=== PATIENT | male | born 1960 | race Hispanic/Latino ===

== ENCOUNTER 2018-08-25 13:06 | Inpatient (IN) | payer MEDICAID ==
[2018-08-25] MEDS ORDERED: Piperacillin/Tazobact 3.375 gm 100 ML IVPB STA (14:39)
[2018-08-25 14:43] VITALS: BMI 30.5
[2018-08-25 15:27] LABS: BASO # 0.07 K/mm3 (0.0-2.0); BASO % 0.6 % (0.0-3.0); EOS # 0.5 (0.0-0.7); EOS % 3.7 % (1.5-5.0); GRAN # 7.2 (1.4-6.5); GRAN % 57.1 % (50.0-68.0); HEMOGLOBIN 16.3 g/dL (14.0-18.0); LYMPH % 31.9 % (22.0-35.0); MEAN CELL VOLUME 89.3 fl (80.0-105.0); MEAN CORPUSCULAR HEMOGLOBIN 31.1 pg (25.0-35.0); MEAN CORPUSCULAR HGB CONC 34.8 g/dl (31.0-37.0); MONO # 0.9 (0.1-0.6); MONO % 6.7 % (1.0-6.0); RBC 5.24 10^6/uL (3.5-6.1); WHITE BLOOD COUNT 12.6 10^3/ul (4.5-11.0)
[2018-08-25 15:39] LABS: ALB/GLOB RATIO 1.2 (1.1-1.8); ALBUMIN 4.2 g/dL (3.0-4.8); ALT/SGPT 17 U/L (7-56); AST/SGOT 23 U/L (17-59); BLOOD UREA NITROGEN 18 mg/dL (7-21); CALCIUM 9.5 mg/dL (8.4-10.5); GFR NON-AFRICAN AMERICAN > 60
--- NOTE | 2018-08-25 15:57 | RAD ---
Date of service: 08/25/2018 HISTORY: Admission. COMPARISON: 07/03/2016 FINDINGS: LUNGS: No active pulmonary disease. PLEURA: No significant pleural effusion identified, no pneumothorax apparent. CARDIOVASCULAR: No radiographic findings to suggest acute or significant cardiovascular disease. OSSEOUS STRUCTURES: No significant abnormalities. VISUALIZED UPPER ABDOMEN: Normal. OTHER FINDINGS: None. IMPRESSION: No active disease. No significant interval change compared to the prior examination(s).
--- NOTE | 2018-08-25 16:12 | ED PDOC ---
Arrival/HPI - General Chief Complaint: Abnormal Skin Integrity Time Seen by Provider: 08/25/18 14:38 Historian: Patient - History of Present Illness Narrative History of Present Illness (Text): 08/26/18 18:38 58yo male with pmhx of hypertension and Diabetes who was referred to ED by Dr. Diana for admission. Pt states he saw her today and after the wound care he was referred to ED for positive wound culture for admission. He denies fever, chills, nausea, vomiting, chest pain, SOB, any other complaint. Past Medical History - Provider Review Nursing Documentation Reviewed: Yes - Infectious Disease Hx of Infectious Diseases: None - Tetanus Immunization Tetanus Immunization: Unknown - Cardiac Hx Cardiac Disorders: Yes Hx NC: Yes Hx Hypertension: Yes - Pulmonary Hx Respiratory Disorders: No - Neurological Hx Neurological Disorder: No - HEENT Hx HEENT Disorder: Yes (Wears glasses.) - Renal Hx Renal Disorder: No - Endocrine/Metabolic Hx Diabetes Mellitus Type 2: Yes - Hematological/Oncological Hx Blood Disorders: No - Integumentary Hx Dermatological Disorder: Yes (Diabetic ulcers.) - Musculoskeletal/Rheumatological Hx Musculoskeletal Disorders: No Hx Falls: No - Gastrointestinal Hx Gastrointestinal Disorders: No - Genitourinary/Gynecological Hx Genitourinary Disorders: No - Psychiatric Hx Psychophysiologic Disorder: No Hx Substance Use: No - Surgical History Hx Cardiac Catheterization: Yes (2005 Cath with Cardiac Stent Placement.) Hx Coronary Stent: Yes (2005) - Anesthesia Hx Anesthesia: No Family/Social History - Physician Review Nursing Documentation Reviewed: Yes Family/Social History: Unknown Family HX Smoking Status: Former Smoker Hx Alcohol Use: No Hx Substance Use: No Allergies/Home Meds Allergies/Adverse Reactions: Allergies EGG Allergy (Severe, Verified 07/25/16 13:40) SWELLING States swelling of the face. Home Medications: Home Meds Medication Instructions Recorded Confirmed metFORMIN [glucOPHAGE] 1,000 mg PO BID 07/03/16 08/25/18 Cholecalciferol [Vitamin D 1000 IU] 2,000 mg PO DAILY 09/06/17 08/25/18 Gabapentin [Neurontin] 100 mg PO TID 09/06/17 08/25/18 Empagliflozin [Jardiance] 10 mg PO DAILY 08/25/18 08/25/18 Lisinopril [Zestril] 2.5 mg PO DAILY 08/25/18 08/25/18 RX: Simvastatin 5 mg PO HS 08/25/18 08/25/18 Review of Systems - Physician Review All systems were reviewed & negative as marked: Yes - Review of Systems Constitutional: Normal Eyes: Normal ENT: Normal Respiratory: Normal Cardiovascular: Normal Gastrointestinal: Normal Genitourinary Male: Normal Musculoskeletal: Other (Left foot osteomylitis) Skin: Normal Neurological: Normal Endocrine: Normal Hemo/Lymphatic: Normal Psychiatric: Normal Physical Exam Vital Signs Reviewed: Yes Vital Signs Temp Pulse Resp BP Pulse Ox 08/25/18 18:00 98.1 F 93 H 18 103/80 98 08/25/18 16:00 98.1 F 88 19 97 08/25/18 14:42 98.3 F 90 18 100/66 98 Temperature: Afebrile Blood Pressure: Normal Pulse: Regular Respiratory Rate: Normal Appearance: Positive for: Well-Appearing, Non-Toxic, Comfortable Pain Distress: None Mental Status: Positive for: Alert and Oriented X 3 - Systems Exam Head: Present: Atraumatic, Normocephalic Pupils: Present: PERRL Extroacular Muscles: Present: EOMI Conjunctiva: Present: Normal Mouth: Present: Moist Mucous Membranes Neck: Present: Normal Range of Motion Respiratory/Chest: Present: Clear to Auscultation, Good Air Exchange. No: Respiratory Distress, Accessory Muscle Use Cardiovascular: Present: Regular Rate and Rhythm, Normal S1, S2. No: Murmurs Abdomen: No: Tenderness, Distention, Peritoneal Signs Back: Present: Normal Inspection Upper Extremity: Present: Normal Inspection. No: Cyanosis, Edema Lower Extremity: Present: Normal Inspection, Other (Dressing noted on left foot). No: Edema Neurological: Present: GCS=15, CN II-XII Intact, Speech Normal Skin: Present: Warm, Dry, Normal Color. No: Rashes Psychiatric: Present: Alert, Oriented x 3, Normal Insight, Normal Concentration Medical Decision Making ED Course and Treatment: 08/26/18 18:34 PT referred to ED for admission for osteomylitis. He was afebrile and hemodynamically stable. He had mild leukocytosis. He already had a wound culture that was positive for klebsiella. He was started on Zosyn as per Dr. Diana request. Case was DW the hodpitalist and pt was admitted. - Lab Interpretations Microbiology Results: Microbiology Results 08/25/18 15:23 Blood-Venous Blood Culture - Preliminary NO GROWTH AFTER 24 HOURS 08/25/18 15:00 Blood-Venous Blood Culture - Preliminary NO GROWTH AFTER 24 HOURS Lab Results: 08/25/18 15:23 08/25/18 15:23 Lab Results 08/25/18 15:23: C-Reactive Protein 24.10 H, Triglycerides 115, Cholesterol 89 L, LDL Cholesterol Direct 47, HDL Cholesterol 25 L 08/25/18 15:23: Sodium 139, Potassium 4.3, Chloride 102, Carbon Dioxide 28, Anion Gap 14, BUN 18, Creatinine 0.9, Est GFR ( Amer) > 60, Est GFR (Non- Af Amer) > 60, Random Glucose 126 H, Calcium 9.5, Total Bilirubin 0.5, AST 23, ALT 17, Alkaline Phosphatase 56, Total Protein 7.6, Albumin 4.2, Globulin 3.4, Albumin/Globulin Ratio 1.2 08/25/18 15:23: WBC 12.6 H D, RBC 5.24, Hgb 16.3, Hct 46.8, MCV 89.3, MCH 31.1, MCHC 34.8, RDW 13.0, Plt Count 180, MPV 10.0, Gran % 57.1, Lymph % (Auto) 31.9, Chase % (Auto) 6.7 H, Eos % (Auto) 3.7, Baso % (Auto) 0.6, Gran # 7.20 H, Lymph # (Auto) 4.0 H, Chase # (Auto) 0.9 H, Eos # (Auto) 0.5, Baso # (Auto) 0.07 - RAD Interpretation Radiology Orders: 08/25/18 15:11 CHEST PORTABLE [RAD] Stat - Medication Orders Current Medication Orders: Atorvastatin Calcium (Lipitor) 10 mg PO DIN DAVID Last Admin: 08/26/18 16:57 Dose: 10 mg Dextrose (Dextrose 50% Inj) 0 ml IV STAT PRN; Protocol PRN Reason: Hypoglycemia Protocol Famotidine (Pepcid) 40 mg PO HS DAVID Last Admin: 08/25/18 21:38 Dose: 40 mg Gabapentin (Neurontin) 100 mg PO TID DAVID; Protocol Last Admin: 08/26/18 16:59 Dose: 100 mg Behavioural Document 08/26/18 16:59 CV (Rec: 08/26/18 16:59 CV [id number]) Maintenance Maintenance Dose Yes Dextrose (Dextrose 5% In Water 1000 Ml) 1,000 mls @ 0 mls/hr IV .Q0M PRN; Protocol PRN Reason: Hypoglycemia Protocol Insulin Human Regular (Humulin R Med) 0 units SC ACHS DAVID; Protocol Last Admin: 08/26/18 12:00 Dose: Not Given Non-Admin Reason: BP Parameters Not Met Lisinopril (Zestril) 2.5 mg PO DAILY DAVID Discontinued Medications Aspirin (Aspirin Chewable) 81 mg PO STAT STA Stop: 08/25/18 18:13 Last Admin: 08/25/18 20:02 Dose: 81 mg Gabapentin (Neurontin) 100 mg PO TID DAVID; Protocol Gabapentin (Neurontin) 100 mg PO ONCE ONE; Protocol Stop: 08/25/18 21:16 Last Admin: 08/25/18 21:37 Dose: 100 mg Piperacillin Sod/Tazobactam Sod (Zosyn 3.375 In Ns 100ml) 100 mls @ 200 mls/hr IVPB STAT STA; Protocol Stop: 08/25/18 15:08 Last Admin: 08/25/18 15:25 Dose: 200 mls/hr eMAR Start Stop Document 08/25/18 15:25 [email or web address] (Rec: 08/25/18 15:26 [email or web address] [id number]) Intravenous Solution Start Date 08/25/18 Start Time 15:26 Piperacillin Sod/Tazobactam Sod (Zosyn 3.375 In Ns 100ml) 100 mls @ 200 mls/hr IVPB Q6 DAVID; Protocol Stop: 08/26/18 00:29 Last Admin: 08/25/18 23:58 Dose: 200 mls/hr eMAR Start Stop Document 08/25/18 23:58 MJ (Rec: 08/25/18 23:59 [facility] [id number]) Intravenous Solution Start Date 08/25/18 Start Time 23:58 End Date 08/26/18 End time 00:28 Total Infusion Time 30 Lisinopril (Zestril) 5 mg PO STAT STA Stop: 08/25/18 18:13 Pneumococcal Polyvalent Vaccine (Pneumovax 23 Vaccine) 0.5 ml IM .ONCE ONE Stop: 08/25/18 22:05 Disposition/Present on Arrival - Present on Arrival Any Indicators Present on Arrival: No History of DVT/PE: No History of Uncontrolled Diabetes: No Urinary Catheter: No History of Decub. Ulcer: No History Surgical Site Infection Following: None - Disposition Have Diagnosis and Disposition been Completed?: Yes Diagnosis: Osteomyelitis Disposition: HOSPITALIZED Disposition Time: 15:40 Patient Plan: Admission Patient Problems: Current Active Problems Problem Status Onset Osteomyelitis Acute Condition: STABLE
--- NOTE | 2018-08-25 18:02 | CP.PCM.HP ---
<Tamy Blunt - Last Filed: 08/25/18 18:10> History of Present Illness - History of Present Illness History of Present Illness: PGY-1 Tamy Blunt H&P for Dr. Christian's service CC: Dr. Diana recommendation to go to ER Patient is a 58 y.o male with PMH of DM, [place] (2005 no stents), and right foot ulcer presents to ED for evaluation of right foot ulcer. Patient was at wound care today and his doctor, Dr. Diana, recommended he got to the ER to rule out osteomyelitis. Patient states he has this ongoing infection for 13 months that was being treated with oral amoxicillin. The ulcer would heal and then worsen according to patient during treatment. Patient describes it to be a sharp, stabbing sensation when he stands on it, nonradiating, 6/10 on pain scale. Patient states that he feels his foot was numb but attributes this to his chronic neuropathy. Patient denies fevers, chills, headaches, changes in vision, lightheadedness, dizziness, chest pain, sob, n/v, constipation or diarrhea, and dysuria. PMH- DM, [place] (2005), ulcer PSH- Knee surgery (1995) FH- Father (DM), Mother (lung cancer- ) Meds- Metforming 1000mg bid, Gabapentin 100mg tid, Asa 81mg daily, Lisinopril 2.5mg daily, Jardiance 10mg po daily, Simvastatin 5mg po daily Allergies- Eggs (does not remember) Social- 20 pack year history, Denies alcohol and drug use PMD- Dr. Oj Al [facility] [place]- Full code Present on Admission - Present on Admission Any Indicators Present on Admission: No Review of Systems - Review of Systems Review of Systems: 12 point ROS obtained and noted as in HPI Past Patient History - Infectious Disease Hx of Infectious Diseases: None - Tetanus Immunizations Tetanus Immunization: Unknown - Past Social History Smoking Status: Former Smoker - CARDIAC Hx Cardiac Disorders: Yes Hx Heart Attack: Yes Hx Hypertension: Yes - PULMONARY Hx Respiratory Disorders: No - NEUROLOGICAL Hx Neurological Disorder: No - HEENT Hx HEENT Problems: Yes (Wears glasses.) - RENAL Hx Chronic Kidney Disease: No - ENDOCRINE/METABOLIC Hx Diabetes Mellitus Type 2: Yes - HEMATOLOGICAL/ONCOLOGICAL Hx Blood Disorders: No - INTEGUMENTARY Hx Dermatological Problems: Yes (Diabetic ulcers.) - MUSCULOSKELETAL/RHEUMATOLOGICAL Hx Musculoskeletal Disorders: No Hx Falls: No - GASTROINTESTINAL Hx Gastrointestinal Disorders: No - GENITOURINARY/GYNECOLOGICAL Hx Genitourinary Disorders: No - PSYCHIATRIC Hx Psychophysiologic Disorder: No Hx Substance Use: No - SURGICAL HISTORY Hx Cardiac Catheterization: Yes (2005 Cath with Cardiac Stent Placement.) Hx Coronary Stent: Yes (2005) - ANESTHESIA Hx Anesthesia: No Meds Allergies/Adverse Reactions: Allergies Allergy/AdvReac Type Severity Reaction Status Date / Time EGG Allergy Severe SWELLING Verified 07/25/16 13:40 Physical Exam - Constitutional Appears: Non-toxic, No Acute Distress - Head Exam Head Exam: NORMAL INSPECTION, NORMOCEPHALIC - Eye Exam Eye Exam: EOMI, Normal appearance. absent: Nystagmus, Scleral icterus - ENT Exam ENT Exam: Mucous Membranes Moist - Respiratory Exam Respiratory Exam: Clear to Auscultation Bilateral, NORMAL BREATHING PATTERN. absent: Rales, Rhonchi, Wheezes - Cardiovascular Exam Cardiovascular Exam: REGULAR RHYTHM, +S1, +S2 - GI/Abdominal Exam GI & Abdominal Exam: Normal Bowel Sounds, Soft. absent: Tenderness - Extremities Exam Additional comments: Left foot wrapped in dressing no erythema, oozing, or pus noted indurated ulcer less than 1 inch in diameter - Neurological Exam Neurological exam: Alert, Oriented x3 - Psychiatric Exam Psychiatric exam: Normal Affect, Normal Mood - Skin Skin Exam: Intact, Normal Color Results - Vital Signs Recent Vital Signs: Last Vital Signs Temp 98.3 F 08/25/18 14:42 Pulse 90 08/25/18 14:42 Resp 18 08/25/18 14:42 BP 100/66 08/25/18 14:42 Pulse Ox 98 08/25/18 14:42 - Labs Result Diagrams: 08/25/18 15:23 08/25/18 15:23 Assessment & Plan - Assessment and Plan (Free Text) Assessment: Patient is a 58 yo male with PMH of DM, [place] (2005), ulcer presents to ED after being in wound care clinic with concerns of possible osteomyelitis from ulcer on left foot. Plan: Ulcer ID consulted - recs appreciated Podiatry consulted- recs appreciated Foot Xray pending CRP, ESR pending Zosyn 3.375g IV q6; may start Vanc will wait for recommendations WBC 12.6; Afebrile Repeat CBC in AM DM Home meds held ISS- med dose ACHS Hypogylemic protocol History of [place] Aspirin 81mg po daily Lisinopril 2.5mg po daily CAD Lipitor 10mg po daily Pending Lipid panel PPx GI ppx: Pepcid 40mg po DVT ppx: SCDs <GinoFanta polo A - Last Filed: 08/26/18 13:53> Results - Vital Signs Recent Vital Signs: Last Vital Signs Temp 98.5 F 08/26/18 06:00 Pulse 60 08/26/18 06:00 Resp 20 08/26/18 06:00 BP 139/75 08/26/18 06:00 Pulse Ox 98 08/26/18 06:00 - Labs Result Diagrams: 08/26/18 06:20 08/26/18 06:20 Labs: Laboratory Results - last 24 hr 08/25/18 08/25/18 08/25/18 15:23 15:23 15:23 WBC 12.6 H D RBC 5.24 Hgb 16.3 Hct 46.8 MCV 89.3 MCH 31.1 MCHC 34.8 RDW 13.0 Plt Count 180 MPV 10.0 Gran % 57.1 Lymph % (Auto) 31.9 [place] % (Auto) 6.7 H Eos % (Auto) 3.7 Baso % (Auto) 0.6 Gran # 7.20 H Lymph # (Auto) 4.0 H [place] # (Auto) 0.9 H Eos # (Auto) 0.5 Baso # (Auto) 0.07 ESR Sodium 139 Potassium 4.3 Chloride 102 Carbon Dioxide 28 Anion Gap 14 BUN 18 Creatinine 0.9 Est GFR ( Amer) > 60 Est GFR (Non-Af Amer) > 60 POC Glucose (mg/dL) Random Glucose 126 H Calcium 9.5 Phosphorus Magnesium Total Bilirubin 0.5 AST 23 ALT 17 Alkaline Phosphatase 56 C-Reactive Protein 24.10 H Total Protein 7.6 Albumin 4.2 Globulin 3.4 Albumin/Globulin Ratio 1.2 Triglycerides 115 Cholesterol 89 L LDL Cholesterol Direct 47 HDL Cholesterol 25 L 08/25/18 08/26/18 08/26/18 21:41 06:20 06:20 WBC 10.6 RBC 5.16 Hgb 15.5 Hct 46.2 MCV 89.5 MCH 30.0 MCHC 33.5 RDW 13.2 Plt Count 171 MPV 10.0 Gran % 54.1 Lymph % (Auto) 31.1 [place] % (Auto) 9.0 H Eos % (Auto) 4.9 Baso % (Auto) 0.9 Gran # 5.74 Lymph # (Auto) 3.3 [place] # (Auto) 1.0 H Eos # (Auto) 0.5 Baso # (Auto) 0.10 ESR 31 H Sodium 140 Potassium 4.3 Chloride 104 Carbon Dioxide 29 Anion Gap 11 BUN 15 Creatinine 1.0 Est GFR ( Amer) > 60 Est GFR (Non-Af Amer) > 60 POC Glucose (mg/dL) 219 H Random Glucose 122 H Calcium 9.0 Phosphorus 4.0 Magnesium 2.3 H Total Bilirubin 0.5 AST 23 ALT 15 Alkaline Phosphatase 51 C-Reactive Protein Total Protein 7.2 Albumin 3.8 Globulin 3.4 Albumin/Globulin Ratio 1.1 Triglycerides Cholesterol LDL Cholesterol Direct HDL Cholesterol 08/26/18 08/26/18 06:51 11:22 WBC RBC Hgb Hct MCV MCH MCHC RDW Plt Count MPV Gran % Lymph % (Auto) [place] % (Auto) Eos % (Auto) Baso % (Auto) Gran # Lymph # (Auto) [place] # (Auto) Eos # (Auto) Baso # (Auto) ESR Sodium Potassium Chloride Carbon Dioxide Anion Gap BUN Creatinine Est GFR ( Amer) Est GFR (Non-Af Amer) POC Glucose (mg/dL) 112 H 211 H Random Glucose Calcium Phosphorus Magnesium Total Bilirubin AST ALT Alkaline Phosphatase C-Reactive Protein Total Protein Albumin Globulin Albumin/Globulin Ratio Triglycerides Cholesterol LDL Cholesterol Direct HDL Cholesterol Attending/Attestation - Attestation I have personally seen and examined this patient.: Yes I have fully participated in the care of the patient.: Yes I have reviewed all pertinent clinical information: Yes Notes (Text): 08/25/18 58 year old male with past medical history of diabetes and [place] who presents with nonhealing foot ulcer. He was referred by podiatry to rule out osteomyelitis. Will obtain ESR/CRP and foot xray. Continue with iv antibiotics. ID and podiatry evaluation are requested. Fanta Christian MD Hospitalist.
[2018-08-25] MEDS ORDERED: Dextrose 50% SYRINGE Inj (50 ml) IV PRN (18:16)
--- NOTE | 2018-08-25 18:44 | RAD ---
Date of service: 08/25/2018 PROCEDURE: Left Foot Radiographs. HISTORY: Osteomyelitis COMPARISON: Left foot radiographs dated 06/19/2018 FINDINGS: BONES: No acute fracture or obvious periosteal reaction. Multiple hammertoe deformities. JOINTS: Slightly medial deviation of the 5th digit at the metatarsophalangeal joint. SOFT TISSUES: Normal. OTHER FINDINGS: Achilles enthesophyte. Small inferior plantar calcaneal spur. IMPRESSION: No evidence of osteomyelitis. No significant interval change.
[2018-08-25] MEDS: Piperacillin/Tazobact 3.375 gm 100 ML IVPB SCH ×2 (20:01→23:58)
[2018-08-25] MEDS ORDERED: Pneumococcal 23-Valent Vaccine IM ONE (22:04)
[2018-08-26 07:01] LABS: BASO # 0.1 K/mm3 (0.0-2.0); BASO % 0.9 % (0.0-3.0); EOS # 0.5 (0.0-0.7); EOS % 4.9 % (1.5-5.0); GRAN # 5.74 (1.4-6.5); GRAN % 54.1 % (50.0-68.0); HEMOGLOBIN 15.5 g/dL (14.0-18.0); LYMPH # 3.3 (1.2-3.4); LYMPH % 31.1 % (22.0-35.0); MEAN CELL VOLUME 89.5 fl (80.0-105.0); MEAN CORPUSCULAR HGB CONC 33.5 g/dl (31.0-37.0); RBC 5.16 10^6/uL (3.5-6.1); RED CELL DISTRIBUTION WIDTH 13.2 % (11.5-14.5); WHITE BLOOD COUNT 10.6 10^3/ul (4.5-11.0)
[2018-08-26 07:14] LABS: ALB/GLOB RATIO 1.1 (1.1-1.8); ALBUMIN 3.8 g/dL (3.0-4.8); ALT/SGPT 15 U/L (7-56); AST/SGOT 23 U/L (17-59); BLOOD UREA NITROGEN 15 mg/dL (7-21); GFR NON-AFRICAN AMERICAN > 60
[2018-08-26] MEDS: Insulin Reg-MEDIUM-Coverage SC SCH ×3 (08:31→16:58)
--- NOTE | 2018-08-26 08:59 | CP.PCM.CON ---
<Virginia Traore - Last Filed: 08/26/18 14:29> History of Present Illness - History of Present Illness History of Present Illness: PGY-[address] Burnett Reason for consult: osteomyelitis Patient is a 55 y/o male with PMHx of NIDD2, osteomyelitis of the left foot, h/o right foot MRSA sent from wound care clinic yesterday for non healing right plantar foot wound. Patient states he was diagnosed with right plantar foot osteomyelitis for 13 months, and completed multiple round of antibiotics, last time was as recent as last week. Each time the wound would heal, then reopen few months later. This time around the wound opened up and started draining purulent discharge almost 3 days [address] Patient saw Dr. Diana yesterday in the clinic and was sent to be admitted for iv abx. Patient otherwise denies fever or chills. No nausea, vomiting or diarrhea. no sob or cp. PMHx: NIDD2, osteomyelitis of the left foot, h/o right foot MRSA, neuropathy, CAD PSHx: right foot surgery, knee surgery 1995 FMHx: non contributory Social: former tobacco, no alcohol or illicit drug use. Allergy: egg Home meds: as per chart. Review of Systems - Constitutional Constitutional: absent: Chills, Fever, Headache, Malaise - EENT Eyes: absent: Blurred Vision Ears: absent: Dizziness Nose/Mouth/Throat: absent: Sore Throat - Cardiovascular Cardiovascular: Leg Ulcers. absent: Chest Pain, Edema, Leg Edema - Respiratory Respiratory: absent: Cough, Wheezing - Gastrointestinal Gastrointestinal: absent: Bloating, Diarrhea, Heartburn, Nausea, Vomiting - Genitourinary Genitourinary: absent: Dysuria, Urinary Frequency - Musculoskeletal Musculoskeletal: absent: Back Pain, Joint Swelling, Stiffness, Tingling - Integumentary Integumentary: Skin Ulcer, Sores, Wounds. absent: Swelling - Neurological Neurological: absent: Confusion, Disequilibrium, Dizziness, Weakness - Psychiatric Psychiatric: absent: Anxiety, Depression - Endocrine Endocrine: absent: Fatigue, Palpitations - Hematologic/Lymphatic Hematologic: absent: Easy Bleeding, Easy Bruising, Lymphadenopathy Past Patient History - Infectious Disease Hx of Infectious Diseases: None - Tetanus Immunizations Tetanus Immunization: Unknown - Past Social History Smoking Status: Former Smoker Alcohol: None Drugs: Denies Home Situation {Lives}: Alone - CARDIAC Hx Cardiac Disorders: Yes (mi) Hx Hypercholesterolemia: Yes Hx Hypertension: Yes Hx Peripheral Vascular Disease: Yes (left leg) - PULMONARY Hx Respiratory Disorders: No - NEUROLOGICAL Hx Neurological Disorder: No - HEENT Hx HEENT Problems: Yes (Wears glasses.) - RENAL Hx Chronic Kidney Disease: No - ENDOCRINE/METABOLIC Hx Endocrine Disorders: Yes Hx Diabetes Mellitus Type 2: Yes - HEMATOLOGICAL/ONCOLOGICAL Hx Blood Disorders: No - INTEGUMENTARY Hx Dermatological Problems: Yes (Diabetic ulcers.) Other/Comment: small hole 0.3cm to ball of left foot no drainage at present time above that is small dry closed wound 0.3cm, left great toe 0.5cm callous , multiple skin discolorations and scabs ble, multiple hyperbaric treatments, right foot wound healed - MUSCULOSKELETAL/RHEUMATOLOGICAL Hx Falls: No - GASTROINTESTINAL Hx Gastrointestinal Disorders: Yes (obese) - GENITOURINARY/GYNECOLOGICAL Hx Genitourinary Disorders: No - PSYCHIATRIC Hx Substance Use: No - SURGICAL HISTORY Hx Surgeries: Yes (SX TO RIGHT FOOT JUL 2016,CARD CATH WITH HEART STENT) Hx Cardiac Catheterization: Yes (2005 Cath with Cardiac Stent Placement.) Hx Coronary Stent: Yes (2005) Hx Orthopedic Surgery: Yes (KNEE SX,TORN ACL,MCL right knee) Other/Comment: cardiac cath with stent - ANESTHESIA Hx Anesthesia: No Meds Allergies/Adverse Reactions: Allergies Allergy/AdvReac Type Severity Reaction Status Date / Time EGG Allergy Severe SWELLING Verified 07/25/16 13:40 - Medications Medications: Current Medications Atorvastatin Calcium (Lipitor) 10 mg PO DIN COUNT INCLUDES THE [facility] Last Admin: 08/25/18 21:39 Dose: 10 mg Dextrose (Dextrose 50% Inj) 0 ml IV STAT PRN; Protocol PRN Reason: Hypoglycemia Protocol Famotidine (Pepcid) 40 mg PO HS DAVID Last Admin: 08/25/18 21:38 Dose: 40 mg Gabapentin (Neurontin) 100 mg PO TID DAVID; Protocol Dextrose (Dextrose 5% In Water 1000 Ml) 1,000 mls @ 0 mls/hr IV .Q0M PRN; Protocol PRN Reason: Hypoglycemia Protocol Insulin Human Regular (Humulin R Med) 0 units SC ACHS DAVID; Protocol Last Admin: 08/26/18 08:31 Dose: 1 unit Physical Exam - Constitutional Appears: No Acute Distress - Head Exam Head Exam: ATRAUMATIC, NORMAL INSPECTION, NORMOCEPHALIC - Eye Exam Eye Exam: Normal appearance - ENT Exam ENT Exam: Mucous Membranes Moist - Neck Exam Neck exam: Positive for: Normal Inspection - Respiratory Exam Respiratory Exam: Clear to Auscultation Bilateral, NORMAL BREATHING PATTERN. absent: Rales, Rhonchi, Wheezes, Respiratory Distress, Stridor - Cardiovascular Exam Cardiovascular Exam: REGULAR RHYTHM, RRR, +S1, +S2 - GI/Abdominal Exam GI & Abdominal Exam: Normal Bowel Sounds, Soft. absent: Distended, Firm, Guarding, Rebound, Rigid, Tenderness - Extremities Exam Additional comments: Unable to palpate dorsalis pedis pulses thomas - Back Exam Back exam: NORMAL INSPECTION - Neurological Exam Neurological exam: Alert, Oriented x3 Additional comments: + numbness of the thomas feet. Sensation intact in thomas legs. - Psychiatric Exam Psychiatric exam: Normal Affect, Normal Mood - Skin Additional comments: The thomas extremities appears pink and warm, no cyanosis noted. Thomas foot with decreased sensation left plantar of the 5th toe with <1cm open wound, no drainage, no cellulites, non foul smelling, tender to touch. Right 5th toe with old surgical scars. Results - Vital Signs Recent Vital Signs: Last Vital Signs Temp 98.5 F 08/26/18 06:00 Pulse 60 08/26/18 06:00 Resp 20 08/26/18 06:00 BP 139/75 08/26/18 06:00 Pulse Ox 98 08/26/18 06:00 - Labs Result Diagrams: 08/26/18 06:20 08/26/18 06:20 Labs: Laboratory Results - last 24 hr 08/25/18 08/25/18 08/25/18 15:23 15:23 15:23 WBC 12.6 H D RBC 5.24 Hgb 16.3 Hct 46.8 MCV 89.3 MCH 31.1 MCHC 34.8 RDW 13.0 Plt Count 180 MPV 10.0 Gran % 57.1 Lymph % (Auto) 31.9 [place] % (Auto) 6.7 H Eos % (Auto) 3.7 Baso % (Auto) 0.6 Gran # 7.20 H Lymph # (Auto) 4.0 H [place] # (Auto) 0.9 H Eos # (Auto) 0.5 Baso # (Auto) 0.07 Sodium 139 Potassium 4.3 Chloride 102 Carbon Dioxide 28 Anion Gap 14 BUN 18 Creatinine 0.9 Est GFR ( Amer) > 60 Est GFR (Non-Af Amer) > 60 POC Glucose (mg/dL) Random Glucose 126 H Calcium 9.5 Phosphorus Magnesium Total Bilirubin 0.5 AST 23 ALT 17 Alkaline Phosphatase 56 Total Protein 7.6 Albumin 4.2 Globulin 3.4 Albumin/Globulin Ratio 1.2 Triglycerides 115 Cholesterol 89 L LDL Cholesterol Direct 47 HDL Cholesterol 25 L 08/25/18 08/26/18 08/26/18 21:41 06:20 06:20 WBC 10.6 RBC 5.16 Hgb 15.5 Hct 46.2 MCV 89.5 MCH 30.0 MCHC 33.5 RDW 13.2 Plt Count 171 MPV 10.0 Gran % 54.1 Lymph % (Auto) 31.1 [place] % (Auto) 9.0 H Eos % (Auto) 4.9 Baso % (Auto) 0.9 Gran # 5.74 Lymph # (Auto) 3.3 [place] # (Auto) 1.0 H Eos # (Auto) 0.5 Baso # (Auto) 0.10 Sodium 140 Potassium 4.3 Chloride 104 Carbon Dioxide 29 Anion Gap 11 BUN 15 Creatinine 1.0 Est GFR ( Amer) > 60 Est GFR (Non-Af Amer) > 60 POC Glucose (mg/dL) 219 H Random Glucose 122 H Calcium 9.0 Phosphorus 4.0 Magnesium 2.3 H Total Bilirubin 0.5 AST 23 ALT 15 Alkaline Phosphatase 51 Total Protein 7.2 Albumin 3.8 Globulin 3.4 Albumin/Globulin Ratio 1.1 Triglycerides Cholesterol LDL Cholesterol Direct HDL Cholesterol 08/26/18 06:51 WBC RBC Hgb Hct MCV MCH MCHC RDW Plt Count MPV Gran % Lymph % (Auto) [place] % (Auto) Eos % (Auto) Baso % (Auto) Gran # Lymph # (Auto) [place] # (Auto) Eos # (Auto) Baso # (Auto) Sodium Potassium Chloride Carbon Dioxide Anion Gap BUN Creatinine Est GFR ( Amer) Est GFR (Non-Af Amer) POC Glucose (mg/dL) 112 H Random Glucose Calcium Phosphorus Magnesium Total Bilirubin AST ALT Alkaline Phosphatase Total Protein Albumin Globulin Albumin/Globulin Ratio Triglycerides Cholesterol LDL Cholesterol Direct HDL Cholesterol Assessment & Plan - Assessment and Plan (Free Text) Assessment: Patient is a 58 y/o with: Open left plantar 5th toes ulcer r/o osteomyelitis NIDD2, h/o osteomyelitis of the left foot, h/o right foot MRSA, neuropathy CAD Plan: Patient received a dose of zosyn in the ED. WBC of 12.6 on admission, leukocytosis has trended down, afebrile, and patient doesnt appear toxic. Lower extremity plain film with bone spur, with no evidence of osteo. MRI ordered to evaluate for osteo, and arterial u/s ordered to evaluate the vasculature. Blood cultures were sent. Podiatry consulted. ESR was sent, Will hold of antibiotics for now, Discuss with pneumatic tester depending on the MRI finding to develop treatment plan. Continue with glycemic control, medical management as per primary. Patient seen, examined and case discussed with Dr. Burnett. - Date & Time Date: 08/26/18 Time: 12:30 <Marcos Burnett S - Last Filed: 08/26/18 20:08> Meds - Medications Medications: Current Medications Atorvastatin Calcium (Lipitor) 10 mg PO DIN COUNT INCLUDES THE [facility] Last Admin: 08/26/18 16:57 Dose: 10 mg Dextrose (Dextrose 50% Inj) 0 ml IV STAT PRN; Protocol PRN Reason: Hypoglycemia Protocol Famotidine (Pepcid) 40 mg PO HS DAVID Last Admin: 08/25/18 21:38 Dose: 40 mg Gabapentin (Neurontin) 100 mg PO TID DAVID; Protocol Last Admin: 08/26/18 16:59 Dose: 100 mg Dextrose (Dextrose 5% In Water 1000 Ml) 1,000 mls @ 0 mls/hr IV .Q0M PRN; Protocol PRN Reason: Hypoglycemia Protocol Insulin Human Regular (Humulin R Med) 0 units SC ACHS DAVID; Protocol Last Admin: 08/26/18 16:58 Dose: 1 unit Lisinopril (Zestril) 2.5 mg PO DAILY COUNT INCLUDES THE [facility] Results - Vital Signs Recent Vital Signs: Last Vital Signs Temp 98.5 F 08/26/18 06:00 Pulse 60 08/26/18 06:00 Resp 20 08/26/18 06:00 BP 139/75 08/26/18 06:00 Pulse Ox 98 08/26/18 06:00 - Labs Result Diagrams: 08/26/18 06:20 08/26/18 06:20 Labs: Laboratory Results - last 24 hr 08/25/18 08/25/1818 15:23 21:41 06:20 WBC 10.6 RBC 5.16 Hgb 15.5 Hct 46.2 MCV 89.5 MCH 30.0 MCHC 33.5 RDW 13.2 Plt Count 171 MPV 10.0 Gran % 54.1 Lymph % (Auto) 31.1 [place] % (Auto) 9.0 H Eos % (Auto) 4.9 Baso % (Auto) 0.9 Gran # 5.74 Lymph # (Auto) 3.3 [place] # (Auto) 1.0 H Eos # (Auto) 0.5 Baso # (Auto) 0.10 ESR 31 H Sodium Potassium Chloride Carbon Dioxide Anion Gap BUN Creatinine Est GFR ( Amer) Est GFR (Non-Af Amer) POC Glucose (mg/dL) 219 H Random Glucose Calcium Phosphorus Magnesium Total Bilirubin AST ALT Alkaline Phosphatase C-Reactive Protein 24.10 H Total Protein Albumin Globulin Albumin/Globulin Ratio 08/26/18 08/26/18 08/26/18 06:20 06:51 11:22 WBC RBC Hgb Hct MCV MCH MCHC RDW Plt Count MPV Gran % Lymph % (Auto) [place] % (Auto) Eos % (Auto) Baso % (Auto) Gran # Lymph # (Auto) [place] # (Auto) Eos # (Auto) Baso # (Auto) ESR Sodium 140 Potassium 4.3 Chloride 104 Carbon Dioxide 29 Anion Gap 11 BUN 15 Creatinine 1.0 Est GFR ( Amer) > 60 Est GFR (Non-Af Amer) > 60 POC Glucose (mg/dL) 112 H 211 H Random Glucose 122 H Calcium 9.0 Phosphorus 4.0 Magnesium 2.3 H Total Bilirubin 0.5 AST 23 ALT 15 Alkaline Phosphatase 51 C-Reactive Protein Total Protein 7.2 Albumin 3.8 Globulin 3.4 Albumin/Globulin Ratio 1.1 08/26/18 16:18 WBC RBC Hgb Hct MCV MCH MCHC RDW Plt Count MPV Gran % Lymph % (Auto) [place] % (Auto) Eos % (Auto) Baso % (Auto) Gran # Lymph # (Auto) [place] # (Auto) Eos # (Auto) Baso # (Auto) ESR Sodium Potassium Chloride Carbon Dioxide Anion Gap BUN Creatinine Est GFR ( Amer) Est GFR (Non-Af Amer) POC Glucose (mg/dL) 194 H Random Glucose Calcium Phosphorus Magnesium Total Bilirubin AST ALT Alkaline Phosphatase C-Reactive Protein Total Protein Albumin Globulin Albumin/Globulin Ratio Assessment & Plan - Assessment and Plan (Free Text) Plan: Infectious diseases attending physician addendum Patient discussed with medical imaging director. I have reviewed the pertinent clinical information. I agree with the above findings, assessment and plan and in addition, will monitor the patient off antibiotics for left foot lateral diabetic foot ulcer, R/O osteomyelitis. Follow up MRI of the foot and would request for deep cultures prior to starting antibiotics. Patient has no systemic signs of infection and therefore we can hold off on antibiotics for now. Will discuss with Podiatry.
--- NOTE | 2018-08-26 09:41 | CARD ---
APPROVED REPORT Date of service: 08/25/2018 EKG Measurement Heart [id number] <Conclusion> Normal sinus rhythm Low voltage QRS limb leads PRWP LAD No change except the rate is slower.
--- NOTE | 2018-08-26 10:20 | CP.PCM.CON ---
Addendum entered and electronically signed by Cesar Avery DPM 08/26/18 13:29: Plan: Pending medical clearance for the surgery. Original Note: <Cesar Avery - Last Filed: 08/26/18 13:18> History of Present Illness - History of Present Illness History of Present Illness: Podiatry consult note for attending Dr. Garcia; 58 y/o male patient with PMH of DM, [place] (2005 no stents), diabetic neuropathy and right foot ulcer presents to ED for evaluation of left foot ulcer and left 5th metatarsal bone osteomyelitis. Patient states that he was referred from wound care center by Dr. Diana to be admitted for osteomyelitis of the left 5th metatarsal bone. Patient states he has this ongoing infection for 13 months that was being treated with oral amoxicillin. Patient states that his ulcer healed at first but then it worsened. Patient states that he has sharp pain when he walks over his left foot at the ulcer site, non-radiating, 6/10 on pain scale. Patient states that he his feet are numb all the time as he has diabetic neuropathy. Patient denies any recent F/N/V/C or SOB. Patient denies any other pedal complaint at this time. Patient states that he had right 5th metatarsal bone partial resection before because of osteomyelitis also PMH: DM, [place] (2005), diabetic neuropathy and right foot ulcer PSH: Knee surgery (1995). Right foot partial 5th met resection Allergies:Eggs Social Hx: Denies smoking, EtOH use or Illicit drug use. Review of Systems - Review of Systems Review of Systems: As per HPI Past Patient History - Infectious Disease Hx of Infectious Diseases: None - Tetanus Immunizations Tetanus Immunization: Unknown - Past Social History Smoking Status: Former Smoker - CARDIAC Hx Cardiac Disorders: Yes (mi) Hx Hypercholesterolemia: Yes Hx Hypertension: Yes Hx Peripheral Vascular Disease: Yes (left leg) - PULMONARY Hx Respiratory Disorders: No - NEUROLOGICAL Hx Neurological Disorder: No - HEENT Hx HEENT Problems: Yes (Wears glasses.) - RENAL Hx Chronic Kidney Disease: No - ENDOCRINE/METABOLIC Hx Endocrine Disorders: Yes Hx Diabetes Mellitus Type 2: Yes - HEMATOLOGICAL/ONCOLOGICAL Hx Blood Disorders: No - INTEGUMENTARY Hx Dermatological Problems: Yes (Diabetic ulcers.) Other/Comment: small hole 0.3cm to ball of left foot no drainage at present time above that is small dry closed wound 0.3cm, left great toe 0.5cm callous , multiple skin discolorations and scabs ble, multiple hyperbaric treatments, right foot wound healed - MUSCULOSKELETAL/RHEUMATOLOGICAL Hx Falls: No - GASTROINTESTINAL Hx Gastrointestinal Disorders: Yes (obese) - GENITOURINARY/GYNECOLOGICAL Hx Genitourinary Disorders: No - PSYCHIATRIC Hx Substance Use: No - SURGICAL HISTORY Hx Surgeries: Yes (SX TO RIGHT FOOT JUL 2016,CARD CATH WITH HEART STENT) Hx Cardiac Catheterization: Yes (2005 Cath with Cardiac Stent Placement.) Hx Coronary Stent: Yes (2005) Hx Orthopedic Surgery: Yes (KNEE SX,TORN ACL,MCL right knee) Other/Comment: cardiac cath with stent - ANESTHESIA Hx Anesthesia: No Meds Allergies/Adverse Reactions: Allergies Allergy/AdvReac Type Severity Reaction Status Date / Time EGG Allergy Severe SWELLING Verified 07/25/16 13:40 - Medications Medications: Current Medications Atorvastatin Calcium (Lipitor) 10 mg PO DIN [facility] Last Admin: 08/25/18 21:39 Dose: 10 mg Dextrose (Dextrose 50% Inj) 0 ml IV STAT PRN; Protocol PRN Reason: Hypoglycemia Protocol Famotidine (Pepcid) 40 mg PO HS DAVID Last Admin: 08/25/18 21:38 Dose: 40 mg Gabapentin (Neurontin) 100 mg PO TID DAVID; Protocol Dextrose (Dextrose 5% In Water 1000 Ml) 1,000 mls @ 0 mls/hr IV .Q0M PRN; Pro tocol PRN Reason: Hypoglycemia Protocol Insulin Human Regular (Humulin R Med) 0 units SC ACHS [facility]; Protocol Last Admin: 08/26/18 08:31 Dose: 1 unit Physical Exam - Constitutional Appears: Well, Non-toxic, No Acute Distress - Head Exam Head Exam: ATRAUMATIC, NORMOCEPHALIC - Extremities Exam Additional comments: Left LE focused exam: Vasc: DP/PT 2/4. Cap refill < 3 sec in all digits. temp gradient warm to warm on the left side from proximal to distal. No edema or erythema noted. Neuro: Gross and protective sensations are diminished. Derm: An open ulcer 0.4cmX0.4cmX0.4cm in the the plantar aspect of the foot at the level of the 5th metatarsal head. Positive drainage of purulent discharge, No malodor. Positive probing to bone, Positive undermining. positive signs of active infection. MSK: No Pain on palpating the gladys-ulcerative area. Muscle power intact 5/5 in all groups. - Neurological Exam Neurological exam: Alert, Oriented x3 - Psychiatric Exam Psychiatric exam: Normal Affect, Normal Mood Results - Vital Signs Recent Vital Signs: Last Vital Signs Temp 98.5 F 08/26/18 06:00 Pulse 60 08/26/18 06:00 Resp 20 08/26/18 06:00 BP 139/75 08/26/18 06:00 Pulse Ox 98 08/26/18 06:00 - Labs Result Diagrams: 08/26/18 06:20 08/26/18 06:20 Labs: Laboratory Results - last 24 hr 08/25/18 08/25/18 08/25/18 15:23 15:23 15:23 WBC 12.6 H D RBC 5.24 Hgb 16.3 Hct 46.8 MCV 89.3 MCH 31.1 MCHC 34.8 RDW 13.0 Plt Count 180 MPV 10.0 Gran % 57.1 Lymph % (Auto) 31.9 [place] % (Auto) 6.7 H Eos % (Auto) 3.7 Baso % (Auto) 0.6 Gran # 7.20 H Lymph # (Auto) 4.0 H [place] # (Auto) 0.9 H Eos # (Auto) 0.5 Baso # (Auto) 0.07 ESR Sodium 139 Potassium 4.3 Chloride 102 Carbon Dioxide 28 Anion Gap 14 BUN 18 Creatinine 0.9 Est GFR ( Amer) > 60 Est GFR (Non-Af Amer) > 60 POC Glucose (mg/dL) Random Glucose 126 H Calcium 9.5 Phosphorus Magnesium Total Bilirubin 0.5 AST 23 ALT 17 Alkaline Phosphatase 56 Total Protein 7.6 Albumin 4.2 Globulin 3.4 Albumin/Globulin Ratio 1.2 Triglycerides 115 Cholesterol 89 L LDL Cholesterol Direct 47 HDL Cholesterol 25 L 08/25/18 08/26/18 08/26/18 21:41 06:20 06:20 WBC 10.6 RBC 5.16 Hgb 15.5 Hct 46.2 MCV 89.5 MCH 30.0 MCHC 33.5 RDW 13.2 Plt Count 171 MPV 10.0 Gran % 54.1 Lymph % (Auto) 31.1 [place] % (Auto) 9.0 H Eos % (Auto) 4.9 Baso % (Auto) 0.9 Gran # 5.74 Lymph # (Auto) 3.3 [place] # (Auto) 1.0 H Eos # (Auto) 0.5 Baso # (Auto) 0.10 ESR 31 H Sodium 140 Potassium 4.3 Chloride 104 Carbon Dioxide 29 Anion Gap 11 BUN 15 Creatinine 1.0 Est GFR ( Amer) > 60 Est GFR (Non-Af Amer) > 60 POC Glucose (mg/dL) 219 H Random Glucose 122 H Calcium 9.0 Phosphorus 4.0 Magnesium 2.3 H Total Bilirubin 0.5 AST 23 ALT 15 Alkaline Phosphatase 51 Total Protein 7.2 Albumin 3.8 Globulin 3.4 Albumin/Globulin Ratio 1.1 Triglycerides Cholesterol LDL Cholesterol Direct HDL Cholesterol 08/26/18 06:51 WBC RBC Hgb Hct MCV MCH MCHC RDW Plt Count MPV Gran % Lymph % (Auto) [place] % (Auto) Eos % (Auto) Baso % (Auto) Gran # Lymph # (Auto) [place] # (Auto) Eos # (Auto) Baso # (Auto) ESR Sodium Potassium Chloride Carbon Dioxide Anion Gap BUN Creatinine Est GFR ( Amer) Est GFR (Non-Af Amer) POC Glucose (mg/dL) 112 H Random Glucose Calcium Phosphorus Magnesium Total Bilirubin AST ALT Alkaline Phosphatase Total Protein Albumin Globulin Albumin/Globulin Ratio Triglycerides Cholesterol LDL Cholesterol Direct HDL Cholesterol Assessment & Plan - Assessment and Plan (Free Text) Assessment: 58 Y/O M patient seen and evaluated at the bedside for osteomyelitis of the left 5th metatarsal bone. Plan: Patient seen and evaluated at the bedside. Plan discussed in details with attending Dr. Garcia. X-ray left foot reviewed; Left 5th met head erosions, Medial dislocation of the 5th MPJ. MRI left foot (08/19) reviewed; Left foot ulcer, left 5th met head edema which might represent early osteomyelitis. Wound culture (08/21): Klebsiella Oxytoca. Chart, labs and vitals reviewed; Afebrile, WBCs 10.6. CRP: Pending ESR: 31 Pending foot and ankle MRI official report ID is on board. recommendations appreciated. Arterial doppler ordered Patient current Left LE condition explained to him. Discussed with the patient that he needs to go to the OR for debridement of all the and necrotic tissues. Benefits, Risks, alternatives and possible complications of the surgery explained to him. Patient expressed verbal understanding. Patient agrees to do the surgery. Patient will go to the OR (08/28) for Partial left 5th metatarsal bone resection. Pending medical clearance for the surgery podiatry will follow up the patient while in house. - Date & Time Date: 08/26/18 Time: 10:17 <Los Garcialeandro - Last Filed: 08/26/18 15:52> Meds - Medications Medications: Current Medications Atorvastatin Calcium (Lipitor) 10 mg PO DIN DAVID Last Admin: 08/25/18 21:39 Dose: 10 mg Dextrose (Dextrose 50% Inj) 0 ml IV STAT PRN; Protocol PRN Reason: Hypoglycemia Protocol Famotidine (Pepcid) 40 mg PO HS DAVID Last Admin: 08/25/18 21:38 Dose: 40 mg Gabapentin (Neurontin) 100 mg PO TID DAVID; Protocol Last Admin: 08/26/18 11:26 Dose: 100 mg Dextrose (Dextrose 5% In Water 1000 Ml) 1,000 mls @ 0 mls/hr IV .Q0M PRN; Protocol PRN Reason: Hypoglycemia Protocol Insulin Human Regular (Humulin R Med) 0 units SC ACHS [facility]; Protocol Last Admin: 08/26/18 08:31 Dose: 1 unit Results - Vital Signs Recent Vital Signs: Last Vital Signs Temp 98.5 F 08/26/18 06:00 Pulse 60 08/26/18 06:00 Resp 20 08/26/18 06:00 BP 139/75 08/26/18 06:00 Pulse Ox 98 08/26/18 06:00 - Labs Result Diagrams: 08/26/18 06:20 08/26/18 06:20 Labs: Laboratory Results - last 24 hr 08/25/18 08/25/18 08/26/18 15:23 21:41 06:20 WBC 10.6 RBC 5.16 Hgb 15.5 Hct 46.2 MCV 89.5 MCH 30.0 MCHC 33.5 RDW 13.2 Plt Count 171 MPV 10.0 Gran % 54.1 Lymph % (Auto) 31.1 [place] % (Auto) 9.0 H Eos % (Auto) 4.9 Baso % (Auto) 0.9 Gran # 5.74 Lymph # (Auto) 3.3 [place] # (Auto) 1.0 H Eos # (Auto) 0.5 Baso # (Auto) 0.10 ESR 31 H Sodium Potassium Chloride Carbon Dioxide Anion Gap BUN Creatinine Est GFR ( Amer) Est GFR (Non-Af Amer) POC Glucose (mg/dL) 219 H Random Glucose Calcium Phosphorus Magnesium Total Bilirubin AST ALT Alkaline Phosphatase C-Reactive Protein 24.10 H Total Protein Albumin Globulin Albumin/Globulin Ratio Triglycerides 115 Cholesterol 89 L LDL Cholesterol Direct 47 HDL Cholesterol 25 L 08/26/18 08/26/18 08/26/18 06:20 06:51 11:22 WBC RBC Hgb Hct MCV MCH MCHC RDW Plt Count MPV Gran % Lymph % (Auto) [place] % (Auto) Eos % (Auto) Baso % (Auto) Gran # Lymph # (Auto) [place] # (Auto) Eos # (Auto) Baso # (Auto) ESR Sodium 140 Potassium 4.3 Chloride 104 Carbon Dioxide 29 Anion Gap 11 BUN 15 Creatinine 1.0 Est GFR ( Amer) > 60 Est GFR (Non-Af Amer) > 60 POC Glucose (mg/dL) 112 H 211 H Random Glucose 122 H Calcium 9.0 Phosphorus 4.0 Magnesium 2.3 H Total Bilirubin 0.5 AST 23 ALT 15 Alkaline Phosphatase 51 C-Reactive Protein Total Protein 7.2 Albumin 3.8 Globulin 3.4 Albumin/Globulin Ratio 1.1 Triglycerides Cholesterol LDL Cholesterol Direct HDL Cholesterol Attending/Attestation - Attestation I have personally seen and examined this patient.: Yes I have fully participated in the care of the patient.: Yes I have reviewed all pertinent clinical information: Yes
--- NOTE | 2018-08-26 14:40 | US ---
PROCEDURE: Lower extremity SILVIANO exam HISTORY: Peripheral vascular disease with pain and ulceration. Diabetes. Current smoker.. PHYSICIAN(S): Jasmeet Short MD. FINDINGS: The resting SILVIANO's are normal: right, 0.92and left, 0.94. The brachial systolic pressures are symmetric. The high thigh pressures and waveforms are relatively normal. The calf PVR waveforms augment normally. No significant gradients are noted across the thighs. There is a 45 mm gradient across the right knee and a 35 mm gradient across the left knee. The right ankle PVR waveform is decreased in amplitude compared to the left. The findings are suggestive of bilateral popliteal, trifurcation, and/or tibial disease. IMPRESSION: 1. Relatively normal resting ABIs. 2. Bilateral popliteal, trifurcation, and/or tibial disease.
--- NOTE | 2018-08-26 16:43 | CP.PCM.PN ---
<Thong Shrestha - Last Filed: 08/26/18 16:39> Subjective - Date & Time of Evaluation Date of Evaluation: 08/26/18 Time of Evaluation: 16:39 - Subjective Subjective: Thong Shrestha PGY [address] Christian Pt was examined at beside this morning. He was resting comfortably and had no complaints. He denied any headache, chest pain, shortness of breath, abdominal pain, nausea, vomiting, fever, diarrhea. Objective - Vital Signs/Intake and Output Vital Signs (last 24 hours): Temp Pulse Resp BP Pulse Ox 98.5 F 60 20 139/75 98 08/26/18 06:00 08/26/18 06:00 08/26/18 06:00 08/26/18 06:00 08/26/18 06:00 Intake and Output: 08/26/18 08/26/18 06:59 18:59 Intake Total 600 Output Total 800 Balance -200 - Medications Medications: Current Medications Aspirin (Aspirin Chewable) 81 mg PO DAILY [facility] Stop: 08/27/18 16:30 Atorvastatin Calcium (Lipitor) 10 mg PO DIN [facility] Last Admin: 08/25/18 21:39 Dose: 10 mg Dextrose (Dextrose 50% Inj) 0 ml IV STAT PRN; Protocol PRN Reason: Hypoglycemia Protocol Famotidine (Pepcid) 40 mg PO HS [facility] Last Admin: 08/25/18 21:38 Dose: 40 mg Gabapentin (Neurontin) 100 mg PO TID [facility]; Protocol Last Admin: 08/26/18 14:00 Dose: Not Given Dextrose (Dextrose 5% In Water 1000 Ml) 1,000 mls @ 0 mls/hr IV .Q0M PRN; Protocol PRN Reason: Hypoglycemia Protocol Insulin Human Regular (Humulin R Med) 0 units SC ACHS [facility]; Protocol Last Admin: 08/26/18 12:00 Dose: Not Given Lisinopril (Zestril) 2.5 mg PO DAILY [facility] - Labs Labs: 08/26/18 06:20 08/26/18 06:20 - Constitutional Appears: Well, No Acute Distress - Head Exam Head Exam: ATRAUMATIC, NORMOCEPHALIC - Neck Exam Neck Exam: Normal Inspection - Respiratory Exam Respiratory Exam: Clear to Ausculation Bilateral, NORMAL BREATHING PATTERN - Cardiovascular Exam Cardiovascular Exam: REGULAR RHYTHM, +S1, +S2 - GI/Abdominal Exam GI & Abdominal Exam: Soft. absent: Tenderness - Extremities Exam Extremities Exam: Pedal Edema Additional comments: less than 1cm wound on the sole of L foot, minimal erythema, penetrating deeply - Neurological Exam Neurological Exam: Alert, Awake, Motor Sensory Deficit, Oriented x3 Assessment and Plan - Assessment and Plan (Free Text) Assessment: Patient is a 58 yo male with PMH of DM, [place] (2005), ulcer presents to ED after being in wound care clinic with concerns of possible osteomyelitis from ulcer on left foot. Plan: Ulcer - LE Arterial Doppler US: relatively normal resting ABIs, b/l popliteal trifurcation and/or tibial disease - Xray L foot: no evidence of osteomyelitis - MRI L foot (08/19): L 5th metatarsal head edema, may suggest early osteomyelitis - WBC: 10.6 from 12.6 - CRP elevated: 24 - ESR elevated: 31 - hold abx as per podiatry - plan for OR 08/28 for 5th metatarsal bone resection, as per podiatry - ID consulted, Dr. Acevedo - f/u recs - Podiatry consulted, Dr. Guerrero- recs appreciated - Cardio consulted, Dr. Bennett for pre-op eval, recs appreciated DM - Home meds held - ISS - ACHS: 08/25-08/26: 219, 112, 211 History of SC - Aspirin 81mg po daily - Lisinopril 2.5mg po daily CAD - total cholesterol: 89 - LDL: 47 - HDL: 25 - T - continue lipitor 10mg po daily PPx GI: Pepcid 40mg po DVT: SCDs Case seen, discussed, and plan reviewed with Dr. Christian <Fanta Christian - Last Filed: 08/26/18 18:35> Objective - Vital Signs/Intake and Output Vital Signs (last 24 hours): Temp Pulse Resp BP Pulse Ox 98.5 F 60 20 139/75 98 08/26/18 06:00 08/26/18 06:00 08/26/18 06:00 08/26/18 06:00 08/26/18 06:00 Intake and Output: 08/26/18 08/26/18 06:59 18:59 Intake Total 600 Output Total 800 Balance -200 - Medications Medications: Current Medications Atorvastatin Calcium (Lipitor) 10 mg PO DIN [facility] Last Admin: 08/26/18 16:57 Dose: 10 mg Dextrose (Dextrose 50% Inj) 0 ml IV STAT PRN; Protocol PRN Reason: Hypoglycemia Protocol Famotidine (Pepcid) 40 mg PO HS [facility] Last Admin: 08/25/18 21:38 Dose: 40 mg Gabapentin (Neurontin) 100 mg PO TID [facility]; Protocol Last Admin: 08/26/18 16:59 Dose: 100 mg Dextrose (Dextrose 5% In Water 1000 Ml) 1,000 mls @ 0 mls/hr IV .Q0M PRN; Protocol PRN Reason: Hypoglycemia Protocol Insulin Human Regular (Humulin R Med) 0 units SC ACHS [facility]; Protocol Last Admin: 08/26/18 16:58 Dose: 1 unit Lisinopril (Zestril) 2.5 mg PO DAILY [facility] - Labs Labs: 08/26/18 06:20 08/26/18 06:20 Attending/Attestation - Attestation I have personally seen and examined this patient.: Yes I have fully participated in the care of the patient.: Yes I have reviewed all pertinent clinical information, including history, physical exam and plan: Yes Notes (Text): 08/26/18 18:30 58 year old male with past medical history of diabetes and SC who presented with nonhealing foot ulcer. He was referred by podiatry to rule out osteomyelitis. ESR is 31. CRP is 24.1. Xray no definate sign of osteomyelitis. ID is following; recommended to hold antibiotics for now. Podiatry is following; plan for possible OR on . Will request cardiology evaluation for risk stratification as patient has history of SC. He is on aspirin, lisinopril and statin. Fanta Christian MD Hospitalist.
[2018-08-27 07:36] LABS: BASO # 0.07 K/mm3 (0.0-2.0); BASO % 0.7 % (0.0-3.0); EOS # 0.5 (0.0-0.7); EOS % 5.5 % (1.5-5.0); GRAN # 5.07 (1.4-6.5); HEMOGLOBIN 16.4 g/dL (14.0-18.0); LYMPH # 3.1 (1.2-3.4); LYMPH % 32.1 % (22.0-35.0); MEAN CELL VOLUME 89.7 fl (80.0-105.0); MEAN CORPUSCULAR HEMOGLOBIN 30.7 pg (25.0-35.0); MEAN CORPUSCULAR HGB CONC 34.2 g/dl (31.0-37.0); MEAN PLATELET VOLUME 9.9 fl (7.0-11.0); MONO % 9.7 % (1.0-6.0); RBC 5.35 10^6/uL (3.5-6.1); RED CELL DISTRIBUTION WIDTH 13.2 % (11.5-14.5); WHITE BLOOD COUNT 9.8 10^3/ul (4.5-11.0)
[2018-08-27 07:46] LABS: ALB/GLOB RATIO 1.1 (1.1-1.8); ALBUMIN 3.9 g/dL (3.0-4.8); ALT/SGPT 24 U/L (7-56); AST/SGOT 23 U/L (17-59); BLOOD UREA NITROGEN 14 mg/dL (7-21); CALCIUM 8.9 mg/dL (8.4-10.5); GFR NON-AFRICAN AMERICAN > 60
[2018-08-27] MEDS: Insulin Reg-MEDIUM-Coverage SC SCH ×4 (08:22→22:34)
--- NOTE | 2018-08-27 09:59 | CP.PCM.PN ---
Addendum entered and electronically signed by Cesar Avery DPM 08/27/18 10:59: Patient needs medical clearance for his surgery tomorrow. Original Note: <Cesar Avery - Last Filed: 08/27/18 09:36> Subjective - Date & Time of Evaluation Date of Evaluation: 08/27/18 Time of Evaluation: 09:36 - Subjective Subjective: Podiatry consult note for attending Dr. Diana; 58 y/o male patient seen and evaluated for left foot ulcer and left 5th metatarsal bone osteomyelitis. Patient states that he didn't have pain in his ulcer site yesterday. Patient states that he his feet are numb all the time as he has diabetic neuropathy. Patient denies any overnight F/N/V/C or SOB. Patient denies any other pedal complaint at this time. Objective - Vital Signs/Intake and Output Vital Signs (last 24 hours): Temp Pulse Resp BP Pulse Ox 97.9 F 66 18 137/88 94 L 08/27/18 06:00 08/27/18 06:00 08/27/18 06:00 08/27/18 06:00 08/27/18 06:00 Intake and Output: 08/27/18 08/27/18 06:59 18:59 Intake Total 840 Balance 840 - Medications Medications: Current Medications Atorvastatin Calcium (Lipitor) 10 mg PO DIN [facility] Last Admin: 08/26/18 16:57 Dose: 10 mg Dextrose (Dextrose 50% Inj) 0 ml IV STAT PRN; Protocol PRN Reason: Hypoglycemia Protocol Famotidine (Pepcid) 40 mg PO HS [facility] Last Admin: 08/26/18 22:13 Dose: 40 mg Gabapentin (Neurontin) 100 mg PO TID [facility]; Protocol Last Admin: 08/26/18 16:59 Dose: 100 mg Dextrose (Dextrose 5% In Water 1000 Ml) 1,000 mls @ 0 mls/hr IV .Q0M PRN; Protocol PRN Reason: Hypoglycemia Protocol Insulin Human Regular (Humulin R Med) 0 units SC ACHS [facility]; Protocol Last Admin: 08/27/18 08:22 Dose: Not Given Lisinopril (Zestril) 2.5 mg PO DAILY [facility] - Labs Labs: 08/27/18 07:25 08/27/18 07:25 - Constitutional Appears: Well, Non-toxic, No Acute Distress - Head Exam Head Exam: ATRAUMATIC, NORMOCEPHALIC - Extremities Exam Additional comments: Left LE focused exam: Vasc: DP/PT 2/4. Cap refill < 3 sec in all digits. temp gradient warm to warm on the left side from proximal to distal. No edema or erythema noted. Neuro: Gross and protective sensations are diminished. Derm: An open ulcer 0.3cmX0.3cmX0.4cm in the the plantar aspect of the foot at the level of the 5th metatarsal head. Minimal drainage of purulent discharge, No malodor. Positive probing to bone, Positive undermining. positive signs of active infection. MSK: No Pain on palpating the gladys-ulcerative area. Muscle power intact 5/5 in all groups. - Neurological Exam Neurological Exam: Alert, Awake, Oriented x3 - Psychiatric Exam Psychiatric exam: Normal Affect, Normal Mood Assessment and Plan - Assessment and Plan (Free Text) Assessment: 58 Y/O M patient seen and evaluated at the bedside for osteomyelitis of the left 5th metatarsal bone. Plan: Patient seen and evaluated at the bedside With Dr. Diana. Plan discussed in details with attending Dr. Diana. X-ray left foot reviewed; Left 5th met head erosions, Medial dislocation of the 5th MPJ. MRI left foot (08/19/17) reviewed; Left foot ulcer, left 5th met head edema which might represent early osteomyelitis. Wound culture (08/21): Klebsiella Oxytoca. Chart, labs and vitals reviewed; Afebrile, WBCs 9.8. CRP: 24.1 ESR: 31. ID is on board. recommendations appreciated. Arterial duplex reviewed: SILVIANO R 0.92, L 0.94. Patient will go to the OR (08/28) for Partial left 5th metatarsal bone resection for osteomyelitis and recurrent ulceration. Pending medical clearance for the surgery. podiatry will follow up the patient while in house. <Vane Diana - Last Filed: 08/27/18 13:19> Objective - Vital Signs/Intake and Output Vital Signs (last 24 hours): Temp Pulse Resp BP Pulse Ox 97.9 F 68 18 131/66 94 L 08/27/18 06:00 08/27/18 09:38 08/27/18 06:00 08/27/18 09:38 08/27/18 06:00 Intake and Output: 08/27/18 08/27/18 06:59 18:59 Intake Total 840 Balance 840 - Medications Medications: Current Medications Atorvastatin Calcium (Lipitor) 10 mg PO DIN [facility] Last Admin: 08/26/18 16:57 Dose: 10 mg Dextrose (Dextrose 50% Inj) 0 ml IV STAT PRN; Protocol PRN Reason: Hypoglycemia Protocol Famotidine (Pepcid) 40 mg PO HS [facility] Last Admin: 08/26/18 22:13 Dose: 40 mg Gabapentin (Neurontin) 100 mg PO TID [facility]; Protocol Last Admin: 08/27/18 09:38 Dose: 100 mg Dextrose (Dextrose 5% In Water 1000 Ml) 1,000 mls @ 0 mls/hr IV .Q0M PRN; Protocol PRN Reason: Hypoglycemia Protocol Insulin Human Regular (Humulin R Med) 0 units SC ACHS [facility]; Protocol Last Admin: 08/27/18 12:35 Dose: 3 unit Lisinopril (Zestril) 2.5 mg PO DAILY [facility] Last Admin: 08/27/18 09:38 Dose: 2.5 mg - Labs Labs: 08/27/18 07:25 08/27/18 07:25 Attending/Attestation - Attestation I have personally seen and examined this patient.: Yes I have fully participated in the care of the patient.: Yes I have reviewed all pertinent clinical information, including history, physical exam and plan: Yes
--- NOTE | 2018-08-27 12:52 | CP.PCM.PN ---
<Tamy Blunt - Last Filed: 08/27/18 14:46> Subjective - Date & Time of Evaluation Date of Evaluation: 08/27/18 Time of Evaluation: 11:15 - Subjective Subjective: PGY-1 Tamy Jose Raul Medicine Progress Note for Dr. Christian's Service Patient seen and examined at bedside. Patient offers no acute complaints. Patient states he has leg numbness at times likely due to his neuropathy. Patient denies fevers, chills, chest pain, sob, n/v, constipation or diarrhea, dysuria. Objective - Vital Signs/Intake and Output Vital Signs (last 24 hours): Temp Pulse Resp BP Pulse Ox 97.9 F 68 18 131/66 94 L 08/27/18 06:00 08/27/18 09:38 08/27/18 06:00 08/27/18 09:38 08/27/18 06:00 Intake and Output: 08/27/18 08/27/18 06:59 18:59 Intake Total 840 Balance 840 - Medications Medications: Current Medications Atorvastatin Calcium (Lipitor) 10 mg PO DIN [facility] Last Admin: 08/26/18 16:57 Dose: 10 mg Dextrose (Dextrose 50% Inj) 0 ml IV STAT PRN; Protocol PRN Reason: Hypoglycemia Protocol Famotidine (Pepcid) 40 mg PO HS [facility] Last Admin: 08/26/18 22:13 Dose: 40 mg Gabapentin (Neurontin) 100 mg PO TID [facility]; Protocol Last Admin: 08/27/18 09:38 Dose: 100 mg Dextrose (Dextrose 5% In Water 1000 Ml) 1,000 mls @ 0 mls/hr IV .Q0M PRN; Pr otocol PRN Reason: Hypoglycemia Protocol Insulin Human Regular (Humulin R Med) 0 units SC ACHS [facility]; Protocol Last Admin: 08/27/18 12:35 Dose: 3 unit Lisinopril (Zestril) 2.5 mg PO DAILY [facility] Last Admin: 08/27/18 09:38 Dose: 2.5 mg - Labs Labs: 08/27/18 07:25 08/27/18 07:25 - Additional Findings Additional findings: - Constitutional Appears: Well, No Acute Distress - Head Exam Head Exam: ATRAUMATIC, NORMOCEPHALIC - Neck Exam Neck Exam: Normal Inspection - Respiratory Exam Respiratory Exam: Clear to Ausculation Bilateral, NORMAL BREATHING PATTERN - Cardiovascular Exam Cardiovascular Exam: REGULAR RHYTHM, +S1, +S2 - GI/Abdominal Exam GI & Abdominal Exam: Soft. absent: Tenderness - Extremities Exam Extremities Exam: Pedal Edema Additional comments: less than 1cm wound on the sole of L foot, minimal erythema, penetrating deeply - Neurological Exam Neurological Exam: Alert, Awake, Motor Sensory Deficit, Oriented x3 Assessment and Plan - Assessment and Plan (Free Text) Assessment: Patient is a 58 yo male with PMH of DM, [place] (2005), ulcer presents to ED after being in wound care clinic with concerns of possible osteomyelitis from ulcer on left foot. Plan: Foot Ulcer ID consulted - hold ABX; depending on MRI to develop treatment plan and request deep cultures; continue gylcemic control Podiatry consulted- Patient will go to the OR (08/28) for Partial left 5th metatarsal bone resection for osteomyelitis and recurrent ulceration. Cardio consulted - Dr. Moses- pre-op clearance for surgery; Echo ordere Foot Xray - no definite signs of osteomyeltis CRP 24.1, ESR 31 WBC 9.8; Afebrile Abx held Repeat CBC in AM DM w/neuropathy Home meds held ISS- med dose ACHS Hypogylemic protocol Gabapentin 100mg po tid History of [place] Aspirin 81mg po daily Lisinopril 2.5mg po daily Lipitor 10mg po daily PPx GI ppx: Pepcid 40mg po DVT ppx: SCDs <Fanta Christian - Last Filed: 08/27/18 18:24> Objective - Vital Signs/Intake and Output Vital Signs (last 24 hours): Temp Pulse Resp BP Pulse Ox 98.8 F 56 L 20 107/67 94 L 08/27/18 14:00 08/27/18 14:00 08/27/18 14:00 08/27/18 14:00 08/27/18 14:00 Intake and Output: 08/27/18 08/27/18 06:59 18:59 Intake Total 840 480 Balance 840 480 - Medications Medications: Current Medications Atorvastatin Calcium (Lipitor) 10 mg PO DIN [facility] Last Admin: 08/27/18 17:18 Dose: 10 mg Dextrose (Dextrose 50% Inj) 0 ml IV STAT PRN; Protocol PRN Reason: Hypoglycemia Protocol Famotidine (Pepcid) 40 mg PO HS [facility] Last Admin: 08/26/18 22:13 Dose: 40 mg Gabapentin (Neurontin) 100 mg PO TID [facility]; Protocol Last Admin: 08/27/18 17:18 Dose: 100 mg Dextrose (Dextrose 5% In Water 1000 Ml) 1,000 mls @ 0 mls/hr IV .Q0M PRN; Protocol PRN Reason: Hypoglycemia Protocol Insulin Human Regular (Humulin R Med) 0 units SC ACHS [facility]; Protocol Last Admin: 08/27/18 16:26 Dose: Not Given Lisinopril (Zestril) 2.5 mg PO DAILY [facility] Last Admin: 08/27/18 09:38 Dose: 2.5 mg - Labs Labs: 08/27/18 07:25 08/27/18 07:25 Attending/Attestation - Attestation I have personally seen and examined this patient.: Yes I have fully participated in the care of the patient.: Yes I have reviewed all pertinent clinical information, including history, physical exam and plan: Yes Notes (Text): 08/27/18 18:23 58 year old male with past medical history of diabetes and [place] who presented with nonhealing foot ulcer. He was referred by podiatry to rule out osteomyelitis. ESR is 31. CRP is 24.1. Xray no definite sign of osteomyelitis. ID is following; recommended to hold antibiotics for now. Podiatry is following; plan for possible OR tomorrow. Cardiology evaluation for risk stratification as patient has history of WI. He is on aspirin, lisinopril and statin. Fanta Christian MD Hospitalist.
--- NOTE | 2018-08-27 13:15 | CON ---
DATE: 08/27/2018 HISTORY OF PRESENT ILLNESS: The patient is a 58-year-old male who has a history of hypertension and diabetes mellitus, history of coronary artery disease, status post coronary artery stenting in 2005 at [facility] 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 He presented because of left little toe wound. The patient denies any retrosternal chest pain or shortness of breath at this time. SOCIAL HISTORY: The patient is a former smoker. MEDICATIONS: Lipitor 10 mg once a day, Neurontin 100 mg t.i.d., Pepcid 40 mg once a day, Zestril 2.5 mg once a day. REVIEW OF SYSTEMS: No fever or chills. No nausea or vomiting. No dizziness or syncope. No retrosternal chest pain. PHYSICAL EXAMINATION: GENERAL: The patient is a middle-aged male, who does not appear to be in any acute distress. VITAL SIGNS: Blood pressure 131/66, heart rate 68, temperature 97.9, respirations 18. HEENT: Normocephalic. CHEST: Clear. HEART: S1 and S2 regular. EXTREMITIES: Dressings applied to the left foot. LABORATORY DATA: Today's hemoglobin and hematocrit 16.4 and 48, white count 9.8, platelet count 167,000. SMA-7: Sodium 140, potassium 4.3, chloride 107, CO2 of 26, glucose 138, BUN 14, creatinine 0.8. EKG revealed sinus rhythm at a rate of 78. Poor R-wave progression. Low voltage in the limb leads. ASSESSMENT: 1. Left fifth toe infection. 2. Coronary artery disease with history of coronary artery stenting in 2005. 3. Uncontrolled diabetes mellitus. RECOMMENDATIONS: Continue current Lipitor at 10 mg once a day, Zestril 2.5 mg once a day, Neurontin 100 mg t.i.d., Pepcid 40 mg once a day. Obtain an echocardiography study. Epi Bennett MD
--- NOTE | 2018-08-27 15:57 | CARD ---
APPROVED REPORT Date of service: 08/27/2018 EXAM: Two-dimensional and M-mode echocardiogram with Doppler and color Doppler. INDICATION Cardiac Disease: CAD 2D DIMENSIONS Left Atrium (2D)3.6 (1.6-4.0cm)IVSd1.2 (0.7-1.1cm) LVDd4.1 (3.9-5.9cm)PWd1.2 (0.7-1.1cm) LVDs2.9 (2.5-4.0cm)FS (%) 29.5 % LVEF (%)57.0 (>50%) M-Mode DIMENSIONS Aortic Root2.30 (2.2-3.7cm)Aortic Cusp Exc.1.70 (1.5-2.0cm) Aortic Valve AoV Peak Njwoakbs707.0cm/Davion Peak GR.6mmHg Mitral Valve MV E Qqtbipjx93.4cm/sMV A Mxqeeiao25.9cm/sE/A ratio1.0 TDI E/Lateral E'0.0E/Medial E'0.0 LEFT VENTRICLE The left ventricle is normal size. There is normal left ventricular wall thickness. The left ventricular function is normal. The left ventricular ejection fraction is within the normal range. There is normal LV segmental wall motion. Transmitral Doppler flow pattern is Grade I-abnormal relaxation pattern. RIGHT VENTRICLE The right ventricle is normal size. There is normal right ventricular wall thickness. The right ventricular systolic function is normal. ATRIA The left atrium size is normal. The right atrium size is normal. AORTIC VALVE The aortic valve is not well visualized. No aortic regurgitation is present. There is no aortic valvular stenosis. MITRAL VALVE The mitral valve is normal in structure. There is no mitral valve regurgitation noted. There is no mitral valve stenosis. TRICUSPID VALVE The tricuspid valve is normal in structure. There is no tricuspid valve regurgitation noted. PULMONIC VALVE The pulmonary valve is normal in structure. There is no pulmonic valvular regurgitation. GREAT VESSELS The aortic root is normal in size. The IVC is normal in size and collapses >50% with inspiration. PERICARDIAL EFFUSION There is a trace loculated anterior pericardial effusion. <Conclusion> The left ventricle is normal size. There is normal left ventricular wall thickness. The left ventricular function is normal. The left ventricular ejection fraction is within the normal range. There is normal LV segmental wall motion. Transmitral Doppler flow pattern is Grade I-abnormal relaxation pattern.
[2018-08-27] MEDS ORDERED: Gadodiamide 287 MG/ML VIAL (15ML) IV ONE (19:25)
--- NOTE | 2018-08-28 00:54 | PN ---
DATE: 08/27/2018 SUBJECTIVE: The patient is seen early this morning in room 561, bed #2. No fevers, no chills PHYSICAL EXAMINATION VITAL SIGNS: Temperature is 98, blood pressure is 107/60, respiratory rate of 20, heart rate of 68. HEENT: Unremarkable. NECK: Supple. LUNGS: Have decreased breath sounds. HEART: Normal S1, S2. ABDOMEN: Soft, nontender. LABORATORY EXAMINATION: Reveals a white count of 9.8, hemoglobin of 16, platelets of 167. BUN of 14, creatinine of 0.8. Microbiology reveals the blood cultures are no growth. ASSESSMENT AND PLAN: This is a 58-year-old male seen early this morning in room 561, bed #2 with diabetes, osteomyelitis of left foot, history of right foot methicillin-resistant Staphylococcus aureus for a non healing right foot and admitted with open fifth toe ulcer must rule out underlying osteomyelitis. Currently off of antibiotics, afebrile. Awaiting for MRI results. Case discussed with Dr. Diana earlier this morning. Awaiting for medical clearance for surgery. Jamie Acevedo MD
[2018-08-28 06:56] LABS: BASO # 0.1 K/mm3 (0.0-2.0); BASO % 0.9 % (0.0-3.0); EOS # 0.7 (0.0-0.7); EOS % 5.8 % (1.5-5.0); GRAN # 5.78 (1.4-6.5); GRAN % 51.2 % (50.0-68.0); HEMOGLOBIN 16.1 g/dL (14.0-18.0); LYMPH # 3.5 (1.2-3.4); LYMPH % 31.3 % (22.0-35.0); MEAN CELL VOLUME 90.2 fl (80.0-105.0); MEAN CORPUSCULAR HEMOGLOBIN 30.5 pg (25.0-35.0); MEAN CORPUSCULAR HGB CONC 33.8 g/dl (31.0-37.0); MEAN PLATELET VOLUME 10.2 fl (7.0-11.0); MONO # 1.2 (0.1-0.6); MONO % 10.8 % (1.0-6.0); RBC 5.28 10^6/uL (3.5-6.1); RED CELL DISTRIBUTION WIDTH 13.1 % (11.5-14.5); WHITE BLOOD COUNT 11.3 10^3/ul (4.5-11.0)
[2018-08-28 07:04] LABS: ALB/GLOB RATIO 1.1 (1.1-1.8); ALBUMIN 3.8 g/dL (3.0-4.8); ALT/SGPT 19 U/L (7-56); AST/SGOT 25 U/L (17-59); BLOOD UREA NITROGEN 14 mg/dL (7-21); GFR NON-AFRICAN AMERICAN > 60
[2018-08-28] MEDS: Insulin Reg-MEDIUM-Coverage SC SCH ×4 (08:15→21:45)
--- NOTE | 2018-08-28 13:36 | MRI ---
Date of service: 08/27/2018 PROCEDURE: MRI Left Foot HISTORY: Pain. COMPARISON: Left foot MRI 08/19/2017. TECHNIQUE: Multiecho multiplanar sequences were performed through the anterior to mid left foot without the use of intravenous contrast. Study was performed to optimize characterization of the digits with clinical question of osteomyelitis raise at the great toe once again. FINDINGS: BONES: Previously demonstrated limited increased long TR signal at the distal 5th metatarsal bone has increased and although erosive changes are not clearly identified, osteomyelitis appears to have progressed. Further, the proximal half of the proximal phalanx of the left 5th digit now appears involved. No additional pattern of osteomyelitis throughout the remainder of the midfoot and forefoot.. Ulceration appears to persist deep to the 5th metatarsophalangeal joint. MUSCLES: Questionable myositis at the midfoot plantar musculature without abscess apparent at this time. This is a borderline finding. No definitive dorsal muscle edema. SOFT TISSUES: Persistent edema and ulceration related to the plantar soft tissues deep to the 5th metatarsophalangeal joint. Potential scarring from prior ulcer deep to the head of the 4th metatarsal bone limited edema seen lateral to the 5th metatarsophalangeal joint and distal 5th metatarsal bone. LISFRANC LIGAMENT: Intact without acute tear. PLANTAR PLATE: No definite acute tear appreciable. EXTENSOR TENDONS: Intact without acute tear. Hemorrhage though deformities are again diffusely identified. FLEXOR TENDONS: No acute tear appreciable. OTHER FINDINGS: None. IMPRESSION: Interval progression of osteomyelitis affecting left 5th metatarsal bone as described above and now also proximal phalanx left 5th digit. Limited myositis is suspected at the plantar muscles of the mid to lateral foot and limited cellulitis is seen related to the lateral forefoot once again as well. No abscess formation appreciable grossly. Findings discussed with Dr. Traore with written down and read back verification 08/28/2018, 1:15 p.m..
--- NOTE | 2018-08-28 14:36 | CP.PCM.PN ---
Addendum entered and electronically signed by Cesar Avery DPM 08/28/18 18:20: Patient did surgery (left 5th toe amputation and left 5th met partial resection). Patient tolerated the procedure well with no complications. Patient escorted to the PACU. Patient is vitally stable and NVS intact to his left LE. Ice applied to the operated site of the left LE PRN. Elevate the left LE PRN. RX; Tylenol for mild pain 2 tabs Q6. Rx; Percocet 5/325 mg for moderate pain 1 tab Q6. Rx; Percocet 5/325 mg for sever pain 2 tabs Q6 patient medications to be reconciled by the primary team. Patient will be followed up by the podiatry team while in house. Original Note: Subjective - Date & Time of Evaluation Date of Evaluation: 08/28/18 Time of Evaluation: 14:30 - Subjective Subjective: Podiatry consult note for attending Dr. Diana; 58 y/o male patient seen and evaluated for left foot ulcer and left 5th metatarsal bone osteomyelitis. Patient states that he didn't have pain in his ulcer site yesterday. Patient states that he his feet are numb all the time as he has diabetic neuropathy. Patient denies any overnight F/N/V/C or SOB. Patient denies any other pedal complaint at this time. Patient confirmed his NPO status. Patient is aware of his today surgery. Objective - Vital Signs/Intake and Output Vital Signs (last 24 hours): Temp Pulse Resp BP Pulse Ox 98.3 F 78 18 106/73 97 08/28/18 06:00 08/28/18 11:42 08/28/18 06:00 08/28/18 11:42 08/28/18 06:00 Intake and Output: 08/28/18 08/28/18 06:59 18:59 Intake Total 840 Balance 840 - Medications Medications: Current Medications Atorvastatin Calcium (Lipitor) 10 mg PO DIN [facility] Last Admin: 08/27/18 17:18 Dose: 10 mg Dextrose (Dextrose 50% Inj) 0 ml IV STAT PRN; Protocol PRN Reason: Hypoglycemia Protocol Famotidine (Pepcid) 40 mg PO HS [facility] Last Admin: 08/27/18 22:35 Dose: 40 mg Gabapentin (Neurontin) 100 mg PO TID [facility]; Protocol Last Admin: 08/28/18 11:42 Dose: 100 mg Dextrose (Dextrose 5% In Water 1000 Ml) 1,000 mls @ 0 mls/hr IV .Q0M PRN; Protocol PRN Reason: Hypoglycemia Protocol Insulin Human Regular (Humulin R Med) 0 units SC ACHS [facility]; Protocol Last Admin: 08/28/18 13:01 Dose: Not Given Lisinopril (Zestril) 2.5 mg PO DAILY [facility] Last Admin: 08/28/18 11:42 Dose: 2.5 mg - Labs Labs: 08/28/18 06:20 08/28/18 06:20 - Constitutional Appears: Well, Non-toxic, No Acute Distress - Head Exam Head Exam: ATRAUMATIC, NORMOCEPHALIC - Extremities Exam Additional comments: Left LE focused exam: Dressing left intact as the patient is going for surgery today Vasc: DP/PT 2/4. Cap refill < 3 sec in all digits. temp gradient warm to warm on the left side from proximal to distal. No edema or erythema noted. Neuro: Gross and protective sensations are diminished. Derm: Dressing left intact MSK: Muscle power intact 5/5 in all groups. - Neurological Exam Neurological Exam: Alert, Awake, Oriented x3 - Psychiatric Exam Psychiatric exam: Normal Affect, Normal Mood Assessment and Plan - Assessment and Plan (Free Text) Assessment: 58 Y/O M patient seen and evaluated at the bedside for osteomyelitis of the left 5th metatarsal bone. Plan: Patient seen and evaluated at the bedside With Dr. Diana. Plan discussed in details with attending Dr. Diana. X-ray left foot (08/25) reviewed; Left 5th met head erosions, Medial dislocation of the 5th MPJ. MRI left foot (08/26/17) reviewed; Left foot ulcer, left 5th met head Os teomyelitis, Left 5th toe proximal phalanx osteomyelitis. Wound culture (08/21): Klebsiella Oxytoca. Chart, labs and vitals reviewed; Afebrile, WBCs 11.3. CRP: 24.1 ESR: 31. ID is on board. recommendations appreciated. Arterial duplex reviewed: SILVIANO R 0.92, L 0.94. Pending medical clearance for the surgery. Confirmed NPO status from the patient. Patient was explained procedure and post-operative course All patient's questions were answered to satisfaction No guarantees were made Patient understands all risks, benefits and complications of procedure Patient will go to the OR today for Partial left 5th metatarsal bone resection for osteomyelitis and recurrent ulceration. podiatry will continue to follow up the patient while in house.
--- NOTE | 2018-08-28 15:15 | CP.PCM.PN ---
<Tamy Blunt - Last Filed: 08/28/18 15:12> Subjective - Date & Time of Evaluation Date of Evaluation: 08/28/18 Time of Evaluation: 11:00 - Subjective Subjective: PGY-1 Tamy Jose Raul Medicine Progress note for Dr. Christian's service Patient seen and examined at bedside. Patient offers no acute complaints. Patient denies chest pain, sob, n/v, constipation or diarrhea, headaches, dysuria. Objective - Vital Signs/Intake and Output Vital Signs (last 24 hours): Temp Pulse Resp BP Pulse Ox 98.3 F 78 18 106/73 97 08/28/18 06:00 08/28/18 11:42 08/28/18 06:00 08/28/18 11:42 08/28/18 06:00 Intake and Output: 08/28/18 08/28/18 06:59 18:59 Intake Total 840 240 Balance 840 240 - Medications Medications: Current Medications Atorvastatin Calcium (Lipitor) 10 mg PO DIN [facility] Last Admin: 08/27/18 17:18 Dose: 10 mg Dextrose (Dextrose 50% Inj) 0 ml IV STAT PRN; Protocol PRN Reason: Hypoglycemia Protocol Famotidine (Pepcid) 40 mg PO HS [facility] Last Admin: 08/27/18 22:35 Dose: 40 mg Gabapentin (Neurontin) 100 mg PO TID [facility]; Protocol Last Admin: 08/28/18 11:42 Dose: 100 mg Dextrose (Dextrose 5% In Water 1000 Ml) 1,000 mls @ 0 mls/hr IV .Q0M PRN; Protocol PRN Reason: Hypoglycemia Protocol Insulin Human Regular (Humulin R Med) 0 units SC ACHS [facility]; Protocol Last Admin: 08/28/18 13:01 Dose: Not Given Lisinopril (Zestril) 2.5 mg PO DAILY [facility] Last Admin: 08/28/18 11:42 Dose: 2.5 mg - Labs Labs: 08/28/18 06:20 08/28/18 06:20 - Additional Findings Additional findings: - Constitutional Appears: Well, No Acute Distress - Head Exam Head Exam: ATRAUMATIC, NORMOCEPHALIC - Neck Exam Neck Exam: Normal Inspection - Respiratory Exam Respiratory Exam: Clear to Ausculation Bilateral, NORMAL BREATHING PATTERN - Cardiovascular Exam Cardiovascular Exam: REGULAR RHYTHM, +S1, +S2 - GI/Abdominal Exam GI & Abdominal Exam: Soft. absent: Tenderness - Extremities Exam Extremities Exam: Pedal Edema Additional comments: less than 1cm wound on the sole of L foot, minimal erythema, penetrating deeply - Neurological Exam Neurological Exam: Alert, Awake, Motor Sensory Deficit, Oriented x3 Assessment and Plan - Assessment and Plan (Free Text) Assessment: Patient is a 58 yo male with PMH of DM, WA (2005), ulcer presents to ED after being in wound care clinic with concerns of possible osteomyelitis from ulcer on left foot; zosyn discontinued in setting of debridement and wound culture; plan for OR on 07-28 Plan: Foot Ulcer ID consulted - hold Abx; depending on MRI to develop treatment plan and request deep cultures; continue gylcemic control Podiatry consulted- Patient will go to the OR (08/28) for Partial left 5th metatarsal bone resection for osteomyelitis and recurrent ulceration. Cardio consulted - Dr. Bennett- low to moderate risk for low risk procedure Foot Xray - no definite signs of osteomyeltis CRP 24.1, ESR 31 Abx held; BCx negative Repeat CBC in AM Plan for surgery today- After reviewing echo patient is deemed low to moderate risk for low risk procedure. DM w/neuropathy Home meds held ISS- med dose ACHS Hypogylemic protocol Gabapentin 100mg po tid History of [place] Lisinopril 2.5mg po daily Lipitor 10mg po daily PPx GI ppx: Pepcid 40mg po DVT ppx: SCDs <Fanta Christian A - Last Filed: 08/28/18 18:51> Objective - Vital Signs/Intake and Output Vital Signs (last 24 hours): Temp Pulse Resp BP Pulse Ox 97.9 F 83 18 131/84 93 L 08/28/18 18:12 08/28/18 18:12 08/28/18 18:12 08/28/18 18:12 08/28/18 18:12 Intake and Output: 08/28/18 08/28/18 06:59 18:59 Intake Total 840 240 Balance 840 240 - Medications Medications: Current Medications Acetaminophen (Tylenol 325mg Tab) 650 mg PO Q6H PRN PRN Reason: Pain, Mild (1-3) Atorvastatin Calcium (Lipitor) 10 mg PO DIN [facility] Last Admin: 08/28/18 17:47 Dose: Not Given Dextrose (Dextrose 50% Inj) 0 ml IV STAT PRN; Protocol PRN Reason: Hypoglycemia Protocol Famotidine (Pepcid) 40 mg PO HS [facility] Last Admin: 08/27/18 22:35 Dose: 40 mg Gabapentin (Neurontin) 100 mg PO TID [facility]; Protocol Last Admin: 08/28/18 17:47 Dose: Not Given Hydromorphone HCl (Dilaudid) 0.5 mg IVP Q15M PRN PRN Reason: Other Stop: 08/28/18 19:16 Dextrose (Dextrose 5% In Water 1000 Ml) 1,000 mls @ 0 mls/hr IV .Q0M PRN; Protocol PRN Reason: Hypoglycemia Protocol Lactated Ringer's (Lactated Ringer's) 1,000 mls @ 75 mls/hr IV .[id number] [facility] Stop: 08/28/18 19:31 Insulin Human Regular (Humulin R Med) 0 units SC ACHS [facility]; Protocol Last Admin: 08/28/18 16:44 Dose: Not Given Lisinopril (Zestril) 2.5 mg PO DAILY [facility] Last Admin: 08/28/18 11:42 Dose: 2.5 mg Oxycodone/Acetaminophen (Percocet 5/325 Mg Tab) 1 tab PO Q6H PRN PRN Reason: Pain, moderate (4-7) Stop: 08/31/18 17:15 Oxycodone/Acetaminophen (Percocet 5/325 Mg Tab) 2 tab PO Q6H PRN PRN Reason: Pain, severe (8-10) Stop: 08/31/18 17:15 - Labs Labs: 08/28/18 06:20 08/28/18 06:20 Attending/Attestation - Attestation I have personally seen and examined this patient.: Yes I have fully participated in the care of the patient.: Yes I have reviewed all pertinent clinical information, including history, physical exam and plan: Yes Notes (Text): 08/28/18 18:49 58 year old male with past medical history of diabetes and [place] who presented with nonhealing foot ulcer. He was referred by podiatry to rule out osteomyelitis. ESR is 31. CRP is 24.1. Xray no definite sign of osteomyelitis. ID is following; recommended to hold antibiotics for now while awaiting deep tissue cultures. Podiatry is following and plan is for left 5th toe amputation today. Cardiology evaluation was appreciated for risk stratification as patient has history of WA. He is on aspirin (held for procedure), lisinopril and statin. Fanta Christian MD Hospitalist.
[2018-08-28] MEDS ORDERED: Lidocaine PF 2% (5 ml) Inj (For Cardiac Arrhy) ONE ×2 (15:41→15:56)
[2018-08-28] MEDS ORDERED: CeFAZolin 1 gm in NS 100ml IVPB ONE (15:55)
[2018-08-28] MEDS ORDERED: Lidocaine 2% Inj (20ml) IJ ONE ×2 (15:56→16:10)
[2018-08-28] MEDS ORDERED: Propofol 10 mg/ml Inj (20 ML) ONE (15:56)
[2018-08-28] MEDS ORDERED: Lidocaine 2% Inj (20ml) IJ STA (16:01)
[2018-08-28] MEDS ORDERED: Vancomycin 1gm in NS 250ml IVPB ONE (16:15)
[2018-08-28] MEDS ORDERED: Vancomycin 1 g Inj ONE (16:22)
--- NOTE | 2018-08-28 17:11 | PCM.SURG1 ---
Surgeon's Initial Post Op Note - Surgeon's Notes Surgeon: Dr. Vane Diana.DPM Process Engineering Intern: Dr. Cesar Avery. DPM, PGY1 Type of Anesthesia: General LMA, Local Anesthesia Administered By: Dr. Rodriguez Pre-Operative Diagnosis: Left foot ulcer with underlying osteomyelitis of the 5th metatarsal; bone and left 5th toe proximal phalanx. Operative Findings: See Dictation. Injectables: 10 cc of lidocaine pain 2%. Materials: Vircryl 2-0, Nylon 3-0. Post-Operative Diagnosis: Same Operation Performed: - Left 5th toe amputation. - Left 5th metatarsal bone partial resection. Specimen/Specimens Removed: - Amputated left 5th toe. - Partially resected 5th metatarsal bone. - Deep wound culture. Estimated Blood Loss: EBL {In ML}: 5 Blood Products Given: N/A Drains Used: No Drains Post-Op Condition: Good Date of Surgery/Procedure: 08/28/18 Time of Surgery/Procedure: 17:12
[2018-08-28] MEDS ORDERED: HYDROmorphone 0.5 mg/0.5 ml ISec IVP PRN (17:16)
[2018-08-28] MEDS ORDERED: Lactated Ringer's 1,000 ML IV SCH (17:30)
[2018-08-28] MEDS: Oxycodone/Acetaminophen 5/325 mg Tab PO PRN (21:45)
--- NOTE | 2018-08-28 22:29 | PN ---
DATE: 08/28/2018 SUBJECTIVE: The patient is in bed in room 561, bed 2. No fevers. No chills. PHYSICAL EXAMINATION: VITAL SIGNS: Temperature is 98, blood pressure is 130/80, respiratory rate of 18. HEENT: Examination of HEENT is unremarkable. NECK: Supple. LUNGS: Have decreased breath sounds. HEART: Normal S1 and S2. ABDOMEN: Soft. LABORATORY DATA: Laboratory examination reveals a white count of 11,300, hemoglobin of 14, creatinine is 0.8. Microbiology reveals the blood cultures are negative. ASSESSMENT AND PLAN: A 58-year-old male, who was seen early this morning with osteomyelitis, diabetes, history of right foot methicillin-resistant Staphylococcus aureus, nonhealing right foot ulcer and open ulcer. Currently, the patient was taken to the OR today. The patient is for resection of metatarsal head of the fifth, partial. Jamie Acevedo MD
--- NOTE | 2018-08-28 22:41 | PN ---
DATE: 08/28/2018 SUBJECTIVE: The patient denies chest pain or shortness of breath. PHYSICAL EXAMINATION: VITAL SIGNS: Blood pressure 138/78, heart rate 89, temperature 97.9, respirations 18. HEENT: Normocephalic. CHEST: Clear. HEART: S1, S2 regular. EXTREMITIES: No edema. Dressings applied to the left foot. LABORATORY DATA: Today's SMA-7 is within normal limit except for glucose of 139. Echocardiographic study performed yesterday revealed normal left ventricular size, wall thickness and ejection fraction. ASSESSMENT: 1. Coronary artery disease with history of coronary artery stenting many years ago. 2. Status post partial resection of left fifth metatarsal head. 3. Uncontrolled diabetes mellitus. RECOMMENDATIONS: Continue current Lipitor, Neurontin, gabapentin, and Zestril. Obtain 12-lead EKG postoperatively. Epi Bennett MD
--- NOTE | 2018-08-29 01:12 | OP ---
PROCEDURE DATE: 08/28/2018 SURGEON: Vane Diana DPM. FLIGHT AGENT: Cesar Avery. WICHO, PGY1. MEDICAL RECORDS CLERK: Dr. Rodriguez. TYPE OF ANESTHESIA: General anesthesia with LMA plus local anesthesia. PREOPERATIVE DIAGNOSES: Left foot infected ulcer with underlying osteomyelitis of the fifth metatarsal bone and the proximal phalanx of the fifth toe. POSTOPERATIVE DIAGNOSES: Left foot infected ulcer with underlying osteomyelitis of the fifth metatarsal bone and the proximal phalanx of the fifth toe. NAME OF THE PROCEDURES: 1. Left fifth toe amputation. 2. Left fifth metatarsal bone partial resection with debridement of all necrotic tissue. INDICATION: The patient is a 58-year-old male with the above diagnoses. The patient had exhausted all the conservative treatments at this time and now requests surgical intervention. The patient signed the consent after careful explanation of risks, benefits, complications and alternatives for surgical procedure. No guarantees were given, nor implied. PREPARATION: The patient was brought to the Operating Room and placed on the operating table in a supine position. Time out was performed for identification of the correct patient and procedure. Tourniquet was not utilized or indicated for this procedure. After induction of general anesthesia with LMA, the patient received a total of 10 mL of 2% lidocaine plain to the left foot in a reversed Morgan block fashion and fifth toe in a V block fashion. Once local anesthesia was achieved, the left foot was then prepped and draped in a normal sterile manner and the procedure began. PROCEDURE #1. Amputation of the left fifth digit. Attention was then drawn to the left fifth digit where racket-type incision was made circumferentially at the level of the left fifth metatarsophalangeal joint using a #15 sterile blade. The incision was then extended down through the subcutaneous layer to the level of the bone, using the bone clamp to stabilize the toe, the left fifth digit was then disarticulated from the foot at the level of the left fifth metatarsophalangeal joint. This specimen was then passed from the operative field and sent to Pathology. Using a fresh #15 blade, the extensor and flexor tendon were then transected proximally, then deep tissue culture obtained. PROCEDURE #2. Left fifth metatarsal bone partial resection with debridement of all necrotic tissue. Next, attention was drawn to the left fifth metatarsal bone. The incision was deepened through the subcutaneous tissue extending from the dorsal limb of the racket incision. Next, utilizing a [place] elevator, all the periosteal tissue and soft tissue was carefully resected of the left fifth metatarsal bone distal end. At this time, utilizing a sagittal saw, the fifth metatarsal bone was resected partially, distally and the fifth ray was then passed out of the field and sent to pathology. The remaining sharp bone was then debrided down to smoothness with a Castellano rasp. Then, using a pulsed lavage, amputation site was then flushed with copious amount of sterile saline. Then, plantar ulcer debrided with sharp sterile #15 blade. Closure of the amputation site using 2-0 Vicryl sutures for subcutaneous tissue and 3-0 nylon for the skin in a simple suture fashion. Packing was done through the ulcer site plantarly using one quarter inch of iodoform pack. The surgical site was then dressed with Adaptic, sterile 4 x 4 gauze, Kerlix and Michael bandage. POSTOPERATIVE CONDITION: The patient tolerated the anesthesia and procedure well and was escorted to the Recovery Room with the vital signs stable and neurovascular status intact to the left lower extremity. Podiatry will follow up the patient while in-house and this patient will follow up with Dr. Vane Diana [facility] upon discharge. Cesar Avery. WICHO PGY1 Vane Diana DPM [facility]
[2018-08-29 07:06] LABS: BASO # 0.05 K/mm3 (0.0-2.0); BASO % 0.4 % (0.0-3.0); EOS # 0.4 (0.0-0.7); EOS % 3.3 % (1.5-5.0); GRAN # 7.11 (1.4-6.5); GRAN % 62.9 % (50.0-68.0); HEMOGLOBIN 15.1 g/dL (14.0-18.0); LYMPH % 26.1 % (22.0-35.0); MEAN CELL VOLUME 91.4 fl (80.0-105.0); MEAN CORPUSCULAR HEMOGLOBIN 30.3 pg (25.0-35.0); MEAN CORPUSCULAR HGB CONC 33.1 g/dl (31.0-37.0); MEAN PLATELET VOLUME 10.2 fl (7.0-11.0); MONO # 0.8 (0.1-0.6); MONO % 7.3 % (1.0-6.0); RBC 4.99 10^6/uL (3.5-6.1); RED CELL DISTRIBUTION WIDTH 13.3 % (11.5-14.5); WHITE BLOOD COUNT 11.3 10^3/ul (4.5-11.0)
[2018-08-29 07:29] LABS: ALB/GLOB RATIO 1.1 (1.1-1.8); ALBUMIN 3.7 g/dL (3.0-4.8); ALT/SGPT 24 U/L (7-56); AST/SGOT 22 U/L (17-59); BLOOD UREA NITROGEN 16 mg/dL (7-21); CALCIUM 8.9 mg/dL (8.4-10.5); GFR NON-AFRICAN AMERICAN > 60
[2018-08-29] MEDS: Insulin Reg-MEDIUM-Coverage SC SCH ×4 (07:57→22:10)
--- NOTE | 2018-08-29 08:24 | CP.PCM.PN ---
<Cesar Avery - Last Filed: 08/29/18 20:14> Subjective - Date & Time of Evaluation Date of Evaluation: 08/29/18 Time of Evaluation: 09:20 - Subjective Subjective: Podiatry consult note for attending Dr. Garcia; 58 y/o male patient seen and evaluated 1 day S/P left 5th toe amputation and left 5th metatarsal bone partial resection. Patient states that he didn't have pain in his Surgery site yesterday. Patient denies any overnight F/N/V/C or SOB. Patient denies any other pedal complaint at this time. Objective - Vital Signs/Intake and Output Vital Signs (last 24 hours): Temp Pulse Resp BP Pulse Ox 98 F 60 20 106/68 100 08/29/18 06:00 08/29/18 06:00 08/29/18 06:00 08/29/18 06:00 08/29/18 06:00 Intake and Output: 08/29/18 08/29/18 06:59 18:59 Intake Total 480 Output Total 300 Balance 180 - Medications Medications: Current Medications Acetaminophen (Tylenol 325mg Tab) 650 mg PO Q6H PRN PRN Reason: Pain, Mild (1-3) Atorvastatin Calcium (Lipitor) 10 mg PO DIN [facility] Last Admin: 08/28/18 17:47 Dose: Not Given Dextrose (Dextrose 50% Inj) 0 ml IV STAT PRN; Protocol PRN Reason: Hypoglycemia Protocol Famotidine (Pepcid) 40 mg PO HS [facility] Last Admin: 08/28/18 21:49 Dose: 40 mg Gabapentin (Neurontin) 100 mg PO TID [facility]; Protocol Last Admin: 08/28/18 17:47 Dose: Not Given Dextrose (Dextrose 5% In Water 1000 Ml) 1,000 mls @ 0 mls/hr IV .Q0M PRN; Protocol PRN Reason: Hypoglycemia Protocol Insulin Human Regular (Humulin R Med) 0 units SC ACHS [facility]; Protocol Last Admin: 08/29/18 07:57 Dose: Not Given Lisinopril (Zestril) 2.5 mg PO DAILY [facility] Last Admin: 08/28/18 11:42 Dose: 2.5 mg Oxycodone/Acetaminophen (Percocet 5/325 Mg Tab) 1 tab PO Q6H PRN PRN Reason: Pain, moderate (4-7) Stop: 08/31/18 17:15 Last Admin: 08/28/18 21:45 Dose: 1 tab Oxycodone/Acetaminophen (Percocet 5/325 Mg Tab) 2 tab PO Q6H PRN PRN Reason: Pain, severe (8-10) Stop: 08/31/18 17:15 - Labs Labs: 08/29/18 06:20 08/29/18 06:20 - Constitutional Appears: Well, Non-toxic, No Acute Distress - Head Exam Head Exam: ATRAUMATIC, NORMOCEPHALIC - Extremities Exam Additional comments: Left LE focused exam: Dressing left intact, Dressing was dry/clean and intact Vasc: Cap refill < 3 sec in all digits. Neuro: Gross and protective sensations are diminished. Derm: Dressing left intact. MSK: Patient can perform active ROM with his toes. - Neurological Exam Neurological Exam: Alert, Awake, Oriented x3 - Psychiatric Exam Psychiatric exam: Normal Affect, Normal Mood Assessment and Plan - Assessment and Plan (Free Text) Assessment: 58 Y/O M patient seen and evaluated at the bedside 1 day S/P left 5th toe ampu tation and left 5th metatarsal bone partial resection. Plan: Patient seen and evaluated at the bedside Plan discussed in details with attending Dr. Garcia. X-ray left foot (08/25) reviewed; Left 5th met head erosions, Medial dislocation of the 5th MPJ. MRI left foot (08/26/17) reviewed; Left foot ulcer, left 5th met head Osteomyelitis, Left 5th toe proximal phalanx osteomyelitis. Wound culture (08/21): Klebsiella Oxytoca. Chart, labs and vitals reviewed; Afebrile, WBCs 11.3. CRP: 24.1 ESR: 31. ID is on board. recommendations appreciated. Dressing left intact to be changed tomorrow. podiatry will continue to follow up the patient while in house. <Rey Garcia - Last Filed: 08/30/18 08:14> Objective - Vital Signs/Intake and Output Vital Signs (last 24 hours): Temp Pulse Resp BP Pulse Ox 98.3 F 60 20 105/73 99 08/30/18 06:00 08/30/18 06:00 08/30/18 06:00 08/30/18 06:00 08/30/18 06:00 Intake and Output: 09/29/18 09/29/18 06:59 18:59 Intake Total 620 Output Total 500 Balance 120 - Medications Medications: Current Medications Acetaminophen (Tylenol 325mg Tab) 650 mg PO Q6H PRN PRN Reason: Pain, Mild (1-3) Aspirin (Aspirin Chewable) 81 mg PO DAILY [facility] Last Admin: 08/29/18 18:19 Dose: 81 mg Atorvastatin Calcium (Lipitor) 10 mg PO DIN [facility] Last Admin: 08/29/18 16:53 Dose: 10 mg Dextrose (Dextrose 50% Inj) 0 ml IV STAT PRN; Protocol PRN Reason: Hypoglycemia Protocol Famotidine (Pepcid) 40 mg PO HS [facility] Last Admin: 08/29/18 22:11 Dose: 40 mg Gabapentin (Neurontin) 100 mg PO TID [facility]; Protocol Last Admin: 08/29/18 18:20 Dose: 100 mg Dextrose (Dextrose 5% In Water 1000 Ml) 1,000 mls @ 0 mls/hr IV .Q0M PRN; Pr otocol PRN Reason: Hypoglycemia Protocol Insulin Human Regular (Humulin R Med) 0 units SC ACHS [facility]; Protocol Last Admin: 08/29/18 22:10 Dose: Not Given Lisinopril (Zestril) 2.5 mg PO DAILY [facility] Last Admin: 08/29/18 10:33 Dose: 2.5 mg Oxycodone/Acetaminophen (Percocet 5/325 Mg Tab) 1 tab PO Q6H PRN PRN Reason: Pain, moderate (4-7) Stop: 08/31/18 17:15 Last Admin: 08/29/18 16:59 Dose: 1 tab Oxycodone/Acetaminophen (Percocet 5/325 Mg Tab) 2 tab PO Q6H PRN PRN Reason: Pain, severe (8-10) Stop: 08/31/18 17:15 Last Admin: 08/29/18 22:26 Dose: 2 tab - Labs Labs: 08/29/18 06:20 08/29/18 06:20 Attending/Attestation - Attestation I have personally seen and examined this patient.: Yes I have fully participated in the care of the patient.: Yes I have reviewed all pertinent clinical information, including history, physical exam and plan: Yes
[2018-08-29] MEDS: Oxycodone/Acetaminophen 5/325 mg Tab PO PRN ×3 (09:03→22:26)
--- NOTE | 2018-08-29 10:08 | CARD ---
APPROVED REPORT Date of service: 08/28/2018 EKG Measurement Heart [id number] <Conclusion> Normal sinus rhythm Low voltage QRS limb leads PRWP No change
--- NOTE | 2018-08-29 13:48 | CP.PCM.PN ---
<Tamy Blunt - Last Filed: 08/29/18 13:42> Subjective - Date & Time of Evaluation Date of Evaluation: 08/29/18 Time of Evaluation: 10:30 - Subjective Subjective: PGY-1 Tamy Blunt Medicine Progress Note for Dr. Christian's service Patient seen and examined at bedside. Patient POD 1 and is complaining of a throbbing ache. Patient denies chest pain, sob, n/v, constipation or diarrhea, dysuria. Objective - Vital Signs/Intake and Output Vital Signs (last 24 hours): Temp Pulse Resp BP Pulse Ox 98 F 72 20 123/80 100 08/29/18 06:00 08/29/18 10:33 08/29/18 06:00 08/29/18 10:33 08/29/18 06:00 Intake and Output: 08/29/18 08/29/18 06:59 18:59 Intake Total 480 Output Total 300 Balance 180 - Medications Medications: Current Medications Acetaminophen (Tylenol 325mg Tab) 650 mg PO Q6H PRN PRN Reason: Pain, Mild (1-3) Atorvastatin Calcium (Lipitor) 10 mg PO DIN [facility] Last Admin: 08/28/18 17:47 Dose: Not Given Dextrose (Dextrose 50% Inj) 0 ml IV STAT PRN; Protocol PRN Reason: Hypoglycemia Protocol Famotidine (Pepcid) 40 mg PO HS [facility] Last Admin: 08/28/18 21:49 Dose: 40 mg Gabapentin (Neurontin) 100 mg PO TID [facility]; Protocol Last Admin: 08/29/18 10:33 Dose: 100 mg Dextrose (Dextrose 5% In Water 1000 Ml) 1,000 mls @ 0 mls/hr IV .Q0M PRN; Protocol PRN Reason: Hypoglycemia Protocol Insulin Human Regular (Humulin R Med) 0 units SC ACHS [facility]; Protocol Last Admin: 08/29/18 11:41 Dose: 1 unit Lisinopril (Zestril) 2.5 mg PO DAILY [facility] Last Admin: 08/29/18 10:33 Dose: 2.5 mg Oxycodone/Acetaminophen (Percocet 5/325 Mg Tab) 1 tab PO Q6H PRN PRN Reason: Pain, moderate (4-7) Stop: 08/31/18 17:15 Last Admin: 08/28/18 21:45 Dose: 1 tab Oxycodone/Acetaminophen (Percocet 5/325 Mg Tab) 2 tab PO Q6H PRN PRN Reason: Pain, severe (8-10) Stop: 08/31/18 17:15 Last Admin: 08/29/18 09:03 Dose: 2 tab - Labs Labs: 08/29/18 06:20 08/29/18 06:20 - Constitutional Appears: Non-toxic, No Acute Distress - Head Exam Head Exam: NORMAL INSPECTION, NORMOCEPHALIC - Eye Exam Eye Exam: EOMI, Normal appearance. absent: Nystagmus, Scleral icterus - ENT Exam ENT Exam: Mucous Membranes Moist - Respiratory Exam Respiratory Exam: Clear to Ausculation Bilateral, NORMAL BREATHING PATTERN. absent: Rales, Rhonchi, Wheezes, Respiratory Distress - Cardiovascular Exam Cardiovascular Exam: REGULAR RHYTHM, +S1, +S2 - GI/Abdominal Exam GI & Abdominal Exam: Soft, Normal Bowel Sounds. absent: Tenderness - Extremities Exam Extremities Exam: absent: Calf Tenderness, Pedal Edema Additional comments: 5th toe amputation and left 5th metatarsal bone partial resection. - Neurological Exam Neurological Exam: Alert, Awake, Oriented x3 - Psychiatric Exam Psychiatric exam: Normal Affect, Normal Mood - Skin Skin Exam: Intact, Normal Color Assessment and Plan - Assessment and Plan (Free Text) Assessment: Patient is a 58 yo male with PMH of DM, VA (2005), ulcer presents to ED after being in wound care clinic with concerns of possible osteomyelitis from ulcer on left foot; zosyn discontinued in setting of debridement and wound culture; POD 1 pending wound cultures to restart antibiotics Plan: Foot Ulcer ID consulted - hold Abx; Request deep cultures; continue gylcemic control Podiatry consulted- OR on 08/28; wound cultures pending; will continue to follow up Cardio consulted - Dr. Bennett- low to moderate risk for low risk procedure 08/26/18 MRI left foot- left 5th met head Osteomyelitis, Left 5th toe proximal phalanx osteomyelitis. 08/25/18 Foot Xray - no definite signs of osteomyeltis CRP 24.1, ESR 31 Abx held pending deep cultures; BCx negative Oxycodone 2 tab po q6h prn; Tylenol 650mg po q6h prn Repeat CBC in AM which shows WBC at 11.3 DM w/neuropathy Home meds held ISS- med dose ACHS Hypogylemic protocol Gabapentin 100mg po tid History of VA Lisinopril 2.5mg po daily Lipitor 10mg po daily PPx GI ppx: Pepcid 40mg po DVT ppx: SCDs <Fanta Christian A - Last Filed: 08/29/18 17:11> Objective - Vital Signs/Intake and Output Vital Signs (last 24 hours): Temp Pulse Resp BP Pulse Ox 98.1 F 74 18 110/65 96 08/29/18 15:32 08/29/18 15:32 08/29/18 15:32 08/29/18 15:32 08/29/18 15:32 Intake and Output: 08/29/18 08/29/18 06:59 18:59 Intake Total 480 Output Total 300 Balance 180 - Medications Medications: Current Medications Acetaminophen (Tylenol 325mg Tab) 650 mg PO Q6H PRN PRN Reason: Pain, Mild (1-3) Atorvastatin Calcium (Lipitor) 10 mg PO DIN [facility] Last Admin: 08/29/18 16:53 Dose: 10 mg Dextrose (Dextrose 50% Inj) 0 ml IV STAT PRN; Protocol PRN Reason: Hypoglycemia Protocol Famotidine (Pepcid) 40 mg PO HS [facility] Last Admin: 08/28/18 21:49 Dose: 40 mg Gabapentin (Neurontin) 100 mg PO TID [facility]; Protocol Last Admin: 08/29/18 13:58 Dose: 100 mg Dextrose (Dextrose 5% In Water 1000 Ml) 1,000 mls @ 0 mls/hr IV .Q0M PRN; Protocol PRN Reason: Hypoglycemia Protocol Insulin Human Regular (Humulin R Med) 0 units SC [facility]; Protocol Last Admin: 08/29/18 16:53 Dose: 1 unit Lisinopril (Zestril) 2.5 mg PO DAILY [facility] Last Admin: 08/29/18 10:33 Dose: 2.5 mg Oxycodone/Acetaminophen (Percocet 5/325 Mg Tab) 1 tab PO Q6H PRN PRN Reason: Pain, moderate (4-7) Stop: 08/31/18 17:15 Last Admin: 08/29/18 16:59 Dose: 1 tab Oxycodone/Acetaminophen (Percocet 5/325 Mg Tab) 2 tab PO Q6H PRN PRN Reason: Pain, severe (8-10) Stop: 08/31/18 17:15 Last Admin: 08/29/18 09:03 Dose: 2 tab - Labs Labs: 08/29/18 06:20 08/29/18 06:20 Attending/Attestation - Attestation I have personally seen and examined this patient.: Yes I have fully participated in the care of the patient.: Yes I have reviewed all pertinent clinical information, including history, physical exam and plan: Yes Notes (Text): 08/29/18 17:10 58 year old male with past medical history of diabetes and VA who presented with nonhealing foot ulcer. He was referred by podiatry to rule out osteomyelitis. ESR is 31. CRP is 24.1. Xray no definite sign of osteomyelitis. Podiatry is following and patient is s/p left 5th toe amputation POD #1. ID is following; recommended to hold antibiotics for now while awaiting deep tissue cultures. He is on aspirin, lisinopril and statin. Fanta Christian MD Hospitalist.
--- NOTE | 2018-08-29 17:54 | CP.PCM.PN ---
Subjective - Date & Time of Evaluation Date of Evaluation: 08/29/18 Time of Evaluation: 10:55 - Subjective Subjective: Afebrile, less pain in the foot, no fevers. Objective - Vital Signs/Intake and Output Vital Signs (last 24 hours): Temp Pulse Resp BP Pulse Ox 98.1 F 91 H 16 117/58 L 93 L 08/28/18 21:31 08/28/18 21:31 08/28/18 21:31 08/28/18 21:31 08/28/18 21:31 Intake and Output: 08/28/18 08/29/18 18:59 06:59 Intake Total 240 480 Output Total 300 Balance 240 180 - Medications Medications: Current Medications Acetaminophen (Tylenol 325mg Tab) 650 mg PO Q6H PRN PRN Reason: Pain, Mild (1-3) Atorvastatin Calcium (Lipitor) 10 mg PO DIN [facility] Last Admin: 08/28/18 17:47 Dose: Not Given Dextrose (Dextrose 50% Inj) 0 ml IV STAT PRN; Protocol PRN Reason: Hypoglycemia Protocol Famotidine (Pepcid) 40 mg PO HS [facility] Last Admin: 08/28/18 21:49 Dose: 40 mg Gabapentin (Neurontin) 100 mg PO TID [facility]; Protocol Last Admin: 08/28/18 17:47 Dose: Not Given Dextrose (Dextrose 5% In Water 1000 Ml) 1,000 mls @ 0 mls/hr IV .Q0M PRN; Protocol PRN Reason: Hypoglycemia Protocol Insulin Human Regular (Humulin R Med) 0 units SC ACHS [facility]; Protocol Last Admin: 08/28/18 21:45 Dose: Not Given Lisinopril (Zestril) 2.5 mg PO DAILY [facility] Last Admin: 08/28/18 11:42 Dose: 2.5 mg Oxycodone/Acetaminophen (Percocet 5/325 Mg Tab) 1 tab PO Q6H PRN PRN Reason: Pain, moderate (4-7) Stop: 08/31/18 17:15 Last Admin: 08/28/18 21:45 Dose: 1 tab Oxycodone/Acetaminophen (Percocet 5/325 Mg Tab) 2 tab PO Q6H PRN PRN Reason: Pain, severe (8-10) Stop: 08/31/18 17:15 - Labs Labs: 08/28/18 06:20 08/28/18 06:20 - Constitutional Appears: Chronically Ill - Head Exam Head Exam: NORMAL INSPECTION - Respiratory Exam Respiratory Exam: Decreased Breath Sounds - Cardiovascular Exam Cardiovascular Exam: +S1, +S2 - GI/Abdominal Exam GI & Abdominal Exam: Soft, Tenderness - Extremities Exam Additional comments: left foot with dressings in place Assessment and Plan - Assessment and Plan (Free Text) Plan: Assessment left foot lateral diabetic foot ulcer with probable osteomyelitis S/P amputation of 5th metatarsal CAD history of left foot osteomyelitis DM Plan continue to monitor off antibiotics pending OR cultures and pathology
--- NOTE | 2018-08-29 19:34 | PN ---
DATE: 08/29/2018 SUBJECTIVE: The patient denies any chest pain or shortness of breath. PHYSICAL EXAMINATION: VITAL SIGNS: Blood pressure 110/65, heart rate 74, temperature 98.1, respirations 18. HEENT: Normocephalic. CHEST: Clear. HEART: S1 and S2 regular. EXTREMITIES: No edema. LABORATORY DATA: Today's SMA-7 is within normal limit except for glucose of 164. Today's hemoglobin and hematocrit 15.1 and 45.6. ASSESSMENT: 1. Coronary artery disease with history of coronary artery stenting many years ago. 2. Status post partial resection of the left fifth metatarsal head. 3. Uncontrolled diabetes mellitus. EKG was done yesterday postoperatively and it showed no significant changes from the preoperative EKG. Continue current aspirin, Lipitor, Neurontin, oral Pepcid and Zestril. Epi Bennett MD
[2018-08-30 08:56] LABS: BASO # 0.06 K/mm3 (0.0-2.0); BASO % 0.5 % (0.0-3.0); EOS # 0.6 (0.0-0.7); EOS % 5.2 % (1.5-5.0); GRAN # 5.54 (1.4-6.5); GRAN % 48.6 % (50.0-68.0); HEMOGLOBIN 15.7 g/dL (14.0-18.0); LYMPH # 3.9 (1.2-3.4); LYMPH % 34.5 % (22.0-35.0); MEAN CELL VOLUME 91.9 fl (80.0-105.0); MEAN CORPUSCULAR HEMOGLOBIN 30.3 pg (25.0-35.0); MEAN PLATELET VOLUME 10.2 fl (7.0-11.0); MONO # 1.3 (0.1-0.6); MONO % 11.2 % (1.0-6.0); RBC 5.18 10^6/uL (3.5-6.1); RED CELL DISTRIBUTION WIDTH 13.4 % (11.5-14.5); WHITE BLOOD COUNT 11.4 10^3/ul (4.5-11.0)
[2018-08-30 09:17] LABS: ALB/GLOB RATIO 1.2 (1.1-1.8); ALBUMIN 4.1 g/dL (3.0-4.8); ALT/SGPT 24 U/L (7-56); AST/SGOT 26 U/L (17-59); BLOOD UREA NITROGEN 16 mg/dL (7-21); CALCIUM 8.9 mg/dL (8.4-10.5); GFR NON-AFRICAN AMERICAN > 60
[2018-08-30] MEDS: Insulin Reg-MEDIUM-Coverage SC SCH ×4 (09:48→21:12)
--- NOTE | 2018-08-30 11:04 | CP.PCM.PN ---
<Eyal Hendrix - Last Filed: 08/30/18 11:00> Subjective - Date & Time of Evaluation Date of Evaluation: 08/30/18 Time of Evaluation: 11:00 - Subjective Subjective: Podiatry consult note for attending Dr. Garcia; 58 y/o male patient seen and evaluated 2 days S/P left 5th toe amputation and left 5th metatarsal bone partial resection. Patient states that he didn't have pain in his Surgery site yesterday. Patient denies any overnight F/N/V/C or SOB. Patient denies any other pedal complaint at this time. Objective - Vital Signs/Intake and Output Vital Signs (last 24 hours): Temp Pulse Resp BP Pulse Ox 98.3 F 77 20 101/64 99 08/30/18 06:00 08/30/18 09:55 08/30/18 06:00 08/30/18 09:55 08/30/18 06:00 Intake and Output: 08/30/18 08/30/18 06:59 18:59 Intake Total 620 Output Total 500 Balance 120 - Medications Medications: Current Medications Acetaminophen (Tylenol 325mg Tab) 650 mg PO Q6H PRN PRN Reason: Pain, Mild (1-3) Aspirin (Aspirin Chewable) 81 mg PO DAILY [facility] Last Admin: 08/30/18 09:47 Dose: 81 mg Atorvastatin Calcium (Lipitor) 10 mg PO DIN [facility] Last Admin: 08/29/18 16:53 Dose: 10 mg Dextrose (Dextrose 50% Inj) 0 ml IV STAT PRN; Protocol PRN Reason: Hypoglycemia Protocol Famotidine (Pepcid) 40 mg PO HS [facility] Last Admin: 08/29/18 22:11 Dose: 40 mg Gabapentin (Neurontin) 100 mg PO TID [facility]; Protocol Last Admin: 08/30/18 09:47 Dose: 100 mg Dextrose (Dextrose 5% In Water 1000 Ml) 1,000 mls @ 0 mls/hr IV .Q0M PRN; Pr otocol PRN Reason: Hypoglycemia Protocol Insulin Human Regular (Humulin R Med) 0 units SC ACHS [facility]; Protocol Last Admin: 08/30/18 09:48 Dose: Not Given Lisinopril (Zestril) 2.5 mg PO DAILY [facility] Last Admin: 08/30/18 09:47 Dose: 2.5 mg Oxycodone/Acetaminophen (Percocet 5/325 Mg Tab) 1 tab PO Q6H PRN PRN Reason: Pain, moderate (4-7) Stop: 08/31/18 17:15 Last Admin: 08/29/18 16:59 Dose: 1 tab Oxycodone/Acetaminophen (Percocet 5/325 Mg Tab) 2 tab PO Q6H PRN PRN Reason: Pain, severe (8-10) Stop: 08/31/18 17:15 Last Admin: 08/29/18 22:26 Dose: 2 tab - Labs Labs: 08/30/18 07:00 08/30/18 07:00 - Constitutional Appears: Well, Non-toxic, No Acute Distress - Head Exam Head Exam: ATRAUMATIC, NORMOCEPHALIC - Extremities Exam Additional comments: Left LE focused exam: Vasc: Cap refill < 3 sec in all digits. Neuro: Gross and protective sensations are diminished. Derm: Dressing taken down, incision site stable, sutures are intact, no pus or purulent drainage, no streaking, mild periwound erythema, no clinical signs of infection noted MSK: Patient can perform active ROM with his toes. - Neurological Exam Neurological Exam: Alert, Awake, Oriented x3 - Psychiatric Exam Psychiatric exam: Normal Affect, Normal Mood Assessment and Plan - Assessment and Plan (Free Text) Assessment: 58 Y/O M patient seen and evaluated at the bedside 2 days S/P left 5th toe amputation and left 5th metatarsal bone partial resection. Plan: Patient seen and evaluated at the bedside with Dr. Garcia X-ray left foot (08/25) reviewed; Left 5th met head erosions, Medial dislocation of the 5th MPJ. MRI left foot (08/26/17) reviewed; Left foot ulcer, left 5th met head Osteomyelitis, Left 5th toe proximal phalanx osteomyelitis. Wound culture (08/21): Klebsiella Oxytoca. Chart, labs and vitals reviewed; Afebrile, WBCs 11.3. CRP: 24.1 ESR: 31. ID is on board. recommendations appreciated. Dressing taken down and surgical site evaluated - no signs of infection, normal healing progression, dressing reapplied, patient tolerated well podiatry will continue to follow up the patient while in house. <Rey Garcia - Last Filed: 09/02/18 12:09> Objective - Vital Signs/Intake and Output Vital Signs (last 24 hours): Temp Pulse Resp BP Pulse Ox 97.9 F 60 20 121/77 98 09/02/18 07:51 09/02/18 09:54 09/02/18 07:51 09/02/18 09:54 09/02/18 07:51 Intake and Output: 09/02/18 09/02/18 06:59 18:59 Intake Total 760 Output Total 1725 Balance -965 - Medications Medications: Current Medications Acetaminophen (Tylenol 325mg Tab) 650 mg PO Q6H PRN PRN Reason: Pain, Mild (1-3) Aspirin (Aspirin Chewable) 81 mg PO DAILY [facility] Last Admin: 09/02/18 09:54 Dose: 81 mg Atorvastatin Calcium (Lipitor) 10 mg PO DIN [facility] Last Admin: 09/01/18 17:31 Dose: 10 mg Dextrose (Dextrose 50% Inj) 0 ml IV STAT PRN; Protocol PRN Reason: Hypoglycemia Protocol Famotidine (Pepcid) 40 mg PO HS [facility] Last Admin: 09/01/18 22:05 Dose: 40 mg Gabapentin (Neurontin) 100 mg PO TID [facility]; Protocol Last Admin: 09/02/18 09:54 Dose: 100 mg Dextrose (Dextrose 5% In Water 1000 Ml) 1,000 mls @ 0 mls/hr IV .Q0M PRN; Protocol PRN Reason: Hypoglycemia Protocol Cefazolin Sodium (Ancef 1gm In Ns) 1 gm in 100 mls @ 100 mls/hr IVPB Q8 [facility]; Protocol Last Admin: 09/02/18 05:51 Dose: 100 mls/hr Insulin Human Regular (Humulin R Med) 0 units SC ACHS [facility]; Protocol Last Admin: 09/02/18 08:06 Dose: Not Given Lisinopril (Zestril) 2.5 mg PO DAILY [facility] Last Admin: 09/02/18 09:54 Dose: 2.5 mg Oxycodone/Acetaminophen (Percocet 5/325 Mg Tab) 1 tab PO Q6H PRN PRN Reason: Pain, moderate (4-7) Stop: 09/03/18 22:12 Last Admin: 09/01/18 22:10 Dose: 1 tab - Labs Labs: 09/02/18 06:30 09/02/18 06:30 Attending/Attestation - Attestation I have personally seen and examined this patient.: Yes I have fully participated in the care of the patient.: Yes I have reviewed all pertinent clinical information, including history, physical exam and plan: Yes
[2018-08-30] MEDS: Oxycodone/Acetaminophen 5/325 mg Tab PO PRN ×2 (12:55→21:16)
--- NOTE | 2018-08-30 13:55 | CP.PCM.PN ---
Subjective - Date & Time of Evaluation Date of Evaluation: 08/30/18 Time of Evaluation: 12:50 - Subjective Subjective: Patient is resting comfortably in bed, no fevers, not in distress. Objective - Vital Signs/Intake and Output Vital Signs (last 24 hours): Temp Pulse Resp BP Pulse Ox 98.3 F 77 20 101/64 99 08/30/18 06:00 08/30/18 09:55 08/30/18 06:00 08/30/18 09:55 08/30/18 06:00 Intake and Output: 08/30/18 08/30/18 06:59 18:59 Intake Total 620 Output Total 500 Balance 120 - Medications Medications: Current Medications Acetaminophen (Tylenol 325mg Tab) 650 mg PO Q6H PRN PRN Reason: Pain, Mild (1-3) Aspirin (Aspirin Chewable) 81 mg PO DAILY [facility] Last Admin: 08/30/18 09:47 Dose: 81 mg Atorvastatin Calcium (Lipitor) 10 mg PO DIN [facility] Last Admin: 08/29/18 16:53 Dose: 10 mg Dextrose (Dextrose 50% Inj) 0 ml IV STAT PRN; Protocol PRN Reason: Hypoglycemia Protocol Famotidine (Pepcid) 40 mg PO HS [facility] Last Admin: 08/29/18 22:11 Dose: 40 mg Gabapentin (Neurontin) 100 mg PO TID [facility]; Protocol Last Admin: 08/30/18 09:47 Dose: 100 mg Dextrose (Dextrose 5% In Water 1000 Ml) 1,000 mls @ 0 mls/hr IV .Q0M PRN; Protocol PRN Reason: Hypoglycemia Protocol Insulin Human Regular (Humulin R Med) 0 units SC [facility]; Protocol Last Admin: 08/30/18 09:48 Dose: Not Given Lisinopril (Zestril) 2.5 mg PO DAILY [facility] Last Admin: 08/30/18 09:47 Dose: 2.5 mg Oxycodone/Acetaminophen (Percocet 5/325 Mg Tab) 1 tab PO Q6H PRN PRN Reason: Pain, moderate (4-7) Stop: 08/31/18 17:15 Last Admin: 08/29/18 16:59 Dose: 1 tab Oxycodone/Acetaminophen (Percocet 5/325 Mg Tab) 2 tab PO Q6H PRN PRN Reason: Pain, severe (8-10) Stop: 08/31/18 17:15 Last Admin: 08/29/18 22:26 Dose: 2 tab - Labs Labs: 08/30/18 07:00 08/30/18 07:00 - Constitutional Appears: Chronically Ill - Head Exam Head Exam: NORMAL INSPECTION - Respiratory Exam Respiratory Exam: Decreased Breath Sounds - Cardiovascular Exam Cardiovascular Exam: +S1, +S2 - GI/Abdominal Exam GI & Abdominal Exam: Soft. absent: Tenderness Assessment and Plan - Assessment and Plan (Free Text) Plan: Assessment left foot lateral diabetic foot ulcer with probable osteomyelitis S/P amputation of 5th metatarsal CAD history of left foot osteomyelitis DM Plan continue to monitor off antibiotics pending OR cultures and pathology
--- NOTE | 2018-08-30 14:42 | CP.PCM.PN ---
<Thong Shrestha - Last Filed: 08/30/18 14:39> Subjective - Date & Time of Evaluation Date of Evaluation: 08/30/18 Time of Evaluation: 14:39 - Subjective Subjective: Thong Shrestha PGY1 Progress Note for Dr. Christian Pt was examined at bedside this morning. He has no complaints this morning. He denies any fever, chill, chest pain, abdominal pain, nausea, vomiting, diarrhea. Objective - Vital Signs/Intake and Output Vital Signs (last 24 hours): Temp Pulse Resp BP Pulse Ox 98.3 F 77 20 101/64 99 08/30/18 06:00 08/30/18 09:55 08/30/18 06:00 08/30/18 09:55 08/30/18 06:00 Intake and Output: 08/30/18 08/30/18 06:59 18:59 Intake Total 620 Output Total 500 Balance 120 - Medications Medications: Current Medications Acetaminophen (Tylenol 325mg Tab) 650 mg PO Q6H PRN PRN Reason: Pain, Mild (1-3) Aspirin (Aspirin Chewable) 81 mg PO DAILY [facility] Last Admin: 08/30/18 09:47 Dose: 81 mg Atorvastatin Calcium (Lipitor) 10 mg PO DIN [facility] Last Admin: 08/29/18 16:53 Dose: 10 mg Dextrose (Dextrose 50% Inj) 0 ml IV STAT PRN; Protocol PRN Reason: Hypoglycemia Protocol Famotidine (Pepcid) 40 mg PO HS [facility] Last Admin: 08/29/18 22:11 Dose: 40 mg Gabapentin (Neurontin) 100 mg PO TID [facility]; Protocol Last Admin: 08/30/18 14:23 Dose: 100 mg Dextrose (Dextrose 5% In Water 1000 Ml) 1,000 mls @ 0 mls/hr IV .Q0M PRN; Protocol PRN Reason: Hypoglycemia Protocol Insulin Human Regular (Humulin R Med) 0 units SC ACHS [facility]; Protocol Last Admin: 08/30/18 12:41 Dose: 3 unit Lisinopril (Zestril) 2.5 mg PO DAILY [facility] Last Admin: 08/30/18 09:47 Dose: 2.5 mg Oxycodone/Acetaminophen (Percocet 5/325 Mg Tab) 1 tab PO Q6H PRN PRN Reason: Pain, moderate (4-7) Stop: 08/31/18 17:15 Last Admin: 08/29/18 16:59 Dose: 1 tab Oxycodone/Acetaminophen (Percocet 5/325 Mg Tab) 2 tab PO Q6H PRN PRN Reason: Pain, severe (8-10) Stop: 08/31/18 17:15 Last Admin: 08/30/18 12:55 Dose: 2 tab - Labs Labs: 08/30/18 07:00 08/30/18 07:00 - Constitutional Appears: Well, No Acute Distress - Head Exam Head Exam: ATRAUMATIC, NORMOCEPHALIC - Eye Exam Eye Exam: EOMI, Normal appearance Pupil Exam: NORMAL ACCOMODATION - ENT Exam ENT Exam: Mucous Membranes Moist - Respiratory Exam Respiratory Exam: Clear to Ausculation Bilateral, NORMAL BREATHING PATTERN. absent: Rales, Rhonchi, Wheezes, Stridor - Cardiovascular Exam Cardiovascular Exam: REGULAR RHYTHM, +S1, +S2. absent: Gallop, Rubs, Murmur - GI/Abdominal Exam GI & Abdominal Exam: Soft, Normal Bowel Sounds. absent: Guarding, Rigid, Tenderness - Extremities Exam Extremities Exam: absent: Pedal Edema Additional comments: L foot: incision site clean, dry, intact - Neurological Exam Neurological Exam: Alert, Awake, Oriented x3 - Psychiatric Exam Psychiatric exam: Normal Affect, Normal Mood Assessment and Plan - Assessment and Plan (Free Text) Assessment: Patient is a 58 yo male with PMH of DM, [place] (2005), ulcer presents to ED after being in wound care clinic with concerns of possible osteomyelitis from ulcer on left foot; zosyn discontinued in setting of debridement and wound culture; POD 1 pending wound cultures to restart antibiotics Plan: Foot Ulcer - POD #2 s/p L 5th toe amputation and L 5th metatarsal bone partial resection - WBC: 11.4 - 08/26/18 MRI left foot- left 5th met head Osteomyelitis, Left 5th toe proximal phalanx osteomyelitis. - Abx held pending deep cultures - BCx negative - Oxycodone 2 tab po q6h prn; Tylenol 650mg po q6h prn - ID consulted - hold Abx, f/u wound cultures - Podiatry consulted - wound cultures pending, dressing changed will continue to follow up DM w/neuropathy - Home meds held - ISS- med dose - Gabapentin 100mg po tid - ACHS - Hypogylemic protocol History of [place] - Lisinopril 2.5mg po daily - Lipitor 10mg po daily PPx GI ppx: Pepcid 40mg po DVT ppx: SCDs Case reviewed and plan discussed with Dr. Christian <Fanta Christian - Last Filed: 08/30/18 16:34> Objective - Vital Signs/Intake and Output Vital Signs (last 24 hours): Temp Pulse Resp BP Pulse Ox 98.3 F 77 20 101/64 99 08/30/18 06:00 08/30/18 09:55 08/30/18 06:00 08/30/18 09:55 08/30/18 06:00 Intake and Output: 08/30/18 08/30/18 06:59 18:59 Intake Total 620 840 Output Total 500 800 Balance 120 40 - Medications Medications: Current Medications Acetaminophen (Tylenol 325mg Tab) 650 mg PO Q6H PRN PRN Reason: Pain, Mild (1-3) Aspirin (Aspirin Chewable) 81 mg PO DAILY [facility] Last Admin: 08/30/18 09:47 Dose: 81 mg Atorvastatin Calcium (Lipitor) 10 mg PO DIN [facility] Last Admin: 08/29/18 16:53 Dose: 10 mg Dextrose (Dextrose 50% Inj) 0 ml IV STAT PRN; Protocol PRN Reason: Hypoglycemia Protocol Famotidine (Pepcid) 40 mg PO HS [facility] Last Admin: 08/29/18 22:11 Dose: 40 mg Gabapentin (Neurontin) 100 mg PO TID [facility]; Protocol Last Admin: 08/30/18 14:23 Dose: 100 mg Dextrose (Dextrose 5% In Water 1000 Ml) 1,000 mls @ 0 mls/hr IV .Q0M PRN; Protocol PRN Reason: Hypoglycemia Protocol Insulin Human Regular (Humulin R Med) 0 units SC [facility]; Protocol Last Admin: 08/30/18 12:41 Dose: 3 unit Lisinopril (Zestril) 2.5 mg PO DAILY [facility] Last Admin: 08/30/18 09:47 Dose: 2.5 mg Oxycodone/Acetaminophen (Percocet 5/325 Mg Tab) 1 tab PO Q6H PRN PRN Reason: Pain, moderate (4-7) Stop: 08/31/18 17:15 Last Admin: 08/29/18 16:59 Dose: 1 tab Oxycodone/Acetaminophen (Percocet 5/325 Mg Tab) 2 tab PO Q6H PRN PRN Reason: Pain, severe (8-10) Stop: 08/31/18 17:15 Last Admin: 08/30/18 12:55 Dose: 2 tab - Labs Labs: 08/30/18 07:00 08/30/18 07:00 Attending/Attestation - Attestation I have personally seen and examined this patient.: Yes I have fully participated in the care of the patient.: Yes I have reviewed all pertinent clinical information, including history, physical exam and plan: Yes Notes (Text): 08/30/18 16:33 58 year old male with past medical history of diabetes and [place] who presented with nonhealing foot ulcer. He was referred by podiatry to rule out osteomyelitis. Xray no definite sign of osteomyelitis. Podiatry is following and patient is s/p left 5th toe amputation POD #2. ID is following; recommended to hold antibiotics for now while awaiting deep tissue cultures. He is on aspirin, lisinopril and statin. Fanta Christian MD Hospitalist.
--- NOTE | 2018-08-30 16:38 | PN ---
DATE: 08/30/2018 FOLLOWUP SUBJECTIVE: The patient denies any chest pain or shortness of breath. PHYSICAL EXAMINATION: VITAL SIGNS: Blood pressure 101/64, heart rate 77, temperature 98.3, respirations 20. HEENT: Normocephalic. CHEST: Clear. HEART: S1 and S2 regular. EXTREMITIES: There is no edema. LABORATORY DATA: Today's hemoglobin and hematocrit 15.7 and 47.6, white count 11.4, platelet count is 172,000. Today's SMA-7 is within normal limit except for glucose of 128. ASSESSMENT: 1. Coronary artery disease with history of coronary artery stenting in the remote past. 2. Status post partial resection of left first metatarsal head. 3. Uncontrolled diabetes mellitus. RECOMMENDATIONS: Continue current aspirin, Lipitor, Neurontin, Zestril. Follow up the pathology report of the surgical specimen. Epi Bennett MD
[2018-08-31 08:32] LABS: BASO # 0.05 K/mm3 (0.0-2.0); BASO % 0.5 % (0.0-3.0); EOS # 0.6 (0.0-0.7); EOS % 5.4 % (1.5-5.0); GRAN # 5.14 (1.4-6.5); GRAN % 49.1 % (50.0-68.0); HEMOGLOBIN 14.7 g/dL (14.0-18.0); LYMPH # 3.7 (1.2-3.4); LYMPH % 34.9 % (22.0-35.0); MEAN CELL VOLUME 91.3 fl (80.0-105.0); MEAN CORPUSCULAR HEMOGLOBIN 30.3 pg (25.0-35.0); MEAN CORPUSCULAR HGB CONC 33.2 g/dl (31.0-37.0); MEAN PLATELET VOLUME 10.3 fl (7.0-11.0); MONO # 1.1 (0.1-0.6); MONO % 10.1 % (1.0-6.0); RBC 4.85 10^6/uL (3.5-6.1); RED CELL DISTRIBUTION WIDTH 13.1 % (11.5-14.5); WHITE BLOOD COUNT 10.5 10^3/ul (4.5-11.0)
[2018-08-31 08:56] LABS: ALB/GLOB RATIO 1.1 (1.1-1.8); ALBUMIN 3.6 g/dL (3.0-4.8); ALT/SGPT 26 U/L (7-56); AST/SGOT 29 U/L (17-59); BLOOD UREA NITROGEN 18 mg/dL (7-21); CALCIUM 8.7 mg/dL (8.4-10.5); GFR NON-AFRICAN AMERICAN > 60
[2018-08-31] MEDS: Oxycodone/Acetaminophen 5/325 mg Tab PO PRN ×2 (10:29→22:39)
[2018-08-31] MEDS: Insulin Reg-MEDIUM-Coverage SC SCH ×4 (10:30→22:38)
--- NOTE | 2018-08-31 12:37 | CP.PCM.PN ---
<Thong Shrestha - Last Filed: 08/31/18 12:31> Subjective - Date & Time of Evaluation Date of Evaluation: 08/31/18 Time of Evaluation: 12:31 - Subjective Subjective: Thong Shrestha PGY1 Progress note for Dr. Christian Pt was examined at bedside this morning. He reported some throbbing pain in the left food that he claims has been there since after the surgery. He denies any fever, chills, abdominal pain, nausea, vomiting, diarrhea, chest pain, or shortness of breath. Objective - Vital Signs/Intake and Output Vital Signs (last 24 hours): Temp Pulse Resp BP Pulse Ox 98.4 F 70 20 100/58 L 96 08/31/18 06:00 08/31/18 06:00 08/31/18 06:00 08/31/18 06:00 08/31/18 06:00 Intake and Output: 08/31/18 08/31/18 06:59 18:59 Intake Total 180 Output Total 400 Balance -220 - Medications Medications: Current Medications Acetaminophen (Tylenol 325mg Tab) 650 mg PO Q6H PRN PRN Reason: Pain, Mild (1-3) Aspirin (Aspirin Chewable) 81 mg PO DAILY [facility] Last Admin: 08/31/18 10:30 Dose: 81 mg Atorvastatin Calcium (Lipitor) 10 mg PO DIN [facility] Last Admin: 08/30/18 17:45 Dose: 10 mg Dextrose (Dextrose 50% Inj) 0 ml IV STAT PRN; Protocol PRN Reason: Hypoglycemia Protocol Famotidine (Pepcid) 40 mg PO HS [facility] Last Admin: 08/30/18 21:16 Dose: 40 mg Gabapentin (Neurontin) 100 mg PO TID [facility]; Protocol Last Admin: 08/31/18 10:28 Dose: 100 mg Dextrose (Dextrose 5% In Water 1000 Ml) 1,000 mls @ 0 mls/hr IV .Q0M PRN; Protocol PRN Reason: Hypoglycemia Protocol Insulin Human Regular (Humulin R Med) 0 units SC ACHS [facility]; Protocol Last Admin: 08/31/18 10:30 Dose: Not Given Lisinopril (Zestril) 2.5 mg PO DAILY [facility] Last Admin: 08/31/18 10:33 Dose: 2.5 mg Oxycodone/Acetaminophen (Percocet 5/325 Mg Tab) 1 tab PO Q6H PRN PRN Reason: Pain, moderate (4-7) Stop: 08/31/18 17:15 Last Admin: 08/29/18 16:59 Dose: 1 tab Oxycodone/Acetaminophen (Percocet 5/325 Mg Tab) 2 tab PO Q6H PRN PRN Reason: Pain, severe (8-10) Stop: 08/31/18 17:15 Last Admin: 08/31/18 10:29 Dose: 2 tab - Labs Labs: 08/31/18 07:00 08/31/18 07:00 - Constitutional Appears: Well, No Acute Distress - Head Exam Head Exam: ATRAUMATIC, NORMOCEPHALIC - Eye Exam Eye Exam: EOMI, Normal appearance, PERRL Pupil Exam: NORMAL ACCOMODATION - ENT Exam ENT Exam: Mucous Membranes Moist - Neck Exam Neck Exam: Normal Inspection - Respiratory Exam Respiratory Exam: Clear to Ausculation Bilateral, NORMAL BREATHING PATTERN. absent: Rales, Rhonchi, Wheezes, Stridor - Cardiovascular Exam Cardiovascular Exam: REGULAR RHYTHM, +S1, +S2. absent: Gallop, Rubs, Murmur - GI/Abdominal Exam GI & Abdominal Exam: Soft, Normal Bowel Sounds. absent: Distended, Firm, Tenderness - Extremities Exam Extremities Exam: absent: Pedal Edema Additional comments: left foot bandage site clean, dry, intact - Neurological Exam Neurological Exam: Alert, Awake, Oriented x3 - Psychiatric Exam Psychiatric exam: Normal Affect, Normal Mood Assessment and Plan - Assessment and Plan (Free Text) Assessment: Patient is a 58 yo male with PMH of [place], [place] (2005), ulcer presents to ED after being in wound care clinic with concerns of possible osteomyelitis from ulcer on left foot, POD 3 pending wound cultures to restart antibiotics Plan: Foot Ulcer - POD #3 s/p L 5th toe amputation and L 5th metatarsal bone partial resection - WBC: 10.5 - 08/26/18 MRI left foot- left 5th met head Osteomyelitis, Left 5th toe proximal phalanx osteomyelitis. - Wound Cx: Gram neg magalys - BCx negative - Oxycodone 2 tab po q6h prn; Tylenol 650mg po q6h prn - not currently on abx tx - ID consulted - f/u recs - Podiatry consulted - dressing changed, will continue to follow up DM w/neuropathy - Home meds held - ISS- med dose - Gabapentin 100mg po tid - [facility] 08/30-08/31: 181, 191, 167, 212 - Hypogylemic protocol History of [place] - continue Lisinopril 2.5mg po daily - continue Lipitor 10mg po daily PPx GI ppx: Pepcid 40mg po DVT ppx: SCDs Case reviewed and plan discussed with Dr. Christian <Fanta Christian - Last Filed: 08/31/18 13:35> Objective - Vital Signs/Intake and Output Vital Signs (last 24 hours): Temp Pulse Resp BP Pulse Ox 98.4 F 70 20 100/58 L 96 08/31/18 06:00 08/31/18 06:00 08/31/18 06:00 08/31/18 06:00 08/31/18 06:00 Intake and Output: 08/31/18 08/31/18 06:59 18:59 Intake Total 180 Output Total 400 Balance -220 - Medications Medications: Current Medications Acetaminophen (Tylenol 325mg Tab) 650 mg PO Q6H PRN PRN Reason: Pain, Mild (1-3) Aspirin (Aspirin Chewable) 81 mg PO DAILY [facility] Last Admin: 08/31/18 10:30 Dose: 81 mg Atorvastatin Calcium (Lipitor) 10 mg PO DIN [facility] Last Admin: 08/30/18 17:45 Dose: 10 mg Dextrose (Dextrose 50% Inj) 0 ml IV STAT PRN; Protocol PRN Reason: Hypoglycemia Protocol Famotidine (Pepcid) 40 mg PO HS [facility] Last Admin: 08/30/18 21:16 Dose: 40 mg Gabapentin (Neurontin) 100 mg PO TID [facility]; Protocol Last Admin: 08/31/18 13:04 Dose: 100 mg Dextrose (Dextrose 5% In Water 1000 Ml) 1,000 mls @ 0 mls/hr IV .Q0M PRN; Protocol PRN Reason: Hypoglycemia Protocol Meropenem (Merrem Iv 1 Gm Premix) 50 mls @ 100 mls/hr IVPB Q8 [facility]; Protocol Insulin Human Regular (Humulin R Med) 0 units SC [facility]; Protocol Last Admin: 08/31/18 10:30 Dose: Not Given Lisinopril (Zestril) 2.5 mg PO DAILY [facility] Last Admin: 08/31/18 10:33 Dose: 2.5 mg Oxycodone/Acetaminophen (Percocet 5/325 Mg Tab) 1 tab PO Q6H PRN PRN Reason: Pain, moderate (4-7) Stop: 08/31/18 17:15 Last Admin: 08/29/18 16:59 Dose: 1 tab Oxycodone/Acetaminophen (Percocet 5/325 Mg Tab) 2 tab PO Q6H PRN PRN Reason: Pain, severe (8-10) Stop: 08/31/18 17:15 Last Admin: 08/31/18 10:29 Dose: 2 tab - Labs Labs: 08/31/18 07:00 08/31/18 07:00 Attending/Attestation - Attestation I have personally seen and examined this patient.: Yes I have fully participated in the care of the patient.: Yes I have reviewed all pertinent clinical information, including history, physical exam and plan: Yes Notes (Text): 08/31/18 13:33 58 year old male with past medical history of diabetes and [place] who presented with nonhealing foot ulcer. He was referred by podiatry to rule out osteomyelitis. Xray no definite sign of osteomyelitis. Podiatry is following and patient is s/p left 5th toe amputation POD #3. Podiatry and ID are following. Wound culture is now growing gram negative bacilli so patient is started on meropenem while awaiting final deep tissue cultures. He is on aspirin, lisinopril and statin. Fanta Christian MD Hospitalist.
--- NOTE | 2018-08-31 13:11 | CP.PCM.PN ---
Subjective - Date & Time of Evaluation Date of Evaluation: 08/31/18 Time of Evaluation: 10:30 - Subjective Subjective: Comfortable, no fevers, not in distress. Objective - Vital Signs/Intake and Output Vital Signs (last 24 hours): Temp Pulse Resp BP Pulse Ox 98.4 F 70 20 100/58 L 96 08/31/18 06:00 08/31/18 06:00 08/31/18 06:00 08/31/18 06:00 08/31/18 06:00 Intake and Output: 08/31/18 08/31/18 06:59 18:59 Intake Total 180 Output Total 400 Balance -220 - Medications Medications: Current Medications Acetaminophen (Tylenol 325mg Tab) 650 mg PO Q6H PRN PRN Reason: Pain, Mild (1-3) Aspirin (Aspirin Chewable) 81 mg PO DAILY [facility] Last Admin: 08/30/18 09:47 Dose: 81 mg Atorvastatin Calcium (Lipitor) 10 mg PO DIN [facility] Last Admin: 08/30/18 17:45 Dose: 10 mg Dextrose (Dextrose 50% Inj) 0 ml IV STAT PRN; Protocol PRN Reason: Hypoglycemia Protocol Famotidine (Pepcid) 40 mg PO HS [facility] Last Admin: 08/30/18 21:16 Dose: 40 mg Gabapentin (Neurontin) 100 mg PO TID [facility]; Protocol Last Admin: 08/30/18 17:45 Dose: 100 mg Dextrose (Dextrose 5% In Water 1000 Ml) 1,000 mls @ 0 mls/hr IV .Q0M PRN; Protocol PRN Reason: Hypoglycemia Protocol Insulin Human Regular (Humulin R Med) 0 units SC ACHS [facility]; Protocol Last Admin: 08/30/18 21:12 Dose: Not Given Lisinopril (Zestril) 2.5 mg PO DAILY [facility] Last Admin: 08/30/18 09:47 Dose: 2.5 mg Oxycodone/Acetaminophen (Percocet 5/325 Mg Tab) 1 tab PO Q6H PRN PRN Reason: Pain, moderate (4-7) Stop: 08/31/18 17:15 Last Admin: 08/29/18 16:59 Dose: 1 tab Oxycodone/Acetaminophen (Percocet 5/325 Mg Tab) 2 tab PO Q6H PRN PRN Reason: Pain, severe (8-10) Stop: 08/31/18 17:15 Last Admin: 08/30/18 21:16 Dose: 2 tab - Labs Labs: 08/31/18 07:00 08/31/18 07:00 - Constitutional Appears: Chronically Ill - Head Exam Head Exam: NORMAL INSPECTION - Respiratory Exam Respiratory Exam: Decreased Breath Sounds - Cardiovascular Exam Cardiovascular Exam: +S1, +S2 - GI/Abdominal Exam GI & Abdominal Exam: Soft. absent: Tenderness - Extremities Exam Additional comments: left foot with dressings in place Assessment and Plan - Assessment and Plan (Free Text) Plan: Assessment left foot lateral diabetic foot ulcer with probable osteomyelitis S/P amputation of 5th metatarsal, now growing gram negative bacilli CAD history of left foot osteomyelitis DM Plan will start Merrem pending final cx results and OR pathology
[2018-08-31] MEDS: Meropenem IV 1 gm in NS 50 ML IVPB SCH ×2 (15:37→22:38)
--- NOTE | 2018-08-31 18:53 | PN ---
DATE: 08/31/2018 SUBJECTIVE: The patient denies any chest pain or shortness breath. PHYSICAL EXAMINATION: VITAL SIGNS: Blood pressure , heart rate 78, temperature 98.4, respiration 20. HEENT: Normocephalic. CHEST: Clear. HEART: S1 and S2, regular. EXTREMITIES: Dressings applied to the left foot. LABORATORY DATA: Today's hemoglobin, hematocrit, white count and platelet count are within normal limits. Today's SMA-7 is within normal limits except for glucose 174. ASSESSMENT: 1. History of coronary artery disease in the past. 2. Status post partial resection of first metatarsal head of the left fifth metatarsal head. 3. Uncontrolled diabetes mellitus. CONDITIONS: Continue current aspirin 81 mg once a day, Lipitor 10 mg once a day, IV meropenem at 1 g every 8 hours, Zestril at 2.5 mg daily. Epi Bennett MD
[2018-09-01] MEDS: Meropenem IV 1 gm in NS 50 ML IVPB SCH (06:14)
[2018-09-01 07:12] LABS: BASO # 0.06 K/mm3 (0.0-2.0); BASO % 0.6 % (0.0-3.0); EOS # 0.7 (0.0-0.7); EOS % 6.5 % (1.5-5.0); GRAN # 5.45 (1.4-6.5); GRAN % 53.2 % (50.0-68.0); HEMOGLOBIN 14.7 g/dL (14.0-18.0); LYMPH # 3.2 (1.2-3.4); LYMPH % 31.2 % (22.0-35.0); MEAN CELL VOLUME 90.6 fl (80.0-105.0); MEAN CORPUSCULAR HEMOGLOBIN 30.1 pg (25.0-35.0); MEAN CORPUSCULAR HGB CONC 33.2 g/dl (31.0-37.0); MEAN PLATELET VOLUME 10.1 fl (7.0-11.0); MONO # 0.9 (0.1-0.6); MONO % 8.5 % (1.0-6.0); RBC 4.89 10^6/uL (3.5-6.1); WHITE BLOOD COUNT 10.3 10^3/ul (4.5-11.0)
[2018-09-01 07:43] LABS: ALB/GLOB RATIO 1.1 (1.1-1.8); ALBUMIN 3.6 g/dL (3.0-4.8); ALT/SGPT 29 U/L (7-56); AST/SGOT 27 U/L (17-59); BLOOD UREA NITROGEN 17 mg/dL (7-21); CALCIUM 8.7 mg/dL (8.4-10.5); GFR NON-AFRICAN AMERICAN > 60
--- NOTE | 2018-09-01 08:48 | RAD ---
Date of service: 08/31/2018 PROCEDURE: Left Foot Radiographs. HISTORY: 5th toe and metatarsal head amputation COMPARISON: Left foot MRI 08/27/2018. FINDINGS: BONES: Patient status post 5th digit and transmetatarsal amputation at the mid diaphysis level. No acute fracture, subluxation or dislocation appreciated degenerative changes are reiterated throughout the left foot joints, particularly at the forefoot joint. JOINTS: As above. SOFT TISSUES: As above. OTHER FINDINGS: None. IMPRESSION: Status post left 5th digit and transmetatarsal amputation.
--- NOTE | 2018-09-01 10:03 | CP.PCM.PN ---
Subjective - Date & Time of Evaluation Date of Evaluation: 09/01/18 Time of Evaluation: 09:59 - Subjective Subjective: Podiatry Progress Note for Dr. Diana/Dr. Garcia, 58 yo male patient seen and evaluated 4 days s/p left 5th toe amputation with 5th metatarsal partial resection. Patient denies any pain today to the surgical site. Patient denies N/V/F/SOB but admits to one episode of diarrhea after starting his antibiotic treatment. Denies any other pedal complaints at this time. Objective - Vital Signs/Intake and Output Vital Signs (last 24 hours): Temp Pulse Resp BP Pulse Ox 97.9 F 57 L 20 126/72 97 09/01/18 06:00 09/01/18 06:00 09/01/18 06:00 09/01/18 06:00 09/01/18 06:00 Intake and Output: 09/01/18 09/01/18 06:59 18:59 Intake Total 500 Output Total 2 Balance 498 - Medications Medications: Current Medications Acetaminophen (Tylenol 325mg Tab) 650 mg PO Q6H PRN PRN Reason: Pain, Mild (1-3) Aspirin (Aspirin Chewable) 81 mg PO DAILY [facility] Last Admin: 08/31/18 10:30 Dose: 81 mg Atorvastatin Calcium (Lipitor) 10 mg PO DIN [facility] Last Admin: 08/31/18 16:58 Dose: 10 mg Dextrose (Dextrose 50% Inj) 0 ml IV STAT PRN; Protocol PRN Reason: Hypoglycemia Protocol Famotidine (Pepcid) 40 mg PO HS [facility] Last Admin: 08/31/18 22:45 Dose: 40 mg Gabapentin (Neurontin) 100 mg PO TID [facility]; Protocol Last Admin: 08/31/18 17:02 Dose: 100 mg Dextrose (Dextrose 5% In Water 1000 Ml) 1,000 mls @ 0 mls/hr IV .Q0M PRN; Protocol PRN Reason: Hypoglycemia Protocol Meropenem (Merrem Iv 1 Gm Premix) 50 mls @ 100 mls/hr IVPB Q8 [facility]; Protocol Last Admin: 09/01/18 06:14 Dose: 100 mls/hr Insulin Human Regular (Humulin R Med) 0 units SC ACHS [facility]; Protocol Last Admin: 08/31/18 22:38 Dose: Not Given Lisinopril (Zestril) 2.5 mg PO DAILY [facility] Last Admin: 08/31/18 10:33 Dose: 2.5 mg Oxycodone/Acetaminophen (Percocet 5/325 Mg Tab) 1 tab PO Q6H PRN PRN Reason: Pain, moderate (4-7) Stop: 09/03/18 22:12 - Labs Labs: 09/01/18 06:30 09/01/18 06:30 - Constitutional Appears: Well, Non-toxic, No Acute Distress - Head Exam Head Exam: ATRAUMATIC, NORMOCEPHALIC - Extremities Exam Additional comments: Left lower extremity focused exam: Vascular: CFT < 3 seconds to all digits, TG WNL, mild periwound edema noted to dorsal aspect of left foot. Ortho: Patient able to move toes Neuro: Gross and protective sensation diminished Derm: Sutures intact to surgical site, with skin edges well coapted, no purulence, no streaking, mild periwound erythema, mild ecchymosis around surgical incision. Plantar 5th submetatarsal ulceration no purulence, no malodor, no streaking, no clinical signs of infection noted. - Neurological Exam Neurological Exam: Alert, Awake, Oriented x3 Assessment and Plan - Assessment and Plan (Free Text) Assessment: 58 yo male patient 4 days s/p left 5th toe amputation and 5th metatarsal partial resection. Plan: Patient seen and evaluated at bedside with Dr. Diana Labs, chart, and vitals reviewed; afebrile, absent leukocytosis Surgical site dressed with Adaptic, DSD, SARA Packing pulled from plantar ulceration and flushed with sterile saline. 1/4 inch packing reapplied to plantar ulceration and dressed with DSD X-ray left foot (08/25) reviewed; Left 5th met head erosions, Medial dislocation of the 5th MPJ. MRI left foot (08/26/17) reviewed; Left foot ulcer, left 5th met head Osteomyelitis, Left 5th toe proximal phalanx osteomyelitis. Wound culture (08/21): Klebsiella Oxytoca. Podiatry will continue to follow while in house
[2018-09-01] MEDS: Insulin Reg-MEDIUM-Coverage SC SCH ×4 (10:10→22:05)
--- NOTE | 2018-09-01 13:58 | CP.PCM.PN ---
Subjective - Date & Time of Evaluation Date of Evaluation: 09/01/18 Time of Evaluation: 11:50 - Subjective Subjective: Afebrile, not in distress, no increased pain in the left foot, no diarrhea. Objective - Vital Signs/Intake and Output Vital Signs (last 24 hours): Temp Pulse Resp BP Pulse Ox 97.9 F 57 L 20 126/72 97 09/01/18 06:00 09/01/18 06:00 09/01/18 06:00 09/01/18 10:09 09/01/18 06:00 Intake and Output: 09/01/18 09/01/18 06:59 18:59 Intake Total 500 Output Total 2 Balance 498 - Medications Medications: Current Medications Acetaminophen (Tylenol 325mg Tab) 650 mg PO Q6H PRN PRN Reason: Pain, Mild (1-3) Aspirin (Aspirin Chewable) 81 mg PO DAILY [facility] Last Admin: 09/01/18 10:10 Dose: 81 mg Atorvastatin Calcium (Lipitor) 10 mg PO DIN [facility] Last Admin: 08/31/18 16:58 Dose: 10 mg Dextrose (Dextrose 50% Inj) 0 ml IV STAT PRN; Protocol PRN Reason: Hypoglycemia Protocol Famotidine (Pepcid) 40 mg PO HS [facility] Last Admin: 08/31/18 22:45 Dose: 40 mg Gabapentin (Neurontin) 100 mg PO TID [facility]; Protocol Last Admin: 09/01/18 10:10 Dose: 100 mg Dextrose (Dextrose 5% In Water 1000 Ml) 1,000 mls @ 0 mls/hr IV .Q0M PRN; Protocol PRN Reason: Hypoglycemia Protocol Cefazolin Sodium (Ancef 1gm In Ns) 1 gm in 100 mls @ 100 mls/hr IVPB Q8 [facility]; Protocol Insulin Human Regular (Humulin R Med) 0 units SC ACHS [facility]; Protocol Last Admin: 09/01/18 10:10 Dose: Not Given Lisinopril (Zestril) 2.5 mg PO DAILY [facility] Last Admin: 09/01/18 10:09 Dose: 2.5 mg Oxycodone/Acetaminophen (Percocet 5/325 Mg Tab) 1 tab PO Q6H PRN PRN Reason: Pain, moderate (4-7) Stop: 09/03/18 22:12 - Labs Labs: 09/01/18 06:30 09/01/18 06:30 - Constitutional Appears: Non-toxic, Chronically Ill - Neck Exam Neck Exam: absent: Meningismus - Respiratory Exam Respiratory Exam: Decreased Breath Sounds - Cardiovascular Exam Cardiovascular Exam: +S1, +S2 - GI/Abdominal Exam GI & Abdominal Exam: Soft. absent: Tenderness - Extremities Exam Additional comments: left foot with dressings in place Assessment and Plan - Assessment and Plan (Free Text) Plan: Assessment left foot lateral diabetic foot ulcer with probable osteomyelitis S/P amputation of 5th metatarsal, now growing Klebsiella oxytoca CAD history of left foot osteomyelitis DM Plan will switch Merrem to Cefazolin and we are awaiting OR pathology to determine duration of treatment
[2018-09-01] MEDS: ceFAZolin 1 gm in NS 1 GM/100 ML BAG IVPB SCH ×2 (14:51→22:05)
--- NOTE | 2018-09-01 17:08 | CP.PCM.PN ---
<Tamy Blunt - Last Filed: 09/01/18 17:05> Subjective - Date & Time of Evaluation Date of Evaluation: 09/01/18 Time of Evaluation: 11:15 - Subjective Subjective: PGY-1 Tamy Blunt Medicine Progress Note for Dr. Hawk's service Patient seen and examined at bedside. Patient offers no acute complaints. Patient denies fevers, chills, headaches, sob, n/v, constipation or diarrhea, sob, dysuria, weakness, unstable gait. Objective - Vital Signs/Intake and Output Vital Signs (last 24 hours): Temp Pulse Resp BP Pulse Ox 98 F 69 18 142/91 H 97 09/01/18 14:00 09/01/18 14:00 09/01/18 14:00 09/01/18 14:00 09/01/18 14:00 Intake and Output: 09/01/18 09/01/18 06:59 18:59 Intake Total 500 720 Output Total 2 975 Balance 498 -255 - Medications Medications: Current Medications Acetaminophen (Tylenol 325mg Tab) 650 mg PO Q6H PRN PRN Reason: Pain, Mild (1-3) Aspirin (Aspirin Chewable) 81 mg PO DAILY [facility] Last Admin: 09/01/18 10:10 Dose: 81 mg Atorvastatin Calcium (Lipitor) 10 mg PO DIN [facility] Last Admin: 08/31/18 16:58 Dose: 10 mg Dextrose (Dextrose 50% Inj) 0 ml IV STAT PRN; Protocol PRN Reason: Hypoglycemia Protocol Famotidine (Pepcid) 40 mg PO HS [facility] Last Admin: 08/31/18 22:45 Dose: 40 mg Gabapentin (Neurontin) 100 mg PO TID [facility]; Protocol Last Admin: 09/01/18 14:51 Dose: 100 mg Dextrose (Dextrose 5% In Water 1000 Ml) 1,000 mls @ 0 mls/hr IV .Q0M PRN; Protocol PRN Reason: Hypoglycemia Protocol Cefazolin Sodium (Ancef 1gm In Ns) 1 gm in 100 mls @ 100 mls/hr IVPB Q8 [facility]; Protocol Last Admin: 09/01/18 14:51 Dose: 100 mls/hr Insulin Human Regular (Humulin R Med) 0 units SC ACHS [facility]; Protocol Last Admin: 09/01/18 10:10 Dose: Not Given Lisinopril (Zestril) 2.5 mg PO DAILY [facility] Last Admin: 09/01/18 10:09 Dose: 2.5 mg Oxycodone/Acetaminophen (Percocet 5/325 Mg Tab) 1 tab PO Q6H PRN PRN Reason: Pain, moderate (4-7) Stop: 09/03/18 22:12 - Labs Labs: 09/01/18 06:30 09/01/18 06:30 - Additional Findings Additional findings: - Constitutional Appears: Non-toxic, No Acute Distress - Head Exam Head Exam: NORMAL INSPECTION, NORMOCEPHALIC - Eye Exam Eye Exam: EOMI, Normal appearance. absent: Nystagmus, Scleral icterus - ENT Exam ENT Exam: Mucous Membranes Moist - Respiratory Exam Respiratory Exam: Clear to Ausculation Bilateral, NORMAL BREATHING PATTERN. absent: Rales, Rhonchi, Wheezes, Respiratory Distress - Cardiovascular Exam Cardiovascular Exam: REGULAR RHYTHM, +S1, +S2 - GI/Abdominal Exam GI & Abdominal Exam: Soft, Normal Bowel Sounds. absent: Tenderness - Extremities Exam Extremities Exam: absent: Calf Tenderness, Pedal Edema Additional comments: 5th toe amputation and left 5th metatarsal bone partial resection. - Neurological Exam Neurological Exam: Alert, Awake, Oriented x3 - Psychiatric Exam Psychiatric exam: Normal Affect, Normal Mood - Skin Skin Exam: Intact, Normal Color Assessment and Plan - Assessment and Plan (Free Text) Assessment: Patient is a 58 yo male with PMH of DM, [place] (2005), ulcer presents to ED after being in wound care clinic with concerns of possible osteomyelitis from ulcer on left foot; zosyn discontinued in setting of debridement and wound culture; POD 4. culture positive for klebsiella sensitive to ciprofloxacin Plan: Foot Ulcer ID consulted - Started patient on Ancef due to sensitivities- Pending OR path report can be possible discharged with po abx Podiatry consulted- OR on 08/28; wound cultures positive for Klebsiella Cardio consulted - Dr. Bennett- low to moderate risk for low risk procedure 08/26/18 MRI left foot- left 5th met head Osteomyelitis, Left 5th toe proximal phalanx osteomyelitis. 08/25/18 Foot Xray - no definite signs of osteomyeltis CRP 24.1, ESR 31 Abx Cefazolin 1gm in NS started Oxycodone 2 tab po q6h prn; Tylenol 650mg po q6h prn Repeat CBC in AM DM w/neuropathy Home meds held ISS- med dose ACHS Hypogylemic protocol Gabapentin 100mg po tid History of [place] Lisinopril 2.5mg po daily Lipitor 10mg po daily PPx GI ppx: Pepcid 40mg po DVT ppx: SCDs <Dara Hawk - Last Filed: 09/03/18 17:33> Objective - Vital Signs/Intake and Output Vital Signs (last 24 hours): Temp Pulse Resp BP Pulse Ox 98.2 F 67 20 115/78 99 09/03/18 06:00 09/03/18 09:29 09/03/18 06:00 09/03/18 09:29 09/03/18 06:00 Intake and Output: 09/03/18 09/03/18 06:59 18:59 Intake Total 700 Output Total 300 Balance 400 - Labs Labs: 09/03/18 06:15 09/03/18 06:15 Attending/Attestation - Attestation I have personally seen and examined this patient.: Yes I have fully participated in the care of the patient.: Yes I have reviewed all pertinent clinical information, including history, physical exam and plan: Yes Notes (Text): 09/03/18 17:32 Medical record note made by the resident after discussion with my direction and input after the patient was personally seen and examined by me. I have reviewed the chart and agree that the record accurately reflects by personal performance of the history, physical exam, data review, and medical decision-making, in the course for the patient. I have also personally directed the plan of care.
--- NOTE | 2018-09-01 18:01 | CARD ---
APPROVED REPORT Date of service: 09/01/2018 EKG Measurement Heart [id number] <Conclusion> Sinus bradycardia Low voltage QRS Septal infarct, age undetermined Abnormal ECG
[2018-09-01] MEDS: Oxycodone/Acetaminophen 5/325 mg Tab PO PRN (22:10)
--- NOTE | 2018-09-01 22:32 | PN ---
DATE: 09/01/2018 SUBJECTIVE: The patient denies any chest pain or shortness of breath. PHYSICAL EXAMINATION: VITAL SIGNS: Blood pressure 142/91, heart rate 69, temperature 98, respiration 18. HEENT: Normocephalic. CHEST: Clear. HEART: S1 and S2 regular. ABDOMEN: Soft. EXTREMITIES: No edema. LABORATORY DATA: Today's hemoglobin, hematocrit, white count, and platelet count are within normal limits. Today's SMA-7 is within normal limits except for glucose of 138 and creatinine 0.7. Left foot x-ray performed yesterday revealed status post left fifth digit and transmetatarsal amputation. ASSESSMENT: 1. Coronary artery disease with history of coronary stenting in the past. 2. Status post partial resection of the fifth metatarsal head of the left foot. 3. Uncontrolled diabetes mellitus. RECOMMENDATIONS: Continue current IV Ancef at 1 g every 8 hours which was started today. Continue aspirin 81 mg once a day, Lipitor 10 mg once a day, Percocet one tablet every six hours, Zestril 2.5 mg once a day. Awaiting the pathology report. Epi Bennett MD
[2018-09-02] MEDS: ceFAZolin 1 gm in NS 1 GM/100 ML BAG IVPB SCH ×3 (05:51→22:03)
[2018-09-02 07:00] LABS: BASO # 0.09 K/mm3 (0.0-2.0); BASO % 0.9 % (0.0-3.0); EOS # 0.6 (0.0-0.7); GRAN # 5.31 (1.4-6.5); LYMPH # 3.4 (1.2-3.4); LYMPH % 32.8 % (22.0-35.0); MEAN CELL VOLUME 90.1 fl (80.0-105.0); MEAN CORPUSCULAR HEMOGLOBIN 30.2 pg (25.0-35.0); MEAN CORPUSCULAR HGB CONC 33.6 g/dl (31.0-37.0); MONO % 9.3 % (1.0-6.0); RBC 4.96 10^6/uL (3.5-6.1); WHITE BLOOD COUNT 10.4 10^3/ul (4.5-11.0)
[2018-09-02] MEDS: Insulin Reg-MEDIUM-Coverage SC SCH ×4 (08:06→22:18)
[2018-09-02 08:51] LABS: ALB/GLOB RATIO 1.1 (1.1-1.8); ALBUMIN 3.6 g/dL (3.0-4.8); ALT/SGPT 27 U/L (7-56); AST/SGOT 31 U/L (17-59); BLOOD UREA NITROGEN 14 mg/dL (7-21); GFR NON-AFRICAN AMERICAN > 60
--- NOTE | 2018-09-02 16:31 | PN ---
DATE: 09/02/2018 SUBJECTIVE: The patient denies any chest pain or shortness of breath. PHYSICAL EXAMINATION: VITAL SIGNS: Blood pressure 121/77, heart rate 60, temperature 97.9, respiration 20. HEENT: Normocephalic. CHEST: Clear. HEART: S1 and S2, regular. EXTREMITIES: No edema. LABORATORY DATA: Hemoglobin, hematocrit, white count and platelet count today are within normal limits. Today's SMA-7 is within normal limit except for glucose 144 and creatinine 0.7. Pathology report of amputated toe show no acute osteomyelitis and acute and chronic inflammation in the adjacent soft tissue with granulation tissue. Bone resection margin is free of acute inflammation. Soft tissue resection margin show inflamed granulation tissue. Fifth metatarsal bone show acute osteomyelitis involving head and midportion. ASSESSMENT: 1. 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 2. Uncontrolled diabetes mellitus. 3. History of coronary artery disease status post coronary artery stenting in the past. 4. Sinus bradycardia. RECOMMENDATIONS: Continue current Ancef 1 g intravenously every 8 hours, Lipitor 10 mg once a day, Zestril 2.5 mg once a day. Epi Bennett MD
--- NOTE | 2018-09-02 18:22 | CP.PCM.PN ---
<Tamy Blunt - Last Filed: 09/02/18 18:19> Subjective - Date & Time of Evaluation Date of Evaluation: 09/02/18 Time of Evaluation: 11:30 - Subjective Subjective: PGY-1 Tamy Blunt Medicine Progress Note for Dr. Hawk's service Patient seen and examined at bedside. Patient offers no acute complaints. Patient denies fevers, chills, headaches, sob, n/v, constipation or diarrhea, sob, dysuria, weakness, unstable gait. Objective - Vital Signs/Intake and Output Vital Signs (last 24 hours): Temp Pulse Resp BP Pulse Ox 97.9 F 60 20 121/77 98 09/02/18 07:51 09/02/18 09:54 09/02/18 07:51 09/02/18 09:54 09/02/18 07:51 Intake and Output: 09/02/18 09/02/18 06:59 18:59 Intake Total 760 Output Total 1725 450 Balance -965 -450 - Medications Medications: Current Medications Acetaminophen (Tylenol 325mg Tab) 650 mg PO Q6H PRN PRN Reason: Pain, Mild (1-3) Aspirin (Aspirin Chewable) 81 mg PO DAILY [facility] Last Admin: 09/02/18 09:54 Dose: 81 mg Atorvastatin Calcium (Lipitor) 10 mg PO DIN [facility] Last Admin: 09/02/18 17:27 Dose: 10 mg Dextrose (Dextrose 50% Inj) 0 ml IV STAT PRN; Protocol PRN Reason: Hypoglycemia Protocol Famotidine (Pepcid) 40 mg PO HS [facility] Last Admin: 09/01/18 22:05 Dose: 40 mg Gabapentin (Neurontin) 100 mg PO TID DAVID; Protocol Last Admin: 09/02/18 17:28 Dose: 100 mg Dextrose (Dextrose 5% In Water 1000 Ml) 1,000 mls @ 0 mls/hr IV .Q0M PRN; Protocol PRN Reason: Hypoglycemia Protocol Cefazolin Sodium (Ancef 1gm In Ns) 1 gm in 100 mls @ 100 mls/hr IVPB Q8 [facility]ID; Protocol Last Admin: 09/02/18 13:33 Dose: 100 mls/hr Insulin Human Regular (Humulin R Med) 0 units SC ACHS DAVID; Protocol Last Admin: 09/02/18 17:27 Dose: 1 unit Lisinopril (Zestril) 2.5 mg PO DAILY [facility] Last Admin: 09/02/18 09:54 Dose: 2.5 mg Oxycodone/Acetaminophen (Percocet 5/325 Mg Tab) 1 tab PO Q6H PRN PRN Reason: Pain, moderate (4-7) Stop: 09/03/18 22:12 Last Admin: 09/01/18 22:10 Dose: 1 tab - Labs Labs: 09/02/18 06:30 09/02/18 06:30 - Additional Findings Additional findings: - Constitutional Appears: Non-toxic, No Acute Distress - Head Exam Head Exam: NORMAL INSPECTION, NORMOCEPHALIC - Eye Exam Eye Exam: EOMI, Normal appearance. absent: Nystagmus, Scleral icterus - ENT Exam ENT Exam: Mucous Membranes Moist - Respiratory Exam Respiratory Exam: Clear to Ausculation Bilateral, NORMAL BREATHING PATTERN. absent: Rales, Rhonchi, Wheezes, Respiratory Distress - Cardiovascular Exam Cardiovascular Exam: REGULAR RHYTHM, +S1, +S2 - GI/Abdominal Exam GI & Abdominal Exam: Soft, Normal Bowel Sounds. absent: Tenderness - Extremities Exam Extremities Exam: absent: Calf Tenderness, Pedal Edema Additional comments: 5th toe amputation and left 5th metatarsal bone partial resection. - Neurological Exam Neurological Exam: Alert, Awake, Oriented x3 - Psychiatric Exam Psychiatric exam: Normal Affect, Normal Mood - Skin Skin Exam: Intact, Normal Color Assessment and Plan - Assessment and Plan (Free Text) Assessment: Patient is a 58 yo male with PMH of DM, [place] (2005), ulcer presents to ED after being in wound care clinic with concerns of possible osteomyelitis from ulcer on left foot; zosyn discontinued in setting of debridement and wound culture; POD 4. culture positive for klebsiella sensitive to ciprofloxacin; Likely discharge tomorrow because final pathology report available Plan: Foot Ulcer ID consulted - Started patient on Ancef due to sensitivities- Pending OR path re port can be possible discharged with po abx Podiatry consulted- OR on 08/28; wound cultures positive for Klebsiella Cardio consulted - Dr. Bennett- low to moderate risk for low risk procedure 08/26/18 MRI left foot- left 5th met head Osteomyelitis, Left 5th toe proximal phalanx osteomyelitis. 08/25/18 Foot Xray - no definite signs of osteomyeltis Cefazolin 1gm Oxycodone 1 tab po q6h prn; Tylenol 650mg po q6h prn Repeat CBC in AM DM w/neuropathy Home meds held ISS- med dose ACHS Hypogylemic protocol Gabapentin 100mg po tid History of [place] Lisinopril 2.5mg po daily Lipitor 10mg po daily Aspirin 81mg PPx GI ppx: Pepcid 40mg po DVT ppx: SCDs Medical Management discussed with Dr. Carine Blunt PGY-2 <Dara Hawk - Last Filed: 09/03/18 17:33> Objective - Vital Signs/Intake and Output Vital Signs (last 24 hours): Temp Pulse Resp BP Pulse Ox 98.2 F 67 20 115/78 99 09/03/18 06:00 09/03/18 09:29 09/03/18 06:00 09/03/18 09:29 09/03/18 06:00 Intake and Output: 09/03/18 09/03/18 06:59 18:59 Intake Total 700 Output Total 300 Balance 400 - Labs Labs: 09/03/18 06:15 09/03/18 06:15 Attending/Attestation - Attestation I have personally seen and examined this patient.: Yes I have fully participated in the care of the patient.: Yes I have reviewed all pertinent clinical information, including history, physical exam and plan: Yes Notes (Text): 09/03/18 17:33 Medical record note made by the resident after discussion with my direction and input after the patient was personally seen and examined by me. I have reviewed the chart and agree that the record accurately reflects by personal performance of the history, physical exam, data review, and medical decision-making, in the course for the patient. I have also personally directed the plan of care.
[2018-09-02] MEDS: Oxycodone/Acetaminophen 5/325 mg Tab PO PRN (22:04)
[2018-09-02 22:13] VITALS: TEMP 98.2
--- NOTE | 2018-09-02 23:27 | PN ---
DATE: 09/02/2018 SUBJECTIVE: The patient is seen earlier this morning in room 564, bed 1. No fevers and no chills. PHYSICAL EXAMINATION: VITAL SIGNS: Temperature of 98, blood pressure is 107/70, respiratory rate of 18. HEENT: Examination of HEENT is unremarkable. NECK: Supple. LUNGS: Have decreased breath sounds. HEART: Normal S1 and S2. ABDOMEN: Soft. LABORATORY DATA: Laboratory examination reveals a white count of 10,000, a hemoglobin of 15. Chemistries are noted. BUN of 14, creatinine of 0.7. Microbiology reveals Klebsiella oxytoca. The blood cultures are no growth. The Klebsiella is positive from a wound and is pansensitive. Resistant to ampicillin. ASSESSMENT AND PLAN: A 58-year-old with a left foot lateral diabetic foot ulcer with osteomyelitis with Klebsiella, status post amputation of sixth metatarsal, now with coronary artery disease, on cefazolin with pathology that shows resection margin shows inflamed granulation tissue; however, bone resection margin is free of acute inflammation. The OR cultures from 08/28/2018 is noted with a Klebsiella. Currently, on cefazolin. We will follow with you. Jamie Acevedo MD
[2018-09-03] MEDS ORDERED: Oxycodone/Acetaminophen 5/325 mg Tab PO STA (00:10)
[2018-09-03] MEDS: ceFAZolin 1 gm in NS 1 GM/100 ML BAG IVPB SCH ×2 (05:38→13:56)
[2018-09-03 07:05] LABS: BASO # 0.06 K/mm3 (0.0-2.0); BASO % 0.6 % (0.0-3.0); EOS # 0.6 (0.0-0.7); EOS % 6.1 % (1.5-5.0); GRAN # 3.74 (1.4-6.5); GRAN % 38.3 % (50.0-68.0); HEMOGLOBIN 14.5 g/dL (14.0-18.0); LYMPH # 4.5 (1.2-3.4); LYMPH % 46.5 % (22.0-35.0); MEAN CELL VOLUME 90.5 fl (80.0-105.0); MEAN CORPUSCULAR HEMOGLOBIN 30.7 pg (25.0-35.0); MEAN CORPUSCULAR HGB CONC 33.9 g/dl (31.0-37.0); MONO # 0.8 (0.1-0.6); MONO % 8.5 % (1.0-6.0); RBC 4.73 10^6/uL (3.5-6.1); WHITE BLOOD COUNT 9.8 10^3/ul (4.5-11.0)
[2018-09-03 07:19] LABS: ALB/GLOB RATIO 1.1 (1.1-1.8); ALBUMIN 3.4 g/dL (3.0-4.8); ALT/SGPT 27 U/L (7-56); AST/SGOT 29 U/L (17-59); BLOOD UREA NITROGEN 17 mg/dL (7-21); CALCIUM 8.5 mg/dL (8.4-10.5); GFR NON-AFRICAN AMERICAN > 60
[2018-09-03 07:44] VITALS: RESP 20; O2SAT 99
[2018-09-03] MEDS: Insulin Reg-MEDIUM-Coverage SC SCH ×2 (08:25→11:58)
--- NOTE | 2018-09-03 08:59 | CP.PCM.PN ---
Subjective - Date & Time of Evaluation Date of Evaluation: 09/03/18 Time of Evaluation: 08:56 - Subjective Subjective: Podiatry Progress Note for Dr. Diana 58 yo male patient seen and evaluated s/p left 5th toe amputation with 5th metatarsal partial resection. Patient is resting comfortably in bed. Patient denies any pain and denies any new pedal complaints. Denies N/V/F/SOB. Objective - Vital Signs/Intake and Output Vital Signs (last 24 hours): Temp Pulse Resp BP Pulse Ox 98.2 F 53 L 20 105/68 99 09/03/18 06:00 09/03/18 06:00 09/03/18 06:00 09/03/18 06:00 09/03/18 06:00 Intake and Output: 09/03/18 09/03/18 06:59 18:59 Intake Total 700 Output Total 300 Balance 400 - Medications Medications: Current Medications Acetaminophen (Tylenol 325mg Tab) 650 mg PO Q6H PRN PRN Reason: Pain, Mild (1-3) Aspirin (Aspirin Chewable) 81 mg PO DAILY [facility] Last Admin: 09/02/18 09:54 Dose: 81 mg Atorvastatin Calcium (Lipitor) 10 mg PO DIN [facility] Last Admin: 09/02/18 17:27 Dose: 10 mg Dextrose (Dextrose 50% Inj) 0 ml IV STAT PRN; Protocol PRN Reason: Hypoglycemia Protocol Famotidine (Pepcid) 40 mg PO HS [facility] Last Admin: 09/02/18 22:04 Dose: 40 mg Gabapentin (Neurontin) 100 mg PO TID [facility]; Protocol Last Admin: 09/02/18 17:28 Dose: 100 mg Dextrose (Dextrose 5% In Water 1000 Ml) 1,000 mls @ 0 mls/hr IV .Q0M PRN; Protocol PRN Reason: Hypoglycemia Protocol Cefazolin Sodium (Ancef 1gm In Ns) 1 gm in 100 mls @ 100 mls/hr IVPB Q8 [facility]ID; Protocol Last Admin: 09/03/18 05:38 Dose: 100 mls/hr Insulin Human Regular (Humulin R Med) 0 units SC ACHS [facility]; Protocol Last Admin: 09/03/18 08:25 Dose: 1 unit Lisinopril (Zestril) 2.5 mg PO DAILY [facility] Last Admin: 09/02/18 09:54 Dose: 2.5 mg Oxycodone/Acetaminophen (Percocet 5/325 Mg Tab) 1 tab PO Q6H PRN PRN Reason: Pain, moderate (4-7) Stop: 09/03/18 22:12 Last Admin: 09/02/18 22:04 Dose: 1 tab - Labs Labs: 09/03/18 06:15 09/03/18 06:15 - Constitutional Appears: Well, Non-toxic, No Acute Distress - Head Exam Head Exam: ATRAUMATIC, NORMOCEPHALIC - Extremities Exam Additional comments: Left lower extremity focused exam: Vascular: CFT < 3 seconds to all digits, TG WNL, mild periwound edema noted to dorsal aspect of left foot. Ortho: Patient able to move toes, MMT 4/5 to all compartments Neuro: Gross and protective sensation diminished Derm: Sutures intact to surgical site, with skin edges well coapted, no purulence, no streaking, mild periwound erythema, mild ecchymosis located on the distal aspect of surgical incision. Plantar 5th submetatarsal ulceration no purulence, mild drainage, no malodor, no streaking - Neurological Exam Neurological Exam: Alert, Awake, Oriented x3 - Psychiatric Exam Psychiatric exam: Normal Affect, Normal Mood Assessment and Plan - Assessment and Plan (Free Text) Assessment: 58 yo male patient s/p left 5th toe amputation and 5th metatarsal partial resection. Plan: Patient seen and evaluated at bedside with Dr. Diana Patient plan discussed in detail with Dr. Diana Labs, chart, and vitals reviewed; afebrile, absent leukocytosis (09/03) Packing pulled from plantar ulceration. Surgical site dressed with Silvercel, DSD, SARA, and stockinette; dressing may be left in place upon discharge Wound culture and Gram Stain (08/28); Klebsiella Oxycota Surgical pathology report; Bone resection margin free of acute inflammation (08/29) ID on board; reccs appreciated for abx upon D/C Patient stable from podiatry stand point; Patient to follow up in wound care center with Dr. Diana/Dr. Garcia
[2018-09-03 09:33] VITALS: BP 115/78; PULSE 67
--- NOTE | 2018-09-03 12:48 | CP.PCM.DIS ---
<Tamy Blunt - Last Filed: 09/03/18 12:43> Provider - Provider Date of Admission: 08/25/18 16:34 Attending physician: Dara Hawk MD Time Spent in preparation of Discharge (in minutes): 45 Hospital Course - Lab Results Lab Results: Micro Results 08/28/18 16:00 Other: Please Indicate Gram Stain - Final 08/28/18 16:00 Other: Please Indicate Wound Culture - Final Klebsiella Oxytoca 08/25/18 15:23 Blood-Venous Blood Culture - Final NO GROWTH AFTER 5 DAYS 08/25/18 15:23 Blood-Venous Gram Stain - Final TEST NOT PERFORMED 08/25/18 15:00 Blood-Venous Blood Culture - Final NO GROWTH AFTER 5 DAYS 08/25/18 15:00 Blood-Venous Gram Stain - Final TEST NOT PERFORMED Most Recent Lab Values WBC 9.8 10^3/ul (4.5-11.0) 09/03/18 06:15 RBC 4.73 10^6/uL (3.5-6.1) 09/03/18 06:15 Hgb 14.5 g/dL (14.0-18.0) 09/03/18 06:15 Hct 42.8 % (42.0-52.0) 09/03/18 06:15 MCV 90.5 fl (80.0-105.0) 09/03/18 06:15 MCH 30.7 pg (25.0-35.0) 09/03/18 06:15 MCHC 33.9 g/dl (31.0-37.0) 09/03/18 06:15 RDW 13.0 % (11.5-14.5) 09/03/18 06:15 Plt Count 186 10^3/uL (120.0-450.0) 09/03/18 06:15 MPV 10.0 fl (7.0-11.0) 09/03/18 06:15 Gran % 38.3 % (50.0-68.0) L 09/03/18 06:15 Lymph % (Auto) 46.5 % (22.0-35.0) H 09/03/18 06:15 Cherry % (Auto) 8.5 % (1.0-6.0) H 09/03/18 06:15 Eos % (Auto) 6.1 % (1.5-5.0) H 09/03/18 06:15 Baso % (Auto) 0.6 % (0.0-3.0) 09/03/18 06:15 Gran # 3.74 (1.4-6.5) 09/03/18 06:15 Lymph # (Auto) 4.5 (1.2-3.4) H 09/03/18 06:15 Cherry # (Auto) 0.8 (0.1-0.6) H 09/03/18 06:15 Eos # (Auto) 0.6 (0.0-0.7) 09/03/18 06:15 Baso # (Auto) 0.06 K/mm3 (0.0-2.0) 09/03/18 06:15 ESR 31 mm/hr (0.00-15.0) H 08/26/18 06:20 Sodium 138 mmol/L (132-148) 09/03/18 06:15 Potassium 4.2 mmol/L (3.6-5.0) 09/03/18 06:15 Chloride 103 mmol/L (98-107) 09/03/18 06:15 Carbon Dioxide 27 mmol/L (21-33) 09/03/18 06:15 Anion Gap 12 (10-20) 09/03/18 06:15 BUN 17 mg/dL (7-21) 09/03/18 06:15 Creatinine 0.7 mg/dl (0.8-1.5) L 09/03/18 06:15 Est GFR ( Amer) > 60 09/03/18 06:15 Est GFR (Non-Af Amer) > 60 09/03/18 06:15 POC Glucose (mg/dL) 240 mg/dL (65-110) H 09/03/18 10:29 Random Glucose 183 mg/dL (70-110) H 09/03/18 06:15 Calcium 8.5 mg/dL (8.4-10.5) 09/03/18 06:15 Phosphorus 4.0 mg/dL (2.5-4.5) 08/26/18 06:20 Magnesium 2.3 mg/dL (1.7-2.2) H 08/26/18 06:20 Total Bilirubin 0.3 mg/dL (0.2-1.3) 09/03/18 06:15 AST 29 U/L (17-59) 09/03/18 06:15 ALT 27 U/L (7-56) 09/03/18 06:15 Alkaline Phosphatase 53 U/L (38-126) 09/03/18 06:15 C-Reactive Protein 24.10 mg/L (0.0-9.9) H 08/25/18 15:23 Total Protein 6.7 g/dL (5.8-8.3) 09/03/18 06:15 Albumin 3.4 g/dL (3.0-4.8) 09/03/18 06:15 Globulin 3.3 gm/dL 09/03/18 06:15 Albumin/Globulin Ratio 1.1 (1.1-1.8) 09/03/18 06:15 Triglycerides 115 mg/dL (35-160) 08/25/18 15:23 Cholesterol 89 mg/dL (130-200) L 08/25/18 15:23 LDL Cholesterol Direct 47 mg/dL (0-129) 08/25/18 15:23 HDL Cholesterol 25 mg/dL (29-60) L 08/25/18 15:23 - Hospital Course Hospital Course: Upon admission: Patient is a 58 y.o male with PMH of DM, UT (2006 no stents), and right foot ulcer presents to ED for evaluation of right foot ulcer. Patient was at wound care today and his doctor, Dr. Diana, recommended he got to the ER to rule out osteomyelitis. Patient states he has this ongoing infection for 13 months that was being treated with oral amoxicillin. The ulcer would heal and then worsen according to patient during treatment. Patient describes it to be a sharp, stabbing sensation when he stands on it, nonradiating, 6/10 on pain scale. Sharon ent states that he feels his foot was numb but attributes this to his chronic neuropathy. Patient denies fevers, chills, headaches, changes in vision, lightheadedness, dizziness, chest pain, sob, n/v, constipation or diarrhea, and dysuria. Hospital Course: 58 year old male admitted to rule out osteomyelitis as per the request of Dr Diana. Blood cultures obtained and patient was given 1 x dose of Zosyn. Blood cultures resulted negative. Left foot X-ray showed left 5th metatarsal head erosions, medial dislocation of the 5th MPJ. Left foot MRI resulted left foot ulcer, left 5th metatarsal head edema which might represent early osteomyelitis. LE Arterial Doppler US resulted relatively normal resting ABIs, b/l popliteal trifurcation and/or tibial disease. ID and podiatry were consulted. ID recommended to hold antibiotics and Podiatry requested cardiac clearance for debridement procedure. Cardiology evaluated patient, and obtained echo. After reviewing echo resulted cardiology deemed patient as low-moderate risk for low risk procedure. Patient had partial left 5th metatarsal bone resection for osteomyelitis. Deep wound cultures were obtained. Preliminary report resulted gram negative rods and ID recommended starting patient on Meropenem. Antibiotic was changed to Ancef after final report and sensitivities resulted Klebsiella Oxytoca. Final pathology results bone resection free of acute inflammation. ID recommended discharging patient with oral Augmentin. Patient was evaluated and cleared for discharge to home. Discharge plan: Patient is stable for discharge to home as per Dr. Hawk. He was counseled to return to the emergency department if symptoms return or worsen. Patient is to follow up with primary medical doctor, Dr. Marjorie lA, within 3-5 days of discharge. Patient is to follow up with podiatry, Dr. Vane Diana, on 09-08-18 for followup appointment scheduled. Patient is to follow up with cardiology, Dr. Moses, as scheduled. Patient is to continue home Augmentin PO BID for 5 days as prescribed and instructed. Counseled on the side effects of medication. Patient was counseled on wound care for which he had dressing change today and followup change at wound care clinic. Patient is to continue home medications as prescribed and instructed in discharge instructions. Reviewed all medications with patient, and he understands instructions. Patient understands and agrees with discharge plan. Disclaimer: Written above is a synopsis of patients current hospital admission. For full admission refer to EMR. Discharge Exam - Head Exam Head Exam: ATRAUMATIC, NORMOCEPHALIC - Additional Findings Additional findings: - Constitutional Appears: Non-toxic, No Acute Distress - Head Exam Head Exam: NORMAL INSPECTION, NORMOCEPHALIC - Eye Exam Eye Exam: EOMI, Normal appearance. absent: Nystagmus, Scleral icterus - ENT Exam ENT Exam: Mucous Membranes Moist - Respiratory Exam Respiratory Exam: Clear to Ausculation Bilateral, NORMAL BREATHING PATTERN. absent: Rales, Rhonchi, Wheezes, Respiratory Distress - Cardiovascular Exam Cardiovascular Exam: REGULAR RHYTHM, +S1, +S2 - GI/Abdominal Exam GI & Abdominal Exam: Soft, Normal Bowel Sounds. absent: Tenderness - Extremities Exam Extremities Exam: absent: Calf Tenderness, Pedal Edema Additional comments: 5th toe amputation and left 5th metatarsal bone partial resection. - Neurological Exam Neurological Exam: Alert, Awake, Oriented x3 - Psychiatric Exam Psychiatric exam: Normal Affect, Normal Mood - Skin Skin Exam: Intact, Normal Color Discharge Plan - Follow Up Plan Condition: STABLE Disposition: HOME/ ROUTINE Instructions: Osteomyelitis, Methicillin-Resistant Staphylococcus aureus (MRSA), Diabetic Foot Ulcer (DC), Foot Care for Diabetics Additional Instructions: 1. Patient is stable for discharge to home as per Dr. Hawk 2. Patient is instructed to followup with primary medical doctor, Dr. Al, within 3-5 days of discharge from hospital. Patient is instructed to followup with Podiatry, Dr. Diana, on 09-08-18 for continued wound care. 3. Patient states he does not need any refills on his medications. Patient is instructed to continue all of his home medications as prescribed. Patient has home Augmentin which was prescribed for him by Dr. Diana. As per Dr. Acevedo, patient can continue on home Augmentin for which he states he has 10 pills. Patient was instructed to take two pills a day by mouth for 5 days until he can follow up with podiatry. 4. Patient understands the plan and agrees to the above. Referrals: Vane Diana DPM [Staff Provider] - Dara Hawk MD [Staff Provider] - <Dara Hawk - Last Filed: 09/03/18 17:26> Provider - Provider Date of Admission: 08/25/18 16:34 Attending physician: Dara Hawk MD Hospital Course - Lab Results Lab Results: Micro Results 08/28/18 16:00 Other: Please Indicate Gram Stain - Final 08/28/18 16:00 Other: Please Indicate Wound Culture - Final Klebsiella Oxytoca 08/25/18 15:23 Blood-Venous Blood Culture - Final NO GROWTH AFTER 5 DAYS 08/25/18 15:23 Blood-Venous Gram Stain - Final TEST NOT PERFORMED 08/25/18 15:00 Blood-Venous Blood Culture - Final NO GROWTH AFTER 5 DAYS 08/25/18 15:00 Blood-Venous Gram Stain - Final TEST NOT PERFORMED Most Recent Lab Values WBC 9.8 10^3/ul (4.5-11.0) 09/03/18 06:15 RBC 4.73 10^6/uL (3.5-6.1) 09/03/18 06:15 Hgb 14.5 g/dL (14.0-18.0) 09/03/18 06:15 Hct 42.8 % (42.0-52.0) 09/03/18 06:15 MCV 90.5 fl (80.0-105.0) 09/03/18 06:15 MCH 30.7 pg (25.0-35.0) 09/03/18 06:15 MCHC 33.9 g/dl (31.0-37.0) 09/03/18 06:15 RDW 13.0 % (11.5-14.5) 09/03/18 06:15 Plt Count 186 10^3/uL (120.0-450.0) 09/03/18 06:15 MPV 10.0 fl (7.0-11.0) 09/03/18 06:15 Gran % 38.3 % (50.0-68.0) L 09/03/18 06:15 Lymph % (Auto) 46.5 % (22.0-35.0) H 09/03/18 06:15 Cherry % (Auto) 8.5 % (1.0-6.0) H 09/03/18 06:15 Eos % (Auto) 6.1 % (1.5-5.0) H 09/03/18 06:15 Baso % (Auto) 0.6 % (0.0-3.0) 09/03/18 06:15 Gran # 3.74 (1.4-6.5) 09/03/18 06:15 Lymph # (Auto) 4.5 (1.2-3.4) H 09/03/18 06:15 Cherry # (Auto) 0.8 (0.1-0.6) H 09/03/18 06:15 Eos # (Auto) 0.6 (0.0-0.7) 09/03/18 06:15 Baso # (Auto) 0.06 K/mm3 (0.0-2.0) 09/03/18 06:15 ESR 31 mm/hr (0.00-15.0) H 08/26/18 06:20 Sodium 138 mmol/L (132-148) 09/03/18 06:15 Potassium 4.2 mmol/L (3.6-5.0) 09/03/18 06:15 Chloride 103 mmol/L (98-107) 09/03/18 06:15 Carbon Dioxide 27 mmol/L (21-33) 09/03/18 06:15 Anion Gap 12 (10-20) 09/03/18 06:15 BUN 17 mg/dL (7-21) 09/03/18 06:15 Creatinine 0.7 mg/dl (0.8-1.5) L 09/03/18 06:15 Est GFR ( Amer) > 60 09/03/18 06:15 Est GFR (Non-Af Amer) > 60 09/03/18 06:15 POC Glucose (mg/dL) 240 mg/dL (65-110) H 09/03/18 10:29 Random Glucose 183 mg/dL (70-110) H 09/03/18 06:15 Calcium 8.5 mg/dL (8.4-10.5) 09/03/18 06:15 Phosphorus 4.0 mg/dL (2.5-4.5) 08/26/18 06:20 Magnesium 2.3 mg/dL (1.7-2.2) H 08/26/18 06:20 Total Bilirubin 0.3 mg/dL (0.2-1.3) 09/03/18 06:15 AST 29 U/L (17-59) 09/03/18 06:15 ALT 27 U/L (7-56) 09/03/18 06:15 Alkaline Phosphatase 53 U/L (38-126) 09/03/18 06:15 C-Reactive Protein 24.10 mg/L (0.0-9.9) H 08/25/18 15:23 Total Protein 6.7 g/dL (5.8-8.3) 09/03/18 06:15 Albumin 3.4 g/dL (3.0-4.8) 09/03/18 06:15 Globulin 3.3 gm/dL 09/03/18 06:15 Albumin/Globulin Ratio 1.1 (1.1-1.8) 09/03/18 06:15 Triglycerides 115 mg/dL (35-160) 08/25/18 15:23 Cholesterol 89 mg/dL (130-200) L 08/25/18 15:23 LDL Cholesterol Direct 47 mg/dL (0-129) 08/25/18 15:23 HDL Cholesterol 25 mg/dL (29-60) L 08/25/18 15:23 Attending/Attestation - Attestation I have personally seen and examined this patient.: Yes I have fully participated in the care of the patient.: Yes I have reviewed all pertinent clinical information, including history, physical exam and plan: Yes Notes (Text): 09/03/18 17:18 Medical record note made by the resident after discussion with my direction and input after the patient was personally seen and examined by me. I have reviewed the chart and agree that the record accurately reflects by personal performance of the history, physical exam, data review, and medical decision-making, in the course for the patient. I have also personally directed the plan of care. 58 year old male with past medical history of diabetes and UT who presented with non healing foot ulcer. Patient had partial left 5th metatarsal bone resection for osteomyelitis. Deep wound cultures were obtained. Preliminary report resulted gram negative rods and ID recommended starting patient on Meropenem. Antibiotic was changed to Ancef after final report and sensitivities resulted Klebsiella Oxytoca. Final pathology results bone resection free of acute inflammation. ID recommended discharging patient with oral Augmentin.. Patient IV antibiotics has been discontinued.He will be discharged home on oral Augmentin and will follow up PCP and Podiatry. Management plan was discussed in detail with patient. Education was provided. 09/03/18 17:24
--- NOTE | 2018-09-03 16:42 | PN ---
DATE: 09/03/2018 FOLLOWUP SUBJECTIVE: The patient denies any chest discomfort or shortness of breath. PHYSICAL EXAMINATION: VITAL SIGNS: Blood pressure 115/78, heart rate 53, temperature 98.2, respirations 20. HEENT: Normocephalic. CHEST: Clear. HEART: S1 and S2 regular. EXTREMITIES: No edema. LABORATORY DATA: Today's hemoglobin and hematocrit, white count and platelet count are within normal limit. Today's SMA-7 is within normal limit except for glucose of 183 and creatinine 0.7. ASSESSMENT: 1. Coronary artery disease, status post coronary artery stenting about 12 years ago. 2. Status post left fifth toe and left fifth partial metatarsal resection for osteomyelitis. 3. Diabetes mellitus and hypertension. RECOMMENDATIONS: The patient can be discharged on Zestril 2.5 mg once a day, aspirin 81 mg once a day, Lipitor at 10 mg once a day. Epi Bennett MD
--- NOTE | 2018-09-04 01:15 | PN ---
DATE: 09/03/2018 SUBJECTIVE: The patient is in bed. PHYSICAL EXAMINATION: VITAL SIGNS: Temperature is 98, blood pressure is 105/60, respiratory rate of 20, heart rate of 53. HEENT: Unremarkable. NECK: Supple. LUNGS: Have decreased breath sounds. HEART: Normal S1, S2. ABDOMEN: Soft, nontender. LABORATORY EXAMINATION: Reveals a white count of 9.8, hemoglobin of 14. Chemistries are noted. Microbiology reveals Klebsiella oxytoca. 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 antibiotics as discussed with Podiatry. We will follow with you. Jamie Acevedo MD
== END 2018-09-03 15:09 | disposition home or self-care (01) ==
LOC: ED 13:06 → ERH 16:34 → 5RNO 20:28
PROVIDERS: ADMIT Hospitalist; ATTEND Internal Medicine
PROC: 0QTP0ZZ Resection of Left Metatarsal, Open Approach (ICD-10-PCS; 2018-08-28)
PROC: 0JBR0ZZ Excision of Left Foot Subcutaneous Tissue and Fascia, Open Approach (ICD-10-PCS; 2018-08-28)
PROC: 0Y6Y0Z0 Detachment at Left 5th Toe, Complete, Open Approach (ICD-10-PCS; principal; 2018-08-28 16:00)
DX: E11.69 Type 2 diabetes mellitus with other specified complication (principal); M86.172 Other acute osteomyelitis, left ankle and foot; E11.40 Type 2 diabetes mellitus with diabetic neuropathy, unspecified; E11.51 Type 2 diabetes mellitus with diabetic peripheral angiopathy without gangrene; L97.519 Non-pressure chronic ulcer of other part of right foot with unspecified severity; L97.529 Non-pressure chronic ulcer of other part of left foot with unspecified severity; E11.621 Type 2 diabetes mellitus with foot ulcer; E11.65 Type 2 diabetes mellitus with hyperglycemia; E78.00 Pure hypercholesterolemia, unspecified; I10 Essential (primary) hypertension; I25.10 Atherosclerotic heart disease of native coronary artery without angina pectoris; M77.9 Enthesopathy, unspecified; I25.2 Old myocardial infarction; Z79.82 Long term (current) use of aspirin; Z79.899 Other long term (current) drug therapy; Z80.1 Family history of malignant neoplasm of trachea, bronchus and lung; Z83.3 Family history of diabetes mellitus; Z87.891 Personal history of nicotine dependence; Z95.5 Presence of coronary angioplasty implant and graft; Z86.14 Personal history of Methicillin resistant Staphylococcus aureus infection; Z91.012 Allergy to eggs

== ENCOUNTER 2019-04-08 13:58 | Inpatient (IN) | payer MEDICAID ==
[2019-04-08 14:16] VITALS: BMI 29.7
[2019-04-08] MEDS ORDERED: Sodium Chloride 0.9% 1,000 ML IV STA ×2 (14:38→16:21)
--- NOTE | 2019-04-08 14:44 | ED PDOC ---
Arrival/HPI - General Historian: Patient - History of Present Illness Narrative History of Present Illness (Text): 04/08/19 14:36 58 year old M with pmh of sepsis on feet b/l, neuropathy, hypertension and diabetes presents complaining of possible infection on right foot for the last couple of days. Patient reports he thinks an open wound on his right foot became infected. He noted toes on right foot turning dark purple. Patient denies any fevers, chills, headache, dizziness, chest pain, shortness of breath, dyspnea on exertion, cough, abdominal pain, nausea, vomiting, diarrhea, back pain, neck pain, or any other complaint. PMD: Dr. Marjorie Al Specialist: Dr. Diana(podiatry) Time/Duration: < week Symptom Onset: Sudden Symptom Course: Unchanged Activities at Onset: Light Context: Home Past Medical History - Provider Review Nursing Documentation Reviewed: Yes - Travel History Have you recently traveled outside [place] w/in the past 3 mons?: No - Infectious Disease Hx of Infectious Diseases: None - Tetanus Immunization Tetanus Immunization: Unknown - Cardiac Hx Cardiac Disorders: Yes Hx Hypertension: Yes - Pulmonary Hx Respiratory Disorders: No - Neurological Hx Neurological Disorder: No - HEENT Hx HEENT Disorder: Yes (Wears glasses.) - Renal Hx Renal Disorder: No - Endocrine/Metabolic Hx Diabetes Mellitus Type 2: Yes - Hematological/Oncological Hx Blood Disorders: No - Integumentary Hx Dermatological Disorder: Yes (Diabetic ulcers.) - Musculoskeletal/Rheumatological Hx Musculoskeletal Disorders: No Hx Falls: No - Gastrointestinal Hx Gastrointestinal Disorders: No - Genitourinary/Gynecological Hx Genitourinary Disorders: No - Psychiatric Hx Psychophysiologic Disorder: No Hx Substance Use: No - Surgical History Hx Cardiac Catheterization: Yes (2005 Cath with Cardiac Stent Placement.) Hx Coronary Stent: Yes (2005) - Anesthesia Hx Anesthesia Reactions: No Family/Social History - Physician Review Nursing Documentation Reviewed: Yes Family/Social History: Unknown Family HX Smoking Status: Former Smoker Hx Alcohol Use: No Hx Substance Use: No Allergies/Home Meds Allergies/Adverse Reactions: Allergies EGG Allergy (Severe, Verified 07/25/16 13:40) SWELLING States swelling of the face. Home Medications: Home Meds Medication Instructions Recorded Confirmed metFORMIN [glucOPHAGE] 1,000 mg PO BID 07/03/16 04/08/19 Cholecalciferol [Vitamin D 1000 IU] 2,000 mg PO DAILY 09/06/17 04/08/19 Gabapentin [Neurontin] 100 mg PO TID 09/06/17 04/08/19 Empagliflozin [Jardiance] 10 mg PO DAILY 08/25/18 04/08/19 Simvastatin 5 mg PO HS 08/25/18 04/08/19 Review of Systems - Physician Review All systems were reviewed & negative as marked: Yes - Review of Systems Constitutional: absent: Fevers ENT: absent: Sore Throat, Rhinorrhea, Epistaxis Respiratory: absent: SOB, Cough, Wheezing Cardiovascular: absent: Chest Pain, Palpitations Gastrointestinal: absent: Abdominal Pain, Constipation, Diarrhea, Nausea, Vomiting, Hematochezia, Hematemesis Genitourinary Male: absent: Dysuria, Hematuria Musculoskeletal: Arthralgias (right foot). absent: Back Pain, Joint Swelling Skin: absent: Rash, Laceration Neurological: absent: Headache, Dizziness, Facial Droop, Disequilibrium Physical Exam Vital Signs Reviewed: Yes Vital Signs Temp Pulse Resp BP Pulse Ox 04/08/19 14:15 98.4 F 111 H 18 133/96 H 96 Temperature: Afebrile Blood Pressure: Hypertensive Pulse: Tachycardic Respiratory Rate: Normal Appearance: Positive for: Well-Appearing, Non-Toxic, Comfortable Pain Distress: Mild Mental Status: Positive for: Alert and Oriented X 3 - Systems Exam Head: Present: Atraumatic, Normocephalic Pupils: Present: PERRL Extroacular Muscles: Present: EOMI Conjunctiva: Present: Normal Mouth: Present: Moist Mucous Membranes Neck: Present: Normal Range of Motion Respiratory/Chest: Present: Clear to Auscultation, Good Air Exchange. No: Respiratory Distress, Accessory Muscle Use Cardiovascular: Present: Regular Rate and Rhythm, Normal S1, S2. No: Murmurs Abdomen: No: Tenderness, Distention, Peritoneal Signs Back: Present: Normal Inspection Upper Extremity: Present: Normal Inspection. No: Cyanosis, Edema Lower Extremity: Present: Cyanosis (toes on right foot), Other (No sensation to plantar of R. foot). No: Edema, NORMAL PULSES, Tenderness (not palpable to dp/tp) Neurological: Present: Speech Normal Skin: Present: Warm, Dry, Normal Color. No: Rashes Psychiatric: Present: Alert, Oriented x 3, Normal Insight, Normal Concentration Medical Decision Making ED Course and Treatment: 04/08/19 14:43 Impression: 58 year old M presents complaining of possible infection on right foot for the last couple of days Plan: -- Labs -- EKG --Vancomycin --IV Fluids --Insulin -- Chest X-ray -- Podiatry Consult -- Right foot X Ray -- Lower Extremity Ultra sound -- Reassess and disposition Prior Visits: Notes and results from previous visits were reviewed. Patient was last seen in the emergency department on Progress Notes: 04/08/19 16:13 Labs reviewed with leukocytosis of 17.1 with elevated sugars of 344 at this time. Vancomycin ordered and podiatry resident called. Patient does not meet sepsis criteria due to no SIRS criteria being fulfilled at this time. - Lab Interpretations Lab Results: 04/08/19 15:03 04/08/19 15:03 Lab Results 04/08/19 15:03: Sodium 137, Potassium 3.6, Chloride 101, Carbon Dioxide 24, Anion Gap 15, BUN 12, Creatinine 0.6 L, Est GFR ( Amer) > 60, Est GFR (Non-Af Amer) > 60, Random Glucose 344 H* D, Calcium 8.9, Total Bilirubin 0.6, AST 21, ALT 18, Alkaline Phosphatase 61, Total Protein 7.2, Albumin 3.9, Globulin 3.3, Albumin/Globulin Ratio 1.2 04/08/19 15:03: WBC 17.1 H, RBC 5.50, Hgb 16.9 D, Hct 48.5, MCV 88.2, MCH 30.7, MCHC 34.8, RDW 12.7, Plt Count 107 L, MPV 11.2 H, Neut % (Auto) 74.1 H, Lymph % (Auto) 18.2 L, [place] % (Auto) 5.7, Eos % (Auto) 1.6, Baso % (Auto) 0.4, Lymph # (Auto) 3.1, [place] # (Auto) 1.0 H, Eos # (Auto) 0.3, Baso # (Auto) 0.06, Absolute Neuts (auto) 12.66 H, ESR Pending I have reviewed the lab results: Yes - RAD Interpretation Narrative RAD Interpretations (Text): 04/08/19 16:23 Chest X-ray -- No active disease. Foot X-ray -- There is chronic deformity of the distal 5th metatarsal. There is no evidence of acute osteomyelitis 04/08/19 17:14 Extremity US Relatively normal SILVIANO and PVR examination at rest Payroll Accounting Manager: Radiologist - EKG Interpretation EKG Interpretation (Text): 04/08/19 17:08 EKG NSR @ 96 bpm, Intermediate fusion complexes. No st abnormalities. Interpreted by ED Physician: Yes Type: 12 lead EKG - Scribe Statement The provider has reviewed the documentation as recorded by the Clinton Lee All medical record entries made by the Clinton were at my direction and per sonally dictated by me. I have reviewed the chart and agree that the record accurately reflects my personal performance of the history, physical exam, medical decision making, and the department course for this patient. I have also personally directed, reviewed, and agree with the discharge instructions and disposition. Disposition/Present on Arrival - Present on Arrival History of DVT/PE: No History of Uncontrolled Diabetes: No Urinary Catheter: No History Surgical Site Infection Following: None - Disposition
[2019-04-08 15:07] LABS: BASO # 0.06 K/mm3 (0.0-2.0); BASO % 0.4 % (0.0-3.0); EOS # 0.3 (0.0-0.7); EOS % 1.6 % (1.5-5.0); HEMOGLOBIN 16.9 g/dL (14.0-18.0); LYMPH # 3.1 (1.2-3.4); LYMPH % 18.2 % (22.0-35.0); MEAN CELL VOLUME 88.2 fl (80.0-105.0); MEAN CORPUSCULAR HEMOGLOBIN 30.7 pg (25.0-35.0); MEAN CORPUSCULAR HGB CONC 34.8 g/dl (31.0-37.0); MEAN PLATELET VOLUME 11.2 fl (7.0-11.0); MONO % 5.7 % (1.0-6.0); RBC 5.5 10^6/uL (3.5-6.1); RED CELL DISTRIBUTION WIDTH 12.7 % (11.5-14.5); WHITE BLOOD COUNT 17.1 10^3/uL (4.5-11.0)
--- NOTE | 2019-04-08 15:41 | RAD ---
Date of service: 04/08/2019 PROCEDURE: Right Foot Radiographs. HISTORY: diabetic ulcer r/o osteo COMPARISON: 07/03/2016 TECHNIQUE: 3 views obtained. FINDINGS: BONES: There is chronic deformity of the distal 5th metatarsal. There is no evidence of acute osteomyelitis JOINTS: Normal. SOFT TISSUES: Normal. OTHER FINDINGS: None. IMPRESSION: There is chronic deformity of the distal 5th metatarsal. There is no evidence of acute osteomyelitis
--- NOTE | 2019-04-08 15:42 | RAD ---
Date of service: 04/08/2019 HISTORY: sob COMPARISON: 08/25/2018 TECHNIQUE: 1 view obtained. FINDINGS: LUNGS: No active pulmonary disease. PLEURA: No significant pleural effusion identified, no pneumothorax apparent. CARDIOVASCULAR: No aortic atherosclerotic calcification present. Normal cardiac size. No pulmonary vascular congestion. OSSEOUS STRUCTURES: No significant abnormalities. VISUALIZED UPPER ABDOMEN: Normal. OTHER FINDINGS: None. IMPRESSION: No active disease.
[2019-04-08 15:46] LABS: ALB/GLOB RATIO 1.2 (1.1-1.8); ALBUMIN 3.9 g/dL (3.0-4.8); ALT/SGPT 18 U/L (7-56); AST/SGOT 21 U/L (17-59); BLOOD UREA NITROGEN 12 mg/dL (7-21); CALCIUM 8.9 mg/dL (8.4-10.5); GFR NON-AFRICAN AMERICAN > 60
[2019-04-08] MEDS ORDERED: Insulin Regular 1 UNITS/0.01 ML ML SC STA (16:19)
[2019-04-08] MEDS ORDERED: Vancomycin 1gm in NS 250ml 1 GM/250 ML BAG IVPB STA (16:19)
--- NOTE | 2019-04-08 17:01 | US ---
PROCEDURE: Lower extremity SILVIANO exam HISTORY: Peripheral vascular disease with pain. Diabetes. Smoker. PHYSICIAN(S): Jasmeet Short MD. FINDINGS: The right resting SILVIANO is borderline abnormal, 0.87. The left resting SILVIANO is normal, 1.0 The brachial systolic pressures are symmetric. The high thigh PVR waveforms are symmetric. No obvious gradients are appreciated. The calf PVR waveforms augment normally. No significant gradients are noted across the thighs. The ankle and metatarsal waveforms are relatively normal and symmetric. No significant pressure gradients are noted across the lower legs. IMPRESSION: 1. Relatively normal SILVIANO and PVR examination at rest.
--- NOTE | 2019-04-08 17:16 | CP.PCM.HP ---
<Warner Reno - Last Filed: 04/08/19 17:19> History of Present Illness - History of Present Illness History of Present Illness: Warner Reno DO, PGY-1 Hospitalist Admission History and Physical for Dr. Christian CC: R toe discoloration HPI: Patient is a 58 year old male with PMH of DM2, L foot osteomyelitis, R foot MRSA infection, diabetic neuropathy of b/l feet, and CAD who presents to ED with a concern for bluish discoloration of his R toe which has been worsening over the 3 days. He denies any trauma to the foot and wonders whether there was a wound on his R foot that got infected. He states the R great toe is not painful but is concerned that it feels cooler and appears blue compared to the L foot. He admits to a history of diabetic neuropathy which gives him b/l n umbness/tingling in his feet. He states that he previously took BP meds at home but these were weaned off by his PMD. He has not followed up with Dr. Diana since last year. He offers no additional complaints at this time and denies fever/chills, CP, SOB, abd pain/nausea/vomiting, or urinary complaints. 12-point ROS was otherwise negative except as specified above. PMD: Dr. Marjorie Al Past Medical History: DM2, L foot osteomyelitis, R foot MRSA infection, diabetic neuropathy of b/l feet, CAD Past Surgical History: right foot surgery, knee surgery 1995 Allergies: Egg Home medications: Gabapentin 100 mg TID, Jardiance 10 mg daily, metformin 1000 mg BID, simvastatin 5 mg HS (was previously on lisinopril 10 mg daily and ASA 81 mg daily) Family History: father had DM2, mother had lung cancer Social History: admits to smoking a few cigarettes daily for the past 20 years, denies EtOH or illicit drug use Pharmacy: [facility] Present on Admission - Present on Admission Any Indicators Present on Admission: No History of DVT/PE: No History of Uncontrolled Diabetes: No Urinary Catheter: No Decubitus Ulcer Present: No Past Patient History - Infectious Disease Hx of Infectious Diseases: None - Tetanus Immunizations Tetanus Immunization: Unknown - Past Social History Smoking Status: Former Smoker - CARDIAC Hx Cardiac Disorders: Yes Hx Hypertension: Yes - PULMONARY Hx Respiratory Disorders: No - NEUROLOGICAL Hx Neurological Disorder: No - HEENT Hx HEENT Problems: Yes (Wears glasses.) - RENAL Hx Chronic Kidney Disease: No - ENDOCRINE/METABOLIC Hx Diabetes Mellitus Type 2: Yes - HEMATOLOGICAL/ONCOLOGICAL Hx Blood Disorders: No - INTEGUMENTARY Hx Dermatological Problems: Yes (Diabetic ulcers.) - MUSCULOSKELETAL/RHEUMATOLOGICAL Hx Musculoskeletal Disorders: No Hx Falls: No - GASTROINTESTINAL Hx Gastrointestinal Disorders: No - GENITOURINARY/GYNECOLOGICAL Hx Genitourinary Disorders: No - PSYCHIATRIC Hx Psychophysiologic Disorder: No Hx Substance Use: No - SURGICAL HISTORY Hx Cardiac Catheterization: Yes (2005 Cath with Cardiac Stent Placement.) Hx Coronary Stent: Yes (2005) - ANESTHESIA Hx Anesthesia Reactions: No Meds Allergies/Adverse Reactions: Allergies Allergy/AdvReac Type Severity Reaction Status Date / Time EGG Allergy Severe SWELLING Verified 07/25/16 13:40 Physical Exam - Constitutional Appears: Non-toxic, No Acute Distress - Head Exam Head Exam: ATRAUMATIC, NORMOCEPHALIC - Eye Exam Eye Exam: EOMI, PERRL - ENT Exam ENT Exam: Mucous Membranes Moist - Neck Exam Neck exam: Positive for: Full Rom. Negative for: Lymphadenopathy, Tenderness, Thyromegaly - Respiratory Exam Respiratory Exam: Clear to Auscultation Bilateral, NORMAL BREATHING PATTERN. absent: Accessory Muscle Use, Rales, Rhonchi, Wheezes, Respiratory Distress - Cardiovascular Exam Cardiovascular Exam: REGULAR RHYTHM, RRR, +S1, +S2. absent: Diastolic murmur, Gallop, Rubs, Systolic Murmur - GI/Abdominal Exam GI & Abdominal Exam: Normal Bowel Sounds, Soft. absent: Guarding, Rebound, Tenderness - Extremities Exam Extremities exam: Negative for: pedal edema Additional comments: R great toe appears cyanotic compared to L, R toe is also cooler to touch, pulses 2+ b/l, L fifth toe amputation noted, R mid-lateral foot surgical scar noted which patient states is a site of prior debridement, no pedal edema - Back Exam Back exam: NORMAL INSPECTION - Neurological Exam Neurological exam: Alert, Oriented x3 - Psychiatric Exam Psychiatric exam: Normal Affect, Normal Mood - Skin Skin Exam: Dry, Intact, Warm Results - Vital Signs Recent Vital Signs: Last Vital Signs Temp 98.4 F 04/08/19 14:15 Pulse 111 H 04/08/19 14:15 Resp 18 04/08/19 14:15 BP 133/96 H 04/08/19 14:15 Pulse Ox 96 04/08/19 14:15 - Labs Result Diagrams: 04/08/19 15:03 04/08/19 15:03 Labs: Laboratory Results - last 24 hr 04/08/19 04/08/19 15:03 15:03 WBC 17.1 H RBC 5.50 Hgb 16.9 D Hct 48.5 MCV 88.2 MCH 30.7 MCHC 34.8 RDW 12.7 Plt Count 107 L MPV 11.2 H Neut % (Auto) 74.1 H Lymph % (Auto) 18.2 L [place] % (Auto) 5.7 Eos % (Auto) 1.6 Baso % (Auto) 0.4 Lymph # (Auto) 3.1 [place] # (Auto) 1.0 H Eos # (Auto) 0.3 Baso # (Auto) 0.06 Absolute Neuts (auto) 12.66 H ESR 16 H Sodium 137 Potassium 3.6 Chloride 101 Carbon Dioxide 24 Anion Gap 15 BUN 12 Creatinine 0.6 L Est GFR ( Amer) > 60 Est GFR (Non-Af Amer) > 60 Random Glucose 344 H* D Calcium 8.9 Total Bilirubin 0.6 AST 21 ALT 18 Alkaline Phosphatase 61 Total Protein 7.2 Albumin 3.9 Globulin 3.3 Albumin/Globulin Ratio 1.2 Assessment & Plan - Assessment and Plan (Free Text) Assessment: 58 yo M with PMH of DM2, L foot osteomyelitis, R foot MRSA infection, diabetic neuropathy of b/l feet, and CAD admitted for acute R toe discoloration/cyanosis, possible infection, and need to r/o osteomyelitis. 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 Diana, consulted, all recs appreciated DM2 Hyperglycemia noted on admission, 10 u insulin IVP given in ED ISS - medium coverage Fingerstick glucose ACHS F/u A1c this visit, last visit was 7.4 B/l Foot Neuropathy Likely 2/2 poorly controlled DM2 Continue home neurotin Hx CAD Continue home lipitor, ASA DVT/GI PPX: SC heparin/protonix Full Code Heart healthy, diabetic diet Monitor on med/surg Patient seen, examined with, and plan discussed with my attending Mariel OrozcoO. IM Resident PGY-1 Pager: [phone] <Fanta Christian - Last Filed: 04/09/19 08:11> Results - Vital Signs Recent Vital Signs: Last Vital Signs Temp 98.4 F 04/08/19 14:15 Pulse 111 H 04/08/19 14:15 Resp 18 04/08/19 21:53 BP 133/96 H 04/08/19 14:15 Pulse Ox 96 04/08/19 14:15 - Labs Result Diagrams: 04/09/19 07:10 04/08/19 15:03 Labs: Laboratory Results - last 24 hr 04/08/19 04/08/19 04/08/19 15:03 15:03 21:10 WBC 17.1 H RBC 5.50 Hgb 16.9 D Hct 48.5 MCV 88.2 MCH 30.7 MCHC 34.8 RDW 12.7 Plt Count 107 L MPV 11.2 H Neut % (Auto) 74.1 H Lymph % (Auto) 18.2 L [place] % (Auto) 5.7 Eos % (Auto) 1.6 Baso % (Auto) 0.4 Lymph # (Auto) 3.1 [place] # (Auto) 1.0 H Eos # (Auto) 0.3 Baso # (Auto) 0.06 Absolute Neuts (auto) 12.66 H ESR 16 H Sodium 137 Potassium 3.6 Chloride 101 Carbon Dioxide 24 Anion Gap 15 BUN 12 Creatinine 0.6 L Est GFR ( Amer) > 60 Est GFR (Non-Af Amer) > 60 POC Glucose (mg/dL) Random Glucose 344 H* D Calcium 8.9 Total Bilirubin 0.6 AST 21 ALT 18 Alkaline Phosphatase 61 Total Protein 7.2 Albumin 3.9 Globulin 3.3 Albumin/Globulin Ratio 1.2 LDL Cholesterol Direct Urine Color Yellow Urine Appearance Clear Urine pH 6.0 Ur Specific [place] 1.025 Urine Protein Negative Urine Glucose (UA) >=1000 Urine Ketones Negative Urine Blood Negative Urine Nitrate Negative Urine Bilirubin Negative Urine Urobilinogen 0.2 Ur Leukocyte Esterase Negative 04/08/19 04/09/19 04/09/19 23:06 06:33 07:10 WBC 8.9 D RBC 5.06 Hgb 15.1 Hct 44.9 MCV 88.7 MCH 29.8 MCHC 33.6 RDW 12.9 Plt Count 112 L MPV 10.9 Neut % (Auto) 55.1 Lymph % (Auto) 33.3 [place] % (Auto) 7.0 H Eos % (Auto) 3.9 Baso % (Auto) 0.7 Lymph # (Auto) 3.0 [place] # (Auto) 0.6 Eos # (Auto) 0.4 Baso # (Auto) 0.06 Absolute Neuts (auto) 4.91 ESR Sodium Potassium Chloride Carbon Dioxide Anion Gap BUN Creatinine Est GFR ( Amer) Est GFR (Non-Af Amer) POC Glucose (mg/dL) 239 H 217 H Random Glucose Calcium Total Bilirubin AST ALT Alkaline Phosphatase Total Protein Albumin Globulin Albumin/Globulin Ratio LDL Cholesterol Direct Urine Color Urine Appearance Urine pH Ur Specific [place] Urine Protein Urine Glucose (UA) Urine Ketones Urine Blood Urine Nitrate Urine Bilirubin Urine Urobilinogen Ur Leukocyte Esterase 04/09/19 07:10 WBC RBC Hgb Hct MCV MCH MCHC RDW Plt Count MPV Neut % (Auto) Lymph % (Auto) [place] % (Auto) Eos % (Auto) Baso % (Auto) Lymph # (Auto) [place] # (Auto) Eos # (Auto) Baso # (Auto) Absolute Neuts (auto) ESR Sodium Potassium Chloride Carbon Dioxide Anion Gap BUN Creatinine Est GFR ( Amer) Est GFR (Non-Af Amer) POC Glucose (mg/dL) Random Glucose Calcium Total Bilirubin AST ALT Alkaline Phosphatase Total Protein Albumin Globulin Albumin/Globulin Ratio LDL Cholesterol Direct 81 Urine Color Urine Appearance Urine pH Ur Specific [place] Urine Protein Urine Glucose (UA) Urine Ketones Urine Blood Urine Nitrate Urine Bilirubin Urine Urobilinogen Ur Leukocyte Esterase Attending/Attestation - Attestation I have personally seen and examined this patient.: Yes I have fully participated in the care of the patient.: Yes I have reviewed all pertinent clinical information: Yes Notes (Text): 04/08/19 58 year old male with past medical history of diabetes, left foot OM, right foot ulcer, diabetic neuropathy and CAD who presents with complaint of right foot wound and right toe blue discoloration. Foot xray showed chronic deformity of 5th metatarsal without evidence of acute osteomyelitis. LE arterial doppler is relatively normal SILVIANO. ID, podiatry and IR evaluations are requested. Continue with iv antibiotics. ESR, CRP are ordered. Case was discussed with Dr. Short who recommended aspirin and MRA runoff study. Patient is on aspirin and statin. Will follow up on MRA runoff study and echocardiogram. Fanta Christian MD Hospitalist.
[2019-04-08] MEDS ORDERED: Dextrose 50% SYRINGE Inj (50 ml) IV PRN (17:46)
[2019-04-08] MEDS: Sodium Chloride 0.9% 1,000 ML IV SCH (20:18)
--- NOTE | 2019-04-08 20:31 | CP.PCM.CON ---
History of Present Illness - History of Present Illness History of Present Illness: Infectious Disease Consultation: April 08, 2019 58 yo male with blue discoloration of the right big toe. The patient has been treated with IV antibiotics for osteomyelitis of the right foot multiple times in the past and had followed in the wound care center in the past. He has [place] been [place] [facility] in the past 5 months. He denies trauma to the right foot. The right big toe is cooler to touch than the other toes. PMHx: HTN, CAD, DM, diabetic foot ulcer, peripheral neuropathy. PSHx: Cardiac Cath with Stent placement, debridement of foot ulcers, knee surgery in 1995, right fifth toe amputation. Allergies: EGG Social Hx: No EtOH or illicit drug use. A few cigarette a day tobacco use. Active Medications Acetaminophen (Tylenol 325mg Tab) 650 mg PO Q6H PRN PRN Reason: Pain, Mild (1-3) Aspirin (Aspirin Chewable) 81 mg PO DAILY DAVID Atorvastatin Calcium (Lipitor) 10 mg PO HS [facility] Cholecalciferol (Vitamin D) 1,000 intlu PO DAILY [facility] Dextrose (Dextrose 50% Inj) 0 ml IV STAT PRN; Protocol PRN Reason: Hypoglycemia Protocol Gabapentin (Neurontin) 100 mg PO TID [facility]; Protocol Last Admin: 04/08/19 20:17 Dose: 100 mg Heparin Sodium (Porcine) (Heparin) 5,000 units SC Q8 DAVID; Protocol Vancomycin HCl (Vancomycin 1gm) 1 gm in 250 mls @ 167 mls/hr IVPB DAILY [facility]; Protocol Piperacillin Sod/Tazobactam Sod (Zosyn 4.5 Gm In Ns 100ml) 4.5 gm in 100 mls @ 25 mls/hr IVPB Q8 DAVID; Protocol Stop: 04/09/19 09:59 Dextrose (Dextrose 5% In Water 1000 Ml) 1,000 mls @ 0 mls/hr IV .Q0M PRN; Protocol PRN Reason: Hypoglycemia Protocol Sodium Chloride (Sodium Chloride 0.9%) 1,000 mls @ 100 mls/hr IV .Q10H DAVID Last Admin: 04/08/19 20:18 Dose: 100 mls/hr Insulin Human Regular (Humulin R Med) 0 units SC ACHS DAVID; Protocol Pantoprazole Sodium (Protonix Ec Tab) 40 mg PO 0600 [facility] Family Hx: none given ROS: No fevers, chills, nausea, vomiting, diarrhea, headaches, dizziness, chest pain, abdominal pain, melena, hematuria, hematemesis, hematochezia, depression, anxiety. Past Patient History - Infectious Disease Hx of Infectious Diseases: None - Tetanus Immunizations Tetanus Immunization: Unknown - Past Social History Smoking Status: Former Smoker - CARDIAC Hx Cardiac Disorders: Yes Hx Hypertension: Yes - PULMONARY Hx Respiratory Disorders: No - NEUROLOGICAL Hx Neurological Disorder: No - HEENT Hx HEENT Problems: Yes (Wears glasses.) - RENAL Hx Chronic Kidney Disease: No - ENDOCRINE/METABOLIC Hx Diabetes Mellitus Type 2: Yes - HEMATOLOGICAL/ONCOLOGICAL Hx Blood Disorders: No - INTEGUMENTARY Hx Dermatological Problems: Yes (Diabetic ulcers.) - MUSCULOSKELETAL/RHEUMATOLOGICAL Hx Musculoskeletal Disorders: No Hx Falls: No - GASTROINTESTINAL Hx Gastrointestinal Disorders: No - GENITOURINARY/GYNECOLOGICAL Hx Genitourinary Disorders: No - PSYCHIATRIC Hx Psychophysiologic Disorder: No Hx Substance Use: No - SURGICAL HISTORY Hx Cardiac Catheterization: Yes (2005 Cath with Cardiac Stent Placement.) Hx Coronary Stent: Yes (2005) - ANESTHESIA Hx Anesthesia Reactions: No Meds Allergies/Adverse Reactions: Allergies Allergy/AdvReac Type Severity Reaction Status Date / Time EGG Allergy Severe SWELLING Verified 07/25/16 13:40 - Medications Medications: Current Medications Acetaminophen (Tylenol 325mg Tab) 650 mg PO Q6H PRN PRN Reason: Pain, Mild (1-3) Aspirin (Aspirin Chewable) 81 mg PO DAILY DAVID Atorvastatin Calcium (Lipitor) 10 mg PO HS [facility]ID Cholecalciferol (Vitamin D) 1,000 intlu PO DAILY [facility] Dextrose (Dextrose 50% Inj) 0 ml IV STAT PRN; Protocol PRN Reason: Hypoglycemia Protocol Gabapentin (Neurontin) 100 mg PO TID DAVID; Protocol Heparin Sodium (Porcine) (Heparin) 5,000 units SC Q8 DAVID; Protocol Vancomycin HCl (Vancomycin 1gm) 1 gm in 250 mls @ 167 mls/hr IVPB DAILY DAVID; Protocol Piperacillin Sod/Tazobactam Sod (Zosyn 4.5 Gm In Ns 100ml) 4.5 gm in 100 mls @ 25 mls/hr IVPB Q8 DAVID; Protocol Stop: 04/09/19 09:59 Dextrose (Dextrose 5% In Water 1000 Ml) 1,000 mls @ 0 mls/hr IV .Q0M PRN; Protocol PRN Reason: Hypoglycemia Protocol Sodium Chloride (Sodium Chloride 0.9%) 1,000 mls @ 100 mls/hr IV .Q10H DAVID Insulin Human Regular (Humulin R Med) 0 units SC ACHS DAVID; Protocol Pantoprazole Sodium (Protonix Ec Tab) 40 mg PO 0600 [facility]ID Physical Exam - Constitutional Appears: Non-toxic, No Acute Distress, Chronically Ill - Head Exam Head Exam: ATRAUMATIC, NORMOCEPHALIC - Eye Exam Eye Exam: EOMI, PERRL Pupil Exam: NORMAL ACCOMODATION, PERRL - ENT Exam ENT Exam: Mucous Membranes Moist, Normal External Ear Exam, TM's Normal Bilaterally - Neck Exam Neck exam: Positive for: Full Rom, Normal Inspection - Respiratory Exam Respiratory Exam: Clear to Auscultation Bilateral, Rales, NORMAL BREATHING PATTERN. absent: Rhonchi, Wheezes - Cardiovascular Exam Cardiovascular Exam: REGULAR RHYTHM, RRR, +S1, +S2 - GI/Abdominal Exam GI & Abdominal Exam: Normal Bowel Sounds, Soft. absent: Distended, Tenderness - Extremities Exam Extremities exam: Positive for: full ROM, normal inspection Additional comments: right great toe with bluish discoloration. Cooler to touch than the other toes. Right 5th toe amputation. - Neurological Exam Neurological exam: Alert, CN II-XII Intact, Oriented x3 - Psychiatric Exam Psychiatric exam: Normal Affect, Normal Mood - Skin Additional comments: As above. Results - Vital Signs Recent Vital Signs: Last Vital Signs Temp 98.4 F 04/08/19 14:15 Pulse 111 H 04/08/19 14:15 Resp 18 04/08/19 14:15 BP 133/96 H 04/08/19 14:15 Pulse Ox 96 04/08/19 14:15 - Labs Result Diagrams: 04/08/19 15:03 04/08/19 15:03 Labs: Laboratory Results - last 24 hr 04/08/19 04/08/19 15:03 15:03 WBC 17.1 H RBC 5.50 Hgb 16.9 D Hct 48.5 MCV 88.2 MCH 30.7 MCHC 34.8 RDW 12.7 Plt Count 107 L MPV 11.2 H Neut % (Auto) 74.1 H Lymph % (Auto) 18.2 L [place] % (Auto) 5.7 Eos % (Auto) 1.6 Baso % (Auto) 0.4 Lymph # (Auto) 3.1 [place] # (Auto) 1.0 H Eos # (Auto) 0.3 Baso # (Auto) 0.06 Absolute Neuts (auto) 12.66 H ESR 16 H Sodium 137 Potassium 3.6 Chloride 101 Carbon Dioxide 24 Anion Gap 15 BUN 12 Creatinine 0.6 L Est GFR ( Amer) > 60 Est GFR (Non-Af Amer) > 60 Random Glucose 344 H* D Calcium 8.9 Total Bilirubin 0.6 AST 21 ALT 18 Alkaline Phosphatase 61 Total Protein 7.2 Albumin 3.9 Globulin 3.3 Albumin/Globulin Ratio 1.2 Assessment & Plan - Assessment and Plan (Free Text) Assessment: 58 yo male with PMHx of DM Type 2, HTN, CAD, and peripheral neuropathy presenting with right big toe blue discoloration. Started on Vancomycin and Zosyn for antibiotic coverage. No renal insufficiency. Podiatry evaluation pending. May need arterial doppler, ESR, C-RP, and might need MRI. ESR was 16. Supportive care. History of osteomyelitis in the right foot. Thank you for allowing me to participate in the care of the patient, we will follow with you.
[2019-04-08 21:23] LABS: URINE BILIRUBIN NEGATIVE (NEGATIVE); URINE BLOOD NEGATIVE (NEGATIVE); URINE GLUCOSE (UA) >=1000 mg/dL (NEGATIVE); URINE LEUKOCYTE ESTERASE NEGATIVE Leu/uL (NEGATIVE); URINE PROTEIN NEGATIVE mg/dL (<30 mg/dL); URINE UROBILINOGEN 0.2 E.U./dL (<1 E.U./dL)
[2019-04-08 21:27] LABS: URINE APPEARANCE CLEAR (CLEAR); URINE COLOR YELLOW (YELLOW)
[2019-04-08] MEDS ORDERED: Piperacill/Tazo 4.5gm in NS 4.5 GM/100 ML BAG IVPB SCH (22:00)
[2019-04-08] MEDS ORDERED: Pneumococcal 23-Valent Vaccine IM ONE (22:08)
[2019-04-08] MEDS: Insulin Reg-MEDIUM-Coverage SC SCH (23:09)
[2019-04-08] MEDS: Piperacillin/Tazobact 3.375 gm 100 ML IVPB SCH (23:30)
[2019-04-09] MEDS: Piperacillin/Tazobact 3.375 gm 100 ML IVPB SCH ×3 (05:28→22:11)
[2019-04-09] MEDS: Pantoprazole 40 mg EC Tab PO SCH (05:29)
[2019-04-09 07:41] LABS: BASO # 0.06 K/mm3 (0.0-2.0); BASO % 0.7 % (0.0-3.0); EOS # 0.4 (0.0-0.7); EOS % 3.9 % (1.5-5.0); HEMOGLOBIN 15.1 g/dL (14.0-18.0); LYMPH % 33.3 % (22.0-35.0); MEAN CELL VOLUME 88.7 fl (80.0-105.0); MEAN CORPUSCULAR HEMOGLOBIN 29.8 pg (25.0-35.0); MEAN CORPUSCULAR HGB CONC 33.6 g/dl (31.0-37.0); MEAN PLATELET VOLUME 10.9 fl (7.0-11.0); MONO # 0.6 (0.1-0.6); RBC 5.06 10^6/uL (3.5-6.1); RED CELL DISTRIBUTION WIDTH 12.9 % (11.5-14.5); WHITE BLOOD COUNT 8.9 10^3/uL (4.5-11.0)
[2019-04-09 08:01] LABS: LDL CHOLESTEROL 81 mg/dL (0-129)
[2019-04-09] MEDS: Insulin Reg-MEDIUM-Coverage SC SCH ×3 (08:21→17:48)
[2019-04-09 08:26] LABS: ALBUMIN 3.3 g/dL (3.0-4.8); ALT/SGPT 15 U/L (7-56); AST/SGOT 18 U/L (17-59); BLOOD UREA NITROGEN 8 mg/dL (7-21); CALCIUM 8.3 mg/dL (8.4-10.5); GFR NON-AFRICAN AMERICAN > 60; HDL CHOLESTEROL 24 mg/dL (29-60)
[2019-04-09] MEDS: Vancomycin 1gm in NS 250ml 1 GM/250 ML BAG IVPB SCH (10:11)
[2019-04-09] MEDS: Sodium Chloride 0.9% 1,000 ML IV SCH ×2 (10:12→17:51)
[2019-04-09] MEDS: Cholecalciferol 1,000 INTLU TAB PO SCH (10:15)
--- NOTE | 2019-04-09 10:36 | CARD ---
APPROVED REPORT Date of service: 04/08/2019 EKG Measurement Heart [id number] <Conclusion> Sinus rhythm with fusion complexes Low voltage QRS Borderline ECG
--- NOTE | 2019-04-09 12:27 | CP.PCM.CON ---
<Eyal Hendrix - Last Filed: 04/09/19 12:23> History of Present Illness - History of Present Illness History of Present Illness: Podiatry consult - Drs. Garica/Adalgisa 58M seen and evaluated at bedside with Dr. Diana this AM. Patient is known to service and has had pedal problems in the past. Resting comfortably today and states that he noticed his right first digit changing color and a wound opening up in his 4th interspace on his right foot where he had previous surgery. States his daughter put some cream on it and dressed it up to see if it would improve but presented yesterday to the ED because it was only getting worse. Denies n/v/f/c and has no other acute pedal complaints today. Past Patient History - Infectious Disease Hx of Infectious Diseases: None - Tetanus Immunizations Tetanus Immunization: Unknown - Past Social History Smoking Status: Light Smoker < 10 Cigarettes Daily - CARDIAC Hx Cardiac Disorders: Yes (mi) Hx Hypercholesterolemia: Yes Hx Hypertension: Yes Hx Peripheral Vascular Disease: Yes Other/Comment: varicose veins - PULMONARY Hx Respiratory Disorders: No - NEUROLOGICAL Hx Neurological Disorder: Yes Other/Comment: diabetic neuropathy to both feet, burning/ pins and needles/ on and off, restless leg syndrome - HEENT Hx HEENT Problems: Yes (Wears glasses.) - RENAL Hx Chronic Kidney Disease: No - ENDOCRINE/METABOLIC Hx Endocrine Disorders: Yes Hx Diabetes Mellitus Type 2: Yes - HEMATOLOGICAL/ONCOLOGICAL Hx Blood Disorders: Yes (sepsis x2) - INTEGUMENTARY Hx Dermatological Problems: Yes (Diabetic ulcers.) Other/Comment: 5th toe right foot overlapping 4th toe, 5th toe swollen discolored dry crusty skin, r foot toes are discolored +1 edema, left 5th toe amputated, small 0.5cm round dry brown open wound to left great toe, hammertoes both fet, left foot toes discolored, thick hard toenails both feet - MUSCULOSKELETAL/RHEUMATOLOGICAL Hx Falls: No - GASTROINTESTINAL Hx Gastrointestinal Disorders: No - GENITOURINARY/GYNECOLOGICAL Hx Genitourinary Disorders: No - PSYCHIATRIC Hx Substance Use: No - SURGICAL HISTORY Hx Surgeries: Yes (SX TO RIGHT FOOT JUL 2016,CARD CATH WITH HEART STENT) Hx Cardiac Catheterization: Yes (2005 Cath with Cardiac Stent Placement.) Hx Coronary Stent: Yes (2005) Other/Comment: r knee sx torn acl/mcl - ANESTHESIA Hx Anesthesia Reactions: No Meds Allergies/Adverse Reactions: Allergies Allergy/AdvReac Type Severity Reaction Status Date / Time EGG Allergy Severe SWELLING Verified 07/25/16 13:40 - Medications Medications: Current Medications Acetaminophen (Tylenol 325mg Tab) 650 mg PO Q6H PRN PRN Reason: Pain, Mild (1-3) Aspirin (Aspirin Chewable) 81 mg PO DAILY [facility]ID Last Admin: 04/09/19 10:14 Dose: 81 mg Atorvastatin Calcium (Lipitor) 10 mg PO HS [facility]ID Last Admin: 04/08/19 23:30 Dose: 10 mg Cholecalciferol (Vitamin D) 1,000 intlu PO DAILY [facility] Last Admin: 04/09/19 10:15 Dose: 1,000 intlu Dextrose (Dextrose 50% Inj) 0 ml IV STAT PRN; Protocol PRN Reason: Hypoglycemia Protocol Gabapentin (Neurontin) 100 mg PO TID DAVID; Protocol Last Admin: 04/09/19 10:14 Dose: 100 mg Heparin Sodium (Porcine) (Heparin) 5,000 units SC Q8 DAVID; Protocol Last Admin: 04/09/19 05:29 Dose: 5,000 units Vancomycin HCl (Vancomycin 1gm) 1 gm in 250 mls @ 167 mls/hr IVPB DAILY DAVID; P rotocol Last Admin: 04/09/19 10:11 Dose: 167 mls/hr Dextrose (Dextrose 5% In Water 1000 Ml) 1,000 mls @ 0 mls/hr IV .Q0M PRN; Protocol PRN Reason: Hypoglycemia Protocol Sodium Chloride (Sodium Chloride 0.9%) 1,000 mls @ 100 mls/hr IV .Q10H [facility]ID Last Admin: 04/09/19 10:12 Dose: 100 mls/hr Piperacillin Sod/Tazobactam Sod (Zosyn 3.375 In Ns 100ml) 100 mls @ 25 mls/hr IVPB Q8 DAVID; Protocol Last Admin: 04/09/19 05:28 Dose: 25 mls/hr Insulin Human Regular (Humulin R Med) 0 units SC ACHS DAVID; Protocol Last Admin: 04/09/19 12:14 Dose: 3 units Pantoprazole Sodium (Protonix Ec Tab) 40 mg PO 0600 [facility] Last Admin: 04/09/19 05:29 Dose: 40 mg Physical Exam - Constitutional Appears: Non-toxic - Head Exam Head Exam: ATRAUMATIC - Extremities Exam Additional comments: RLE focused VASC: pulses nonpalapble; no edema; cap refill <3 seconds to digits DERM: fourth interspace open lesion at previous surgical site - no probe to bone, no depth, fibrotic base with minimal granulation tissue appreciated, minimal serous drainage no malodor; darkening color of first digit, no open lesions or wounds ORTHO: previous met head resection at right fifth metatarsal NEURO: diminished - Neurological Exam Neurological exam: Alert, Oriented x3 - Psychiatric Exam Psychiatric exam: Normal Affect Results - Vital Signs Recent Vital Signs: Last Vital Signs Temp 98 F 04/09/19 06:00 Pulse 73 04/09/19 06:00 Resp 20 04/09/19 06:00 BP 134/76 04/09/19 06:00 Pulse Ox 98 04/09/19 06:00 - Labs Result Diagrams: 04/09/19 07:10 04/09/19 07:10 Labs: Laboratory Results - last 24 hr 04/08/19 04/08/19 04/08/19 15:03 15:03 21:10 WBC 17.1 H RBC 5.50 Hgb 16.9 D Hct 48.5 MCV 88.2 MCH 30.7 MCHC 34.8 RDW 12.7 Plt Count 107 L MPV 11.2 H Neut % (Auto) 74.1 H Lymph % (Auto) 18.2 L [place] % (Auto) 5.7 Eos % (Auto) 1.6 Baso % (Auto) 0.4 Lymph # (Auto) 3.1 [place] # (Auto) 1.0 H Eos # (Auto) 0.3 Baso # (Auto) 0.06 Absolute Neuts (auto) 12.66 H ESR 16 H Sodium 137 Potassium 3.6 Chloride 101 Carbon Dioxide 24 Anion Gap 15 BUN 12 Creatinine 0.6 L Est GFR ( Amer) > 60 Est GFR (Non-Af Amer) > 60 POC Glucose (mg/dL) Random Glucose 344 H* D Hemoglobin A1c Calcium 8.9 Phosphorus Magnesium Total Bilirubin 0.6 AST 21 ALT 18 Alkaline Phosphatase 61 Total Protein 7.2 Albumin 3.9 Globulin 3.3 Albumin/Globulin Ratio 1.2 Triglycerides Cholesterol LDL Cholesterol Direct HDL Cholesterol TSH 3rd Generation Urine Color Yellow Urine Appearance Clear Urine pH 6.0 Ur Specific [place] 1.025 Urine Protein Negative Urine Glucose (UA) >=1000 Urine Ketones Negative Urine Blood Negative Urine Nitrate Negative Urine Bilirubin Negative Urine Urobilinogen 0.2 Ur Leukocyte Esterase Negative 04/08/19 04/09/19 04/09/19 23:06 06:33 07:10 WBC 8.9 D RBC 5.06 Hgb 15.1 Hct 44.9 MCV 88.7 MCH 29.8 MCHC 33.6 RDW 12.9 Plt Count 112 L MPV 10.9 Neut % (Auto) 55.1 Lymph % (Auto) 33.3 [place] % (Auto) 7.0 H Eos % (Auto) 3.9 Baso % (Auto) 0.7 Lymph # (Auto) 3.0 [place] # (Auto) 0.6 Eos # (Auto) 0.4 Baso # (Auto) 0.06 Absolute Neuts (auto) 4.91 ESR Sodium Potassium Chloride Carbon Dioxide Anion Gap BUN Creatinine Est GFR ( Amer) Est GFR (Non-Af Amer) POC Glucose (mg/dL) 239 H 217 H Random Glucose Hemoglobin A1c Calcium Phosphorus Magnesium Total Bilirubin AST ALT Alkaline Phosphatase Total Protein Albumin Globulin Albumin/Globulin Ratio Triglycerides Cholesterol LDL Cholesterol Direct HDL Cholesterol TSH 3rd Generation Urine Color Urine Appearance Urine pH Ur Specific [place] Urine Protein Urine Glucose (UA) Urine Ketones Urine Blood Urine Nitrate Urine Bilirubin Urine Urobilinogen Ur Leukocyte Esterase 04/09/19 04/09/19 04/09/19 07:10 07:10 07:10 WBC RBC Hgb Hct MCV MCH MCHC RDW Plt Count MPV Neut % (Auto) Lymph % (Auto) [place] % (Auto) Eos % (Auto) Baso % (Auto) Lymph # (Auto) [place] # (Auto) Eos # (Auto) Baso # (Auto) Absolute Neuts (auto) ESR Sodium 138 Potassium 4.0 Chloride 106 Carbon Dioxide 26 Anion Gap 10 BUN 8 Creatinine 0.7 L Est GFR ( Amer) > 60 Est GFR (Non-Af Amer) > 60 POC Glucose (mg/dL) Random Glucose 202 H Hemoglobin A1c 10.7 H D Calcium 8.3 L Phosphorus 3.3 Magnesium 1.8 Total Bilirubin 0.8 AST 18 ALT 15 Alkaline Phosphatase 51 Total Protein 6.4 Albumin 3.3 Globulin 3.1 Albumin/Globulin Ratio 1.0 L Triglycerides 93 Cholesterol 116 L LDL Cholesterol Direct 81 HDL Cholesterol 24 L TSH 3rd Generation 3.06 Urine Color Urine Appearance Urine pH Ur Specific [place] Urine Protein Urine Glucose (UA) Urine Ketones Urine Blood Urine Nitrate Urine Bilirubin Urine Urobilinogen Ur Leukocyte Esterase 04/09/19 11:24 WBC RBC Hgb Hct MCV MCH MCHC RDW Plt Count MPV Neut % (Auto) Lymph % (Auto) [place] % (Auto) Eos % (Auto) Baso % (Auto) Lymph # (Auto) [place] # (Auto) Eos # (Auto) Baso # (Auto) Absolute Neuts (auto) ESR Sodium Potassium Chloride Carbon Dioxide Anion Gap BUN Creatinine Est GFR ( Amer) Est GFR (Non-Af Amer) POC Glucose (mg/dL) 247 H Random Glucose Hemoglobin A1c Calcium Phosphorus Magnesium Total Bilirubin AST ALT Alkaline Phosphatase Total Protein Albumin Globulin Albumin/Globulin Ratio Triglycerides Cholesterol LDL Cholesterol Direct HDL Cholesterol TSH 3rd Generation Urine Color Urine Appearance Urine pH Ur Specific [place] Urine Protein Urine Glucose (UA) Urine Ketones Urine Blood Urine Nitrate Urine Bilirubin Urine Urobilinogen Ur Leukocyte Esterase Assessment & Plan - Assessment and Plan (Free Text) Assessment: 58M with RLE PVD and fourth interspace wound Plan: Patient seen and evaluated with Dr. Diana VSS, WBC 8.9 Dressing applied - calcium alginate in fourth interspace with light dry sterile dressing SILVIANO/PVR reviewed - Discuss with Dr. Short regarding vascular intervention or if patient will heal following surgical intervention Plan for surgery - amputation of right fifth digit Sunday 04/15 due to lack of OR time Medical clearance appreciated Will continue to follow Thank you for the consult - Date & Time Date: 04/09/19 Time: 12:30 <Vane Diana - Last Filed: 04/10/19 11:28> Meds - Medications Medications: Current Medications Acetaminophen (Tylenol 325mg Tab) 650 mg PO Q6H PRN PRN Reason: Pain, Mild (1-3) Aspirin (Aspirin Chewable) 81 mg PO DAILY [facility] Last Admin: 04/10/19 10:36 Dose: 81 mg Atorvastatin Calcium (Lipitor) 10 mg PO HS [facility] Last Admin: 04/09/19 22:11 Dose: 10 mg Cholecalciferol (Vitamin D) 1,000 intlu PO DAILY [facility] Last Admin: 04/10/19 10:36 Dose: 1,000 intlu Dextrose (Dextrose 50% Inj) 0 ml IV STAT PRN; Protocol PRN Reason: Hypoglycemia Protocol Gabapentin (Neurontin) 100 mg PO TID DAVID; Protocol Last Admin: 04/10/19 10:36 Dose: 100 mg Heparin Sodium (Porcine) (Heparin) 5,000 units SC Q8 DAVID; Protocol Last Admin: 04/10/19 05:29 Dose: 5,000 units Vancomycin HCl (Vancomycin 1gm) 1 gm in 250 mls @ 167 mls/hr IVPB DAILY DAVID; Protocol Last Admin: 04/10/19 10:39 Dose: 167 mls/hr Dextrose (Dextrose 5% In Water 1000 Ml) 1,000 mls @ 0 mls/hr IV .Q0M PRN; Protocol PRN Reason: Hypoglycemia Protocol Sodium Chloride (Sodium Chloride 0.9%) 1,000 mls @ 100 mls/hr IV .Q10H DAVID Last Admin: 04/09/19 17:51 Dose: 100 mls/hr Piperacillin Sod/Tazobactam Sod (Zosyn 3.375 In Ns 100ml) 100 mls @ 25 mls/hr IVPB Q8 DAVID; Protocol Last Admin: 04/10/19 05:30 Dose: 25 mls/hr Insulin Human Regular (Humulin R Med) 0 units SC ACHS DAVID; Protocol Last Admin: 04/10/19 10:39 Dose: 1 units Pantoprazole Sodium (Protonix Ec Tab) 40 mg PO 0600 DAVID Last Admin: 04/10/19 05:30 Dose: 40 mg Results - Vital Signs Recent Vital Signs: Last Vital Signs Temp 98.1 F 04/10/19 06:00 Pulse 58 L 04/10/19 06:00 Resp 20 04/10/19 06:00 BP 118/67 04/10/19 06:00 Pulse Ox 98 04/10/19 06:00 - Labs Result Diagrams: 04/10/19 07:30 04/10/19 07:30 Labs: Laboratory Results - last 24 hr 04/09/19 04/09/19 04/09/19 07:10 11:24 16:26 WBC RBC Hgb Hct MCV MCH MCHC RDW Plt Count MPV Neut % (Auto) Lymph % (Auto) [place] % (Auto) Eos % (Auto) Baso % (Auto) Lymph # (Auto) [place] # (Auto) Eos # (Auto) Baso # (Auto) Absolute Neuts (auto) Sodium Potassium Chloride Carbon Dioxide Anion Gap BUN Creatinine Est GFR ( Amer) Est GFR (Non-Af Amer) POC Glucose (mg/dL) 247 H 257 H Random Glucose Hemoglobin A1c 10.7 H D Calcium Total Bilirubin AST ALT Alkaline Phosphatase Total Protein Albumin Globulin Albumin/Globulin Ratio 04/09/19 04/10/19 04/10/19 21:10 07:30 07:30 WBC 8.4 RBC 4.92 Hgb 14.7 Hct 43.6 MCV 88.6 MCH 29.9 MCHC 33.7 RDW 12.8 Plt Count 118 L MPV 11.0 Neut % (Auto) 45.9 L Lymph % (Auto) 39.2 H [place] % (Auto) 8.9 H Eos % (Auto) 5.2 H Baso % (Auto) 0.8 Lymph # (Auto) 3.3 [place] # (Auto) 0.8 H Eos # (Auto) 0.4 Baso # (Auto) 0.07 Absolute Neuts (auto) 3.85 Sodium 137 Potassium 4.2 Chloride 105 Carbon Dioxide 27 Anion Gap 10 BUN 8 Creatinine 0.7 L Est GFR ( Amer) > 60 Est GFR (Non-Af Amer) > 60 POC Glucose (mg/dL) 176 H Random Glucose 178 H Hemoglobin A1c Calcium 8.3 L Total Bilirubin 0.6 AST 18 ALT 21 Alkaline Phosphatase 47 Total Protein 6.3 Albumin 3.3 Globulin 3.1 Albumin/Globulin Ratio 1.1 04/10/19 08:07 WBC RBC Hgb Hct MCV MCH MCHC RDW Plt Count MPV Neut % (Auto) Lymph % (Auto) [place] % (Auto) Eos % (Auto) Baso % (Auto) Lymph # (Auto) [place] # (Auto) Eos # (Auto) Baso # (Auto) Absolute Neuts (auto) Sodium Potassium Chloride Carbon Dioxide Anion Gap BUN Creatinine Est GFR ( Amer) Est GFR (Non-Af Amer) POC Glucose (mg/dL) 184 H Random Glucose Hemoglobin A1c Calcium Total Bilirubin AST ALT Alkaline Phosphatase Total Protein Albumin Globulin Albumin/Globulin Ratio Attending/Attestation - Attestation I have personally seen and examined this patient.: Yes I have fully participated in the care of the patient.: Yes I have reviewed all pertinent clinical information: Yes
--- NOTE | 2019-04-09 14:18 | CP.PCM.PN ---
<Zina Avila - Last Filed: 04/09/19 14:15> Subjective - Date & Time of Evaluation Date of Evaluation: 04/09/19 Time of Evaluation: 14:15 - Subjective Subjective: Zina Avila, PGY-1, Internal Medicine Progress Note for Dr. Christian Patient seen and evaluated at bedside. Patient had no acute overnight events. Patient continues to report discoloration, redness, and warmth of right 1st and 5th toes and numbness of toes of bilateral lower extremities. Patient denies any other symptoms at this time including bilateral lower extremity cramping, fever, chills, chest pain, shortness of breath, nausea, vomiting, constipation, diarrhea, dysuria, hematuria. 12-point ROS was unremarkable except for what was mentioned above. Objective - Vital Signs/Intake and Output Vital Signs (last 24 hours): Temp Pulse Resp BP Pulse Ox 98 F 73 20 134/76 98 04/09/19 06:00 04/09/19 06:00 04/09/19 06:00 04/09/19 06:00 04/09/19 06:00 Intake and Output: 04/09/19 04/09/19 06:59 18:59 Output Total 700 Balance -700 - Medications Medications: Current Medications Acetaminophen (Tylenol 325mg Tab) 650 mg PO Q6H PRN PRN Reason: Pain, Mild (1-3) Aspirin (Aspirin Chewable) 81 mg PO DAILY [facility] Last Admin: 04/09/19 10:14 Dose: 81 mg Atorvastatin Calcium (Lipitor) 10 mg PO HS DAVID Last Admin: 04/08/19 23:30 Dose: 10 mg Cholecalciferol (Vitamin D) 1,000 intlu PO DAILY DAVID Last Admin: 04/09/19 10:15 Dose: 1,000 intlu Dextrose (Dextrose 50% Inj) 0 ml IV STAT PRN; Protocol PRN Reason: Hypoglycemia Protocol Gabapentin (Neurontin) 100 mg PO TID DAVID; Protocol Last Admin: 04/09/19 14:06 Dose: 100 mg Heparin Sodium (Porcine) (Heparin) 5,000 units SC Q8 DAVID; Protocol Last Admin: 04/09/19 14:05 Dose: 5,000 units Vancomycin HCl (Vancomycin 1gm) 1 gm in 250 mls @ 167 mls/hr IVPB DAILY DAVID; Protocol Last Admin: 04/09/19 10:11 Dose: 167 mls/hr Dextrose (Dextrose 5% In Water 1000 Ml) 1,000 mls @ 0 mls/hr IV .Q0M PRN; Protocol PRN Reason: Hypoglycemia Protocol Sodium Chloride (Sodium Chloride 0.9%) 1,000 mls @ 100 mls/hr IV .Q10H [facility] Last Admin: 04/09/19 10:12 Dose: 100 mls/hr Piperacillin Sod/Tazobactam Sod (Zosyn 3.375 In Ns 100ml) 100 mls @ 25 mls/hr IVPB Q8 DAVID; Protocol Last Admin: 04/09/19 14:07 Dose: 25 mls/hr Insulin Human Regular (Humulin R Med) 0 units SC ACHS [facility]; Protocol Last Admin: 04/09/19 12:14 Dose: 3 units Pantoprazole Sodium (Protonix Ec Tab) 40 mg PO 0600 [facility] Last Admin: 04/09/19 05:29 Dose: 40 mg - Labs Labs: 04/09/19 07:10 04/09/19 07:10 - Constitutional Appears: Well, Non-toxic, No Acute Distress - Head Exam Head Exam: ATRAUMATIC, NORMAL INSPECTION, NORMOCEPHALIC - Eye Exam Eye Exam: EOMI Pupil Exam: NORMAL ACCOMODATION, PERRL - ENT Exam ENT Exam: Mucous Membranes Moist, Normal Exam - Respiratory Exam Respiratory Exam: Clear to Ausculation Bilateral, NORMAL BREATHING PATTERN - Cardiovascular Exam Cardiovascular Exam: REGULAR RHYTHM, RRR, +S1, +S2. absent: Clicks, Gallop, JVD - GI/Abdominal Exam GI & Abdominal Exam: Soft, Normal Bowel Sounds. absent: Distended, Firm, Guarding, Tenderness - Extremities Exam Extremities Exam: Full ROM, Normal Capillary Refill, Normal Inspection. absent: Pedal Edema - Neurological Exam Neurological Exam: Alert, Awake, CN II-XII Intact, Normal Gait, Oriented x3 Additional comments: numbness of bilateral lower extremity toes - Skin Additional comments: discoloration of right 1st and 5th toe. 5th toe overlapping on top of foot Assessment and Plan - Assessment and Plan (Free Text) Assessment: 58 year old male with past medical history of diabetes mellitus type II, left foot osteomyelitis, right foot MRSA infection, diabetic neuropathy of bilateral feet, and CAD presented with acute right toe discoloration with evaluation of PAD. Plan: Right toe discoloration and cyanosis 2/2 to PAD vs. cellulitis vs. osteomyelitis -Patient denied any trauma to foot -Foot X ray 04/08: chronic deformity of distal 5th metatarsal. No osteomyelitis -Foot arterial doppler 03/09: borderline normal SILVIANO at 0.87 on right and normal SILVIANO of 1 on the left. Normal PVR examination -Lipid panel unremarkable -ESR borderline high at 16. -Discussed with IR whether patient would benefit from intervention. While SILVIANO is unremarkable, will obtain MRA with runoff for further evaluation of vasculature to see if intervention is necessary -Plan for surgery of amputation of right fifth digit on 04/15 -Continue vancomycin and zosyn started on 04/08 -Continue tylenol PRN for pain -Dr. Diana, Podiatry, consulted for recommendations -Cardiology, Dr. Knight, consulted for cardiac clearance -ID, Dr. Buitrago, consulted for further recommendations Diabetes mellitus type II -HgbA1c: 10.7 -Continue medium sliding scale insulin -Accuchecks ACHS Bilateral Foot Neuropathy -Likely 2/2 to poorly controlled diabetes mellitus -Continue home neurontin History of CAD -Continue home aspirin and lipitor -Cardiology, Dr. Knight, consulted for further recommendations. Vitamin D deficiency -Continue cholecalciferol DVT prophylaxis: heparin SC GI prophylaxis: protonix Patient plan discussed with Dr. Christian. <Fanta Christian - Last Filed: 04/09/19 15:47> Objective - Vital Signs/Intake and Output Vital Signs (last 24 hours): Temp Pulse Resp BP Pulse Ox 98.2 F 74 20 126/80 96 04/09/19 14:00 04/09/19 14:00 04/09/19 14:00 04/09/19 14:00 04/09/19 14:00 Intake and Output: 04/09/19 04/09/19 06:59 18:59 Intake Total 600 Output Total 1700 Balance -1100 - Medications Medications: Current Medications Acetaminophen (Tylenol 325mg Tab) 650 mg PO Q6H PRN PRN Reason: Pain, Mild (1-3) Aspirin (Aspirin Chewable) 81 mg PO DAILY [facility] Last Admin: 04/09/19 10:14 Dose: 81 mg Atorvastatin Calcium (Lipitor) 10 mg PO HS [facility] Last Admin: 04/08/19 23:30 Dose: 10 mg Cholecalciferol (Vitamin D) 1,000 intlu PO DAILY [facility]ID Last Admin: 04/09/19 10:15 Dose: 1,000 intlu Dextrose (Dextrose 50% Inj) 0 ml IV STAT PRN; Protocol PRN Reason: Hypoglycemia Protocol Gabapentin (Neurontin) 100 mg PO TID DAVID; Protocol Last Admin: 04/09/19 14:06 Dose: 100 mg Heparin Sodium (Porcine) (Heparin) 5,000 units SC Q8 DAVID; Protocol Last Admin: 04/09/19 14:05 Dose: 5,000 units Vancomycin HCl (Vancomycin 1gm) 1 gm in 250 mls @ 167 mls/hr IVPB DAILY DAVID; Protocol Last Admin: 04/09/19 10:11 Dose: 167 mls/hr Dextrose (Dextrose 5% In Water 1000 Ml) 1,000 mls @ 0 mls/hr IV .Q0M PRN; Protocol PRN Reason: Hypoglycemia Protocol Sodium Chloride (Sodium Chloride 0.9%) 1,000 mls @ 100 mls/hr IV .Q10H DAVID Last Admin: 04/09/19 10:12 Dose: 100 mls/hr Piperacillin Sod/Tazobactam Sod (Zosyn 3.375 In Ns 100ml) 100 mls @ 25 mls/hr IVPB Q8 DAVID; Protocol Last Admin: 04/09/19 14:07 Dose: 25 mls/hr Insulin Human Regular (Humulin R Med) 0 units SC ACHS DAVID; Protocol Last Admin: 04/09/19 12:14 Dose: 3 units Pantoprazole Sodium (Protonix Ec Tab) 40 mg PO 0600 [facility]ID Last Admin: 04/09/19 05:29 Dose: 40 mg - Labs Labs: 04/09/19 07:10 04/09/19 07:10 Attending/Attestation - Attestation I have personally seen and examined this patient.: Yes I have fully participated in the care of the patient.: Yes I have reviewed all pertinent clinical information, including history, physical exam and plan: Yes Notes (Text): 04/09/19 15:44 58 year old male with past medical history of diabetes, left foot OM, right foot ulcer, diabetic neuropathy and CAD who presented with complaint of right foot wound and right toe blue discoloration. Foot xray showed chronic deformity of 5th metatarsal without evidence of acute osteomyelitis. LE arterial doppler showed relatively normal SILVIANO. Case was discussed with IR who recommended MRA runoff study. Patient is on aspirin and statin. Continue with iv antibiotics as per ID. Podiatry evaluation was appreciated as well; plan is for OR toe amputation next week. Cardiology evaluation is requested for clearance. A1c is 10.7. Will discuss with patient regarding starting long acting insulin. Diabetic education referral is requested. Fanta Christian MD Hospitalist.
[2019-04-09] MEDS ORDERED: Gadodiamide 287 MG/ML VIAL (20ML) IV ONE (14:51)
--- NOTE | 2019-04-09 16:26 | MRI ---
Date of service: 04/09/2019 PROCEDURE: MR angiography of the lower extremities with and without contrast. HISTORY: R toe cyanosis, r/o PAD COMPARISON: TECHNIQUE: MR angiography of the lower extremities was performed with and without IV contrast. 20 cc of Omniscan were injected. FINDINGS: The aorta is normal in caliber and smooth in contour. The SMA celiac and renal arteries are patent. The iliac arteries are patent bilaterally. There is a short segment stenosis of the right common femoral artery just above the bifurcation. Both superficial femoral arteries are patent. The popliteal arteries are patent. There is 2 vessel runoff to both ankles via the anterior and posterior tibials. IMPRESSION: Short-segment stenosis in the right common femoral. The remainder the study is unremarkable
--- NOTE | 2019-04-09 17:54 | CARD ---
APPROVED REPORT Date of service: 04/09/2019 EXAM: Two-dimensional and M-mode echocardiogram with Doppler and color Doppler. INDICATION CVA/TIA 2D DIMENSIONS Left Atrium (2D)3.4 (1.6-4.0cm)IVSd1.3 (0.7-1.1cm) LVDd4.8 (3.9-5.9cm)PWd1.1 (0.7-1.1cm) LVDs3.1 (2.5-4.0cm)FS (%) 35.7 % LVEF (%)65.0 (>50%) M-Mode DIMENSIONS Aortic Root2.30 (2.2-3.7cm)Aortic Cusp Exc.1.80 (1.5-2.0cm) Aortic Valve AoV Peak Ndowqklu028.0cm/[place]ion Peak GR.6mmHg Mitral Valve E/A ratio0.0 TDI E/Lateral E'0.0E/Medial E'0.0 LEFT VENTRICLE The left ventricle is normal size. There is borderline to mild concentric left ventricular hypertrophy. The left ventricular function is normal. The left ventricular ejection fraction is within the normal range. There is normal LV segmental wall motion. RIGHT VENTRICLE The right ventricle is normal size. The right ventricular systolic function is normal. ATRIA The left atrium size is normal. The right atrium size is normal. The interatrial septum is intact with no evidence for an atrial septal defect. AORTIC VALVE The aortic valve is normal in structure. No aortic regurgitation is present. There is no aortic valvular stenosis. MITRAL VALVE The mitral valve is normal in structure. Mitral regurgitation is trace. TRICUSPID VALVE The tricuspid valve is normal in structure. There is no tricuspid valve regurgitation noted. PULMONIC VALVE The pulmonary valve is normal in structure. GREAT VESSELS The aortic root is normal in size. The IVC is normal in size and collapses >50% with inspiration. PERICARDIAL EFFUSION There is no pleural effusion. There is no pericardial effusion. <Conclusion> Normal chamber size. Normal LV systolic function. Borderline to mild concentric LVH. No significant valvular abnormalities noted. No obvious source of cardiac embolus seen. If clinical suspicion is high, consider MIGUEL imaging.
--- NOTE | 2019-04-09 18:49 | CP.PCM.PN ---
Subjective - Date & Time of Evaluation Date of Evaluation: 04/09/19 Time of Evaluation: 17:30 - Subjective Subjective: Infectious Disease Follow Up: April 09, 2019 58 yo male with blue discoloration of the right big toe. The patient has been treated with IV antibiotics for osteomyelitis of the right foot multiple times in the past and had followed in the wound care center in the past. He [place] [facility] [place] in the past 5 months. He denies trauma to the right foot. The right big toe is cooler to touch than the other toes. The patient is scheduled for OR on 04/15/2019 of the right fifth toe. Wound in 4th toe interspace. Discoloration of the 1st toe right foot. MRA of right leg showing adequate flow. Objective - Vital Signs/Intake and Output Vital Signs (last 24 hours): Temp Pulse Resp BP Pulse Ox 98.2 F 74 20 126/80 96 04/09/19 14:00 04/09/19 14:00 04/09/19 14:00 04/09/19 14:00 04/09/19 14:00 Intake and Output: 04/09/19 04/09/19 06:59 18:59 Intake Total 600 Output Total 1700 Balance -1100 - Medications Medications: Current Medications Acetaminophen (Tylenol 325mg Tab) 650 mg PO Q6H PRN PRN Reason: Pain, Mild (1-3) Aspirin (Aspirin Chewable) 81 mg PO DAILY [facility] Last Admin: 04/09/19 10:14 Dose: 81 mg Atorvastatin Calcium (Lipitor) 10 mg PO HS DAVID Last Admin: 04/08/19 23:30 Dose: 10 mg Cholecalciferol (Vitamin D) 1,000 intlu PO DAILY [facility]ID Last Admin: 04/09/19 10:15 Dose: 1,000 intlu Dextrose (Dextrose 50% Inj) 0 ml IV STAT PRN; Protocol PRN Reason: Hypoglycemia Protocol Gabapentin (Neurontin) 100 mg PO TID DAVID; Protocol Last Admin: 04/09/19 17:49 Dose: 100 mg Heparin Sodium (Porcine) (Heparin) 5,000 units SC Q8 DAVID; Protocol Last Admin: 04/09/19 14:05 Dose: 5,000 units Vancomycin HCl (Vancomycin 1gm) 1 gm in 250 mls @ 167 mls/hr IVPB DAILY DAVID; Protocol Last Admin: 04/09/19 10:11 Dose: 167 mls/hr Dextrose (Dextrose 5% In Water 1000 Ml) 1,000 mls @ 0 mls/hr IV .Q0M PRN; Protocol PRN Reason: Hypoglycemia Protocol Sodium Chloride (Sodium Chloride 0.9%) 1,000 mls @ 100 mls/hr IV .Q10H [facility] Last Admin: 04/09/19 17:51 Dose: 100 mls/hr Piperacillin Sod/Tazobactam Sod (Zosyn 3.375 In Ns 100ml) 100 mls @ 25 mls/hr IVPB Q8 DAVID; Protocol Last Admin: 04/09/19 14:07 Dose: 25 mls/hr Insulin Human Regular (Humulin R Med) 0 units SC ACHS DAVID; Protocol Last Admin: 04/09/19 17:48 Dose: 5 units Pantoprazole Sodium (Protonix Ec Tab) 40 mg PO 0600 [facility] Last Admin: 04/09/19 05:29 Dose: 40 mg - Labs Labs: 04/09/19 07:10 04/09/19 07:10 - Constitutional Appears: Non-toxic, No Acute Distress, Chronically Ill - Head Exam Head Exam: ATRAUMATIC, NORMOCEPHALIC - Eye Exam Eye Exam: EOMI, PERRL Pupil Exam: NORMAL ACCOMODATION, PERRL - ENT Exam ENT Exam: Mucous Membranes Moist, Normal External Ear Exam, TM's Normal Bilaterally - Neck Exam Neck Exam: Full ROM, Normal Inspection - Respiratory Exam Respiratory Exam: Clear to Ausculation Bilateral, NORMAL BREATHING PATTERN. absent: Rales, Rhonchi, Wheezes - Cardiovascular Exam Cardiovascular Exam: REGULAR RHYTHM, RRR, +S1, +S2 - GI/Abdominal Exam GI & Abdominal Exam: Soft, Normal Bowel Sounds. absent: Distended, Tenderness - Extremities Exam Extremities Exam: Full ROM Additional comments: right great toe with bluish discoloration. Cooler to touch than the other toes. Right 5th toe partial amputation. Wound 4th toe interspace. - Neurological Exam Neurological Exam: Alert, Awake, CN II-XII Intact, Oriented x3 - Psychiatric Exam Psychiatric exam: Normal Affect, Normal Mood - Skin Additional comments: As above. Assessment and Plan - Assessment and Plan (Free Text) Assessment: 58 yo male with PMHx of DM Type 2, HTN, CAD, and peripheral neuropathy presenting with right big toe blue discoloration. Started on Vancomycin and Zosyn for antibiotic coverage. No renal insufficiency. Podiatry evaluation pending. May need arterial doppler, ESR, C-RP, and might need MRI. ESR was 16. Supportive care. History of osteomyelitis in the right foot. For OR of the 5th toe of the right foot on 04/15/2019. Thank you for allowing me to participate in the care of the patient, we will follow with you.
[2019-04-10] MEDS: Piperacillin/Tazobact 3.375 gm 100 ML IVPB SCH ×3 (05:30→23:00)
[2019-04-10] MEDS: Pantoprazole 40 mg EC Tab PO SCH (05:30)
[2019-04-10 07:52] LABS: BASO # 0.07 K/mm3 (0.0-2.0); BASO % 0.8 % (0.0-3.0); EOS # 0.4 (0.0-0.7); EOS % 5.2 % (1.5-5.0); HEMOGLOBIN 14.7 g/dL (14.0-18.0); LYMPH # 3.3 (1.2-3.4); LYMPH % 39.2 % (22.0-35.0); MEAN CELL VOLUME 88.6 fl (80.0-105.0); MEAN CORPUSCULAR HEMOGLOBIN 29.9 pg (25.0-35.0); MEAN CORPUSCULAR HGB CONC 33.7 g/dl (31.0-37.0); MONO # 0.8 (0.1-0.6); MONO % 8.9 % (1.0-6.0); RBC 4.92 10^6/uL (3.5-6.1); RED CELL DISTRIBUTION WIDTH 12.8 % (11.5-14.5); WHITE BLOOD COUNT 8.4 10^3/uL (4.5-11.0)
[2019-04-10 08:05] LABS: ALB/GLOB RATIO 1.1 (1.1-1.8); ALBUMIN 3.3 g/dL (3.0-4.8); ALT/SGPT 21 U/L (7-56); AST/SGOT 18 U/L (17-59); BLOOD UREA NITROGEN 8 mg/dL (7-21); CALCIUM 8.3 mg/dL (8.4-10.5); GFR NON-AFRICAN AMERICAN > 60
[2019-04-10] MEDS: Cholecalciferol 1,000 INTLU TAB PO SCH (10:36)
[2019-04-10] MEDS: Insulin Reg-MEDIUM-Coverage SC SCH ×4 (10:39→22:56)
[2019-04-10] MEDS: Vancomycin 1gm in NS 250ml 1 GM/250 ML BAG IVPB SCH (10:39)
--- NOTE | 2019-04-10 12:39 | PN ---
DATE: 04/10/2019 SUBJECTIVE: A 58-year-old male seen at bedside with his daughter present for a full-thickness ulceration located on his right foot as well as for noted discoloration of the right fifth digit. He states that his pain has decreased considerably since admission. MEDICATIONS: Home medications are noted in MAR. ALLERGIES: THE PATIENT HAS NO MEDICINE ALLERGIES BUT IS ALLERGIC TO EGG PRODUCTS. LABORATORY DATA: White count of 8.4 down from 17.1 on 04/08/2019, hemoglobin of 14.7, hematocrit of 43.6, platelet count of 118. ESR is 16. Microbiology report of the right foot ulceration reveals coagulase-negative Staphylococcus aureus growth. MRI taken on 04/09/2019 revealed short segment stenosis in the right common femoral artery. All superficial femoral arteries are patent. Popliteal arteries are patent with two-vessel runoff to both ankles, the anterior and posterior tibialis. Venous Dopplers revealed relatively normal SILVIANO and PVR examination at rest. No DVT noted. X-rays taken revealed chronic deformity of the distal fifth metatarsal and fifth digits with no acute evidence of osteomyelitis. OBJECTIVE: Nonpalpable pedal pulses noted bilaterally. Capillary filling time is delayed in all digits. The patient is unable to detect 5.07 g monofilament wire testing bilaterally. There is noted to the previous metatarsal resection at the right fifth metatarsal, right fourth interspace presents with an open lesion at the previous surgical site. There is noted to be minimal serous drainage. No purulence. The wound does not probe to tendon or bone. There is no underlying abscess formation. There is discoloration of the digit noted. ASSESSMENT: A 58-year-old male with right lower extremity peripheral vascular disease and full-thickness fourth interspace ulceration. PLAN The patient was seen and evaluated. The wound was cleansed with normal sterile saline and application of calcium alginate with silver was applied in the fourth interspace with a dry sterile dressing. ABIs and PVRs were reviewed. Case was discussed with Dr. Short. We will plan for surgery next week on his right fifth digit scheduled for Saturday, 05:15 a.m. Medical clearance will be needed. Daily local wound care will be done daily until then. Rey Garcia DPM MTDD
[2019-04-10] MEDS: Sodium Chloride 0.9% 1,000 ML IV SCH (13:18)
--- NOTE | 2019-04-10 13:58 | CON ---
DATE OF CONSULTATION: 04/10/2019 REQUESTING PHYSICIAN: Dr. Kiran. REASON FOR CONSULTATION: Preoperative evaluation. HISTORY: This is a 58-year-old man with a history of diabetes and tobacco abuse, who was admitted with a right foot infection. His plans are being made for toe amputation in the near future. An MRA showed evidence of a focal right common femoral artery stenosis. Preoperative cardiac evaluation was requested. He is unaware of any prior cardiac history. He denies any chest pain. He does have occasional exertional dyspnea, but he states he is not very active. He reported that a catheterization in 2005, at which time a coronary stent was placed, he cannot recall the details. MEDICATIONS: His current medications include aspirin, subcutaneous heparin, Lipitor, Neurontin, Protonix IV, vancomycin, and Zosyn. ALLERGIES: NO DRUG ALLERGIES. SOCIAL HISTORY: He is a smoker of less than a pack per day. He denies alcohol use at the present time. FAMILY HISTORY: Both parents are . There is no family history of premature heart disease. REVIEW OF SYSTEMS: A 12-point review of systems is notable for the problems mentioned above. He has had no PND or orthopnea. He has had intermittent claudication of his right leg. PHYSICAL EXAMINATION: GENERAL: He is a middle-aged man, who appears comfortable at rest. VITAL SIGNS: Blood pressure is 118/66 with a pulse of 60, respirations are 16. He is afebrile. HEENT: Head normocephalic, atraumatic. NECK: Supple. No JVD noted. CHEST: Few scattered rhonchi heard. HEART: PMI displaced laterally with a soft systolic murmur at the left sternal border. ABDOMEN: Soft, nontender with normoactive bowel sounds. EXTREMITIES: His right foot is dressed. Mild erythema is noted in the distal right leg. Diminished pulses are noted in the right leg as well. No edema is present. SKIN: As noted. PSYCHIATRIC: Normal mood and affect. NEUROLOGIC: Alert and oriented x3. No gross motor or sensory deficits notable. DIAGNOSTIC DATA: Potassium 4.2, BUN and creatinine are 8 and 0.7. White count is 8.4, hemoglobin and hematocrit are 14.7 and 43.6 with a platelet count of 118,000. Hemoglobin A1c was 10.7%. Cholesterol 116 with an HDL of 24, LDL of 181, and triglycerides of 93. TSH 3.06. His electrocardiogram reveals sinus rhythm with occasional effusion complex and low-voltage QRS complexes. An echocardiogram revealed normal LV size and systolic function with borderline to mild concentric LVH. No significant valvular abnormalities are noted. Chest x-ray revealed normal cardiac silhouette with clear lung ellis. IMPRESSION: 1. Peripheral vascular disease with ischemic toe. 2. Multiple cardiac risk factors including hypertension, tobacco abuse and diabetes. 3. Questionable history of coronary stenting in the past. From a cardiac standpoint, he appears relatively stable to proceed with his podiatric surgery as planned. RECOMMENDATIONS: His current medications should continue and risk factor control is advised. A followup stress test is recommended. However, this does not need to be performed prior to his toe amputation. The need for smoking abstinence was heavily emphasized to him as well as the need for better diabetes control. Thank you for this consultation. I will be happy to follow along as needed. Naseem Knight MD
--- NOTE | 2019-04-10 14:38 | CP.PCM.PN ---
<Zina Avila - Last Filed: 04/10/19 14:25> Subjective - Date & Time of Evaluation Date of Evaluation: 04/10/19 Time of Evaluation: 14:25 - Subjective Subjective: Zina Avila, PGY-1, Internal Medicine Progress Note for Dr. Christian Patient seen and evaluated at bedside. Patient had no acute overnight events. Patient reports no pain in his feet but has numbness at the distal ends of his toes. He reports bluish discoloration worsening of the right 1st toe. 12-point ROS was unremarkable except for what was mentioned above. Objective - Vital Signs/Intake and Output Vital Signs (last 24 hours): Temp Pulse Resp BP Pulse Ox 98.1 F 58 L 20 118/67 98 04/10/19 06:00 04/10/19 06:00 04/10/19 06:00 04/10/19 06:00 04/10/19 06:00 Intake and Output: 04/10/19 04/10/19 06:59 18:59 Intake Total 2280 Output Total 1800 Balance 480 - Medications Medications: Current Medications Acetaminophen (Tylenol 325mg Tab) 650 mg PO Q6H PRN PRN Reason: Pain, Mild (1-3) Aspirin (Aspirin Chewable) 81 mg PO DAILY DAVID Last Admin: 04/10/19 10:36 Dose: 81 mg Atorvastatin Calcium (Lipitor) 10 mg PO HS DAVID Last Admin: 04/09/19 22:11 Dose: 10 mg Cholecalciferol (Vitamin D) 1,000 intlu PO DAILY [facility]ID Last Admin: 04/10/19 10:36 Dose: 1,000 intlu Dextrose (Dextrose 50% Inj) 0 ml IV STAT PRN; Protocol PRN Reason: Hypoglycemia Protocol Gabapentin (Neurontin) 100 mg PO TID DAVID; Protocol Last Admin: 04/10/19 13:16 Dose: 100 mg Heparin Sodium (Porcine) (Heparin) 5,000 units SC Q8 DAVID; Protocol Last Admin: 04/10/19 13:16 Dose: 5,000 units Vancomycin HCl (Vancomycin 1gm) 1 gm in 250 mls @ 167 mls/hr IVPB DAILY DAVID; Protocol Last Admin: 04/10/19 10:39 Dose: 167 mls/hr Dextrose (Dextrose 5% In Water 1000 Ml) 1,000 mls @ 0 mls/hr IV .Q0M PRN; Lucy col PRN Reason: Hypoglycemia Protocol Sodium Chloride (Sodium Chloride 0.9%) 1,000 mls @ 100 mls/hr IV .Q10H [facility] Last Admin: 04/10/19 13:18 Dose: 100 mls/hr Piperacillin Sod/Tazobactam Sod (Zosyn 3.375 In Ns 100ml) 100 mls @ 25 mls/hr IVPB Q8 [facility]; Protocol Last Admin: 04/10/19 13:18 Dose: 25 mls/hr Insulin Human Regular (Humulin R Med) 0 units SC ACHS DAVID; Protocol Last Admin: 04/10/19 13:16 Dose: 7 units Pantoprazole Sodium (Protonix Ec Tab) 40 mg PO 0600 [facility] Last Admin: 04/10/19 05:30 Dose: 40 mg - Labs Labs: 04/10/19 07:30 04/10/19 07:30 - Constitutional Appears: Well, Non-toxic, No Acute Distress - Head Exam Head Exam: ATRAUMATIC, NORMAL INSPECTION, NORMOCEPHALIC - Eye Exam Eye Exam: EOMI Pupil Exam: NORMAL ACCOMODATION, PERRL - ENT Exam ENT Exam: Mucous Membranes Moist, Normal Exam - Respiratory Exam Respiratory Exam: Clear to Ausculation Bilateral, NORMAL BREATHING PATTERN - Cardiovascular Exam Cardiovascular Exam: REGULAR RHYTHM, RRR, +S1, +S2. absent: Clicks, Gallop, JVD - GI/Abdominal Exam GI & Abdominal Exam: Soft, Normal Bowel Sounds. absent: Distended, Firm, Guarding, Tenderness - Extremities Exam Extremities Exam: Full ROM, Normal Capillary Refill, Normal Inspection. absent: Pedal Edema - Neurological Exam Neurological Exam: Alert, Awake, CN II-XII Intact, Normal Gait, Oriented x3 Additional comments: numbness of bilateral lower extremity toes - Skin Additional comments: discoloration of right 1st. 5th toe overlapping on top of foot Assessment and Plan - Assessment and Plan (Free Text) Assessment: 58 year old male with past medical history of diabetes mellitus type II, left foot osteomyelitis, right foot MRSA infection, diabetic neuropathy of bilateral feet, and CAD presented with acute right toe discoloration with evaluation of cellulitis vs. osteomyelitis vs. PAD Plan: Right toe discoloration and cyanosis 2/2 to PAD vs. cellulitis vs. osteomyelitis -Patient denied any trauma to foot -Foot X ray 04/08: chronic deformity of distal 5th metatarsal. No osteomyelitis -Foot arterial doppler 03/09: borderline normal SILVIANO at 0.87 on right and normal SILVIANO of 1 on the left. Normal PVR examination -Lower extremity MRA 04/09: short segment stenosis in the right common femoral. -Lipid panel unremarkable -ESR borderline high at 16. CRP marginally high at 11.40 -Ordered MRI of bilateral feet to rule out osteomyelitis as discoloration has worsened in right foot. -Continue to clean sound with sterile saline and apply calcium alginate with silver to fourth interspace with a dry sterile dressing -Plan for surgery of amputation of right fifth digit on 04/15 -Continue vancomycin and zosyn started on 04/08 -Continue tylenol PRN for pain -Dr. Diana, Podiatry, consulted for recommendations -Cardiology, Dr. Knight, consulted for cardiac clearance -ID, Dr. Buitrago, consulted for further recommendations Diabetes mellitus type II -HgbA1c: 10.7 -Continue medium sliding scale insulin -Diabetic education consulted for counselling of starting insulin upon discharge. -Accuchecks ACHS Bilateral Foot Neuropathy -Likely 2/2 to poorly controlled diabetes mellitus -Continue home neurontin History of CAD -Continue home aspirin and lipitor -Follow up stress test is recommended by Cardio. -Counseled on smoking abstinence. -Cardiology, Dr. Knight, consulted for further recommendations. Vitamin D deficiency -Continue cholecalciferol DVT prophylaxis: heparin SC GI prophylaxis: protonix Patient plan discussed with Dr. Christian. <Fanta Christian - Last Filed: 04/10/19 15:41> Objective - Vital Signs/Intake and Output Vital Signs (last 24 hours): Temp Pulse Resp BP Pulse Ox 98.4 F 80 18 104/76 97 04/10/19 15:30 04/10/19 15:30 04/10/19 15:30 04/10/19 15:30 04/10/19 15:30 Intake and Output: 04/10/19 04/10/19 06:59 18:59 Intake Total 2280 Output Total 1800 Balance 480 - Medications Medications: Current Medications Acetaminophen (Tylenol 325mg Tab) 650 mg PO Q6H PRN PRN Reason: Pain, Mild (1-3) Aspirin (Aspirin Chewable) 81 mg PO DAILY [facility]ID Last Admin: 04/10/19 10:36 Dose: 81 mg Atorvastatin Calcium (Lipitor) 10 mg PO HS DAVID Last Admin: 04/09/19 22:11 Dose: 10 mg Cholecalciferol (Vitamin D) 1,000 intlu PO DAILY [facility] Last Admin: 04/10/19 10:36 Dose: 1,000 intlu Dextrose (Dextrose 50% Inj) 0 ml IV STAT PRN; Protocol PRN Reason: Hypoglycemia Protocol Gabapentin (Neurontin) 100 mg PO TID DAVID; Protocol Last Admin: 04/10/19 13:16 Dose: 100 mg Heparin Sodium (Porcine) (Heparin) 5,000 units SC Q8 DAVID; Protocol Last Admin: 04/10/19 13:16 Dose: 5,000 units Vancomycin HCl (Vancomycin 1gm) 1 gm in 250 mls @ 167 mls/hr IVPB DAILY [facility]; Protocol Last Admin: 04/10/19 10:39 Dose: 167 mls/hr Dextrose (Dextrose 5% In Water 1000 Ml) 1,000 mls @ 0 mls/hr IV .Q0M PRN; Protocol PRN Reason: Hypoglycemia Protocol Sodium Chloride (Sodium Chloride 0.9%) 1,000 mls @ 100 mls/hr IV .Q10H [facility] Last Admin: 04/10/19 13:18 Dose: 100 mls/hr Piperacillin Sod/Tazobactam Sod (Zosyn 3.375 In Ns 100ml) 100 mls @ 25 mls/hr IVPB Q8 [facility]; Protocol Last Admin: 04/10/19 13:18 Dose: 25 mls/hr Insulin Human Regular (Humulin R Med) 0 units SC ACHS DAVID; Protocol Last Admin: 04/10/19 13:16 Dose: 7 units Pantoprazole Sodium (Protonix Ec Tab) 40 mg PO 0600 [facility] Last Admin: 04/10/19 05:30 Dose: 40 mg - Labs Labs: 04/10/19 07:30 04/10/19 07:30 Attending/Attestation - Attestation I have personally seen and examined this patient.: Yes I have fully participated in the care of the patient.: Yes I have reviewed all pertinent clinical information, including history, physical exam and plan: Yes Notes (Text): 04/10/19 15:39 58 year old male with past medical history of diabetes, left foot OM, right foot ulcer, diabetic neuropathy and CAD who presented with complaint of right foot wound and right toe blue discoloration. Foot xray showed chronic deformity of 5th metatarsal without evidence of acute osteomyelitis. LE arterial doppler showed relatively normal SILVIANO. MRA runoff shows short segment stenosis right common femoral. Continue with aspirin and statin. Continue with iv antibiotics. MRI foot is pending. ID and podiatry are following. Plan is for OR procedure with podiatry next week. Cardiology evaluation was appreciated. A1c is 10.7. Discussed with patient regarding starting long acting insulin; he is agreeable. Diabetic education referral was requested. Fanta Christian MD Hospitalist.
--- NOTE | 2019-04-10 15:49 | CP.PCM.PN ---
Subjective - Date & Time of Evaluation Date of Evaluation: 04/10/19 Time of Evaluation: 14:30 - Subjective Subjective: Infectious Disease Follow Up: April 10, 2019 58 yo male with blue discoloration of the right big toe. The patient has been treated with IV antibiotics for osteomyelitis of the right foot multiple times in the past and had followed in the wound care center in the past. He has not been [place] [facility] [place] in the past 5 months. He denies trauma to the right foot. The right big toe is cooler to touch than the other toes. The patient is scheduled for OR on 04/15/2019 of the right fifth toe. Wound in 4th toe interspace. Discoloration of the 1st toe right foot. MRA of right leg showing adequate flow. No additional complaints. Objective - Vital Signs/Intake and Output Vital Signs (last 24 hours): Temp Pulse Resp BP Pulse Ox 98.4 F 80 18 104/76 97 04/10/19 15:30 04/10/19 15:30 04/10/19 15:30 04/10/19 15:30 04/10/19 15:30 Intake and Output: 04/10/19 04/10/19 06:59 18:59 Intake Total 2280 Output Total 1800 Balance 480 - Medications Medications: Current Medications Acetaminophen (Tylenol 325mg Tab) 650 mg PO Q6H PRN PRN Reason: Pain, Mild (1-3) Aspirin (Aspirin Chewable) 81 mg PO DAILY [facility] Last Admin: 04/10/19 10:36 Dose: 81 mg Atorvastatin Calcium (Lipitor) 10 mg PO HS DAVID Last Admin: 04/09/19 22:11 Dose: 10 mg Cholecalciferol (Vitamin D) 1,000 intlu PO DAILY [facility] Last Admin: 04/10/19 10:36 Dose: 1,000 intlu Dextrose (Dextrose 50% Inj) 0 ml IV STAT PRN; Protocol PRN Reason: Hypoglycemia Protocol Gabapentin (Neurontin) 100 mg PO TID DAVID; Protocol Last Admin: 04/10/19 13:16 Dose: 100 mg Heparin Sodium (Porcine) (Heparin) 5,000 units SC Q8 [facility]ID; Protocol Last Admin: 04/10/19 13:16 Dose: 5,000 units Vancomycin HCl (Vancomycin 1gm) 1 gm in 250 mls @ 167 mls/hr IVPB DAILY [facility]; Protocol Last Admin: 04/10/19 10:39 Dose: 167 mls/hr Dextrose (Dextrose 5% In Water 1000 Ml) 1,000 mls @ 0 mls/hr IV .Q0M PRN; Protocol PRN Reason: Hypoglycemia Protocol Sodium Chloride (Sodium Chloride 0.9%) 1,000 mls @ 100 mls/hr IV .Q10H [facility] Last Admin: 04/10/19 13:18 Dose: 100 mls/hr Piperacillin Sod/Tazobactam Sod (Zosyn 3.375 In Ns 100ml) 100 mls @ 25 mls/hr IVPB Q8 [facility]; Protocol Last Admin: 04/10/19 13:18 Dose: 25 mls/hr Insulin Human Regular (Humulin R Med) 0 units SC ACHS [facility]; Protocol Last Admin: 04/10/19 13:16 Dose: 7 units Pantoprazole Sodium (Protonix Ec Tab) 40 mg PO 0600 [facility] Last Admin: 04/10/19 05:30 Dose: 40 mg - Labs Labs: 04/10/19 07:30 04/10/19 07:30 - Constitutional Appears: Non-toxic, No Acute Distress, Chronically Ill - Head Exam Head Exam: ATRAUMATIC, NORMOCEPHALIC - Eye Exam Eye Exam: EOMI, PERRL Pupil Exam: NORMAL ACCOMODATION, PERRL - ENT Exam ENT Exam: Mucous Membranes Moist, Normal External Ear Exam, TM's Normal Bilaterally - Neck Exam Neck Exam: Full ROM, Normal Inspection - Respiratory Exam Respiratory Exam: Clear to Ausculation Bilateral, NORMAL BREATHING PATTERN. absent: Rales, Rhonchi, Wheezes - Cardiovascular Exam Cardiovascular Exam: REGULAR RHYTHM, RRR, +S1, +S2 - GI/Abdominal Exam GI & Abdominal Exam: Soft, Normal Bowel Sounds. absent: Distended, Tenderness - Extremities Exam Extremities Exam: Full ROM Additional comments: right great toe with bluish discoloration. Cooler to touch than the other toes. Left 5th toe partial amputation. Wound 4th toe interspace right foot. - Neurological Exam Neurological Exam: Alert, Awake, CN II-XII Intact, Oriented x3 - Psychiatric Exam Psychiatric exam: Normal Affect, Normal Mood - Skin Additional comments: As above Assessment and Plan - Assessment and Plan (Free Text) Assessment: 58 yo male with PMHx of DM Type 2, HTN, CAD, and peripheral neuropathy presenting with right big toe blue discoloration. Started on Vancomycin and Zosyn for antibiotic coverage. No renal insufficiency. May need arterial doppler, ESR, C-RP, and might need MRI. ESR was 16. C-RP of 11.40. Supportive care. Lower Extremity MRA noted. History of osteomyelitis in the right foot. For OR of the 5th toe of the right foot on 04/15/2019. Leukocytosis has normalized to 8.4 from a high of 17.1. Thank you for allowing me to participate in the care of the patient, we will follow with you.
--- NOTE | 2019-04-10 19:27 | MRI ---
Date of service: 04/10/2019 PROCEDURE: MRI of the feet without contrast HISTORY: rule out osteomyelitis COMPARISON: Comparison is made with the previous MRI of the left foot dated 08/27/2018 TECHNIQUE: Axial coronal and sagittal MRI images of the right and left foot were obtained without IV contrast administration. FINDINGS: Right foot: There is no evidence of bone marrow edema or cortical destruction to suggest acute osteomyelitis. Diffuse soft tissue swelling noted. Left foot: The patient is status post amputation of the 5th toe and distal half of the 5th metatarsal bone. There is no definite evidence of bone marrow edema or cortical destruction to suggest active osteomyelitis. The assessment of the distal portion of the toes in both feet is somewhat limited due to bilateral metatarsal-phalangeal subluxation and intra phalangeal subluxation. Soft tissue swelling also noted in the left foot. IMPRESSION: No definite evidence of acute osteomyelitis as discussed above. Soft tissue swelling in both feet.
[2019-04-10] MEDS ORDERED: Insulin Detemir 100 units/ml Vial (Levemir) SC SCH (22:00)
[2019-04-11] MEDS: Piperacillin/Tazobact 3.375 gm 100 ML IVPB SCH ×3 (06:06→21:26)
[2019-04-11] MEDS: Pantoprazole 40 mg EC Tab PO SCH (06:10)
[2019-04-11 07:55] LABS: BASO # 0.07 K/mm3 (0.0-2.0); BASO % 0.8 % (0.0-3.0); EOS # 0.5 (0.0-0.7); EOS % 5.7 % (1.5-5.0); HEMOGLOBIN 14.9 g/dL (14.0-18.0); LYMPH # 3.4 (1.2-3.4); LYMPH % 37.3 % (22.0-35.0); MEAN CELL VOLUME 88.7 fl (80.0-105.0); MEAN CORPUSCULAR HEMOGLOBIN 29.6 pg (25.0-35.0); MEAN CORPUSCULAR HGB CONC 33.3 g/dl (31.0-37.0); MEAN PLATELET VOLUME 10.9 fl (7.0-11.0); MONO # 0.8 (0.1-0.6); MONO % 9.1 % (1.0-6.0); RBC 5.04 10^6/uL (3.5-6.1); RED CELL DISTRIBUTION WIDTH 12.9 % (11.5-14.5); WHITE BLOOD COUNT 9.1 10^3/uL (4.5-11.0)
[2019-04-11 08:08] LABS: ALB/GLOB RATIO 1.1 (1.1-1.8); ALBUMIN 3.4 g/dL (3.0-4.8); ALT/SGPT 22 U/L (7-56); AST/SGOT 28 U/L (17-59); BLOOD UREA NITROGEN 9 mg/dL (7-21); CALCIUM 8.5 mg/dL (8.4-10.5); GFR NON-AFRICAN AMERICAN > 60
[2019-04-11] MEDS: Insulin Lispro 1 UNITS/0.01 ML SC SCH ×3 (08:12→17:15)
[2019-04-11] MEDS: Insulin Reg-MEDIUM-Coverage SC SCH ×3 (08:13→17:15)
--- NOTE | 2019-04-11 09:10 | CP.PCM.PN ---
Subjective - Date & Time of Evaluation Date of Evaluation: 04/11/19 Time of Evaluation: 09:06 - Subjective Subjective: Podiatry consult - Drs. Garcia/Adalgisa 58M seen and evaluated at bedside this AM. Patient is known to service and has had pedal problems in the past. Resting comfortably today. Denies n/v/f/c and has no other acute pedal complaints today. Objective - Vital Signs/Intake and Output Vital Signs (last 24 hours): Temp Pulse Resp BP Pulse Ox 98.2 F 73 18 130/77 96 04/11/19 06:00 04/11/19 06:00 04/11/19 06:00 04/11/19 06:00 04/11/19 06:00 Intake and Output: 04/11/19 04/11/19 06:59 18:59 Intake Total 1200 Balance 1200 - Medications Medications: Current Medications Acetaminophen (Tylenol 325mg Tab) 650 mg PO Q6H PRN PRN Reason: Pain, Mild (1-3) Aspirin (Aspirin Chewable) 81 mg PO DAILY [facility] Last Admin: 04/10/19 10:36 Dose: 81 mg Atorvastatin Calcium (Lipitor) 10 mg PO HS [facility] Last Admin: 04/10/19 22:59 Dose: 10 mg Cholecalciferol (Vitamin D) 1,000 intlu PO DAILY [facility] Last Admin: 04/10/19 10:36 Dose: 1,000 intlu Dextrose (Dextrose 50% Inj) 0 ml IV STAT PRN; Protocol PRN Reason: Hypoglycemia Protocol Gabapentin (Neurontin) 100 mg PO TID [facility]; Protocol Last Admin: 04/10/19 18:24 Dose: 100 mg Heparin Sodium (Porcine) (Heparin) 5,000 units SC Q8 [facility]; Protocol Last Admin: 04/11/19 06:10 Dose: 5,000 units Vancomycin HCl (Vancomycin 1gm) 1 gm in 250 mls @ 167 mls/hr IVPB DAILY [facility]; Protocol Last Admin: 04/10/19 10:39 Dose: 167 mls/hr Dextrose (Dextrose 5% In Water 1000 Ml) 1,000 mls @ 0 mls/hr IV .Q0M PRN; Protocol PRN Reason: Hypoglycemia Protocol Sodium Chloride (Sodium Chloride 0.9%) 1,000 mls @ 100 mls/hr IV .Q10H [facility] Last Admin: 04/10/19 13:18 Dose: 100 mls/hr Piperacillin Sod/Tazobactam Sod (Zosyn 3.375 In Ns 100ml) 100 mls @ 25 mls/hr IVPB Q8 [facility]; Protocol Last Admin: 04/11/19 06:06 Dose: 25 mls/hr Insulin Detemir (Levemir) 8 unit SC HS [facility] Last Admin: 04/10/19 22:59 Dose: 8 units Insulin Human Lispro (Humalog) 3 units SC AC [facility] Last Admin: 04/11/19 08:12 Dose: 3 units Insulin Human Regular (Humulin R Med) 0 units SC ACHS [facility]; Protocol Last Admin: 04/11/19 08:13 Dose: 1 units Pantoprazole Sodium (Protonix Ec Tab) 40 mg PO 0600 [facility] Last Admin: 04/11/19 06:10 Dose: 40 mg - Labs Labs: 04/11/19 07:01 04/11/19 07:01 - Constitutional Appears: Well, Non-toxic, No Acute Distress - Head Exam Head Exam: ATRAUMATIC, NORMOCEPHALIC - Extremities Exam Additional comments: RLE focused VASC: pulses nonpalapble; no edema; cap refill <3 seconds to digits DERM: fourth interspace open lesion at previous surgical site - no probe to bone, no depth, fibrotic base with minimal granulation tissue appreciated, minimal serous drainage no malodor; darkening color of first digit, no open lesions or wounds ORTHO: previous met head resection at right fifth metatarsal NEURO: diminished - Neurological Exam Neurological Exam: Alert, Awake, Oriented x3 - Psychiatric Exam Psychiatric exam: Normal Affect, Normal Mood Assessment and Plan - Assessment and Plan (Free Text) Assessment: 58M with RLE PVD and fourth interspace wound Plan: Patient seen and evaluated with Dr. Jose JONES, WBC 9.1 Dressing applied - calcium alginate in fourth interspace with light dry sterile dressing Foot arterial doppler 03/09: borderline normal SILVIANO at 0.87 on right and normal SILVIANO of 1 on the left. Normal PVR examination Lower extremity MRA 04/09: short segment stenosis in the right common femoral L foot MRI- no definitive evidence of osteomyelitis SILVIANO/PVR reviewed - Discuss with Dr. Short regarding vascular intervention or if patient will heal following surgical intervention Plan for surgery - amputation of right fifth digit Wednesday 5/15 due to lack of OR time Patient is pending medical and cardiac clearance prior to surgery Will continue to follow
[2019-04-11] MEDS: Vancomycin 1gm in NS 250ml 1 GM/250 ML BAG IVPB SCH (09:49)
[2019-04-11] MEDS: Cholecalciferol 1,000 INTLU TAB PO SCH (09:50)
--- NOTE | 2019-04-11 12:17 | CP.PCM.PN ---
Subjective - Date & Time of Evaluation Date of Evaluation: 04/11/19 Time of Evaluation: 11:30 - Subjective Subjective: Infectious Disease Follow Up: April 11, 2019 58 yo male with blue discoloration of the right big toe. The patient has been treated with IV antibiotics for osteomyelitis of the right foot multiple times in the past and had followed in the wound care center in the past. He [place] been [place] [facility] in the past 5 months. He denies trauma to the right foot. The right big toe is cooler to touch than the other toes. The patient is scheduled for OR on 04/15/2019 of the right fifth toe. Wound in 4th toe interspace. Discoloration of the 1st toe right foot. MRA of right leg showing adequate flow. No additional complaints. Objective - Vital Signs/Intake and Output Vital Signs (last 24 hours): Temp Pulse Resp BP Pulse Ox 98.2 F 73 18 130/77 96 04/11/19 06:00 04/11/19 06:00 04/11/19 06:00 04/11/19 06:00 04/11/19 06:00 Intake and Output: 04/11/19 04/11/19 06:59 18:59 Intake Total 1200 Balance 1200 - Medications Medications: Current Medications Acetaminophen (Tylenol 325mg Tab) 650 mg PO Q6H PRN PRN Reason: Pain, Mild (1-3) Aspirin (Aspirin Chewable) 81 mg PO DAILY [facility] Last Admin: 04/11/19 09:50 Dose: 81 mg Atorvastatin Calcium (Lipitor) 10 mg PO HS [facility] Last Admin: 04/10/19 22:59 Dose: 10 mg Cholecalciferol (Vitamin D) 1,000 intlu PO DAILY [facility] Last Admin: 04/11/19 09:50 Dose: 1,000 intlu Dextrose (Dextrose 50% Inj) 0 ml IV STAT PRN; Protocol PRN Reason: Hypoglycemia Protocol Gabapentin (Neurontin) 100 mg PO TID [facility]; Protocol Last Admin: 04/11/19 09:50 Dose: 100 mg Heparin Sodium (Porcine) (Heparin) 5,000 units SC Q8 [facility]; Protocol Last Admin: 04/11/19 06:10 Dose: 5,000 units Dextrose (Dextrose 5% In Water 1000 Ml) 1,000 mls @ 0 mls/hr IV .Q0M PRN; P rotocol PRN Reason: Hypoglycemia Protocol Sodium Chloride (Sodium Chloride 0.9%) 1,000 mls @ 100 mls/hr IV .Q10H [facility] Last Admin: 04/10/19 13:18 Dose: 100 mls/hr Piperacillin Sod/Tazobactam Sod (Zosyn 3.375 In Ns 100ml) 100 mls @ 25 mls/hr IVPB Q8 [facility]; Protocol Last Admin: 04/11/19 06:06 Dose: 25 mls/hr Insulin Detemir (Levemir) 8 unit SC HS [facility] Last Admin: 04/10/19 22:59 Dose: 8 units Insulin Human Lispro (Humalog) 3 units SC AC [facility] Last Admin: 04/11/19 11:56 Dose: 3 units Insulin Human Regular (Humulin R Med) 0 units SC ACHS [facility]; Protocol Last Admin: 04/11/19 11:56 Dose: 5 units Pantoprazole Sodium (Protonix Ec Tab) 40 mg PO 0600 [facility] Last Admin: 04/11/19 06:10 Dose: 40 mg - Labs Labs: 04/11/19 07:01 04/11/19 07:01 - Constitutional Appears: Non-toxic, No Acute Distress, Chronically Ill - Head Exam Head Exam: ATRAUMATIC, NORMOCEPHALIC - Eye Exam Eye Exam: EOMI, PERRL Pupil Exam: NORMAL ACCOMODATION, PERRL - ENT Exam ENT Exam: Mucous Membranes Moist, Normal External Ear Exam, TM's Normal Bilaterally - Neck Exam Neck Exam: Full ROM, Normal Inspection - Respiratory Exam Respiratory Exam: Clear to Ausculation Bilateral, NORMAL BREATHING PATTERN. absent: Rales, Rhonchi, Wheezes - Cardiovascular Exam Cardiovascular Exam: REGULAR RHYTHM, RRR, +S1, +S2 - GI/Abdominal Exam GI & Abdominal Exam: Soft, Normal Bowel Sounds. absent: Distended, Tenderness - Extremities Exam Extremities Exam: Full ROM Additional comments: right great toe with bluish discoloration. Cooler to touch than the other toes. Left 5th toe partial amputation. Wound 4th toe interspace right foot. - Neurological Exam Neurological Exam: Alert, Awake, CN II-XII Intact, Oriented x3 - Psychiatric Exam Psychiatric exam: Normal Affect, Normal Mood - Skin Additional comments: As above Assessment and Plan - Assessment and Plan (Free Text) Assessment: 58 yo male with PMHx of DM Type 2, HTN, CAD, and peripheral neuropathy presenting with right big toe blue discoloration. Started on Vancomycin and Zosyn for antibiotic coverage. No renal insufficiency. May need arterial doppler, ESR, C-RP, and might need MRI. ESR was 16. C-RP of 11.40. Supportive care. Lower Extremity MRA noted. History of osteomyelitis in the right foot. For OR of the 5th toe of the right foot on 04/15/2019. Leukocytosis has normalized to 8.4 from a high of 17.1. Comfortable currently. Thank you for allowing me to participate in the care of the patient, we will follow with you.
--- NOTE | 2019-04-11 13:44 | CP.PCM.PN ---
<Zina Avila - Last Filed: 04/11/19 13:36> Subjective - Date & Time of Evaluation Date of Evaluation: 04/11/19 Time of Evaluation: 13:36 - Subjective Subjective: Zina Avila, PGY-1, Internal Medicine Progress Note for Dr. Christian Patient seen and evaluated at bedside. Patient had no acute overnight events. Patient reports no pain in his feet but has numbness at the distal ends of his toes. He reports bluish discoloration improving of the right 1st toe. 12-point ROS was unremarkable except for what was mentioned above. Objective - Vital Signs/Intake and Output Vital Signs (last 24 hours): Temp Pulse Resp BP Pulse Ox 98.2 F 73 18 130/77 96 04/11/19 06:00 04/11/19 06:00 04/11/19 06:00 04/11/19 06:00 04/11/19 06:00 Intake and Output: 04/11/19 04/11/19 06:59 18:59 Intake Total 1200 Balance 1200 - Medications Medications: Current Medications Acetaminophen (Tylenol 325mg Tab) 650 mg PO Q6H PRN PRN Reason: Pain, Mild (1-3) Aspirin (Aspirin Chewable) 81 mg PO DAILY [facility] Last Admin: 04/11/19 09:50 Dose: 81 mg Atorvastatin Calcium (Lipitor) 10 mg PO HS [facility] Last Admin: 04/10/19 22:59 Dose: 10 mg Cholecalciferol (Vitamin D) 1,000 intlu PO DAILY [facility] Last Admin: 04/11/19 09:50 Dose: 1,000 intlu Dextrose (Dextrose 50% Inj) 0 ml IV STAT PRN; Protocol PRN Reason: Hypoglycemia Protocol Gabapentin (Neurontin) 100 mg PO TID [facility]; Protocol Last Admin: 04/11/19 09:50 Dose: 100 mg Heparin Sodium (Porcine) (Heparin) 5,000 units SC Q8 [facility]; Protocol Last Admin: 04/11/19 06:10 Dose: 5,000 units Dextrose (Dextrose 5% In Water 1000 Ml) 1,000 mls @ 0 mls/hr IV .Q0M PRN; Protocol PRN Reason: Hypoglycemia Protocol Sodium Chloride (Sodium Chloride 0.9%) 1,000 mls @ 100 mls/hr IV .Q10H [facility] Last Admin: 04/10/19 13:18 Dose: 100 mls/hr Piperacillin Sod/Tazobactam Sod (Zosyn 3.375 In Ns 100ml) 100 mls @ 25 mls/hr IVPB Q8 [facility]; Protocol Last Admin: 04/11/19 06:06 Dose: 25 mls/hr Insulin Detemir (Levemir) 8 unit SC HS [facility] Last Admin: 04/10/19 22:59 Dose: 8 units Insulin Human Lispro (Humalog) 3 units SC AC [facility] Last Admin: 04/11/19 11:56 Dose: 3 units Insulin Human Regular (Humulin R Med) 0 units SC ACHS [facility]; Protocol Last Admin: 04/11/19 11:56 Dose: 5 units Pantoprazole Sodium (Protonix Ec Tab) 40 mg PO 0600 [facility] Last Admin: 04/11/19 06:10 Dose: 40 mg - Labs Labs: 04/11/19 07:01 04/11/19 07:01 - Constitutional Appears: Well, Non-toxic, No Acute Distress - Head Exam Head Exam: ATRAUMATIC, NORMAL INSPECTION, NORMOCEPHALIC - Eye Exam Eye Exam: EOMI Pupil Exam: NORMAL ACCOMODATION, PERRL - ENT Exam ENT Exam: Mucous Membranes Moist, Normal Exam - Respiratory Exam Respiratory Exam: Clear to Ausculation Bilateral, NORMAL BREATHING PATTERN - Cardiovascular Exam Cardiovascular Exam: REGULAR RHYTHM, RRR, +S1, +S2. absent: Clicks, Gallop, JVD - GI/Abdominal Exam GI & Abdominal Exam: Soft, Normal Bowel Sounds. absent: Distended, Firm, Guarding, Tenderness - Extremities Exam Extremities Exam: Full ROM, Normal Capillary Refill, Normal Inspection. absent: Pedal Edema - Neurological Exam Neurological Exam: Alert, Awake, CN II-XII Intact, Normal Gait, Oriented x3 Additional comments: numbness of bilateral lower extremity toes - Skin Additional comments: discoloration of right 1st. 5th toe overlapping on top of foot Assessment and Plan - Assessment and Plan (Free Text) Assessment: 58 year old male with past medical history of diabetes mellitus type II, left foot osteomyelitis, right foot MRSA infection, diabetic neuropathy of bilateral feet, and CAD presented with acute right toe discoloration. Plan: Right toe discoloration and cyanosis 2/2 to PAD vs. cellulitis vs. osteomyelitis -Patient denied any trauma to foot -Foot X ray 04/08: chronic deformity of distal 5th metatarsal. No osteomyelitis -Foot arterial doppler 03/09: borderline normal SILVIANO at 0.87 on right and normal SILVIANO of 1 on the left. Normal PVR examination -Lower extremity MRA 04/09: short segment stenosis in the right common femoral. -Foot MRI 04/10: no osteomyelitis -Lipid panel unremarkable -ESR borderline high at 16. CRP marginally high at 11.40 -Continue to clean sound with sterile saline and apply calcium alginate with silver to fourth interspace with a dry sterile dressing -Plan for surgery of amputation of right fifth digit on 04/15 -Continue zosyn started on 04/08 -Continue tylenol PRN for pain -Dr. Diana, Podiatry, consulted for recommendations -Cardiology, Dr. Knight, consulted for cardiac clearance -ID, Dr. Buitrago, consulted for further recommendations Diabetes mellitus type II -HgbA1c: 10.7 -Continue medium sliding scale insulin -Started on levemir 8 U HS and lispro 3 U AC -Diabetic education consulted for counselling of restarting insulin upon discharge. -Accuchecks ACHS Bilateral Foot Neuropathy -Likely 2/2 to poorly controlled diabetes mellitus -Continue home neurontin History of CAD -Continue home aspirin and lipitor -Follow up stress test is recommended by Cardio. -Counseled on smoking abstinence. -Cardiology, Dr. Knight, consulted for further recommendations. Vitamin D deficiency -Continue cholecalciferol DVT prophylaxis: heparin SC GI prophylaxis: protonix Patient plan discussed with Dr. Christian. <Fanta Christian - Last Filed: 04/11/19 13:53> Objective - Vital Signs/Intake and Output Vital Signs (last 24 hours): Temp Pulse Resp BP Pulse Ox 98.2 F 73 18 130/77 96 04/11/19 06:00 04/11/19 06:00 04/11/19 06:00 04/11/19 06:00 04/11/19 06:00 Intake and Output: 04/11/19 04/11/19 06:59 18:59 Intake Total 1200 Balance 1200 - Medications Medications: Current Medications Acetaminophen (Tylenol 325mg Tab) 650 mg PO Q6H PRN PRN Reason: Pain, Mild (1-3) Aspirin (Aspirin Chewable) 81 mg PO DAILY [facility] Last Admin: 04/11/19 09:50 Dose: 81 mg Atorvastatin Calcium (Lipitor) 10 mg PO HS [facility] Last Admin: 04/10/19 22:59 Dose: 10 mg Cholecalciferol (Vitamin D) 1,000 intlu PO DAILY [facility] Last Admin: 04/11/19 09:50 Dose: 1,000 intlu Dextrose (Dextrose 50% Inj) 0 ml IV STAT PRN; Protocol PRN Reason: Hypoglycemia Protocol Gabapentin (Neurontin) 100 mg PO TID [facility]; Protocol Last Admin: 04/11/19 09:50 Dose: 100 mg Heparin Sodium (Porcine) (Heparin) 5,000 units SC Q8 [facility]; Protocol Last Admin: 04/11/19 06:10 Dose: 5,000 units Dextrose (Dextrose 5% In Water 1000 Ml) 1,000 mls @ 0 mls/hr IV .Q0M [facility]; Protocol PRN Reason: Hypoglycemia Protocol Sodium Chloride (Sodium Chloride 0.9%) 1,000 mls @ 100 mls/hr IV .Q10H [facility] Last Admin: 04/10/19 13:18 Dose: 100 mls/hr Piperacillin Sod/Tazobactam Sod (Zosyn 3.375 In Ns 100ml) 100 mls @ 25 mls/hr IVPB Q8 [facility]; Protocol Last Admin: 04/11/19 06:06 Dose: 25 mls/hr Insulin Detemir (Levemir) 8 unit SC HS [facility] Last Admin: 04/10/19 22:59 Dose: 8 units Insulin Human Lispro (Humalog) 3 units SC AC [facility] Last Admin: 04/11/19 11:56 Dose: 3 units Insulin Human Regular (Humulin R Med) 0 units SC ACHS [facility]; Protocol Last Admin: 04/11/19 11:56 Dose: 5 units Pantoprazole Sodium (Protonix Ec Tab) 40 mg PO 0600 [facility] Last Admin: 04/11/19 06:10 Dose: 40 mg - Labs Labs: 04/11/19 07:01 04/11/19 07:01 Attending/Attestation - Attestation I have personally seen and examined this patient.: Yes I have fully participated in the care of the patient.: Yes I have reviewed all pertinent clinical information, including history, physical exam and plan: Yes Notes (Text): 04/11/19 13:51 58 year old male with past medical history of diabetes, left foot OM, right foot ulcer, diabetic neuropathy and CAD who presented with complaint of right foot deformity and right toe blue discoloration. Foot xray showed chronic deformity of 5th metatarsal without evidence of acute osteomyelitis. LE arterial doppler showed relatively normal SILVIANO. MRA runoff shows short segment stenosis right common femoral. Continue with aspirin and statin. Continue with iv antibiotics. MRI foot is negative for acute osteomyelitis. ID and podiatry are following. Plan is for OR procedure with podiatry next week. Cardiology evaluation was appreciated. A1c is 10.7 and patient is started on levemir. Diabetic education referral was requested. Daughter is at bedside and updated on plan of care. Fanta Christian MD Hospitalist.
[2019-04-11] MEDS: Insulin Detemir 100 units/ml Vial (Levemir) SC SCH (21:25)
[2019-04-12] MEDS: Insulin Reg-MEDIUM-Coverage SC SCH ×5 (05:09→21:52)
[2019-04-12] MEDS: Pantoprazole 40 mg EC Tab PO SCH (05:34)
[2019-04-12] MEDS: Piperacillin/Tazobact 3.375 gm 100 ML IVPB SCH ×3 (05:34→21:46)
[2019-04-12 07:29] LABS: BASO # 0.08 K/mm3 (0.0-2.0); BASO % 0.9 % (0.0-3.0); EOS # 0.5 (0.0-0.7); EOS % 5.8 % (1.5-5.0); HEMOGLOBIN 14.7 g/dL (14.0-18.0); LYMPH # 3.6 (1.2-3.4); LYMPH % 38.8 % (22.0-35.0); MEAN CORPUSCULAR HEMOGLOBIN 29.9 pg (25.0-35.0); MEAN CORPUSCULAR HGB CONC 33.6 g/dl (31.0-37.0); MEAN PLATELET VOLUME 10.7 fl (7.0-11.0); MONO # 0.6 (0.1-0.6); MONO % 6.9 % (1.0-6.0); RBC 4.91 10^6/uL (3.5-6.1); RED CELL DISTRIBUTION WIDTH 12.8 % (11.5-14.5); WHITE BLOOD COUNT 9.3 10^3/uL (4.5-11.0)
[2019-04-12 08:02] LABS: ALB/GLOB RATIO 1.1 (1.1-1.8); ALBUMIN 3.5 g/dL (3.0-4.8); ALT/SGPT 27 U/L (7-56); AST/SGOT 38 U/L (17-59); BLOOD UREA NITROGEN 9 mg/dL (7-21); CALCIUM 8.4 mg/dL (8.4-10.5); GFR NON-AFRICAN AMERICAN > 60
[2019-04-12] MEDS: Insulin Lispro 1 UNITS/0.01 ML SC SCH ×3 (08:20→17:36)
[2019-04-12] MEDS: Cholecalciferol 1,000 INTLU TAB PO SCH (10:06)
--- NOTE | 2019-04-12 11:37 | CP.PCM.PN ---
<SergioMikie love - Last Filed: 04/12/19 11:34> Subjective - Date & Time of Evaluation Date of Evaluation: 04/12/19 Time of Evaluation: 11:34 - Subjective Subjective: Podiatry consult - Drs. Garcia/Adalgisa 58M seen and evaluated at bedside this AM. Patient is known to service and has had pedal problems in the past. Resting comfortably today. Denies n/v/f/c and has no other acute pedal complaints today. Patient aware he has surgery on 04/15/19 Objective - Vital Signs/Intake and Output Vital Signs (last 24 hours): Temp Pulse Resp BP Pulse Ox 98.1 F 59 L 18 135/76 94 L 04/12/19 06:00 04/12/19 06:00 04/12/19 06:00 04/12/19 06:00 04/12/19 06:00 Intake and Output: 04/12/19 04/12/19 06:59 18:59 Intake Total 680 Balance 680 - Medications Medications: Current Medications Acetaminophen (Tylenol 325mg Tab) 650 mg PO Q6H PRN PRN Reason: Pain, Mild (1-3) Aspirin (Aspirin Chewable) 81 mg PO DAILY [facility] Last Admin: 04/12/19 10:06 Dose: 81 mg Atorvastatin Calcium (Lipitor) 10 mg PO HS [facility] Last Admin: 04/11/19 21:29 Dose: 10 mg Cholecalciferol (Vitamin D) 1,000 intlu PO DAILY [facility] Last Admin: 04/12/19 10:06 Dose: 1,000 intlu Dextrose (Dextrose 50% Inj) 0 ml IV STAT PRN; Protocol PRN Reason: Hypoglycemia Protocol Gabapentin (Neurontin) 100 mg PO TID [facility]; Protocol Last Admin: 04/12/19 10:06 Dose: 100 mg Heparin Sodium (Porcine) (Heparin) 5,000 units SC Q8 [facility]; Protocol Last Admin: 04/12/19 05:34 Dose: 5,000 units Dextrose (Dextrose 5% In Water 1000 Ml) 1,000 mls @ 0 mls/hr IV .Q0M PRN; Protocol PRN Reason: Hypoglycemia Protocol Sodium Chloride (Sodium Chloride 0.9%) 1,000 mls @ 100 mls/hr IV .Q10H [facility] Last Admin: 04/10/19 13:18 Dose: 100 mls/hr Piperacillin Sod/Tazobactam Sod (Zosyn 3.375 In Ns 100ml) 100 mls @ 25 mls/hr IVPB Q8 [facility]; Protocol Last Admin: 04/12/19 05:34 Dose: 25 mls/hr Insulin Detemir (Levemir) 11 unit SC HS [facility] Last Admin: 04/11/19 21:25 Dose: 11 units Insulin Human Lispro (Humalog) 4 units SC AC [facility] Last Admin: 04/12/19 08:20 Dose: 4 units Insulin Human Regular (Humulin R Med) 0 units SC ACHS [facility]; Protocol Last Admin: 04/12/19 08:21 Dose: 1 units Pantoprazole Sodium (Protonix Ec Tab) 40 mg PO 0600 [facility] Last Admin: 04/12/19 05:34 Dose: 40 mg - Labs Labs: 04/12/19 07:00 04/12/19 07:00 - Constitutional Appears: Well, Non-toxic, No Acute Distress - Head Exam Head Exam: ATRAUMATIC, NORMOCEPHALIC - Extremities Exam Additional comments: RLE focused VASC: pulses nonpalapble; no edema; cap refill <3 seconds to digits DERM: fourth interspace open lesion at previous surgical site - no probe to bone, no depth, fibrotic base with minimal granulation tissue appreciated, minimal serous drainage no malodor; darkening color of first digit, no open lesions or wounds ORTHO: previous met head resection at right fifth metatarsal NEURO: diminished - Neurological Exam Neurological Exam: Alert, Awake, Oriented x3 - Psychiatric Exam Psychiatric exam: Normal Affect, Normal Mood Assessment and Plan - Assessment and Plan (Free Text) Assessment: 58M with RLE PVD and fourth interspace wound Plan: Patient seen and evaluated with Dr. Jose JONES, WBC 9.3 Foot arterial doppler 03/09: borderline normal SILVIANO at 0.87 on right and normal SILVIANO of 1 on the left. Normal PVR examination Lower extremity MRA 04/09: short segment stenosis in the right common femoral L foot MRI- no definitive evidence of osteomyelitis SILVIANO/PVR reviewed - Discuss with Dr. Short regarding vascular intervention or if patient will heal following surgical intervention Dressing applied - calcium alginate in fourth interspace with light dry sterile dressing Plan for surgery - amputation of right fifth digit Sunday 04/15 due to lack of OR time Cardiology recs- patient appears relatively stable to proceed with podiatric surgery and follow up stress test is recommended Will continue to follow <Rey Garcia - Last Filed: 04/13/19 10:43> Objective - Vital Signs/Intake and Output Vital Signs (last 24 hours): Temp Pulse Resp BP Pulse Ox 97.8 F 64 18 126/66 98 04/12/19 22:00 04/12/19 22:00 04/12/19 22:00 04/12/19 22:00 04/12/19 22:00 - Medications Medications: Current Medications Acetaminophen (Tylenol 325mg Tab) 650 mg PO Q6H PRN PRN Reason: Pain, Mild (1-3) Aspirin (Aspirin Chewable) 81 mg PO DAILY [facility] Last Admin: 04/12/19 10:06 Dose: 81 mg Atorvastatin Calcium (Lipitor) 10 mg PO HS [facility] Last Admin: 04/12/19 21:47 Dose: 10 mg Cholecalciferol (Vitamin D) 1,000 intlu PO DAILY [facility] Last Admin: 04/13/19 09:10 Dose: 1,000 intlu Dextrose (Dextrose 50% Inj) 0 ml IV STAT PRN; Protocol PRN Reason: Hypoglycemia Protocol Gabapentin (Neurontin) 100 mg PO TID [facility]; Protocol Last Admin: 04/13/19 09:11 Dose: 100 mg Heparin Sodium (Porcine) (Heparin) 5,000 units SC Q8 [facility]; Protocol Last Admin: 04/13/19 05:38 Dose: 5,000 units Dextrose (Dextrose 5% In Water 1000 Ml) 1,000 mls @ 0 mls/hr IV .Q0M PRN; Protocol PRN Reason: Hypoglycemia Protocol Sodium Chloride (Sodium Chloride 0.9%) 1,000 mls @ 100 mls/hr IV .Q10H [facility] Last Admin: 04/12/19 20:29 Dose: 100 mls/hr Piperacillin Sod/Tazobactam Sod (Zosyn 3.375 In Ns 100ml) 100 mls @ 25 mls/hr IVPB Q8 [facility]; Protocol Last Admin: 04/13/19 05:38 Dose: 25 mls/hr Insulin Detemir (Levemir) 11 unit SC HS [facility] Last Admin: 04/12/19 21:52 Dose: 11 units Insulin Human Lispro (Humalog) 4 units SC AC [facility] Last Admin: 04/13/19 09:09 Dose: 4 units Insulin Human Regular (Humulin R Med) 0 units SC ACHS [facility]; Protocol Last Admin: 04/13/19 09:09 Dose: 1 units Pantoprazole Sodium (Protonix Ec Tab) 40 mg PO 0600 [facility] Last Admin: 04/13/19 05:37 Dose: 40 mg - Labs Labs: 04/13/19 06:10 04/13/19 06:10 Attending/Attestation - Attestation I have personally seen and examined this patient.: Yes I have fully participated in the care of the patient.: Yes I have reviewed all pertinent clinical information, including history, physical exam and plan: Yes
--- NOTE | 2019-04-12 12:16 | CP.PCM.PN ---
<Zina Avila - Last Filed: 04/12/19 12:10> Subjective - Date & Time of Evaluation Date of Evaluation: 04/12/19 Time of Evaluation: 12:11 - Subjective Subjective: Zina Avila, PGY-1, Internal Medicine Progress Note for Dr. Christian Patient seen and evaluated at bedside. Patient had no acute overnight events. Patient reports numbness at the toes in bilateral lower extremities. Bluish discoloration of right 1st toe is improving. 12-point ROS was unremarkable except for what was mentioned above. Objective - Vital Signs/Intake and Output Vital Signs (last 24 hours): Temp Pulse Resp BP Pulse Ox 98.1 F 59 L 18 135/76 94 L 04/12/19 06:00 04/12/19 06:00 04/12/19 06:00 04/12/19 06:00 04/12/19 06:00 Intake and Output: 04/12/19 04/12/19 06:59 18:59 Intake Total 680 Balance 680 - Medications Medications: Current Medications Acetaminophen (Tylenol 325mg Tab) 650 mg PO Q6H PRN PRN Reason: Pain, Mild (1-3) Aspirin (Aspirin Chewable) 81 mg PO DAILY [facility] Last Admin: 04/12/19 10:06 Dose: 81 mg Atorvastatin Calcium (Lipitor) 10 mg PO HS [facility] Last Admin: 04/11/19 21:29 Dose: 10 mg Cholecalciferol (Vitamin D) 1,000 intlu PO DAILY [facility] Last Admin: 04/12/19 10:06 Dose: 1,000 intlu Dextrose (Dextrose 50% Inj) 0 ml IV STAT PRN; Protocol PRN Reason: Hypoglycemia Protocol Gabapentin (Neurontin) 100 mg PO TID [facility]; Protocol Last Admin: 04/12/19 10:06 Dose: 100 mg Heparin Sodium (Porcine) (Heparin) 5,000 units SC Q8 [facility]; Protocol Last Admin: 04/12/19 05:34 Dose: 5,000 units Dextrose (Dextrose 5% In Water 1000 Ml) 1,000 mls @ 0 mls/hr IV .Q0M PRN; Protocol PRN Reason: Hypoglycemia Protocol Sodium Chloride (Sodium Chloride 0.9%) 1,000 mls @ 100 mls/hr IV .Q10H [facility] Last Admin: 04/10/19 13:18 Dose: 100 mls/hr Piperacillin Sod/Tazobactam Sod (Zosyn 3.375 In Ns 100ml) 100 mls @ 25 mls/hr IVPB Q8 [facility]; Protocol Last Admin: 04/12/19 05:34 Dose: 25 mls/hr Insulin Detemir (Levemir) 11 unit SC HS [facility] Last Admin: 04/11/19 21:25 Dose: 11 units Insulin Human Lispro (Humalog) 4 units SC AC [facility] Last Admin: 04/12/19 08:20 Dose: 4 units Insulin Human Regular (Humulin R Med) 0 units SC ACHS [facility]; Protocol Last Admin: 04/12/19 08:21 Dose: 1 units Pantoprazole Sodium (Protonix Ec Tab) 40 mg PO 0600 [facility] Last Admin: 04/12/19 05:34 Dose: 40 mg - Labs Labs: 04/12/19 07:00 04/12/19 07:00 - Constitutional Appears: Well, Non-toxic, No Acute Distress - Head Exam Head Exam: ATRAUMATIC, NORMAL INSPECTION, NORMOCEPHALIC - Eye Exam Eye Exam: EOMI Pupil Exam: NORMAL ACCOMODATION, PERRL - ENT Exam ENT Exam: Mucous Membranes Moist, Normal Exam - Respiratory Exam Respiratory Exam: Clear to Ausculation Bilateral, NORMAL BREATHING PATTERN - Cardiovascular Exam Cardiovascular Exam: REGULAR RHYTHM, RRR, +S1, +S2. absent: Clicks, Gallop, JVD - GI/Abdominal Exam GI & Abdominal Exam: Soft, Normal Bowel Sounds. absent: Distended, Firm, Guarding, Tenderness - Extremities Exam Extremities Exam: Full ROM, Normal Capillary Refill, Normal Inspection. absent: Pedal Edema - Neurological Exam Neurological Exam: Alert, Awake, CN II-XII Intact, Normal Gait, Oriented x3 Additional comments: numbness of bilateral lower extremity toes - Skin Additional comments: discoloration of right 1st. 5th toe overlapping on top of foot Assessment and Plan - Assessment and Plan (Free Text) Assessment: 58 year old male with past medical history of diabetes mellitus type II, left foot osteomyelitis, right foot MRSA infection, diabetic neuropathy of bilateral feet, and CAD presented with acute right 1st toe discoloration. Plan: Right toe discoloration and cyanosis 2/2 to PAD vs. cellulitis -Patient denied any trauma to foot -Foot X ray 04/08: chronic deformity of distal 5th metatarsal. No osteomyelitis -Foot arterial doppler 04/08: borderline normal SILVIANO at 0.87 on right and normal SILVIANO of 1 on the left. Normal PVR examination -Lower extremity MRA 04/09: short segment stenosis in the right common femoral. -Foot MRI 04/10: no osteomyelitis -Lipid panel unremarkable -ESR borderline high at 16. CRP marginally high at 11.40 -Continue to clean wound with sterile saline and apply calcium alginate with silver to fourth interspace with a dry sterile dressing -Plan for surgery of amputation of right fifth digit on 04/15 -Continue zosyn started on 04/08 -Continue tylenol PRN for pain -Dr. Diana, Podiatry, consulted for recommendations -Cardiology, Dr. Knight, consulted for cardiac clearance -ID, Dr. Buitrago, consulted for further recommendations Diabetes mellitus type II -HgbA1c: 10.7 -Continue medium sliding scale insulin -Increased on levemir 11 U HS and lispro 4 U AC -Diabetic education consulted for counselling of restarting insulin upon discharge. -Accuchecks ACHS Bilateral Foot Neuropathy -Likely 2/2 to poorly controlled diabetes mellitus -Continue home neurontin History of CAD -Continue home aspirin and lipitor -Follow up stress test is recommended by Cardio. -Counseled on smoking abstinence. -Cardiology, Dr. Knight, consulted for further recommendations. Vitamin D deficiency -Continue cholecalciferol DVT prophylaxis: heparin SC GI prophylaxis: protonix Patient plan discussed with Dr. Christian. <Fanta Christian - Last Filed: 04/12/19 13:06> Objective - Vital Signs/Intake and Output Vital Signs (last 24 hours): Temp Pulse Resp BP Pulse Ox 98.1 F 59 L 18 135/76 94 L 04/12/19 06:00 04/12/19 06:00 04/12/19 06:00 04/12/19 06:00 04/12/19 06:00 Intake and Output: 04/12/19 04/12/19 06:59 18:59 Intake Total 680 Balance 680 - Medications Medications: Current Medications Acetaminophen (Tylenol 325mg Tab) 650 mg PO Q6H PRN PRN Reason: Pain, Mild (1-3) Aspirin (Aspirin Chewable) 81 mg PO DAILY [facility] Last Admin: 04/12/19 10:06 Dose: 81 mg Atorvastatin Calcium (Lipitor) 10 mg PO HS [facility] Last Admin: 04/11/19 21:29 Dose: 10 mg Cholecalciferol (Vitamin D) 1,000 intlu PO DAILY [facility] Last Admin: 04/12/19 10:06 Dose: 1,000 intlu Dextrose (Dextrose 50% Inj) 0 ml IV STAT PRN; Protocol PRN Reason: Hypoglycemia Protocol Gabapentin (Neurontin) 100 mg PO TID [facility]; Protocol Last Admin: 04/12/19 10:06 Dose: 100 mg Heparin Sodium (Porcine) (Heparin) 5,000 units SC Q8 [facility]; Protocol Last Admin: 04/12/19 05:34 Dose: 5,000 units Dextrose (Dextrose 5% In Water 1000 Ml) 1,000 mls @ 0 mls/hr IV .Q0M PRN; Protocol PRN Reason: Hypoglycemia Protocol Sodium Chloride (Sodium Chloride 0.9%) 1,000 mls @ 100 mls/hr IV .Q10H [facility] Last Admin: 04/10/19 13:18 Dose: 100 mls/hr Piperacillin Sod/Tazobactam Sod (Zosyn 3.375 In Ns 100ml) 100 mls @ 25 mls/hr IVPB Q8 [facility]; Protocol Last Admin: 04/12/19 05:34 Dose: 25 mls/hr Insulin Detemir (Levemir) 11 unit SC HS [facility] Last Admin: 04/11/19 21:25 Dose: 11 units Insulin Human Lispro (Humalog) 4 units SC AC [facility] Last Admin: 04/12/19 12:20 Dose: 4 units Insulin Human Regular (Humulin R Med) 0 units SC ACHS [facility]; Protocol Last Admin: 04/12/19 12:20 Dose: 5 units Pantoprazole Sodium (Protonix Ec Tab) 40 mg PO 0600 [facility] Last Admin: 04/12/19 05:34 Dose: 40 mg - Labs Labs: 04/12/19 07:00 04/12/19 07:00 Attending/Attestation - Attestation I have personally seen and examined this patient.: Yes I have fully participated in the care of the patient.: Yes I have reviewed all pertinent clinical information, including history, physical exam and plan: Yes Notes (Text): 04/12/19 13:04 58 year old male with past medical history of diabetes, left foot OM, right foot ulcer, diabetic neuropathy and CAD who presented with complaint of right foot deformity and right toe blue discoloration. Foot xray showed chronic deformity of 5th metatarsal without evidence of acute osteomyelitis. LE arterial doppler showed relatively normal SILVIANO. MRA runoff showed short segment stenosis right common femoral. Continue with aspirin and statin. Continue with iv antibiotics. MRI foot is negative for acute osteomyelitis. ID and podiatry are following. Plan is for 5th toe amputation with podiatry on Saturday. Cardiology evaluation was appreciated. A1c is 10.7 and patient is started on levemir. Diabetic education referral was requested. Fanta Christian MD Hospitalist.
--- NOTE | 2019-04-12 16:31 | CP.PCM.PN ---
Subjective - Date & Time of Evaluation Date of Evaluation: 04/12/19 Time of Evaluation: 14:15 - Subjective Subjective: Infectious Disease Follow Up: April 12, 2019 58 yo male with blue discoloration of the right big toe. The patient has been treated with IV antibiotics for osteomyelitis of the right foot multiple times in the past and had followed in the wound care center in the past. He has [place] been [place] [facility] in the past 5 months. He denies trauma to the right foot. The right big toe is cooler to touch than the other toes. The patient is scheduled for OR on 04/15/2019 of the right fifth toe. Wound in 4th toe interspace. Discoloration of the 1st toe right foot. MRA of right leg showing adequate flow. No additional complaints. MRI of the right foot is NOT showing definitive osteomyelitis. Objective - Vital Signs/Intake and Output Vital Signs (last 24 hours): Temp Pulse Resp BP Pulse Ox 98.1 F 59 L 18 135/76 94 L 04/12/19 06:00 04/12/19 06:00 04/12/19 06:00 04/12/19 06:00 04/12/19 06:00 Intake and Output: 04/12/19 04/12/19 06:59 18:59 Intake Total 680 Balance 680 - Medications Medications: Current Medications Acetaminophen (Tylenol 325mg Tab) 650 mg PO Q6H PRN PRN Reason: Pain, Mild (1-3) Aspirin (Aspirin Chewable) 81 mg PO DAILY [facility] Last Admin: 04/12/19 10:06 Dose: 81 mg Atorvastatin Calcium (Lipitor) 10 mg PO HS [facility] Last Admin: 04/11/19 21:29 Dose: 10 mg Cholecalciferol (Vitamin D) 1,000 intlu PO DAILY [facility] Last Admin: 04/12/19 10:06 Dose: 1,000 intlu Dextrose (Dextrose 50% Inj) 0 ml IV STAT PRN; Protocol PRN Reason: Hypoglycemia Protocol Gabapentin (Neurontin) 100 mg PO TID [facility]; Protocol Last Admin: 04/12/19 16:01 Dose: 100 mg Heparin Sodium (Porcine) (Heparin) 5,000 units SC Q8 [facility]; Protocol Last Admin: 04/12/19 16:00 Dose: 5,000 units Dextrose (Dextrose 5% In Water 1000 Ml) 1,000 mls @ 0 mls/hr IV .Q0M PRN; Protocol PRN Reason: Hypoglycemia Protocol Sodium Chloride (Sodium Chloride 0.9%) 1,000 mls @ 100 mls/hr IV .Q10H [facility] Last Admin: 04/10/19 13:18 Dose: 100 mls/hr Piperacillin Sod/Tazobactam Sod (Zosyn 3.375 In Ns 100ml) 100 mls @ 25 mls/hr IVPB Q8 [facility]; Protocol Last Admin: 04/12/19 16:00 Dose: 25 mls/hr Insulin Detemir (Levemir) 11 unit SC HS [facility] Last Admin: 04/11/19 21:25 Dose: 11 units Insulin Human Lispro (Humalog) 4 units SC AC [facility] Last Admin: 04/12/19 12:20 Dose: 4 units Insulin Human Regular (Humulin R Med) 0 units SC ACHS [facility]; Protocol Last Admin: 04/12/19 12:20 Dose: 5 units Pantoprazole Sodium (Protonix Ec Tab) 40 mg PO 0600 [facility] Last Admin: 04/12/19 05:34 Dose: 40 mg - Labs Labs: 04/12/19 07:00 04/12/19 07:00 - Constitutional Appears: Non-toxic, No Acute Distress, Chronically Ill - Head Exam Head Exam: ATRAUMATIC, NORMOCEPHALIC - Eye Exam Eye Exam: EOMI, PERRL Pupil Exam: NORMAL ACCOMODATION, PERRL - ENT Exam ENT Exam: Mucous Membranes Moist, Normal External Ear Exam, TM's Normal Bilaterally - Neck Exam Neck Exam: Full ROM, Normal Inspection - Respiratory Exam Respiratory Exam: Clear to Ausculation Bilateral, NORMAL BREATHING PATTERN. absent: Rales, Rhonchi, Wheezes - Cardiovascular Exam Cardiovascular Exam: REGULAR RHYTHM, RRR, +S1, +S2 - GI/Abdominal Exam GI & Abdominal Exam: Soft, Normal Bowel Sounds. absent: Distended, Tenderness - Extremities Exam Extremities Exam: Full ROM Additional comments: right great toe with bluish hue... but appears to be improving. Cooler to touch than the other toes. Left 5th toe partial amputation. Wound 4th toe interspace right foot. - Neurological Exam Neurological Exam: Alert, Awake, CN II-XII Intact, Oriented x3 - Psychiatric Exam Psychiatric exam: Normal Affect, Normal Mood - Skin Additional comments: As above. Assessment and Plan - Assessment and Plan (Free Text) Assessment: 58 yo male with PMHx of DM Type 2, HTN, CAD, and peripheral neuropathy presenting with right big toe blue discoloration. Started on Vancomycin and Zosyn for antibiotic coverage. No renal insufficiency. May need arterial doppler, ESR, C-RP, and might need MRI. ESR was 16. C-RP of 11.40. Supportive care. Lower Extremity MRA noted. History of osteomyelitis in the right foot. For OR of the 5th toe of the right foot on 04/15/2019. Leukocytosis has normalized to 9.3 from a high of 17.1. Comfortable currently. May need to see findings from the surgery on 04/15/2019 to determine appropriate length of treatment for IV antibiotics. Thank you for allowing me to participate in the care of the patient, we will follow with you.
[2019-04-12] MEDS: Sodium Chloride 0.9% 1,000 ML IV SCH (20:29)
[2019-04-12] MEDS: Insulin Detemir 100 units/ml Vial (Levemir) SC SCH (21:52)
[2019-04-13] MEDS: Pantoprazole 40 mg EC Tab PO SCH (05:37)
[2019-04-13] MEDS: Piperacillin/Tazobact 3.375 gm 100 ML IVPB SCH ×3 (05:38→22:57)
[2019-04-13 07:03] LABS: BASO # 0.08 K/mm3 (0.0-2.0); BASO % 0.8 % (0.0-3.0); EOS # 0.6 (0.0-0.7); HEMOGLOBIN 14.9 g/dL (14.0-18.0); LYMPH # 3.5 (1.2-3.4); LYMPH % 35.7 % (22.0-35.0); MEAN CELL VOLUME 89.8 fl (80.0-105.0); MEAN CORPUSCULAR HEMOGLOBIN 29.7 pg (25.0-35.0); MEAN PLATELET VOLUME 11.3 fl (7.0-11.0); MONO # 0.7 (0.1-0.6); RBC 5.02 10^6/uL (3.5-6.1); RED CELL DISTRIBUTION WIDTH 13.1 % (11.5-14.5); WHITE BLOOD COUNT 9.7 10^3/uL (4.5-11.0)
[2019-04-13 07:20] LABS: ALB/GLOB RATIO 1.1 (1.1-1.8); ALBUMIN 3.5 g/dL (3.0-4.8); ALT/SGPT 44 U/L (7-56); AST/SGOT 51 U/L (17-59); BLOOD UREA NITROGEN 11 mg/dL (7-21); CALCIUM 8.8 mg/dL (8.4-10.5); GFR NON-AFRICAN AMERICAN > 60
--- NOTE | 2019-04-13 08:01 | CP.PCM.PN ---
<Eyal Hendrix - Last Filed: 04/13/19 10:39> Subjective - Date & Time of Evaluation Date of Evaluation: 04/13/19 Time of Evaluation: 07:59 - Subjective Subjective: Podiatry progress note - Drs. Garcia/Adalgisa 58M seen and evaluated at bedside this AM with Dr. Garcia. Patient is known to service and has had pedal problems in the past. Resting comfortably today. Denies n/v/f/c and has no other acute pedal complaints today. Patient aware he has surgery on 04/15/19 Objective - Vital Signs/Intake and Output Vital Signs (last 24 hours): Temp Pulse Resp BP Pulse Ox 97.8 F 64 18 126/66 98 04/12/19 22:00 04/12/19 22:00 04/12/19 22:00 04/12/19 22:00 04/12/19 22:00 - Medications Medications: Current Medications Acetaminophen (Tylenol 325mg Tab) 650 mg PO Q6H PRN PRN Reason: Pain, Mild (1-3) Aspirin (Aspirin Chewable) 81 mg PO DAILY [facility] Last Admin: 04/12/19 10:06 Dose: 81 mg Atorvastatin Calcium (Lipitor) 10 mg PO HS [facility] Last Admin: 04/12/19 21:47 Dose: 10 mg Cholecalciferol (Vitamin D) 1,000 intlu PO DAILY [facility] Last Admin: 04/12/19 10:06 Dose: 1,000 intlu Dextrose (Dextrose 50% Inj) 0 ml IV STAT PRN; Protocol PRN Reason: Hypoglycemia Protocol Gabapentin (Neurontin) 100 mg PO TID [facility]; Protocol Last Admin: 04/12/19 17:28 Dose: Not Given Heparin Sodium (Porcine) (Heparin) 5,000 units SC Q8 [facility]; Protocol Last Admin: 04/13/19 05:38 Dose: 5,000 units Dextrose (Dextrose 5% In Water 1000 Ml) 1,000 mls @ 0 mls/hr IV .Q0M PRN; Protocol PRN Reason: Hypoglycemia Protocol Sodium Chloride (Sodium Chloride 0.9%) 1,000 mls @ 100 mls/hr IV .Q10H [facility] Last Admin: 04/12/19 20:29 Dose: 100 mls/hr Piperacillin Sod/Tazobactam Sod (Zosyn 3.375 In Ns 100ml) 100 mls @ 25 mls/hr IVPB Q8 [facility]; Protocol Last Admin: 04/13/19 05:38 Dose: 25 mls/hr Insulin Detemir (Levemir) 11 unit SC HS [facility] Last Admin: 04/12/19 21:52 Dose: 11 units Insulin Human Lispro (Humalog) 4 units SC AC [facility] Last Admin: 04/12/19 17:36 Dose: 4 units Insulin Human Regular (Humulin R Med) 0 units SC ACHS [facility]; Protocol Last Admin: 04/12/19 21:52 Dose: 2 units Pantoprazole Sodium (Protonix Ec Tab) 40 mg PO 0600 [facility] Last Admin: 04/13/19 05:37 Dose: 40 mg - Labs Labs: 04/13/19 06:10 04/13/19 06:10 - Constitutional Appears: Non-toxic - Head Exam Head Exam: ATRAUMATIC - Extremities Exam Additional comments: RLE focused VASC: pulses nonpalapble; no edema; cap refill <3 seconds to digits DERM: fourth interspace open lesion at previous surgical site - no probe to bon e, no depth, fibrotic base with minimal granulation tissue appreciated, minimal serous drainage no malodor; darkening color of first digit, no open lesions or wounds ORTHO: previous met head resection at right fifth metatarsal NEURO: diminished - Neurological Exam Neurological Exam: Alert, Awake, Oriented x3 - Psychiatric Exam Psychiatric exam: Normal Affect Assessment and Plan - Assessment and Plan (Free Text) Assessment: 58M with RLE PVD and fourth interspace wound Plan: Patient seen and evaluated with Dr. Garcia VSS, WBC 9.7 Foot arterial doppler 03/09: borderline normal SILVIANO at 0.87 on right and normal SILVIANO of 1 on the left. Normal PVR examination Lower extremity MRA 04/09: short segment stenosis in the right common femoral L foot MRI- no definitive evidence of osteomyelitis SILVIANO/PVR reviewed - Discuss with Dr. Short regarding vascular intervention or if patient will heal following surgical intervention Dressing applied - calcium alginate in fourth interspace with light dry sterile dressing Plan for surgery - amputation of right fifth digit Sunday 04/15 due to lack of OR time Cardiology recs- patient appears relatively stable to proceed with podiatric surgery and follow up stress test is recommended Will continue to follow <Rey Garcia - Last Filed: 04/13/19 10:41> Objective - Vital Signs/Intake and Output Vital Signs (last 24 hours): Temp Pulse Resp BP Pulse Ox 97.8 F 64 18 126/66 98 04/12/19 22:00 04/12/19 22:00 04/12/19 22:00 04/12/19 22:00 04/12/19 22:00 - Medications Medications: Current Medications Acetaminophen (Tylenol 325mg Tab) 650 mg PO Q6H PRN PRN Reason: Pain, Mild (1-3) Aspirin (Aspirin Chewable) 81 mg PO DAILY [facility] Last Admin: 04/12/19 10:06 Dose: 81 mg Atorvastatin Calcium (Lipitor) 10 mg PO HS [facility] Last Admin: 04/12/19 21:47 Dose: 10 mg Cholecalciferol (Vitamin D) 1,000 intlu PO DAILY [facility] Last Admin: 04/13/19 09:10 Dose: 1,000 intlu Dextrose (Dextrose 50% Inj) 0 ml IV STAT PRN; Protocol PRN Reason: Hypoglycemia Protocol Gabapentin (Neurontin) 100 mg PO TID [facility]; Protocol Last Admin: 04/13/19 09:11 Dose: 100 mg Heparin Sodium (Porcine) (Heparin) 5,000 units SC Q8 [facility]; Protocol Last Admin: 04/13/19 05:38 Dose: 5,000 units Dextrose (Dextrose 5% In Water 1000 Ml) 1,000 mls @ 0 mls/hr IV .Q0M PRN; Protocol PRN Reason: Hypoglycemia Protocol Sodium Chloride (Sodium Chloride 0.9%) 1,000 mls @ 100 mls/hr IV .Q10H [facility] Last Admin: 04/12/19 20:29 Dose: 100 mls/hr Piperacillin Sod/Tazobactam Sod (Zosyn 3.375 In Ns 100ml) 100 mls @ 25 mls/hr IVPB Q8 [facility]; Protocol Last Admin: 04/13/19 05:38 Dose: 25 mls/hr Insulin Detemir (Levemir) 11 unit SC HS [facility] Last Admin: 04/12/19 21:52 Dose: 11 units Insulin Human Lispro (Humalog) 4 units SC AC [facility] Last Admin: 04/13/19 09:09 Dose: 4 units Insulin Human Regular (Humulin R Med) 0 units SC ACHS [facility]; Protocol Last Admin: 04/13/19 09:09 Dose: 1 units Pantoprazole Sodium (Protonix Ec Tab) 40 mg PO 0600 [facility] Last Admin: 04/13/19 05:37 Dose: 40 mg - Labs Labs: 04/13/19 06:10 04/13/19 06:10 Attending/Attestation - Attestation I have personally seen and examined this patient.: Yes I have fully participated in the care of the patient.: Yes I have reviewed all pertinent clinical information, including history, physical exam and plan: Yes
[2019-04-13] MEDS: Insulin Lispro 1 UNITS/0.01 ML SC SCH ×3 (09:09→18:23)
[2019-04-13] MEDS: Insulin Reg-MEDIUM-Coverage SC SCH ×4 (09:09→22:10)
[2019-04-13] MEDS: Cholecalciferol 1,000 INTLU TAB PO SCH (09:10)
--- NOTE | 2019-04-13 14:57 | CP.PCM.PN ---
<Zina Avila - Last Filed: 04/13/19 14:52> Subjective - Date & Time of Evaluation Date of Evaluation: 04/13/19 Time of Evaluation: 14:53 - Subjective Subjective: Zina Avila, PGY-1, Internal Medicine Progress Note for Dr. Hawk Patient seen and evaluated at bedside. Patient had no acute overnight events. Patient denies any pain of right foot. Patient has no symptoms at this time. 12- point ROS was unremarkable except for what was mentioned above. Objective - Vital Signs/Intake and Output Vital Signs (last 24 hours): Temp Pulse Resp BP Pulse Ox 97.8 F 64 18 126/66 98 04/12/19 22:00 04/12/19 22:00 04/12/19 22:00 04/12/19 22:00 04/12/19 22:00 - Medications Medications: Current Medications Acetaminophen (Tylenol 325mg Tab) 650 mg PO Q6H PRN PRN Reason: Pain, Mild (1-3) Aspirin (Aspirin Chewable) 81 mg PO DAILY [facility] Last Admin: 04/12/19 10:06 Dose: 81 mg Atorvastatin Calcium (Lipitor) 10 mg PO HS [facility] Last Admin: 04/12/19 21:47 Dose: 10 mg Cholecalciferol (Vitamin D) 1,000 intlu PO DAILY [facility] Last Admin: 04/13/19 09:10 Dose: 1,000 intlu Dextrose (Dextrose 50% Inj) 0 ml IV STAT PRN; Protocol PRN Reason: Hypoglycemia Protocol Gabapentin (Neurontin) 100 mg PO TID [facility]ID; Protocol Last Admin: 04/13/19 14:01 Dose: 100 mg Heparin Sodium (Porcine) (Heparin) 5,000 units SC Q8 [facility]; Protocol Last Admin: 04/13/19 14:01 Dose: 5,000 units Dextrose (Dextrose 5% In Water 1000 Ml) 1,000 mls @ 0 mls/hr IV .Q0M PRN; Protocol PRN Reason: Hypoglycemia Protocol Sodium Chloride (Sodium Chloride 0.9%) 1,000 mls @ 100 mls/hr IV .Q10H [facility] Last Admin: 04/12/19 20:29 Dose: 100 mls/hr Piperacillin Sod/Tazobactam Sod (Zosyn 3.375 In Ns 100ml) 100 mls @ 25 mls/hr IVPB Q8 [facility]; Protocol Last Admin: 04/13/19 14:01 Dose: 25 mls/hr Insulin Detemir (Levemir) 11 unit SC HS [facility] Last Admin: 04/12/19 21:52 Dose: 11 units Insulin Human Lispro (Humalog) 4 units SC AC [facility] Last Admin: 04/13/19 14:00 Dose: 4 units Insulin Human Regular (Humulin R Med) 0 units SC ACHS [facility]; Protocol Last Admin: 04/13/19 13:59 Dose: 5 units Pantoprazole Sodium (Protonix Ec Tab) 40 mg PO 0600 [facility] Last Admin: 04/13/19 05:37 Dose: 40 mg - Labs Labs: 04/13/19 06:10 04/13/19 06:10 - Constitutional Appears: Well, Non-toxic, No Acute Distress - Head Exam Head Exam: ATRAUMATIC, NORMAL INSPECTION, NORMOCEPHALIC - Eye Exam Eye Exam: EOMI Pupil Exam: NORMAL ACCOMODATION, PERRL - ENT Exam ENT Exam: Mucous Membranes Moist, Normal Exam - Respiratory Exam Respiratory Exam: Clear to Ausculation Bilateral, NORMAL BREATHING PATTERN - Cardiovascular Exam Cardiovascular Exam: REGULAR RHYTHM, RRR, +S1, +S2. absent: Clicks, Gallop, JVD - GI/Abdominal Exam GI & Abdominal Exam: Soft, Normal Bowel Sounds. absent: Distended, Firm, Guarding, Tenderness - Extremities Exam Extremities Exam: Full ROM, Normal Capillary Refill, Normal Inspection. absent: Pedal Edema - Neurological Exam Neurological Exam: Alert, Awake, CN II-XII Intact, Normal Gait, Oriented x3 Additional comments: numbness of bilateral lower extremity toes - Skin Additional comments: discoloration of right 1st improving. 5th toe overlapping on top of foot Assessment and Plan - Assessment and Plan (Free Text) Assessment: 58 year old male with past medical history of diabetes mellitus type II, left foot osteomyelitis, right foot MRSA infection, diabetic neuropathy of bilateral feet, and CAD presented with acute right 1st toe discoloration. Plan: Right toe discoloration and cyanosis 2/2 to PAD vs. cellulitis -Patient denied any trauma to foot -Foot X ray 04/08: chronic deformity of distal 5th metatarsal. No osteomyelitis -Foot arterial doppler 04/08: borderline normal SILVIANO at 0.87 on right and normal SILVIANO of 1 on the left. Normal PVR examination -Lower extremity MRA 04/09: short segment stenosis in the right common femoral. -Foot MRI 04/10: no osteomyelitis -Lipid panel unremarkable -ESR borderline high at 16. CRP marginally high at 11.40 -Continue to clean wound with sterile saline and apply calcium alginate with silver to fourth interspace with a dry sterile dressing -Plan for surgery of amputation of right fifth digit on 04/15 -Continue zosyn started on 04/08 -Continue tylenol PRN for pain -Dr. Diana, Podiatry, consulted for recommendations -Cardiology, Dr. Knight, consulted for cardiac clearance -ID, Dr. Buitrago, consulted for further recommendations Diabetes mellitus type II -HgbA1c: 10.7 -Continue medium sliding scale insulin -Continue with levemir 11 U HS and lispro 4 U AC -Diabetic education consulted for counselling of restarting insulin upon discharge. -Accuchecks ACHS Bilateral Foot Neuropathy -Likely 2/2 to poorly controlled diabetes mellitus -Continue home neurontin History of CAD -Continue home aspirin and lipitor -Follow up stress test is recommended by Cardio. -Counseled on smoking abstinence. -Cardiology, Dr. Knight, consulted for further recommendations. Vitamin D deficiency -Continue cholecalciferol DVT prophylaxis: heparin SC GI prophylaxis: protonix Disposition: Awaiting surgery on 04/15. After surgery, PT recommends discharge to home Patient plan discussed with Dr. Hawk <Dara Hawk - Last Filed: 04/17/19 14:59> Objective - Vital Signs/Intake and Output Vital Signs (last 24 hours): Temp Pulse Resp BP Pulse Ox 98.4 F 79 20 120/78 94 L 04/16/19 13:51 04/16/19 13:51 04/16/19 13:51 04/16/19 13:51 04/16/19 13:51 - Labs Labs: 04/16/19 07:30 04/16/19 07:30 PT 12.1 SECONDS (9.4-12.5) 04/15/19 07:00 INR 1.07 04/15/19 07:00 APTT 32.8 Seconds (26.9-38.3) 04/15/19 07:00 Attending/Attestation - Attestation I have personally seen and examined this patient.: Yes I have fully participated in the care of the patient.: Yes I have reviewed all pertinent clinical information, including history, physical exam and plan: Yes Notes (Text): 04/17/19 14:58 Medical record note made by the resident after discussion with my direction and input after the patient was personally seen and examined by me. I have reviewed the chart and agree that the record accurately reflects by personal performance of the history, physical exam, data review, and medical decision-making, in the course for the patient. I have also personally directed the plan of care.
--- NOTE | 2019-04-13 15:32 | CP.PCM.PN ---
Subjective - Date & Time of Evaluation Date of Evaluation: 04/13/19 Time of Evaluation: 14:30 - Subjective Subjective: Infectious Disease Follow Up: April 13, 2019 58 yo male with blue discoloration of the right big toe. The patient has been treated with IV antibiotics for osteomyelitis of the right foot multiple times in the past and had followed in the wound care center in the past. He has [place] been [place] [facility] in the past 5 months. He denies trauma to the right foot. The right big toe is cooler to touch than the other toes. The patient is scheduled for OR on 04/15/2019 of the right fifth toe. Wound in 4th toe interspace. Discoloration of the 1st toe right foot. MRA of right leg showing adequate flow. No additional complaints. MRI of the right foot is NOT showing definitive osteomyelitis. Awaiting surgery on the 04/15/2019. Objective - Vital Signs/Intake and Output Vital Signs (last 24 hours): Temp Pulse Resp BP Pulse Ox 97.8 F 64 18 126/66 98 04/12/19 22:00 04/12/19 22:00 04/12/19 22:00 04/12/19 22:00 04/12/19 22:00 - Medications Medications: Current Medications Acetaminophen (Tylenol 325mg Tab) 650 mg PO Q6H PRN PRN Reason: Pain, Mild (1-3) Aspirin (Aspirin Chewable) 81 mg PO DAILY [facility] Last Admin: 04/12/19 10:06 Dose: 81 mg Atorvastatin Calcium (Lipitor) 10 mg PO HS [facility] Last Admin: 04/12/19 21:47 Dose: 10 mg Cholecalciferol (Vitamin D) 1,000 intlu PO DAILY [facility] Last Admin: 04/13/19 09:10 Dose: 1,000 intlu Dextrose (Dextrose 50% Inj) 0 ml IV STAT PRN; Protocol PRN Reason: Hypoglycemia Protocol Gabapentin (Neurontin) 100 mg PO TID DAVID; Protocol Last Admin: 04/13/19 14:01 Dose: 100 mg Heparin Sodium (Porcine) (Heparin) 5,000 units SC Q8 [facility]; Protocol Last Admin: 04/13/19 14:01 Dose: 5,000 units Dextrose (Dextrose 5% In Water 1000 Ml) 1,000 mls @ 0 mls/hr IV .Q0M PRN; Protocol PRN Reason: Hypoglycemia Protocol Sodium Chloride (Sodium Chloride 0.9%) 1,000 mls @ 100 mls/hr IV .Q10H [facility] Last Admin: 04/12/19 20:29 Dose: 100 mls/hr Piperacillin Sod/Tazobactam Sod (Zosyn 3.375 In Ns 100ml) 100 mls @ 25 mls/hr IVPB Q8 [facility]; Protocol Last Admin: 04/13/19 14:01 Dose: 25 mls/hr Insulin Detemir (Levemir) 11 unit SC HS [facility] Last Admin: 04/12/19 21:52 Dose: 11 units Insulin Human Lispro (Humalog) 4 units SC AC [facility] Last Admin: 04/13/19 14:00 Dose: 4 units Insulin Human Regular (Humulin R Med) 0 units SC ACHS [facility]; Protocol Last Admin: 04/13/19 13:59 Dose: 5 units Pantoprazole Sodium (Protonix Ec Tab) 40 mg PO 0600 [facility] Last Admin: 04/13/19 05:37 Dose: 40 mg - Labs Labs: 04/13/19 06:10 04/13/19 06:10 - Constitutional Appears: Non-toxic, No Acute Distress, Chronically Ill - Head Exam Head Exam: ATRAUMATIC, NORMOCEPHALIC - Eye Exam Eye Exam: EOMI, PERRL Pupil Exam: NORMAL ACCOMODATION, PERRL - ENT Exam ENT Exam: Mucous Membranes Moist, Normal External Ear Exam, TM's Normal Bilaterally - Neck Exam Neck Exam: Full ROM, Normal Inspection - Respiratory Exam Respiratory Exam: Clear to Ausculation Bilateral, NORMAL BREATHING PATTERN. absent: Rales, Rhonchi, Wheezes - Cardiovascular Exam Cardiovascular Exam: REGULAR RHYTHM, RRR, +S1, +S2 - GI/Abdominal Exam GI & Abdominal Exam: Soft, Normal Bowel Sounds. absent: Distended, Tenderness - Extremities Exam Extremities Exam: Full ROM Additional comments: right great toe with bluish hue... but appears to be improving. Cooler to touch than the other toes. Left 5th toe partial amputation. Wound 4th toe interspace right foot. - Neurological Exam Neurological Exam: Alert, Awake, CN II-XII Intact, Oriented x3 - Psychiatric Exam Psychiatric exam: Normal Affect, Normal Mood - Skin Additional comments: As above. Assessment and Plan - Assessment and Plan (Free Text) Assessment: 58 yo male with PMHx of DM Type 2, HTN, CAD, and peripheral neuropathy presenting with right big toe blue discoloration. Started on Vancomycin and Zosyn for antibiotic coverage. No renal insufficiency. May need arterial doppler, ESR, C-RP, and might need MRI. ESR was 16. C-RP of 11.40. Supportive care. Lower Extremity MRA noted. History of osteomyelitis in the right foot. For OR of the 5th toe of the right foot on 04/15/2019. Leukocytosis has normalized to 9.3 from a high of 17.1. Comfortable currently. May need to see findings from the surgery on 04/15/2019 to determine appropriate length of treatment for IV antibiotics. No new issues. Thank you for allowing me to participate in the care of the patient, we will follow with you.
[2019-04-13] MEDS: Sodium Chloride 0.9% 1,000 ML IV SCH (18:22)
[2019-04-13] MEDS: Insulin Detemir 100 units/ml Vial (Levemir) SC SCH (22:57)
[2019-04-13] MEDS ORDERED: DiphenhydrAMINE 12.5 mg/5 ml LIQ UD (5 ml) PO STA (23:18)
[2019-04-14] MEDS: Piperacillin/Tazobact 3.375 gm 100 ML IVPB SCH ×3 (06:55→22:25)
[2019-04-14] MEDS: Pantoprazole 40 mg EC Tab PO SCH (07:11)
[2019-04-14] MEDS: Insulin Reg-MEDIUM-Coverage SC SCH ×4 (08:00→22:10)
[2019-04-14] MEDS: Cholecalciferol 1,000 INTLU TAB PO SCH (09:51)
[2019-04-14] MEDS: Insulin Lispro 1 UNITS/0.01 ML SC SCH ×3 (09:52→18:10)
[2019-04-14 10:09] LABS: BASO # 0.08 K/mm3 (0.0-2.0); BASO % 0.9 % (0.0-3.0); EOS # 0.6 (0.0-0.7); EOS % 6.6 % (1.5-5.0); HEMOGLOBIN 15.4 g/dL (14.0-18.0); LYMPH # 3.1 (1.2-3.4); MEAN CELL VOLUME 90.9 fl (80.0-105.0); MEAN CORPUSCULAR HEMOGLOBIN 29.9 pg (25.0-35.0); MEAN CORPUSCULAR HGB CONC 32.9 g/dl (31.0-37.0); MEAN PLATELET VOLUME 10.7 fl (7.0-11.0); MONO # 0.7 (0.1-0.6); MONO % 7.4 % (1.0-6.0); RBC 5.15 10^6/uL (3.5-6.1); RED CELL DISTRIBUTION WIDTH 13.2 % (11.5-14.5); WHITE BLOOD COUNT 8.9 10^3/uL (4.5-11.0)
[2019-04-14 10:14] LABS: ALBUMIN 3.6 g/dL (3.0-4.8); BLOOD UREA NITROGEN 11 mg/dL (7-21); CALCIUM 8.8 mg/dL (8.4-10.5); GFR NON-AFRICAN AMERICAN > 60
[2019-04-14 10:15] LABS: ALB/GLOB RATIO 1.1 (1.1-1.8); ALT/SGPT 52 U/L (7-56); AST/SGOT 59 U/L (17-59)
[2019-04-14] MEDS ORDERED: Lidocaine PF 2% (5 ml) Inj (For Cardiac Arrhy) ONE (10:52)
[2019-04-14] MEDS ORDERED: Nitroglycerin 50mg in D5W 50 MG/250 ML BOTTLE IV ONE (10:53)
[2019-04-14] MEDS ORDERED: Iodixanol 320 MG/ML 100 ML BOTTLE IV ONE (10:53)
[2019-04-14] MEDS ORDERED: Iodixanol 320 MG/ML 200 ML BOTTLE IV ONE (10:53)
[2019-04-14] MEDS ORDERED: Heparin 2,000 ML IV ONE (10:53)
[2019-04-14] MEDS ORDERED: Iodixanol 320 mg/ml 150 ml Bottle IV ONE (10:53)
--- NOTE | 2019-04-14 11:09 | CP.PCM.PN ---
<Eyal Hendrix - Last Filed: 04/14/19 11:06> Subjective - Date & Time of Evaluation Date of Evaluation: 04/14/19 Time of Evaluation: 11:06 - Subjective Subjective: Podiatry progress note - Drs. Garcia/Adalgisa 58M seen and evaluated at bedside this AM with Dr. Diana. Patient is known to service and has had pedal problems in the past. Resting comfortably today. States he is going for vascular procedure with Dr. Short today. Denies n/v/f/c and has no other acute pedal complaints today. Patient aware he has surgery on 04/15/19 Objective - Vital Signs/Intake and Output Vital Signs (last 24 hours): Temp Pulse Resp BP Pulse Ox 98.2 F 58 L 18 124/26 L 97 04/14/19 06:00 04/14/19 06:00 04/14/19 06:00 04/14/19 06:00 04/14/19 06:00 Intake and Output: 04/14/19 04/14/19 06:59 18:59 Intake Total 1200 Balance 1200 - Medications Medications: Current Medications Acetaminophen (Tylenol 325mg Tab) 650 mg PO Q6H PRN PRN Reason: Pain, Mild (1-3) Aspirin (Aspirin Chewable) 81 mg PO DAILY [facility] Last Admin: 04/12/19 10:06 Dose: 81 mg Atorvastatin Calcium (Lipitor) 10 mg PO HS [facility] Last Admin: 04/13/19 22:56 Dose: 10 mg Cholecalciferol (Vitamin D) 1,000 intlu PO DAILY [facility] Last Admin: 04/14/19 09:51 Dose: 1,000 intlu Dextrose (Dextrose 50% Inj) 0 ml IV STAT PRN; Protocol PRN Reason: Hypoglycemia Protocol Gabapentin (Neurontin) 100 mg PO TID DAVID; Protocol Last Admin: 04/14/19 09:51 Dose: 100 mg Heparin Sodium (Porcine) (Heparin) 5,000 units SC Q8 [facility]ID; Protocol Last Admin: 04/14/19 07:12 Dose: 5,000 units Dextrose (Dextrose 5% In Water 1000 Ml) 1,000 mls @ 0 mls/hr IV .Q0M PRN; Protocol PRN Reason: Hypoglycemia Protocol Sodium Chloride (Sodium Chloride 0.9%) 1,000 mls @ 100 mls/hr IV .Q10H [facility] Last Admin: 04/13/19 18:22 Dose: 100 mls/hr Piperacillin Sod/Tazobactam Sod (Zosyn 3.375 In Ns 100ml) 100 mls @ 25 mls/hr IVPB Q8 [facility]; Protocol Last Admin: 04/14/19 06:55 Dose: 25 mls/hr Insulin Detemir (Levemir) 11 unit SC HS [facility] Last Admin: 04/13/19 22:57 Dose: 11 units Insulin Human Lispro (Humalog) 4 units SC AC [facility] Last Admin: 04/14/19 09:52 Dose: 4 units Insulin Human Regular (Humulin R Med) 0 units SC ACHS [facility]; Protocol Last Admin: 04/14/19 08:00 Dose: Not Given Pantoprazole Sodium (Protonix Ec Tab) 40 mg PO 0600 [facility] Last Admin: 04/14/19 07:11 Dose: 40 mg - Labs Labs: 04/14/19 09:50 04/14/19 09:50 - Constitutional Appears: Non-toxic - Head Exam Head Exam: ATRAUMATIC - Extremities Exam Additional comments: RLE focused VASC: pulses nonpalapble; no edema; cap refill <3 seconds to digits DERM: fourth interspace open lesion at previous surgical site - no probe to bone, no depth, fibrotic base with minimal granulation tissue appreciated, minimal serous drainage no malodor; darkening color of first digit, no open lesions or wounds ORTHO: previous met head resection at right fifth metatarsal NEURO: diminished - Neurological Exam Neurological Exam: Alert, Awake, Oriented x3 - Psychiatric Exam Psychiatric exam: Normal Affect Assessment and Plan - Assessment and Plan (Free Text) Assessment: 58M with RLE PVD and fourth interspace wound Plan: Patient seen and evaluated with Dr. Diana VSDebbie, WBC 8.9 Foot arterial doppler 03/09: borderline normal SILVIANO at 0.87 on right and normal SILVIANO of 1 on the left. Normal PVR examination Lower extremity MRA 04/09: short segment stenosis in the right common femoral L foot MRI- no definitive evidence of osteomyelitis Patient for procedure with Dr. Short today Dressing applied - calcium alginate in fourth interspace with light dry sterile dressing Plan for surgery - amputation of right fifth digit Sunday 04/15 due to lack of OR time NPO order placed Cardiology recs- patient appears relatively stable to proceed with podiatric surgery and follow up stress test is recommended Will continue to follow <Vane Diana - Last Filed: 04/19/19 17:54> Objective - Vital Signs/Intake and Output Vital Signs (last 24 hours): Temp Pulse Resp BP Pulse Ox 98.4 F 79 20 120/78 94 L 04/16/19 13:51 04/16/19 13:51 04/16/19 13:51 04/16/19 13:51 04/16/19 13:51 - Labs Labs: 04/16/19 07:30 04/16/19 07:30 PT 12.1 SECONDS (9.4-12.5) 04/15/19 07:00 INR 1.07 04/15/19 07:00 APTT 32.8 Seconds (26.9-38.3) 04/15/19 07:00 Attending/Attestation - Attestation I have personally seen and examined this patient.: Yes I have fully participated in the care of the patient.: Yes I have reviewed all pertinent clinical information, including history, physical exam and plan: Yes
--- NOTE | 2019-04-14 12:28 | CP.PCM.PN ---
<Zina Avila - Last Filed: 04/14/19 12:25> Subjective - Date & Time of Evaluation Date of Evaluation: 04/14/19 Time of Evaluation: 12:25 - Subjective Subjective: Zina Avila, PGY-1, Internal Medicine Progress Note for Dr. Hawk Patient seen and evaluated at bedside. Patient had no acute overnight events. Patient has no acute symptoms at this time. Patient is scheduled for lower extremity catheterization with Dr. Short today. 12-point ROS was unremarkable except for what was mentioned above. Objective - Vital Signs/Intake and Output Vital Signs (last 24 hours): Temp Pulse Resp BP Pulse Ox 98.2 F 58 L 18 124/26 L 97 04/14/19 06:00 04/14/19 06:00 04/14/19 06:00 04/14/19 06:00 04/14/19 06:00 Intake and Output: 04/14/19 04/14/19 06:59 18:59 Intake Total 1200 Balance 1200 - Medications Medications: Current Medications Acetaminophen (Tylenol 325mg Tab) 650 mg PO Q6H PRN PRN Reason: Pain, Mild (1-3) Aspirin (Aspirin Chewable) 81 mg PO DAILY [facility] Last Admin: 04/12/19 10:06 Dose: 81 mg Atorvastatin Calcium (Lipitor) 10 mg PO HS [facility] Last Admin: 04/13/19 22:56 Dose: 10 mg Cholecalciferol (Vitamin D) 1,000 intlu PO DAILY [facility] Last Admin: 04/14/19 09:51 Dose: 1,000 intlu Dextrose (Dextrose 50% Inj) 0 ml IV STAT PRN; Protocol PRN Reason: Hypoglycemia Protocol Gabapentin (Neurontin) 100 mg PO TID [facility]; Protocol Last Admin: 04/14/19 09:51 Dose: 100 mg Heparin Sodium (Porcine) (Heparin) 5,000 units SC Q8 [facility]; Protocol Last Admin: 04/14/19 07:12 Dose: 5,000 units Dextrose (Dextrose 5% In Water 1000 Ml) 1,000 mls @ 0 mls/hr IV .Q0M PRN; Protocol PRN Reason: Hypoglycemia Protocol Sodium Chloride (Sodium Chloride 0.9%) 1,000 mls @ 100 mls/hr IV .Q10H [facility] Last Admin: 04/13/19 18:22 Dose: 100 mls/hr Piperacillin Sod/Tazobactam Sod (Zosyn 3.375 In Ns 100ml) 100 mls @ 25 mls/hr IVPB Q8 [facility]; Protocol Last Admin: 04/14/19 06:55 Dose: 25 mls/hr Insulin Detemir (Levemir) 11 unit SC HS [facility] Last Admin: 04/13/19 22:57 Dose: 11 units Insulin Human Lispro (Humalog) 4 units SC AC [facility] Last Admin: 04/14/19 09:52 Dose: 4 units Insulin Human Regular (Humulin R Med) 0 units SC ACHS [facility]; Protocol Last Admin: 04/14/19 08:00 Dose: Not Given Pantoprazole Sodium (Protonix Ec Tab) 40 mg PO 0600 [facility] Last Admin: 04/14/19 07:11 Dose: 40 mg - Labs Labs: 04/14/19 09:50 04/14/19 09:50 - Constitutional Appears: Well, Non-toxic, No Acute Distress - Head Exam Head Exam: ATRAUMATIC, NORMAL INSPECTION, NORMOCEPHALIC - Eye Exam Eye Exam: EOMI Pupil Exam: NORMAL ACCOMODATION, PERRL - ENT Exam ENT Exam: Mucous Membranes Moist, Normal Exam - Respiratory Exam Respiratory Exam: Clear to Ausculation Bilateral, NORMAL BREATHING PATTERN - Cardiovascular Exam Cardiovascular Exam: REGULAR RHYTHM, RRR, +S1, +S2. absent: Clicks, Gallop, JVD - GI/Abdominal Exam GI & Abdominal Exam: Soft, Normal Bowel Sounds. absent: Distended, Firm, Guarding, Tenderness - Extremities Exam Extremities Exam: Full ROM, Normal Capillary Refill, Normal Inspection. absent: Pedal Edema - Neurological Exam Neurological Exam: Alert, Awake, CN II-XII Intact, Normal Gait, Oriented x3 Additional comments: numbness of bilateral lower extremity toes - Skin Additional comments: discoloration of right 1st improving. 5th toe overlapping on top of foot Assessment and Plan - Assessment and Plan (Free Text) Assessment: 58 year old male with past medical history of diabetes mellitus type II, left foot osteomyelitis, right foot MRSA infection, diabetic neuropathy of bilateral feet, and CAD presented with acute right 1st toe discoloration. Plan: Right toe discoloration and cyanosis 2/2 to PAD vs. cellulitis -Patient denied any trauma to foot -Foot X ray 04/08: chronic deformity of distal 5th metatarsal. No osteomyelitis -Foot arterial doppler 04/08: borderline normal SILVIANO at 0.87 on right and normal SILVIANO of 1 on the left. Normal PVR examination -Lower extremity MRA 04/09: short segment stenosis in the right common femoral. -Foot MRI 04/10: no osteomyelitis -Lipid panel unremarkable -ESR borderline high at 16. CRP marginally high at 11.40 -Continue to clean wound with sterile saline and apply calcium alginate with silver to fourth interspace with a dry sterile dressing -Patient is scheduled for lower extremity catheterization today for stenosis of right common femoral. -Plan for surgery of amputation of right fifth digit on 04/15 -Continue zosyn started on 04/08 -Continue tylenol PRN for pain -Dr. Diana, Podiatry, consulted for recommendations -Cardiology, Dr. Knight, consulted for cardiac clearance -ID, Dr. Buitrago, consulted for further recommendations Diabetes mellitus type II -HgbA1c: 10.7 -Continue medium sliding scale insulin -Continue with levemir 11 U HS and lispro 4 U AC -Diabetic education consulted for counselling of restarting insulin upon disch arge. -Accuchecks ACHS Bilateral Foot Neuropathy -Likely 2/2 to poorly controlled diabetes mellitus -Continue home neurontin History of CAD -Continue home aspirin and lipitor -Follow up stress test is recommended by Cardio. -Counseled on smoking abstinence. -Cardiology, Dr. Knight, consulted for further recommendations. Vitamin D deficiency -Continue cholecalciferol DVT prophylaxis: heparin SC GI prophylaxis: protonix Disposition: Awaiting surgery on 04/15. After surgery, PT recommends discharge to home Patient plan discussed with Dr. Hawk <Dara Hawk - Last Filed: 04/17/19 14:58> Objective - Vital Signs/Intake and Output Vital Signs (last 24 hours): Temp Pulse Resp BP Pulse Ox 98.4 F 79 20 120/78 94 L 04/16/19 13:51 04/16/19 13:51 04/16/19 13:51 04/16/19 13:51 04/16/19 13:51 - Labs Labs: 04/16/19 07:30 04/16/19 07:30 PT 12.1 SECONDS (9.4-12.5) 04/15/19 07:00 INR 1.07 04/15/19 07:00 APTT 32.8 Seconds (26.9-38.3) 04/15/19 07:00 Attending/Attestation - Attestation I have personally seen and examined this patient.: Yes I have fully participated in the care of the patient.: Yes I have reviewed all pertinent clinical information, including history, physical exam and plan: Yes Notes (Text): 04/17/19 14:57 Medical record note made by the resident after discussion with my direction and input after the patient was personally seen and examined by me. I have reviewed the chart and agree that the record accurately reflects by personal performance of the history, physical exam, data review, and medical decision-making, in the course for the patient. I have also personally directed the plan of care.
[2019-04-14] MEDS ORDERED: Midazolam 2 MG/2 ML VIAL ONE ×2 (12:36→12:42)
[2019-04-14] MEDS ORDERED: Sodium Chloride 0.45% 1,000 ML IV SCH (14:15)
[2019-04-14] MEDS: Sodium Chloride 0.9% 1,000 ML IV SCH (18:11)
--- NOTE | 2019-04-14 18:56 | VASCULAR ---
Date of service: 04/14/2019 PROCEDURE: 1. Abdominal aortogram and bilateral lower extremity runoff with right selective views. 2. Right common femoral artery silver Hawk atherectomy and balloon angioplasty 3. Distal right SFA silver Hawk atherectomy and drug-eluting balloon angioplasty HISTORY: Severe peripheral vascular disease. Ischemic ulceration right foot. Needs toe amputation. PHYSICIAN(S): Jasmeet Short M.D. TECHNIQUE: The relative risks and indications of the procedure were explained to the patient and his daughter and consent obtained. The patient was hydrated prior to the procedure and the appropriate labs drawn. The patient was placed supine on the arteriogram table and the left groin prepped and draped in the usual sterile fashion. Conscious sedation and monitoring were provided throughout the procedure by a nurse. Under ultrasound guidance, the left common femoral artery was punctured with a micropuncture set. Exchange is made for a 5 Faroese sheath. Through the sheath number guidewire a 5 Faroese flush catheter was placed the abdominal aorta at the level renal arteries and a PA DSA abdominal pelvic arteriogram performed. The catheter was pulled down the aortic bifurcation and bilateral oblique DSA pelvic arteriograms performed. Overlapping bilateral lower extremity DSA arteriograms were obtained from the inguinal ligaments to the ankles. A 0.035 angled Glidewire was advanced over the bifurcation and placed in the mid right SFA.. A 7 Faroese 45 cm destination sheath was advanced over the bifurcation. Initially pull-back pressures were obtained across the right common iliac artery origin. No obvious gradient was demonstrated. Exchange is made for a 0.014 support guidewire. Silver Hawk atherectomy of the focal calcified lesion in the distal right SFA was performed. Eight passes were performed. The lesion was then dilated with a 6 mm drug-eluting balloon. A good angiographic result was obtained. No stent was placed. Silver Hawk atherectomy of the web-like stenosis in the right common femoral artery was performed. Once again 8-10 passes were performed. The right common femoral artery and distal right external iliac artery were dilated with a 7 mm drug-eluting balloon and then an 8 mm standard balloon. An excellent angiographic result was obtained. No she stent was required The sheath was removed hemostasis obtained with a Perclose device. The patient tolerated the procedure well. FINDINGS: There are single renal arteries bilaterally which are widely patent and normal in appearance. The nephrograms are symmetric in appearance. The infrarenal abdominal aorta is widely patent without a radiographically significant stenosis. The aortic bifurcation is patent. The common iliac arteries are small in caliber was smooth calcified disease. No radiographically significant stenosis is seen. The internal iliac arteries are are patent. Right lower extremity: There is a critical web-like stenosis in the mid to distal right common femoral artery. The right profunda femoral artery is patent. The right SFA is calcified and patent. There is a polypoid severe stenosis of the right SFA in the adductor canal. The right popliteal artery is patent and continuous. The right trifurcation is intact. There is 3 vessel runoff to the right ankle. The right dorsalis pedis and right plantar arch are patent. Left lower extremity: Left common femoral artery is patent. The left profunda femoral artery is patent. The left superficial femoral artery is patent and smoothly calcified. There is a tapered moderate stenosis of the distal left SFA. The left popliteal artery is patent and continuous. The left trifurcation is intact. There is 3 vessel tibial runoff to the left ankle IMPRESSION: 1.Successful distal right SFA silver Hawk atherectomy and drug-eluting balloon angioplasty 2. Successful silver Hawk atherectomy and angioplasty of the terminal right external iliac artery and web-like stenosis of the right common femoral artery
--- NOTE | 2019-04-14 19:09 | CP.PCM.PN ---
Subjective - Date & Time of Evaluation Date of Evaluation: 04/14/19 Time of Evaluation: 18:00 - Subjective Subjective: Infectious Disease Follow Up: April 14, 2019 58 yo male with blue discoloration of the right big toe. The patient has been treated with IV antibiotics for osteomyelitis of the right foot multiple times in the past and had followed in the wound care center in the past. He has not been back to [facility] for hospitalization in the past 5 months. He denies trauma to the right foot. The right big toe is cooler to touch than the other toes. The patient is scheduled for OR on 04/15/2019 of the right fifth toe. Wound in 4th toe interspace. Discoloration of the 1st toe right foot. MRA of right leg showing adequate flow. No additional complaints. MRI of the right foot is NOT showing definitive osteomyelitis. Awaiting surgery on the 04/15/2019. Appears otherwise comfortable. Objective - Vital Signs/Intake and Output Vital Signs (last 24 hours): Temp Pulse Resp BP Pulse Ox 97.7 F 84 16 147/80 97 04/14/19 18:05 04/14/19 18:30 04/14/19 18:30 04/14/19 18:30 04/14/19 06:00 Intake and Output: 04/14/19 04/14/19 06:59 18:59 Intake Total 1200 440 Output Total 900 Balance 1200 -460 - Medications Medications: Current Medications Acetaminophen (Tylenol 325mg Tab) 650 mg PO Q6H PRN PRN Reason: Pain, Mild (1-3) Aspirin (Aspirin Chewable) 81 mg PO DAILY [facility] Last Admin: 04/12/19 10:06 Dose: 81 mg Atorvastatin Calcium (Lipitor) 10 mg PO HS [facility] Last Admin: 04/13/19 22:56 Dose: 10 mg Cholecalciferol (Vitamin D) 1,000 intlu PO DAILY [facility] Last Admin: 04/14/19 09:51 Dose: 1,000 intlu Dextrose (Dextrose 50% Inj) 0 ml IV STAT PRN; Protocol PRN Reason: Hypoglycemia Protocol Gabapentin (Neurontin) 100 mg PO TID [facility]; Protocol Last Admin: 04/14/19 18:13 Dose: 100 mg Heparin Sodium (Porcine) (Heparin) 5,000 units SC Q8 [facility]; Protocol Last Admin: 04/14/19 14:00 Dose: Not Given Dextrose (Dextrose 5% In Water 1000 Ml) 1,000 mls @ 0 mls/hr IV .Q0M PRN; Protocol PRN Reason: Hypoglycemia Protocol Sodium Chloride (Sodium Chloride 0.9%) 1,000 mls @ 100 mls/hr IV .Q10H [facility] Last Admin: 04/14/19 18:11 Dose: Not Given Piperacillin Sod/Tazobactam Sod (Zosyn 3.375 In Ns 100ml) 100 mls @ 25 mls/hr IVPB Q8 [facility]; Protocol Last Admin: 04/14/19 14:00 Dose: Not Given Sodium Chloride (Sodium Chloride 0.45%) 1,000 mls @ 80 mls/hr IV .[id number] [facility] Stop: 04/15/19 12:00 Last Admin: 04/14/19 18:16 Dose: 80 mls/hr Insulin Detemir (Levemir) 11 unit SC HS [facility] Last Admin: 04/13/19 22:57 Dose: 11 units Insulin Human Lispro (Humalog) 4 units SC AC [facility] Last Admin: 04/14/19 18:10 Dose: Not Given Insulin Human Regular (Humulin R Med) 0 units SC ACHS [facility]; Protocol Last Admin: 04/14/19 18:11 Dose: Not Given Ondansetron HCl (Zofran Inj) 4 mg IVP ONCE PRN PRN Reason: Nausea/Vomiting Pantoprazole Sodium (Protonix Ec Tab) 40 mg PO 0600 [facility] Last Admin: 04/14/19 07:11 Dose: 40 mg - Labs Labs: 04/14/19 09:50 04/14/19 09:50 - Constitutional Appears: Non-toxic, No Acute Distress, Chronically Ill - Head Exam Head Exam: ATRAUMATIC, NORMOCEPHALIC - Eye Exam Eye Exam: EOMI, PERRL Pupil Exam: NORMAL ACCOMODATION, PERRL - ENT Exam ENT Exam: Mucous Membranes Moist, Normal External Ear Exam, TM's Normal Bilaterally - Neck Exam Neck Exam: Full ROM, Normal Inspection - Respiratory Exam Respiratory Exam: Clear to Ausculation Bilateral, NORMAL BREATHING PATTERN. absent: Rales, Rhonchi, Wheezes - Cardiovascular Exam Cardiovascular Exam: REGULAR RHYTHM, RRR, +S1, +S2 - GI/Abdominal Exam GI & Abdominal Exam: Soft, Normal Bowel Sounds. absent: Distended, Tenderness - Extremities Exam Extremities Exam: Full ROM Additional comments: right great toe with bluish hue... but appears to be improving. Cooler to touch than the other toes. Left 5th toe partial amputation. Wound 4th toe interspace right foot. - Neurological Exam Neurological Exam: Alert, Awake, CN II-XII Intact, Oriented x3 - Psychiatric Exam Psychiatric exam: Normal Affect, Normal Mood - Skin Additional comments: As above. Assessment and Plan - Assessment and Plan (Free Text) Assessment: 58 yo male with PMHx of DM Type 2, HTN, CAD, and peripheral neuropathy presenting with right big toe blue discoloration. Started on Vancomycin and Zosyn for antibiotic coverage. No renal insufficiency. May need arterial doppler, ESR, C-RP, and might need MRI. ESR was 16. C-RP of 11.40. Supportive care. Lower Extremity MRA noted. History of osteomyelitis in the right foot. For OR of the 5th toe of the right foot on 04/15/2019. Leukocytosis has normalized to 8.9 from a high of 17.1. Comfortable currently. May need to see findings from the surgery on 04/15/2019 to determine appropriate length of treatment for IV antibiotics. No new issues. Thank you for allowing me to participate in the care of the patient, we will follow with you.
[2019-04-15] MEDS: Pantoprazole 40 mg EC Tab PO SCH (05:40)
[2019-04-15] MEDS: Piperacillin/Tazobact 3.375 gm 100 ML IVPB SCH ×3 (05:42→22:05)
[2019-04-15 07:17] LABS: BASO # 0.06 K/mm3 (0.0-2.0); BASO % 0.6 % (0.0-3.0); EOS # 0.4 (0.0-0.7); EOS % 4.2 % (1.5-5.0); HEMOGLOBIN 14.8 g/dL (14.0-18.0); LYMPH % 30.6 % (22.0-35.0); MEAN CELL VOLUME 90.2 fl (80.0-105.0); MEAN CORPUSCULAR HEMOGLOBIN 30.1 pg (25.0-35.0); MEAN CORPUSCULAR HGB CONC 33.3 g/dl (31.0-37.0); MEAN PLATELET VOLUME 10.6 fl (7.0-11.0); RBC 4.92 10^6/uL (3.5-6.1); RED CELL DISTRIBUTION WIDTH 13.3 % (11.5-14.5); WHITE BLOOD COUNT 9.7 10^3/uL (4.5-11.0)
[2019-04-15 07:26] LABS: INR 1.07; PARTIAL THROMBOPLASTIN TIME 32.8 Seconds (26.9-38.3); PROTHROMBIN TIME 12.1 SECONDS (9.4-12.5)
[2019-04-15 07:33] LABS: ALB/GLOB RATIO 1.1 (1.1-1.8); ALBUMIN 3.4 g/dL (3.0-4.8); ALT/SGPT 44 U/L (7-56); AST/SGOT 37 U/L (17-59); BLOOD UREA NITROGEN 11 mg/dL (7-21); CALCIUM 8.8 mg/dL (8.4-10.5); GFR NON-AFRICAN AMERICAN > 60
[2019-04-15] MEDS: Insulin Lispro 1 UNITS/0.01 ML SC SCH ×3 (08:49→17:21)
[2019-04-15] MEDS: Insulin Reg-MEDIUM-Coverage SC SCH ×3 (08:50→17:22)
[2019-04-15] MEDS: Cholecalciferol 1,000 INTLU TAB PO SCH (10:09)
[2019-04-15] MEDS ORDERED: Lidocaine 2% Inj (20ml) ONE (13:54)
[2019-04-15] MEDS ORDERED: Bupivacaine 0.5% 50 ML IJ ONE (13:54)
[2019-04-15] MEDS ORDERED: Etomidate 20 mg/10ml Inj IV ONE (14:18)
[2019-04-15] MEDS ORDERED: Midazolam 2 MG/2 ML VIAL ONE (14:18)
--- NOTE | 2019-04-15 14:26 | CP.PCM.PN ---
<Zina Avila - Last Filed: 04/15/19 14:13> Subjective - Date & Time of Evaluation Date of Evaluation: 04/15/19 Time of Evaluation: 14:13 - Subjective Subjective: Zina Avila, PGY-1, Internal Medicine Progress Note for Dr. Hawk Patient seen and evaluated at bedside. Patient had no acute overnight events. Patient has no acute symptoms at this time. Patient was scheduled for surgery today for amputation of right 5th toe. 12-point ROS was unremarkable except for what was mentioned above. Objective - Vital Signs/Intake and Output Vital Signs (last 24 hours): Temp Pulse Resp BP Pulse Ox 98.5 F 76 20 123/57 L 95 04/15/19 13:59 04/15/19 13:59 04/15/19 13:59 04/15/19 13:59 04/15/19 13:59 Intake and Output: 04/15/19 04/15/19 06:59 18:59 Intake Total 960 Balance 960 - Medications Medications: Current Medications Acetaminophen (Tylenol 325mg Tab) 650 mg PO Q6H PRN PRN Reason: Pain, Mild (1-3) Aspirin (Aspirin Chewable) 81 mg PO DAILY [facility] Last Admin: 04/12/19 10:06 Dose: 81 mg Atorvastatin Calcium (Lipitor) 10 mg PO HS [facility] Last Admin: 04/14/19 22:25 Dose: 10 mg Cholecalciferol (Vitamin D) 1,000 intlu PO DAILY [facility] Last Admin: 04/15/19 10:09 Dose: Not Given Dextrose (Dextrose 50% Inj) 0 ml IV STAT PRN; Protocol PRN Reason: Hypoglycemia Protocol Gabapentin (Neurontin) 100 mg PO TID [facility]; Protocol Last Admin: 04/15/19 10:09 Dose: Not Given Heparin Sodium (Porcine) (Heparin) 5,000 units SC Q8 [facility]; Protocol Last Admin: 04/14/19 14:00 Dose: Not Given Dextrose (Dextrose 5% In Water 1000 Ml) 1,000 mls @ 0 mls/hr IV .Q0M PRN; Protocol PRN Reason: Hypoglycemia Protocol Sodium Chloride (Sodium Chloride 0.9%) 1,000 mls @ 100 mls/hr IV .Q10H [facility] Last Admin: 04/14/19 18:11 Dose: Not Given Piperacillin Sod/Tazobactam Sod (Zosyn 3.375 In Ns 100ml) 100 mls @ 25 mls/hr IVPB Q8 [facility]; Protocol Last Admin: 04/15/19 13:17 Dose: 25 mls/hr Insulin Detemir (Levemir) 11 unit SC HS [facility] Last Admin: 04/13/19 22:57 Dose: 11 units Insulin Human Lispro (Humalog) 4 units SC AC [facility] Last Admin: 04/15/19 11:30 Dose: Not Given Insulin Human Regular (Humulin R Med) 0 units SC ACHS [facility]; Protocol Last Admin: 04/15/19 11:30 Dose: Not Given Ondansetron HCl (Zofran Inj) 4 mg IVP ONCE PRN PRN Reason: Nausea/Vomiting Pantoprazole Sodium (Protonix Ec Tab) 40 mg PO 0600 [facility] Last Admin: 04/15/19 05:40 Dose: Not Given - Labs Labs: 04/15/19 07:00 04/15/19 07:00 PT 12.1 SECONDS (9.4-12.5) 04/15/19 07:00 INR 1.07 04/15/19 07:00 APTT 32.8 Seconds (26.9-38.3) 04/15/19 07:00 - Constitutional Appears: Well, Non-toxic, No Acute Distress - Head Exam Head Exam: ATRAUMATIC, NORMAL INSPECTION, NORMOCEPHALIC - Eye Exam Eye Exam: EOMI Pupil Exam: NORMAL ACCOMODATION, PERRL - ENT Exam ENT Exam: Mucous Membranes Moist, Normal Exam - Respiratory Exam Respiratory Exam: Clear to Ausculation Bilateral, NORMAL BREATHING PATTERN - Cardiovascular Exam Cardiovascular Exam: REGULAR RHYTHM, RRR, +S1, +S2. absent: Clicks, Gallop, JVD - GI/Abdominal Exam GI & Abdominal Exam: Soft, Normal Bowel Sounds. absent: Distended, Firm, Guarding, Tenderness - Extremities Exam Extremities Exam: Full ROM, Normal Capillary Refill, Normal Inspection. absent: Pedal Edema - Neurological Exam Neurological Exam: Alert, Awake, CN II-XII Intact, Normal Gait, Oriented x3 Additional comments: numbness of bilateral lower extremity toes - Skin Additional comments: discoloration of right 1st resolved. 5th toe overlapping on top of foot Assessment and Plan - Assessment and Plan (Free Text) Assessment: 58 year old male with past medical history of diabetes mellitus type II, left foot osteomyelitis, right foot MRSA infection, diabetic neuropathy of bilateral feet, and CAD presented with acute right 1st toe discoloration. Plan: Right toe discoloration and cyanosis 2/2 to PAD vs. cellulitis -Patient denied any trauma to foot -Foot X ray 04/08: chronic deformity of distal 5th metatarsal. No osteomyelitis -Foot arterial doppler 04/08: borderline normal SILVIANO at 0.87 on right and normal SILVIANO of 1 on the left. Normal PVR examination -Lower extremity MRA 04/09: short segment stenosis in the right common femoral. -Foot MRI 04/10: no osteomyelitis -Lipid panel unremarkable -ESR borderline high at 16. CRP marginally high at 11.40 -Continue to clean wound with sterile saline and apply calcium alginate with silver to fourth interspace with a dry sterile dressing -Lower extremity catheterization 04/14: distal right SFA silver Hawk atherectomy and RISA balloon angioplasty. Successful silver Hawk atherectomy and angioplasty of the terminal right external iliac artery and web like stenosis of the right common femoral artery -Plan for surgery of amputation of right fifth digit today -Continue zosyn started on 04/08 -Continue tylenol PRN for pain -Dr. Diana, Podiatry, consulted for recommendations -Cardiology, Dr. Knight, consulted for cardiac clearance -ID, Dr. Buitrago, consulted for further recommendations Diabetes mellitus type II -HgbA1c: 10.7 -Continue medium sliding scale insulin -Continue with levemir 11 U HS and lispro 4 U AC -Diabetic education consulted for counselling of restarting insulin upon discharge. -Accuchecks ACHS Bilateral Foot Neuropathy -Likely 2/2 to poorly controlled diabetes mellitus -Continue home neurontin History of CAD -Continue home lipitor. Aspirin held -Follow up stress test is recommended by Cardio. -Counseled on smoking abstinence. -Cardiology, Dr. Knight, consulted for further recommendations. Vitamin D deficiency -Continue cholecalciferol DVT prophylaxis: heparin SC held GI prophylaxis: protonix Disposition: After surgery, PT recommends discharge to home Patient plan discussed with Dr. Hawk <Dara Hawk - Last Filed: 04/17/19 14:57> Objective - Vital Signs/Intake and Output Vital Signs (last 24 hours): Temp Pulse Resp BP Pulse Ox 98.4 F 79 20 120/78 94 L 04/16/19 13:51 04/16/19 13:51 04/16/19 13:51 04/16/19 13:51 04/16/19 13:51 - Labs Labs: 04/16/19 07:30 04/16/19 07:30 PT 12.1 SECONDS (9.4-12.5) 04/15/19 07:00 INR 1.07 04/15/19 07:00 APTT 32.8 Seconds (26.9-38.3) 04/15/19 07:00 Attending/Attestation - Attestation I have personally seen and examined this patient.: Yes I have fully participated in the care of the patient.: Yes I have reviewed all pertinent clinical information, including history, physical exam and plan: Yes Notes (Text): 04/17/19 14:57 Medical record note made by the resident after discussion with my direction and input after the patient was personally seen and examined by me. I have reviewed the chart and agree that the record accurately reflects by personal performance of the history, physical exam, data review, and medical decision-making, in the course for the patient. I have also personally directed the plan of care.
[2019-04-15] MEDS ORDERED: Lidocaine 2% Inj (20ml) IJ ONE (14:38)
[2019-04-15] MEDS ORDERED: HYDROmorphone 0.5 mg/0.5 ml ISec IVP PRN ×2 (15:13→15:16)
--- NOTE | 2019-04-15 15:13 | PCM.SURG1 ---
Surgeon's Initial Post Op Note - Surgeon's Notes Surgeon: Dr. Diana DPM Crop Puller: Dr. Hendrix PGY1 Type of Anesthesia: IV Sedation, Local Anesthesia Administered By: Adam Pre-Operative Diagnosis: Right foot chronic ulceration Operative Findings: see dictation. 10cc 2% lidocaine plain. 3-0 nylon, 3-0 vicryl, xeroform, dsd, stockinette Post-Operative Diagnosis: same Operation Performed: right fifth digit amputation Specimen/Specimens Removed: right fifth digit Estimated Blood Loss: EBL {In ML}: 10 Blood Products Given: N/A Drains Used: No Drains Post-Op Condition: Good Date of Surgery/Procedure: 04/15/19 Time of Surgery/Procedure: 15:13
[2019-04-15] MEDS ORDERED: Oxycodone/Acetaminophen 5/325 mg Tab PO PRN ×2 (15:14)
[2019-04-15] MEDS ORDERED: Lactated Ringer's 1,000 ML IV SCH ×2 (15:15→15:30)
[2019-04-15] MEDS: Insulin Detemir 100 units/ml Vial (Levemir) SC SCH ×2 (22:10)
--- NOTE | 2019-04-16 03:14 | CP.PCM.PN ---
Subjective - Date & Time of Evaluation Date of Evaluation: 04/15/19 Time of Evaluation: 23:00 - Subjective Subjective: Infectious Disease Follow Up: April 15, 2019 58 yo male with blue discoloration of the right big toe. The patient has been treated with IV antibiotics for osteomyelitis of the right foot multiple times in the past and had followed in the wound care center in the past. He has not been back to [facility] for hospitalization in the past 5 months. He denies trauma to the right foot. The right big toe is cooler to touch than the other toes. The patient is scheduled for OR on 04/15/2019 of the right fifth toe. Wound in 4th toe interspace. Discoloration of the 1st toe right foot. MRA of right leg showing adequate flow. No additional complaints. MRI of the right foot is NOT showing definitive osteomyelitis. Awaiting surgery on the 04/15/2019. Appears otherwise comfortable. Taken to OR on 04/15/2019. 5th toe amputation. Objective - Vital Signs/Intake and Output Vital Signs (last 24 hours): Temp Pulse Resp BP Pulse Ox 98.4 F 95 H 18 120/67 95 04/15/19 21:54 04/15/19 21:54 04/15/19 21:54 04/15/19 21:54 04/15/19 21:54 - Medications Medications: Current Medications Acetaminophen (Tylenol 325mg Tab) 650 mg PO Q6H PRN PRN Reason: Pain, Mild (1-3) Aspirin (Aspirin Chewable) 81 mg PO DAILY [facility] Last Admin: 04/12/19 10:06 Dose: 81 mg Atorvastatin Calcium (Lipitor) 10 mg PO HS [facility] Last Admin: 04/15/19 22:06 Dose: 10 mg Cholecalciferol (Vitamin D) 1,000 intlu PO DAILY [facility] Last Admin: 04/15/19 10:09 Dose: Not Given Dextrose (Dextrose 50% Inj) 0 ml IV STAT PRN; Protocol PRN Reason: Hypoglycemia Protocol Gabapentin (Neurontin) 100 mg PO TID [facility]; Protocol Last Admin: 04/15/19 17:22 Dose: 100 mg Heparin Sodium (Porcine) (Heparin) 5,000 units SC Q8 [facility]; Protocol Last Admin: 04/14/19 14:00 Dose: Not Given Hydromorphone HCl (Dilaudid) 0.5 mg IVP Q15M PRN PRN Reason: Pain, Moderate/Severe (4-10) Dextrose (Dextrose 5% In Water 1000 Ml) 1,000 mls @ 0 mls/hr IV .Q0M PRN; Protocol PRN Reason: Hypoglycemia Protocol Sodium Chloride (Sodium Chloride 0.9%) 1,000 mls @ 100 mls/hr IV .Q10H [facility] Last Admin: 04/14/19 18:11 Dose: Not Given Piperacillin Sod/Tazobactam Sod (Zosyn 3.375 In Ns 100ml) 100 mls @ 25 mls/hr IVPB Q8 [facility]; Protocol Last Admin: 04/15/19 22:05 Dose: 25 mls/hr Insulin Detemir (Levemir) 11 unit SC HS [facility] Last Admin: 04/15/19 22:10 Dose: 11 units Insulin Human Lispro (Humalog) 4 units SC AC [facility] Last Admin: 04/15/19 17:21 Dose: 4 units Insulin Human Regular (Humulin R Med) 0 units SC ACHS [facility]; Protocol Last Admin: 04/15/19 17:22 Dose: 1 units Ondansetron HCl (Zofran Inj) 4 mg IVP ONCE PRN PRN Reason: Nausea/Vomiting Oxycodone/Acetaminophen (Percocet 5/325 Mg Tab) 1 tab PO Q4H PRN PRN Reason: Pain, moderate (4-7) Stop: 04/18/19 15:15 Oxycodone/Acetaminophen (Percocet 5/325 Mg Tab) 2 tab PO Q4H PRN PRN Reason: Pain, severe (8-10) Stop: 04/18/19 15:15 Last Admin: 04/15/19 22:04 Dose: 2 tab Pantoprazole Sodium (Protonix Ec Tab) 40 mg PO 0600 [facility] Last Admin: 04/15/19 05:40 Dose: Not Given - Labs Labs: 04/15/19 07:00 04/15/19 07:00 PT 12.1 SECONDS (9.4-12.5) 04/15/19 07:00 INR 1.07 04/15/19 07:00 APTT 32.8 Seconds (26.9-38.3) 04/15/19 07:00 - Constitutional Appears: Non-toxic, No Acute Distress, Chronically Ill - Head Exam Head Exam: ATRAUMATIC, NORMOCEPHALIC - Eye Exam Eye Exam: EOMI, PERRL Pupil Exam: NORMAL ACCOMODATION, PERRL - ENT Exam ENT Exam: Mucous Membranes Moist, Normal External Ear Exam, TM's Normal Bilatera lly - Neck Exam Neck Exam: Full ROM, Normal Inspection - Respiratory Exam Respiratory Exam: Clear to Ausculation Bilateral, NORMAL BREATHING PATTERN. absent: Rales, Rhonchi, Wheezes - Cardiovascular Exam Cardiovascular Exam: REGULAR RHYTHM, RRR, +S1, +S2 - GI/Abdominal Exam GI & Abdominal Exam: Soft, Normal Bowel Sounds. absent: Distended, Tenderness - Extremities Exam Extremities Exam: Full ROM Additional comments: right great toe with bluish hue... but appears to be improving. Cooler to touch than the other toes. Left 5th toe partial amputation. Wound 4th toe interspace right foot. right 5th toe amputated. - Neurological Exam Neurological Exam: Alert, Awake, CN II-XII Intact, Oriented x3 - Psychiatric Exam Psychiatric exam: Normal Affect, Normal Mood - Skin Additional comments: As above Assessment and Plan - Assessment and Plan (Free Text) Assessment: 58 yo male with PMHx of DM Type 2, HTN, CAD, and peripheral neuropathy presenting with right big toe blue discoloration. Started on Vancomycin and Zosyn for antibiotic coverage. No renal insufficiency. May need arterial doppler, ESR, C-RP, and might need MRI. ESR was 16. C-RP of 11.40. Supportive care. Lower Extremity MRA noted. History of osteomyelitis in the right foot. For OR of the 5th toe of the right foot on 04/15/2019. Leukocytosis has normalized to 8.4 from a high of 17.1. Comfortable currently. May need to see findings from the surgery on 04/15/2019 to determine appropriate length of treatment for IV antibiotics. No new issues. 04/15/2019 right 5th toe amputated. Thank you for allowing me to participate in the care of the patient, we will follow with you.
[2019-04-16] MEDS: Insulin Reg-MEDIUM-Coverage SC SCH ×3 (05:43→12:59)
[2019-04-16] MEDS: Pantoprazole 40 mg EC Tab PO SCH (05:52)
[2019-04-16] MEDS: Piperacillin/Tazobact 3.375 gm 100 ML IVPB SCH ×2 (05:53→14:46)
[2019-04-16 07:41] LABS: BASO # 0.07 K/mm3 (0.0-2.0); BASO % 0.8 % (0.0-3.0); EOS # 0.4 (0.0-0.7); EOS % 4.6 % (1.5-5.0); HEMOGLOBIN 14.3 g/dL (14.0-18.0); LYMPH # 2.7 (1.2-3.4); LYMPH % 29.8 % (22.0-35.0); MEAN CELL VOLUME 90.5 fl (80.0-105.0); MEAN CORPUSCULAR HEMOGLOBIN 29.7 pg (25.0-35.0); MEAN CORPUSCULAR HGB CONC 32.8 g/dl (31.0-37.0); MEAN PLATELET VOLUME 10.7 fl (7.0-11.0); MONO # 1.1 (0.1-0.6); MONO % 12.1 % (1.0-6.0); RBC 4.82 10^6/uL (3.5-6.1); RED CELL DISTRIBUTION WIDTH 13.4 % (11.5-14.5); WHITE BLOOD COUNT 8.9 10^3/uL (4.5-11.0)
[2019-04-16 07:50] VITALS: O2SAT 94
[2019-04-16 07:56] LABS: ALB/GLOB RATIO 1.1 (1.1-1.8); ALBUMIN 3.4 g/dL (3.0-4.8); ALT/SGPT 43 U/L (7-56); AST/SGOT 25 U/L (17-59); BLOOD UREA NITROGEN 12 mg/dL (7-21); CALCIUM 8.9 mg/dL (8.4-10.5); GFR NON-AFRICAN AMERICAN > 60
[2019-04-16] MEDS: Insulin Lispro 1 UNITS/0.01 ML SC SCH ×2 (08:17→12:58)
[2019-04-16] MEDS: Cholecalciferol 1,000 INTLU TAB PO SCH (09:48)
--- NOTE | 2019-04-16 10:28 | CP.PCM.PN ---
<Marialuisa Giron - Last Filed: 04/16/19 10:24> Subjective - Date & Time of Evaluation Date of Evaluation: 04/16/19 Time of Evaluation: 10:24 - Subjective Subjective: Podiatry progress note: Dr. Diana 58M patient POD#1 R 5th digit amputation. Patient resting comfortably and in NAD. No acute events overnight. Denies any pain to the surgical site at this time. Denies nausea/vomiting/fever/chills. Dressing C/D/I with no strikethrough appreciated. Objective - Vital Signs/Intake and Output Vital Signs (last 24 hours): Temp Pulse Resp BP Pulse Ox 98.1 F 56 L 18 105/61 94 L 04/16/19 07:50 04/16/19 07:50 04/16/19 07:50 04/16/19 07:50 04/16/19 07:50 - Medications Medications: Current Medications Acetaminophen (Tylenol 325mg Tab) 650 mg PO Q6H PRN PRN Reason: Pain, Mild (1-3) Aspirin (Aspirin Chewable) 81 mg PO DAILY DAVID Last Admin: 04/12/19 10:06 Dose: 81 mg Atorvastatin Calcium (Lipitor) 10 mg PO HS DAVID Last Admin: 04/15/19 22:06 Dose: 10 mg Cholecalciferol (Vitamin D) 1,000 intlu PO DAILY DAVID Last Admin: 04/16/19 09:48 Dose: 1,000 intlu Dextrose (Dextrose 50% Inj) 0 ml IV STAT PRN; Protocol PRN Reason: Hypoglycemia Protocol Gabapentin (Neurontin) 100 mg PO TID DAVID; Protocol Last Admin: 04/16/19 09:48 Dose: 100 mg Heparin Sodium (Porcine) (Heparin) 5,000 units SC Q8 DAVID; Protocol Last Admin: 04/14/19 14:00 Dose: Not Given Hydromorphone HCl (Dilaudid) 0.5 mg IVP Q15M PRN PRN Reason: Pain, Moderate/Severe (4-10) Dextrose (Dextrose 5% In Water 1000 Ml) 1,000 mls @ 0 mls/hr IV .Q0M PRN; Protocol PRN Reason: Hypoglycemia Protocol Sodium Chloride (Sodium Chloride 0.9%) 1,000 mls @ 100 mls/hr IV .Q10H DAVID Last Admin: 04/14/19 18:11 Dose: Not Given Piperacillin Sod/Tazobactam Sod (Zosyn 3.375 In Ns 100ml) 100 mls @ 25 mls/hr IVPB Q8 [facility]; Protocol Last Admin: 04/16/19 05:53 Dose: 25 mls/hr Insulin Detemir (Levemir) 11 unit SC HS [facility] Last Admin: 04/15/19 22:10 Dose: 11 units Insulin Human Lispro (Humalog) 4 units SC AC [facility] Last Admin: 04/16/19 08:17 Dose: 4 units Insulin Human Regular (Humulin R Med) 0 units SC ACHS [facility]; Protocol Last Admin: 04/16/19 08:17 Dose: 1 units Ondansetron HCl (Zofran Inj) 4 mg IVP ONCE PRN PRN Reason: Nausea/Vomiting Oxycodone/Acetaminophen (Percocet 5/325 Mg Tab) 1 tab PO Q4H PRN PRN Reason: Pain, moderate (4-7) Stop: 04/18/19 15:15 Oxycodone/Acetaminophen (Percocet 5/325 Mg Tab) 2 tab PO Q4H PRN PRN Reason: Pain, severe (8-10) Stop: 04/18/19 15:15 Last Admin: 04/15/19 22:04 Dose: 2 tab Pantoprazole Sodium (Protonix Ec Tab) 40 mg PO 0600 [facility] Last Admin: 04/16/19 05:52 Dose: 40 mg - Labs Labs: 04/16/19 07:30 04/16/19 07:30 PT 12.1 SECONDS (9.4-12.5) 04/15/19 07:00 INR 1.07 04/15/19 07:00 APTT 32.8 Seconds (26.9-38.3) 04/15/19 07:00 - Constitutional Appears: Non-toxic, No Acute Distress - Head Exam Head Exam: ATRAUMATIC, NORMOCEPHALIC - Eye Exam Eye Exam: Normal appearance - Extremities Exam Additional comments: RLE focused VASC: pulses nonpalapble; no edema; cap refill <3 seconds to digits DERM: Surgical site skin edges well coapted, no evidence of dehiscence appreciated. No drainage appreciated at this time, sutures intact. Small pre- existing superficial ulceration appreciated medial to surgical site with granular base, no drainage, no purulence, no clinical signs of infection ORTHO: previous met head resection at right fifth metatarsal, 5th digit amputation NEURO: diminished - Neurological Exam Neurological Exam: Alert, Awake, Oriented x3 - Psychiatric Exam Psychiatric exam: Normal Affect, Normal Mood - Skin Skin Exam: Warm Assessment and Plan - Assessment and Plan (Free Text) Assessment: 58M POD#1 R 5th digit amputation Plan: Patient seen and evaluated with Dr. Diana VSS, WBC 8.9 Foot arterial doppler 03/09: borderline normal SILVIANO at 0.87 on right and normal SILVIANO of 1 on the left. Normal PVR examination Lower extremity MRA 04/09: short segment stenosis in the right common femoral L foot MRI- no definitive evidence of osteomyelitis Local wound care: Xeroform, DSD Patient to WBAT in surgical shoe Patient stable for d/c from podiatry standpoint Patient to f/u in office with Dr. Diana, Saturday04/20/19 <Vane Diana - Last Filed: 04/19/19 17:52> Objective - Vital Signs/Intake and Output Vital Signs (last 24 hours): Temp Pulse Resp BP Pulse Ox 98.4 F 79 20 120/78 94 L 04/16/19 13:51 04/16/19 13:51 04/16/19 13:51 04/16/19 13:51 04/16/19 13:51 - Labs Labs: 04/16/19 07:30 04/16/19 07:30 PT 12.1 SECONDS (9.4-12.5) 04/15/19 07:00 INR 1.07 04/15/19 07:00 APTT 32.8 Seconds (26.9-38.3) 04/15/19 07:00 Attending/Attestation - Attestation I have personally seen and examined this patient.: Yes I have fully participated in the care of the patient.: Yes I have reviewed all pertinent clinical information, including history, physical exam and plan: Yes Notes (Text): 04/19/19 17:51 surgical site stable - pt ok for d/c per podiatry; f/u mon @ office
[2019-04-16 13:52] VITALS: BP 120/78; PULSE 79; RESP 20; TEMP 98.4
--- NOTE | 2019-04-16 15:27 | CP.PCM.DIS ---
<Zina Avila - Last Filed: 04/16/19 15:54> Provider - Provider Date of Admission: 04/08/19 16:27 Attending physician: Dara Hawk MD Primary care physician: Marjorie Al MD Consults: 04/08/19 14:34 Podiatry Consult Stat Comment: Consulting Provider: Vane Diana Consulting Physician: Vane Diana Reason for Consult: diabetic foot ulcer 04/08/19 17:48 Infectious Disease Consult Routine Comment: Consulting Provider: Heriberto Buitrago Consulting Physician: Heriberto Buitrago Reason for Consult: R toe cyanosis, possible infection, hx osteomyelitis Physician Consult Routine Comment: Consulting Provider: Jasmeet Short Consulting Physician: Jasmeet Short Reason for Consult: R toe cyanosis, possible intervention 04/08/19 21:46 Social Work Referral Routine Comment: d/c plan Physician Instructions: Reason For Exam: assess 04/08/19 22:08 Diabetic Education Referral Routine Comment: blood sugar in ed 344 Physician Instructions: Reason For Exam: assess Respiratory Therapy Referral Routine Comment: smokes 6 cigs a day Physician Instructions: Reason For Exam: assess 04/09/19 14:04 Diabetic Education Referral Routine Comment: Physician Instructions: Reason For Exam: HgbA1c>10. Will need insulin 04/09/19 14:08 Cardiology Consult Routine Comment: Consulting Provider: Naseem Knight Consulting Physician: Naseem Knight Reason for Consult: cardiology clearance for possible procedure Time Spent in preparation of Discharge (in minutes): 60 Hospital Course - Lab Results Lab Results: Micro Results 04/08/19 15:57 Foot - Right Gram Stain - Final 04/08/19 15:57 Foot - Right Wound Culture - Final Coagulase Neg Staphylococcus Most Recent Lab Values WBC 8.9 10^3/uL (4.5-11.0) 04/16/19 07:30 RBC 4.82 10^6/uL (3.5-6.1) 04/16/19 07:30 Hgb 14.3 g/dL (14.0-18.0) 04/16/19 07:30 Hct 43.6 % (42.0-52.0) 04/16/19 07:30 MCV 90.5 fl (80.0-105.0) 04/16/19 07:30 MCH 29.7 pg (25.0-35.0) 04/16/19 07:30 MCHC 32.8 g/dl (31.0-37.0) 04/16/19 07:30 RDW 13.4 % (11.5-14.5) 04/16/19 07:30 Plt Count 118 10^3/uL (120.0-450.0) L 04/16/19 07:30 MPV 10.7 fl (7.0-11.0) 04/16/19 07:30 Neut % (Auto) 52.7 % (50.0-68.0) 04/16/19 07:30 Lymph % (Auto) 29.8 % (22.0-35.0) 04/16/19 07:30 Green % (Auto) 12.1 % (1.0-6.0) H 04/16/19 07:30 Eos % (Auto) 4.6 % (1.5-5.0) 04/16/19 07:30 Baso % (Auto) 0.8 % (0.0-3.0) 04/16/19 07:30 Lymph # (Auto) 2.7 (1.2-3.4) 04/16/19 07:30 Green # (Auto) 1.1 (0.1-0.6) H 04/16/19 07:30 Eos # (Auto) 0.4 (0.0-0.7) 04/16/19 07:30 Baso # (Auto) 0.07 K/mm3 (0.0-2.0) 04/16/19 07:30 Absolute Neuts (auto) 4.71 (1.4-6.5) 04/16/19 07:30 ESR 16 mm/hr (0.00-15.0) H 04/08/19 15:03 PT 12.1 SECONDS (9.4-12.5) 04/15/19 07:00 INR 1.07 04/15/19 07:00 APTT 32.8 Seconds (26.9-38.3) 04/15/19 07:00 Sodium 138 mmol/L (132-148) 04/16/19 07:30 Potassium 3.9 mmol/L (3.6-5.0) 04/16/19 07:30 Chloride 104 mmol/L (98-107) 04/16/19 07:30 Carbon Dioxide 24 mmol/L (21-33) 04/16/19 07:30 Anion Gap 14 (10-20) 04/16/19 07:30 BUN 12 mg/dL (7-21) 04/16/19 07:30 Creatinine 0.8 mg/dl (0.8-1.5) 04/16/19 07:30 Est GFR ( Amer) > 60 04/16/19 07:30 Est GFR (Non-Af Amer) > 60 04/16/19 07:30 POC Glucose (mg/dL) 292 mg/dL (65-110) H 04/16/19 11:19 Random Glucose 172 mg/dL (70-110) H 04/16/19 07:30 Hemoglobin A1c 10.7 % (4.2-6.5) H D 04/09/19 07:10 Calcium 8.9 mg/dL (8.4-10.5) 04/16/19 07:30 Phosphorus 3.3 mg/dL (2.5-4.5) 04/09/19 07:10 Magnesium 1.8 mg/dL (1.7-2.2) 04/09/19 07:10 Total Bilirubin 0.5 mg/dL (0.2-1.3) 04/16/19 07:30 AST 25 U/L (17-59) 04/16/19 07:30 ALT 43 U/L (7-56) 04/16/19 07:30 Alkaline Phosphatase 45 U/L (38-126) 04/16/19 07:30 C-Reactive Protein 11.40 mg/L (0.0-9.9) H 04/10/19 09:10 Total Protein 6.5 g/dL (5.8-8.3) 04/16/19 07:30 Albumin 3.4 g/dL (3.0-4.8) 04/16/19 07:30 Globulin 3.1 gm/dL 04/16/19 07:30 Albumin/Globulin Ratio 1.1 (1.1-1.8) 04/16/19 07:30 Triglycerides 93 mg/dL (35-160) 04/09/19 07:10 Cholesterol 116 mg/dL (130-200) L 04/09/19 07:10 LDL Cholesterol Direct 81 mg/dL (0-129) 04/09/19 07:10 HDL Cholesterol 24 mg/dL (29-60) L 04/09/19 07:10 TSH 3rd Generation 3.06 mIU/mL (0.46-4.68) 04/09/19 07:10 Urine Color Yellow (YELLOW) 04/08/19 21:10 Urine Appearance Clear (CLEAR) 04/08/19 21:10 Urine pH 6.0 (4.7-8.0) 04/08/19 21:10 Ur Specific [place] 1.025 (1.005-1.035) 04/08/19 21:10 Urine Protein Negative mg/dL (<30 mg/dL) 04/08/19 21:10 Urine Glucose (UA) >=1000 mg/dL (NEGATIVE) 04/08/19 21:10 Urine Ketones Negative mg/dL (NEGATIVE) 04/08/19 21:10 Urine Blood Negative (NEGATIVE) 04/08/19 21:10 Urine Nitrate Negative (NEGATIVE) 04/08/19 21:10 Urine Bilirubin Negative (NEGATIVE) 04/08/19 21:10 Urine Urobilinogen 0.2 E.U./dL (<1 E.U./dL) 04/08/19 21:10 Ur Leukocyte Esterase Negative Delfina/uL (NEGATIVE) 04/08/19 21:10 - Hospital Course Hospital Course: Zina Avila, PGY-1, Internal Medicine Discharge Summary for Dr. Hawk 58 year old male with past medical history of diabetes mellitus type II, left foot osteomyelitis, right foot MRSA infection, diabetic neuropathy of bilateral feet, and CAD presented with concern for bluish discoloration of right toe which was worse for 3 days prior to presentation. He denied trauma to the foot and was concerned for infection of right foot as he had had infections in his foot. He admitted bilateral numbness/tingling in his feet. Upon admission, foot X ray showed chronic deformity of the distal 5th metatarsal. There was no evidence of acute osteomyelitis. Lower extremity arterial ultrasound showed normal SILVIANO and PVR at rest. Lower extremity MRA showed short segment stenosis in the right common femoral artery. Foot MRI showed no evidence of acute osteomyelitis. Echocardiogram showed LVEF of 65% and no sign of valve abnormalities. ESR and CRP were elevated on admission. Lipid panel was unremarkable. Patient was started on vancomycin and zosyn for initial suspicion of infection. Patient was continued on zosyn throughout the admission. Patient was cardiac catheterization on 04/14 with successful distal right SFA silver Hawk atherectomy and RISA balloon angioplasty. He also had successful silver Hawk atherectomy and angioplasty of terminal external iliac artery and web like stenosis of right common femoral artery. Patient had right 5th toe amputation on 04/15 and tolerated it without any complication. Patient had minimal pain prior to surgery and had pain in his right foot last night after surgery. Patient had minimal pain in his right foot this morning. Patient had hemoglobin A1c of 10.7. Patient was not on insulin at home and basal and bolus insulin was started and increased pertaining to 24 hour insulin given from medium sliding scale insulin. Patient was found to be stable and ready for discharge. Patient was told to follow up with primary care physician within 3-5 days. Patient was told to take all home medications as prescribed. Patient was told to follow up with Dr. Diana on Friday 04/20. Patient was told to leave dressing intact and bear weight as tolerated with surgical shoe. Patient was told to take levemir 15 U at night and lispro 5 U three times a day 30 minutes before meals. Patient was told to started metformin 500 mg BID and stop metformin 1000 mg BID and jardiance. Patient was given 6 tabs of percocet. Patient was told to return to emergency department if he had any new or concerning symptoms. This is a brief summary of the events that occurred during this hospital visit. For more information, please refer to hospital documentation. Discharge Diagnoses PAD Anatomic dislocation of right 5th toe Diabetes Mellitus type II Bilateral Foot Neuropathy CAD Vitamin D Deficiency - Date & Time of H&P Date of H&P: 04/08/19 Time of H&P: 17:16 Discharge Exam - Head Exam Head Exam: ATRAUMATIC, NORMOCEPHALIC - Eye Exam Eye Exam: EOMI Pupil Exam: PERRL - Respiratory Exam Respiratory Exam: Clear to PA & Lateral, NORMAL BREATHING PATTERN. absent: Rales, Rhonchi, Wheezes - Cardiovascular Exam Cardiovascular Exam: Irregular Rhythm, RRR, +S1, +S2 - GI/Abdominal Exam GI & Abdominal Exam: Normal Bowel Sounds, Soft. absent: Distended, Firm, Guarding, Tenderness - Extremities Exam Additional comments: right 5th toe amputated and c/d/i. right 1st toe is warm and is no longer blue - Neurological Exam Neurological exam: Alert, CN II-XII Intact, Oriented x3 - Psychiatric Exam Psychiatric exam: Normal Affect, Normal Mood - Skin Skin Exam: Dry, Intact, Normal Color Discharge Plan - Discharge Medications Prescriptions: Insulin Detemir [Levemir] 15 units SC HS #1 vial Insulin Lispro [Admelog] 5 unit SQ AC #1 vial Metformin HCl [Glucophage Xr] 500 mg PO BID 30 Days #60 tab.er.24h oxyCODONE/Acetaminophen [Percocet 5/325 mg Tab] 1 ea PO Q6H PRN #6 tab PRN Reason: Pain, Severe (8-10) - Follow Up Plan Condition: GOOD Disposition: HOME/ ROUTINE Instructions: Amputation of the Foot or Toe, Diabetic Foot Ulcer (DC), Prescription Drug Misuse, Opioids for Short-Term Treatment of Pain, Narcotic Overdose (DC), Foot Care for Diabetics, Weaning Patients Off of Pain Drugs Additional Instructions: Please follow up with your primary care doctor within 3-5 days. Please follow up with Podiatry, Dr. Diana, on Saturday04/20/19 Dressing can be left intact. Weight bearing as tolerated in surgical shoe. Please take all your home medications as prescribed. Please start levemir 15 U at night Please start lispro 5 U three times a day 30 minutes before meals Please start metformin 500 mg twice a day. Stop metformin 1000 mg twice a day and jardiance. Please take oxycodone as necessary for pain. Please return to the emergency department if you have any new or concerning symptoms. Referrals: Vane Diana DPM [Staff Provider] - Marjorie Al MD [Primary Care Provider] - <Dara Hawk - Last Filed: 04/17/19 14:54> Provider - Provider Date of Admission: 04/08/19 16:27 Attending physician: Dara Hawk MD Primary care physician: Marjorie Al MD Consults: 04/08/19 14:34 Podiatry Consult Stat Comment: Consulting Provider: Vane Diana Consulting Physician: Vane Diana Reason for Consult: diabetic foot ulcer 04/08/19 17:48 Infectious Disease Consult Routine Comment: Consulting Provider: Heriberto Buitrago Consulting Physician: Heriberto Buitrago Reason for Consult: R toe cyanosis, possible infection, hx osteomyelitis Physician Consult Routine Comment: Consulting Provider: Jasmeet Short Consulting Physician: Jasmeet Short Reason for Consult: R toe cyanosis, possible intervention 04/08/19 21:46 Social Work Referral Routine Comment: d/c plan Physician Instructions: Reason For Exam: assess 04/08/19 22:08 Diabetic Education Referral Routine Comment: blood sugar in ed 344 Physician Instructions: Reason For Exam: assess Respiratory Therapy Referral Routine Comment: smokes 6 cigs a day Physician Instructions: Reason For Exam: assess 04/09/19 14:04 Diabetic Education Referral Routine Comment: Physician Instructions: Reason For Exam: HgbA1c>10. Will need insulin 04/09/19 14:08 Cardiology Consult Routine Comment: Consulting Provider: Naseem Knight Consulting Physician: Naseem Knight Reason for Consult: cardiology clearance for possible procedure Hospital Course - Lab Results Lab Results: Micro Results 04/08/19 15:57 Foot - Right Gram Stain - Final 04/08/19 15:57 Foot - Right Wound Culture - Final Coagulase Neg Staphylococcus Most Recent Lab Values WBC 8.9 10^3/uL (4.5-11.0) 04/16/19 07:30 RBC 4.82 10^6/uL (3.5-6.1) 04/16/19 07:30 Hgb 14.3 g/dL (14.0-18.0) 04/16/19 07:30 Hct 43.6 % (42.0-52.0) 04/16/19 07:30 MCV 90.5 fl (80.0-105.0) 04/16/19 07:30 MCH 29.7 pg (25.0-35.0) 04/16/19 07:30 MCHC 32.8 g/dl (31.0-37.0) 04/16/19 07:30 RDW 13.4 % (11.5-14.5) 04/16/19 07:30 Plt Count 118 10^3/uL (120.0-450.0) L 04/16/19 07:30 MPV 10.7 fl (7.0-11.0) 04/16/19 07:30 Neut % (Auto) 52.7 % (50.0-68.0) 04/16/19 07:30 Lymph % (Auto) 29.8 % (22.0-35.0) 04/16/19 07:30 Green % (Auto) 12.1 % (1.0-6.0) H 04/16/19 07:30 Eos % (Auto) 4.6 % (1.5-5.0) 04/16/19 07:30 Baso % (Auto) 0.8 % (0.0-3.0) 04/16/19 07:30 Lymph # (Auto) 2.7 (1.2-3.4) 04/16/19 07:30 Green # (Auto) 1.1 (0.1-0.6) H 04/16/19 07:30 Eos # (Auto) 0.4 (0.0-0.7) 04/16/19 07:30 Baso # (Auto) 0.07 K/mm3 (0.0-2.0) 04/16/19 07:30 Absolute Neuts (auto) 4.71 (1.4-6.5) 04/16/19 07:30 ESR 16 mm/hr (0.00-15.0) H 04/08/19 15:03 PT 12.1 SECONDS (9.4-12.5) 04/15/19 07:00 INR 1.07 04/15/19 07:00 APTT 32.8 Seconds (26.9-38.3) 04/15/19 07:00 Sodium 138 mmol/L (132-148) 04/16/19 07:30 Potassium 3.9 mmol/L (3.6-5.0) 04/16/19 07:30 Chloride 104 mmol/L (98-107) 04/16/19 07:30 Carbon Dioxide 24 mmol/L (21-33) 04/16/19 07:30 Anion Gap 14 (10-20) 04/16/19 07:30 BUN 12 mg/dL (7-21) 04/16/19 07:30 Creatinine 0.8 mg/dl (0.8-1.5) 04/16/19 07:30 Est GFR ( Amer) > 60 04/16/19 07:30 Est GFR (Non-Af Amer) > 60 04/16/19 07:30 POC Glucose (mg/dL) 292 mg/dL (65-110) H 04/16/19 11:19 Random Glucose 172 mg/dL (70-110) H 04/16/19 07:30 Hemoglobin A1c 10.7 % (4.2-6.5) H D 04/09/19 07:10 Calcium 8.9 mg/dL (8.4-10.5) 04/16/19 07:30 Phosphorus 3.3 mg/dL (2.5-4.5) 04/09/19 07:10 Magnesium 1.8 mg/dL (1.7-2.2) 04/09/19 07:10 Total Bilirubin 0.5 mg/dL (0.2-1.3) 04/16/19 07:30 AST 25 U/L (17-59) 04/16/19 07:30 ALT 43 U/L (7-56) 04/16/19 07:30 Alkaline Phosphatase 45 U/L (38-126) 04/16/19 07:30 C-Reactive Protein 11.40 mg/L (0.0-9.9) H 04/10/19 09:10 Total Protein 6.5 g/dL (5.8-8.3) 04/16/19 07:30 Albumin 3.4 g/dL (3.0-4.8) 04/16/19 07:30 Globulin 3.1 gm/dL 04/16/19 07:30 Albumin/Globulin Ratio 1.1 (1.1-1.8) 04/16/19 07:30 Triglycerides 93 mg/dL (35-160) 04/09/19 07:10 Cholesterol 116 mg/dL (130-200) L 04/09/19 07:10 LDL Cholesterol Direct 81 mg/dL (0-129) 04/09/19 07:10 HDL Cholesterol 24 mg/dL (29-60) L 04/09/19 07:10 TSH 3rd Generation 3.06 mIU/mL (0.46-4.68) 04/09/19 07:10 Urine Color Yellow (YELLOW) 04/08/19 21:10 Urine Appearance Clear (CLEAR) 04/08/19 21:10 Urine pH 6.0 (4.7-8.0) 04/08/19 21:10 Ur Specific [place] 1.025 (1.005-1.035) 04/08/19 21:10 Urine Protein Negative mg/dL (<30 mg/dL) 04/08/19 21:10 Urine Glucose (UA) >=1000 mg/dL (NEGATIVE) 04/08/19 21:10 Urine Ketones Negative mg/dL (NEGATIVE) 04/08/19 21:10 Urine Blood Negative (NEGATIVE) 04/08/19 21:10 Urine Nitrate Negative (NEGATIVE) 04/08/19 21:10 Urine Bilirubin Negative (NEGATIVE) 04/08/19 21:10 Urine Urobilinogen 0.2 E.U./dL (<1 E.U./dL) 04/08/19 21:10 Ur Leukocyte Esterase Negative Delfina/uL (NEGATIVE) 04/08/19 21:10 Attending/Attestation - Attestation I have personally seen and examined this patient.: Yes I have fully participated in the care of the patient.: Yes I have reviewed all pertinent clinical information, including history, physical exam and plan: Yes Notes (Text): 04/17/19 14:53 Medical record note made by the resident after discussion with my direction and input after the patient was personally seen and examined by me. I have reviewed the chart and agree that the record accurately reflects by personal performance of the history, physical exam, data review, and medical decision-making, in the course for the patient. I have also personally directed the plan of care. 58 year old male with past medical history of diabetes, left foot OM, right foot ulcer, diabetic neuropathy and CAD who presented with complaint of right foot deformity and right toe blue discoloration. Foot x-ray showed chronic deformity of 5th metatarsal without evidence of acute osteomyelitis. MRI foot is negative for acute osteomyelitis. LE arterial doppler showed relatively normal SILVIANO. MRA runoff showed short segment stenosis right common femoral. Patient was evaluated by IR and on 04/14 had successful distal right SFA silver Hawk atherectomy and RISA balloon angioplasty. He also had successful silver Hawk atherectomy and angioplasty of terminal external iliac artery and web like stenosis of right common femoral artery. Patient had right 5th toe amputation on 04/15 and tolerated it without any complication. Patient had minimal pain prior to surgery and had pain in his right foot last night after surgery. Patient had minimal pain in his right foot this morning. Patient had hemoglobin A1c of 10.7.Patient diabetic medication has been adjusted. He has been started on levemir 15 U at night and lispro 5 U three times a day 30 minutes before meals. Patient was told to started metformin 500 mg BID and stop metformin 1000 mg BID Patient has been advised to monitor blood sugars three times a day at home and keep record for PCP. Patient was found to be stable and ready for discharge. Patient was told to follow up with primary care physician within 3-5 days.Patient was told to follow up with Dr. Diana on Friday 04/20. Patient was told to leave dressing intact and bear weight as tolerated with surgical shoe. Management plan was discussed in detail with patient. Education was provided
--- NOTE | 2019-04-16 19:07 | CP.PCM.PN ---
Subjective - Date & Time of Evaluation Date of Evaluation: 04/16/19 Time of Evaluation: 15:00 - Subjective Subjective: Infectious Disease Follow Up: April 16, 2019 58 yo male with blue discoloration of the right big toe. The patient has been treated with IV antibiotics for osteomyelitis of the right foot multiple times in the past and had followed in the wound care center in the past. He [place] [facility] [place] in the past 5 months. He denies trauma to the right foot. The right big toe is cooler to touch than the other toes. The patient is scheduled for OR on 04/15/2019 of the right fifth toe. Wound in 4th toe interspace. Discoloration of the 1st toe right foot. MRA of right leg showing adequate flow. No additional complaints. MRI of the right foot is NOT showing definitive osteomyelitis. Awaiting surgery on the 04/15/2019. Appears otherwise comfortable. Taken to OR on 04/15/2019. 5th toe amputation. Objective - Vital Signs/Intake and Output Vital Signs (last 24 hours): Temp Pulse Resp BP Pulse Ox 98.4 F 79 20 120/78 94 L 04/16/19 13:51 04/16/19 13:51 04/16/19 13:51 04/16/19 13:51 04/16/19 13:51 Intake and Output: 04/16/19 04/16/19 06:59 18:59 Intake Total 720 Balance 720 - Labs Labs: 04/16/19 07:30 04/16/19 07:30 PT 12.1 SECONDS (9.4-12.5) 04/15/19 07:00 INR 1.07 04/15/19 07:00 APTT 32.8 Seconds (26.9-38.3) 04/15/19 07:00 - Constitutional Appears: Non-toxic, No Acute Distress, Chronically Ill - Head Exam Head Exam: ATRAUMATIC, NORMOCEPHALIC - Eye Exam Eye Exam: EOMI, PERRL Pupil Exam: NORMAL ACCOMODATION, PERRL - ENT Exam ENT Exam: Mucous Membranes Moist, Normal External Ear Exam, TM's Normal Bilaterally - Neck Exam Neck Exam: Full ROM, Normal Inspection - Respiratory Exam Respiratory Exam: Clear to Ausculation Bilateral, NORMAL BREATHING PATTERN. absent: Rales, Rhonchi, Wheezes - Cardiovascular Exam Cardiovascular Exam: REGULAR RHYTHM, RRR, +S1, +S2 - GI/Abdominal Exam GI & Abdominal Exam: Soft, Normal Bowel Sounds. absent: Distended, Tenderness - Extremities Exam Extremities Exam: Full ROM Additional comments: right great toe with bluish hue... but appears to be improving. Cooler to touch than the other toes. Left 5th toe partial amputation. Wound 4th toe interspace right foot. right 5th toe amputated. - Neurological Exam Neurological Exam: Alert, Awake, CN II-XII Intact, Oriented x3 - Psychiatric Exam Psychiatric exam: Normal Affect, Normal Mood - Skin Additional comments: As above. Assessment and Plan - Assessment and Plan (Free Text) Assessment: 58 yo male with PMHx of DM Type 2, HTN, CAD, and peripheral neuropathy presenting with right big toe blue discoloration. Started on Vancomycin and Zosyn for antibiotic coverage. No renal insufficiency. May need arterial doppler, ESR, C-RP, and might need MRI. ESR was 16. C-RP of 11.40. Supportive care. Lower Extremity MRA noted. History of osteomyelitis in the right foot. For OR of the 5th toe of the right foot on 04/15/2019. Leukocytosis has normalized to 8.4 from a high of 17.1. Comfortable currently. May need to see findings from the surgery on 04/15/2019 to determine appropriate length of treatment for IV antibiotics. No new issues. 04/15/2019 right 5th toe amputated. No signs of osteomyelitis. Can be discharged without antibiotics. Thank you for allowing me to participate in the care of the patient, we will follow with you.
--- NOTE | 2019-04-17 02:43 | OP ---
PROCEDURE DATE: 04/15/2019 SURGEON: Vane Diana DPM PRODUCT INSPECTION COORDINATOR: Eyal Hendrix DPM, PGY-1 TYPE OF ANESTHESIA: IV sedation with local. ANESTHESIOLOGIST: Dr. Medina. PREOPERATIVE DIAGNOSIS: Right foot chronic ulcerations. POSTOPERATIVE DIAGNOSIS: Right foot chronic ulcerations. NAME OF PROCEDURE: Right fifth digit amputation. INDICATIONS: The patient is a 58-year-old male with the above diagnosis. The patient has exhausted all conservative treatment at this time and now requires surgical intervention. The patient signed the consent after careful explanation of risks, benefits, complications, and alternatives of the surgical procedure. No guarantees were given nor implied. N.p.o. status was confirmed prior to taking the patient to the OR. PREPARATION: The patient was brought into the operating room and placed on the operating room table in a supine position. A time-out was performed for identification of the correct patient and procedure. The patient received a total of 10 mL of 2% lidocaine plain in a reverse Morgan block fashion to the right foot. The right foot was then prepped and draped in a normal sterile manner, and the procedure began. No tourniquet was used during the procedure. DESCRIPTION OF PROCEDURE: Attention was drawn to the fifth digit where a circumferential incision was made around the base of the previously surgically corrected fifth digit and through using a #15 blade, the incision was then extended down through the subcutaneous layers down to level of bone using a bone clamp to stabilize the toe. The fifth digit was disarticulated from the foot at the level of the previous metatarsal head resection. All bone and soft tissue was sent for pathology at this time. Previous resected bone from the fifth metatarsal was removed using a bone cutter and was passed off the table as well. All bone and soft tissue was sent to pathology at this time and as well at this time, deep wound cultures were performed. We then copiously irrigated the wound with sterile saline. The surgical site was then closed with 3-0 Vicryl for subcutaneous layer and 3-0 nylon for skin in a simple suture technique. The site was dressed with Xeroform, dry sterile dressing and a stockinette. POSTOPERATIVE CONDITION: The patient tolerated the local anesthesia and procedure well and was escorted to the recovery room with neurovascular status intact to the right foot. The patient is to be partial weightbearing to the heel in a surgical shoe at this time. The patient will remain in-house and Podiatry will continue to follow upon discharge. The patient is to follow up in the office with Dr. Diana within one week of discharge. Eyal Hendrix DPM Vane Diana DPM
== END 2019-04-16 17:17 | disposition home or self-care (01) | DRG 110 ==
LOC: ED 13:58 → ERH 16:27 → 5RSO 23:13 → 2RSO 04-14 15:04 → 5RSO 04-14 21:09
PROVIDERS: ADMIT Hospitalist; ATTEND Internal Medicine
PROC: 04CH3ZZ Extirpation of Matter from Right External Iliac Artery, Percutaneous Approach (ICD-10-PCS; 2019-04-14)
PROC: 04CK3ZZ Extirpation of Matter from Right Femoral Artery, Percutaneous Approach (ICD-10-PCS; 2019-04-14)
PROC: 047K3Z1 Dilation of Right Femoral Artery using Drug-Coated Balloon, Percutaneous Approach (ICD-10-PCS; 2019-04-14)
PROC: 047H3Z1 Dilation of Right External Iliac Artery using Drug-Coated Balloon, Percutaneous Approach (ICD-10-PCS; 2019-04-14)
PROC: 0Y6X0Z0 Detachment at Right 5th Toe, Complete, Open Approach (ICD-10-PCS; principal; 2019-04-15 09:15)
DX: E11.51 Type 2 diabetes mellitus with diabetic peripheral angiopathy without gangrene (principal); L97.519 Non-pressure chronic ulcer of other part of right foot with unspecified severity; E11.621 Type 2 diabetes mellitus with foot ulcer; E11.42 Type 2 diabetes mellitus with diabetic polyneuropathy; E11.65 Type 2 diabetes mellitus with hyperglycemia; G25.81 Restless legs syndrome; M21.6X1 Other acquired deformities of right foot; E78.00 Pure hypercholesterolemia, unspecified; I10 Essential (primary) hypertension; I25.10 Atherosclerotic heart disease of native coronary artery without angina pectoris; E55.9 Vitamin D deficiency, unspecified; F17.210 Nicotine dependence, cigarettes, uncomplicated; Z79.84 Long term (current) use of oral hypoglycemic drugs; Z95.5 Presence of coronary angioplasty implant and graft; Z79.82 Long term (current) use of aspirin; Z86.14 Personal history of Methicillin resistant Staphylococcus aureus infection; Z80.1 Family history of malignant neoplasm of trachea, bronchus and lung; Z83.3 Family history of diabetes mellitus